=== PATIENT | female | born 1955 | race Caucasian/White ===

== ENCOUNTER 2016-09-30 12:25 | Inpatient (IN) | payer OTHER ==
[~2016-09-30] VITALS: Ht 152.4 cm; Wt 64.0 kg
[~2016-09-30 12:25] MED LIST: AMLO5TAB2 PO; AMOX1TAB11 PO; ARIP2TAB PO; ASPI81TA2 PO; ATOR20TA58 PO; CEPH-264 PO; CITA20TA9 PO; CYCL10TA2 PO; Cefpodoxime Proxetil PO; DIAZ5TAB PO; FLEXERIL; FLUC200T PO; FLUO20CA16 PO; FLUT1DIS3 INH; HYDR12.53 PO; HYDR12.58 PO; IPRA3AMP NEB; LEVO100T5 PO; LEVO112T4; LEVO500T38 PO; PANT40TA3 PO; PRED-220 PO; PRED20TA PO; SIMV20TA3 PO; VARE1TAB21
[2016-09-30 13:25] VITALS: BP 132/61
--- NOTE | 2016-09-30 13:56 | HP ---
ADMIT DATE: CHIEF COMPLAINT: Kidney infection. HISTORY OF PRESENT ILLNESS: A 61-year-old white female, who first developed symptoms of cystitis on 08/23/2016. She was given 3 days of Bactrim DS, which did not improve her symptoms. She went to urgent care and was told she had a urinary tract infection and was given 10 days of the same drug and a culture was done at that time. She finished 10 days and did not benefit from medication, so a few days ago she called urgent care to find out about the results of the culture. She was told she had a "resistant infection" and was sent Cipro to start taking, which she started on 09/29/2016. She continued to feel worse with fever, chills, back pain, nausea and vomiting and general malaise. Office evaluation showed evidence of pyelonephritis and she is admitted for failure of outpatient treatment. PAST MEDICAL HISTORY: She was admitted 1-1/2 years ago at [facility] for pyelo as well. She had a COPD admission in 05/2016. She has known COPD on oxygen. MEDICATIONS: She is on multiple medications including inhalers, thyroid and others. ALLERGIES: No specific allergies are noted. SOCIAL HISTORY: Quit smoking a few years ago, single, nonsmoker, nondrinker. FAMILY HISTORY: Unremarkable. REVIEW OF SYSTEMS: No other known problems. OBJECTIVE: ENT: Mucosa looks a little dry, otherwise within normal limits. NECK: No nodes, masses, or thyroid enlargement. LUNGS: Clear without wheezing at this time. CARDIOVASCULAR: Regular rate and mild tachycardia. No irregular beat or murmur. ABDOMEN: Tender in the left lower quadrant. No guarding, masses or rebound. BACK: Tender to palpation over both flanks, not over the midline. EXTREMITIES: Mildly decreased pedal pulses. No joint or skin lesions, 2+ clubbing is noted. NEUROLOGIC: Physiologic. ASSESSMENT: Acute pyelonephritis, failure of outpatient therapy. PLAN: IV fluids and Levaquin and urine cultures and supportive care. HECTOR MOBLEY MD DR: CAROL/jessica JOB#: [id number] / [id number]
[2016-09-30] MEDS ORDERED: ONDANSETRON PF 4 MG/2 ML VIAL. IV PRN (14:00)
[2016-09-30] MEDS: IV DEXTROSE 5%-LACT RINGERS 1,000 ML IV SCH ×2 (14:37→20:30)
[2016-09-30 14:44] LABS: BASO # 0.1 x10^3/uL (0.0-0.2); BASO % 1 % (0-3); EOS % 1 % (0-3); HEMATOCRIT 39.5 % (36.0-47.0); HEMOGLOBIN 13.4 g/dL (12.0-15.5); LYMPH # 2.4 x10^3/uL (1.0-4.8); LYMPH % 26 % (24-48); MEAN CORPUSCULAR HEMOGLOBIN 32 pg (25-35); MEAN CORPUSCULAR HGB CONC 34 g/dL (31-37); MEAN CORPUSCULAR VOLUME 94 fL (79-100); MONO % 5 % (0-9); NEUT % 67 % (31-73); PLATELET COUNT 240 x10^3/uL (140-400); RED BLOOD COUNT 4.22 x10^6/uL (3.50-5.40); RED CELL DISTRIBUTION WIDTH 13.9 % (11.5-14.5); WHITE BLOOD COUNT 9.3 x10^3/uL (4.0-11.0)
[2016-09-30 15:03] LABS: ALBUMIN 3.5 g/dL (3.4-5.0); ALBUMIN/GLOBULIN RATIO 0.9 (1.0-1.7); CALCIUM 9.2 mg/dL (8.5-10.1); CREATININE 1.1 mg/dL (0.6-1.0); GFR 50.5; POTASSIUM 3.6 mmol/L (3.5-5.1); TOTAL BILIRUBIN 0.3 mg/dL (0.2-1.0); TOTAL PROTEIN 7.3 g/dL (6.4-8.2)
[2016-09-30 15:05] LABS: BILIRUBIN,URINE NEGATIVE (NEG); GLUCOSE,URINE NEGATIVE (NEG); NITRITE,URINE NEGATIVE (NEG); PH,URINE 6.5; PROTEIN,URINE NEGATIVE (NEG-TRACE); UROBILINOGEN,URINE 0.2 mg/dL (0.2 mg/dL)
[2016-09-30] MEDS: IPRATRPIUM/ALBUTEROL 0.5/2.5MG 3 ML NEBU. NEB SCH ×2 (15:06→19:12)
[2016-09-30 15:10] VITALS: BP 114/57
[2016-09-30 15:12] LABS: BACTERIA,URINE 0 /HPF (0-FEW); RBC,URINE OCC /HPF (0-2); SQUAMOUS EPITHELIAL CELL,UR FEW /LPF
[2016-09-30 19:00] VITALS: BP 131/61
[2016-09-30] MEDS: ATORVASTATIN CALCIUM 20 MG TABLET PO SCH (20:30)
[2016-09-30 23:00] VITALS: BP 136/66
[2016-10-01] MEDS: IV DEXTROSE 5%-LACT RINGERS 1,000 ML IV SCH ×3 (06:04→22:00)
[2016-10-01] MEDS: LEVOTHYROXINE 100 MCG TABLET PO SCH (06:04)
[2016-10-01 07:00] VITALS: BP 117/74
[2016-10-01] MEDS: IPRATRPIUM/ALBUTEROL 0.5/2.5MG 3 ML NEBU. NEB SCH ×4 (08:13→20:01)
[2016-10-01] MEDS: hydroCHLOROthiazide 12.5 MG CAPSULE PO SCH (08:51)
[2016-10-01] MEDS: CITALOPRAM 20 MG TABLET. PO SCH (08:51)
[2016-10-01 10:54] VITALS: BP 119/70
--- NOTE | 2016-10-01 11:47 | PDOC ---
SUBJECTIVE Subjective still pain L flank and LLQ but better OBJECTIVE Vital Signs Vital Signs Date Time Temp Pulse Resp B/P (MAP) Pulse Ox O2 Delivery O2 Flow Rate FiO2 10/01/16 11:05 Nasal Cannula 2.0 10/01/16 10:54 97.7 71 18 119/70 (86) 94 Nasal Cannula 2.0 97.7 10/01/16 08:15 100 Nasal Cannula 2.0 10/01/16 08:00 Nasal Cannula 2.0 10/01/16 07:00 97.7 70 18 117/74 (88) 93 Room Air 97.7 09/30/16 23:00 98.1 74 18 136/66 (89) 90 Nasal Cannula 98.1 09/30/16 20:21 Nasal Cannula 2.0 09/30/16 19:13 96 09/30/16 19:00 98.1 80 18 131/61 (84) 97 Nasal Cannula 98.1 09/30/16 15:41 Nasal Cannula 2.0 09/30/16 15:10 98.6 75 18 114/57 (76) 98 Nasal Cannula 2.0 98.6 09/30/16 15:06 98 09/30/16 13:25 101.5 80 18 132/61 (84) 97 Nasal Cannula 2.0 101.5 I & O Intake and Output 10/01/16 06:59 Intake Total 1860 ml Balance 1860 ml Intake Oral 360 ml IV Total 1500 ml # Voids 5 PHYSICAL EXAM Physical Exam lungs few scattered wheezes heart RRR abd soft tender LLQ area and flank, volunteer gaurding , no rebound +BS ext no edema ASSESSMENT/PLAN Assessment/Plan 1- pyelonephritis continue antibiotic 2-copd continue nebulizer 3-HTN 4-HLD 5-anxiety/ Depression 6- chronic neck pain and DJD Problems: COMMENT Lab Laboratory Tests Test 09/30/16 14:35 09/30/16 15:00 White Blood Count 9.3 x10^3/uL (4.0-11.0) Red Blood Count 4.22 x10^6/uL (3.50-5.40) Hemoglobin 13.4 g/dL (12.0-15.5) Hematocrit 39.5 % (36.0-47.0) Mean Corpuscular Volume 94 fL (79-100) Mean Corpuscular Hemoglobin 32 pg (25-35) Mean Corpuscular Hemoglobin Concent 34 g/dL (31-37) Red Cell Distribution Width 13.9 % (11.5-14.5) Platelet Count 240 x10^3/uL (140-400) Neutrophils (%) (Auto) 67 % (31-73) Lymphocytes (%) (Auto) 26 % (24-48) Monocytes (%) (Auto) 5 % (0-9) Eosinophils (%) (Auto) 1 % (0-3) Basophils (%) (Auto) 1 % (0-3) Neutrophils # (Auto) 6.2 x10^3uL (1.8-7.7) Lymphocytes # (Auto) 2.4 x10^3/uL (1.0-4.8) Monocytes # (Auto) 0.5 x10^3/uL (0.0-1.1) Eosinophils # (Auto) 0.1 x10^3/uL (0.0-0.7) Basophils # (Auto) 0.1 x10^3/uL (0.0-0.2) Sodium Level 145 mmol/L (136-145) Potassium Level 3.6 mmol/L (3.5-5.1) Chloride Level 103 mmol/L (98-107) Carbon Dioxide Level 39 mmol/L (21-32) Anion Gap 3 (6-14) Blood Urea Nitrogen 19 mg/dL (7-20) Creatinine 1.1 mg/dL (0.6-1.0) Estimated GFR (Cockcroft-Gault) 50.5 BUN/Creatinine Ratio 17 (6-20) Glucose Level 131 mg/dL (70-99) Calcium Level 9.2 mg/dL (8.5-10.1) Total Bilirubin 0.3 mg/dL (0.2-1.0) Aspartate Amino Transf (AST/SGOT) 24 U/L (15-37) Alanine Aminotransferase (ALT/SGPT) 32 U/L (14-59) Alkaline Phosphatase 118 U/L (46-116) Total Protein 7.3 g/dL (6.4-8.2) Albumin 3.5 g/dL (3.4-5.0) Albumin/Globulin Ratio 0.9 (1.0-1.7) Urine Collection Type Unknown Urine Color Yellow Urine Clarity Clear Urine pH 6.5 Urine Specific [place] 1.010 Urine Protein Negative mg/dL (NEG-TRACE) Urine Glucose (UA) Negative mg/dL (NEG) Urine Ketones (Stick) Negative mg/dL (NEG) Urine Blood Negative (NEG) Urine Nitrite Negative (NEG) Urine Bilirubin Negative (NEG) Urine Urobilinogen Dipstick 0.2 mg/dL (0.2 mg/dL) Urine Leukocyte Esterase Trace (NEG) Urine RBC Occ /HPF (0-2) Urine WBC 5-10 /HPF (0-4) Urine Squamous Epithelial Cells Few /LPF Urine Bacteria 0 /HPF (0-FEW) Urine Mucus Slight /LPF ALONDRA AVELAR MD October 01, 2016 11:47
[2016-10-01] MEDS ORDERED: HYDROcodone/APAP 5/325MG 1 TAB TABLET PO PRN (12:00)
[2016-10-01] MEDS ORDERED: IOHEXOL 240 MG/ML 50ML VIAL. PO ONE (12:15)
[2016-10-01] MEDS: ENOXAPARIN 40 MG/0.4 ML SYRINGE. SQ SCH (15:02)
[2016-10-01 15:15] VITALS: BP 120/69
--- NOTE | 2016-10-01 15:25 | RAD ---
Indication left lower quadrant pain. Axial images of the abdomen and pelvis were obtained. Oral contrast was administered. IV contrast was not. No prior CT imaging of the abdomen or pelvis is available. The lung bases are clear. Liver and spleen appear unremarkable. There is a small stone in the gallbladder. No pancreatic abnormality is seen. The adrenal glands appear normal. There is a low-density 2.2 cm mass off the left kidney and a smaller 18 mm mass off the right. These likely reflect incidental cysts. A definite significant finding involving the kidneys is not seen. An acute finding in the abdomen is not seen. There is diverticular disease seen associated with the large bowel. This is most pronounced in the sigmoid colon. There are no significant surrounding inflammatory changes seen. No additional finding in the pelvis is seen. IMPRESSION: Diverticular disease predominantly in the sigmoid colon. Significant inflammatory changes are not seen. No definite acute finding seen in the abdomen or pelvis. Bilateral renal cysts. Cholelithiasis
[2016-10-01 19:00] VITALS: BP 115/56
[2016-10-01] MEDS: IBUPROFEN 800 MG TABLET. PO PRN (19:54)
[2016-10-01] MEDS: ATORVASTATIN CALCIUM 20 MG TABLET PO SCH (19:54)
[2016-10-01 23:00] VITALS: BP 121/57
[2016-10-02] MEDS: LEVOTHYROXINE 100 MCG TABLET PO SCH (05:06)
[2016-10-02] MEDS: IBUPROFEN 800 MG TABLET. PO PRN ×3 (05:06→19:46)
[2016-10-02] MEDS: IV DEXTROSE 5%-LACT RINGERS 1,000 ML IV SCH ×3 (05:07→19:48)
[2016-10-02 05:29] LABS: HEMATOCRIT 33.7 % (36.0-47.0); HEMOGLOBIN 11.7 g/dL (12.0-15.5); RED BLOOD COUNT 3.58 x10^6/uL (3.50-5.40); RED CELL DISTRIBUTION WIDTH 13.6 % (11.5-14.5); WHITE BLOOD COUNT 6.1 x10^3/uL (4.0-11.0)
[2016-10-02 05:43] LABS: ALBUMIN 2.6 g/dL (3.4-5.0); CALCIUM 8.5 mg/dL (8.5-10.1); CREATININE 0.7 mg/dL (0.6-1.0); GFR 85.1; POTASSIUM 3.4 mmol/L (3.5-5.1); TOTAL BILIRUBIN 0.2 mg/dL (0.2-1.0); TOTAL PROTEIN 5.2 g/dL (6.4-8.2)
[2016-10-02 07:00] VITALS: BP 143/68
[2016-10-02] MEDS: IPRATRPIUM/ALBUTEROL 0.5/2.5MG 3 ML NEBU. NEB SCH ×4 (07:17→19:47)
[2016-10-02] MEDS: hydroCHLOROthiazide 12.5 MG CAPSULE PO SCH (08:35)
[2016-10-02] MEDS: CITALOPRAM 20 MG TABLET. PO SCH (08:35)
[2016-10-02] MEDS ORDERED: POTASSIUM CHLORIDE 20 MEQ TABLET.ER. PO ONE (09:45)
[2016-10-02 11:13] VITALS: BP 133/55
--- NOTE | 2016-10-02 11:46 | PDOC ---
SUBJECTIVE Subjective feels better still pain R flank area and lower abd OBJECTIVE Vital Signs Vital Signs Date Time Temp Pulse Resp B/P (MAP) Pulse Ox O2 Delivery O2 Flow Rate FiO2 10/02/16 11:19 Nasal Cannula 2.0 10/02/16 11:13 97.9 75 18 133/55 (81) 95 Nasal Cannula 2.0 97.9 10/02/16 08:00 Nasal Cannula 2.0 10/02/16 07:19 98 Nasal Cannula 2.0 10/02/16 07:00 98.2 83 24 143/68 (93) 99 Room Air 98.2 10/01/16 23:00 98.1 75 18 121/57 (78) 96 Nasal Cannula 2.0 98.1 10/01/16 20:03 98 Nasal Cannula 2.0 10/01/16 20:00 Nasal Cannula 2.0 10/01/16 19:00 99.0 89 18 115/56 (75) 90 Nasal Cannula 2.0 99.0 10/01/16 16:13 Nasal Cannula 2.0 10/01/16 15:15 97.7 72 18 120/69 (86) 93 Nasal Cannula 2.0 97.7 I & O Intake and Output 10/02/16 07:00 Intake Total 1520 ml Balance 1520 ml Intake Oral 1520 ml # Voids 7 PHYSICAL EXAM Physical Exam lungs clear heart RRR abd tender all over more lower abd and right flank are today ext no edema ASSESSMENT/PLAN Assessment/Plan 1- pyelonephritis continue antibiotic 2-copd continue nebulizer 3-HTN 4-HLD 5-anxiety/ Depression 6- chronic neck pain and DJD 7. diverticulosis without diverticulitis 8. Cholelithiasis will check sono and PIPIDA she has mixed picture pain could be both cholecystitis and Pyelonephritis. Dr. Jaffe will resume care in AM Problems: COMMENT Lab Laboratory Tests Test 10/02/16 04:20 White Blood Count 6.1 x10^3/uL (4.0-11.0) Red Blood Count 3.58 x10^6/uL (3.50-5.40) Hemoglobin 11.7 g/dL (12.0-15.5) Hematocrit 33.7 % (36.0-47.0) Mean Corpuscular Volume 94 fL (79-100) Mean Corpuscular Hemoglobin 33 pg (25-35) Mean Corpuscular Hemoglobin Concent 35 g/dL (31-37) Red Cell Distribution Width 13.6 % (11.5-14.5) Platelet Count 192 x10^3/uL (140-400) Sodium Level 146 mmol/L (136-145) Potassium Level 3.4 mmol/L (3.5-5.1) Chloride Level 108 mmol/L (98-107) Carbon Dioxide Level 38 mmol/L (21-32) Anion Gap 0 (6-14) Blood Urea Nitrogen 9 mg/dL (7-20) Creatinine 0.7 mg/dL (0.6-1.0) Estimated GFR (Cockcroft-Gault) 85.1 BUN/Creatinine Ratio 13 (6-20) Glucose Level 131 mg/dL (70-99) Calcium Level 8.5 mg/dL (8.5-10.1) Total Bilirubin 0.2 mg/dL (0.2-1.0) Aspartate Amino Transf (AST/SGOT) 18 U/L (15-37) Alanine Aminotransferase (ALT/SGPT) 26 U/L (14-59) Alkaline Phosphatase 91 U/L (46-116) Total Protein 5.2 g/dL (6.4-8.2) Albumin 2.6 g/dL (3.4-5.0) Albumin/Globulin Ratio 1.0 (1.0-1.7) ALONDRA AVELAR MD October 02, 2016 11:46
[2016-10-02] MEDS: ENOXAPARIN 40 MG/0.4 ML SYRINGE. SQ SCH (12:00)
[2016-10-02 14:40] VITALS: BP 144/68
[2016-10-02 19:00] VITALS: BP 102/59
[2016-10-02] MEDS: ATORVASTATIN CALCIUM 20 MG TABLET PO SCH (19:46)
[2016-10-02 23:00] VITALS: BP 125/61
[2016-10-02] MEDS: TEMAZEPAM 15 MG CAPSULE PO PRN (23:48)
[2016-10-03] MEDS: IV DEXTROSE 5%-LACT RINGERS 1,000 ML IV SCH ×2 (03:09→19:45)
[2016-10-03] MEDS: LEVOTHYROXINE 100 MCG TABLET PO SCH (03:13)
[2016-10-03 04:03] LABS: HEMATOCRIT 33.8 % (36.0-47.0); HEMOGLOBIN 11.1 g/dL (12.0-15.5); RED BLOOD COUNT 3.51 x10^6/uL (3.50-5.40); RED CELL DISTRIBUTION WIDTH 13.5 % (11.5-14.5); WHITE BLOOD COUNT 6.6 x10^3/uL (4.0-11.0)
[2016-10-03 04:22] LABS: CALCIUM 8.6 mg/dL (8.5-10.1); CREATININE 0.7 mg/dL (0.6-1.0); GFR 85.1; POTASSIUM 3.8 mmol/L (3.5-5.1)
[2016-10-03 07:15] VITALS: BP 140/69
--- NOTE | 2016-10-03 07:23 | RAD ---
Indication: Right upper quadrant pain and nausea. The liver is normal in size. There is some increased echogenicity consistent with fatty infiltration. No discrete mass is identified. Gallbladder is without stones or sludge. No wall thickening or pericholecystic fluid is identified. No biliary duct dilatation is identified. The right kidney contains a 1.9 cm cyst. No calculi or hydronephrosis is seen. The pancreas is unremarkable. There is no ascites. Impression: 1. No evidence of cholelithiasis or acute cholecystitis. 2. Right renal cyst. 3. Fatty infiltration of the liver.
[2016-10-03] MEDS: IPRATRPIUM/ALBUTEROL 0.5/2.5MG 3 ML NEBU. NEB SCH ×4 (07:32→19:46)
--- NOTE | 2016-10-03 08:43 | PDOC ---
Provider Note Provider Note afeb, vss- c/o PRIEST since admit, likely caff lack- gb sono neg, doubt gb a problem re sxs so will cancel test at pt request, add excedrin for priest, likely dc on po cipro 10/04- urine cult neg as was on cipro at admit HECTOR MOBLEY MD October 03, 2016 08:43
[2016-10-03] MEDS: ASA/APAP/CAFFEINE 250/250/65MG TABLET. PO PRN ×2 (09:41→18:19)
[2016-10-03] MEDS: hydroCHLOROthiazide 12.5 MG CAPSULE PO SCH (09:41)
[2016-10-03] MEDS: CITALOPRAM 20 MG TABLET. PO SCH (09:42)
[2016-10-03 11:03] VITALS: BP 133/74
[2016-10-03] MEDS: IBUPROFEN 800 MG TABLET. PO PRN ×2 (13:19→20:50)
[2016-10-03 15:00] VITALS: BP 112/60
[2016-10-03 19:00] VITALS: BP 167/69
[2016-10-03] MEDS: ATORVASTATIN CALCIUM 20 MG TABLET PO SCH (20:50)
[2016-10-03 23:00] VITALS: BP 116/89
[2016-10-04] MEDS: TEMAZEPAM 15 MG CAPSULE PO PRN (00:19)
[2016-10-04] MEDS: IBUPROFEN 800 MG TABLET. PO PRN (02:37)
[2016-10-04] MEDS: IPRATRPIUM/ALBUTEROL 0.5/2.5MG 3 ML NEBU. NEB SCH ×2 (07:05→11:04)
[2016-10-04 07:40] VITALS: BP 147/73
--- NOTE | 2016-10-04 08:15 | DISCH ---
DISCHARGE INSTRUCTIONS Condition on Discharge Condition on Discharge: Stable Activity After Discharge Activity Instructions for Disc: No restrictions Diet after Discharge Diet after Discharge: Regular Follow-Up Follow up with: HECTOR Maloney MD October 04, 2016 08:15
--- NOTE | 2016-10-04 08:18 | PDOC ---
Provider Note Provider Note [id number] HECTOR MOBLEY MD October 04, 2016 08:18
[2016-10-04] MEDS: CITALOPRAM 20 MG TABLET. PO SCH (08:29)
[2016-10-04] MEDS: LEVOTHYROXINE 100 MCG TABLET PO SCH (08:29)
[2016-10-04] MEDS: hydroCHLOROthiazide 12.5 MG CAPSULE PO SCH (08:29)
--- NOTE | 2016-10-04 08:53 | DS ---
DATE OF DISCHARGE: 10/04/2016 HOSPITAL SUMMARY: A 61-year-old white female with failure of outpatient therapy for pyelonephritis, came in with nausea, vomiting and flank pain. Outpatient urine culture had shown citrobacter resistant to sulfa, which she had taken earlier and was sensitive to Cipro, which she had only one day when she came in. Chemistry profile was unremarkable, CBC showed normal values as well and the urinalysis showed white blood cells. Gallbladder sonogram and CT scan of the abdomen and pelvis showed no acute findings with bilateral renal cysts present of nonsuspicious nature and no sonographic evidence of gallstones. She was given IV levofloxacin and has done well and is afebrile, eating and drinking well and comfortable to be followed as an outpatient at this point. FINAL DIAGNOSES: Acute pyelonephritis. OPERATIONS, PROCEDURES, COMPLICATIONS, AND CONSULTATIONS: None. DISPOSITION: She will finish Cipro 500 mg twice a day for 1 week she has as an outpatient. Good fluid intake. Office followup as needed. Rest of home meds remains the same. Her prognosis is guarded given her oxygen-dependent COPD. HECTOR MOBLEY MD DR: CAROL/jessica JOB#: [id number] / [id number]
[2016-10-04 10:30] VITALS: BP 112/53
== END 2016-10-04 12:00 | disposition home or self-care (01) | DRG 690 ==
LOC: 5 SOUTH 12:57
PROVIDERS: ADMIT Family Medicine; ATTEND Family Medicine
DX: N10 Acute pyelonephritis (principal); J44.9 Chronic obstructive pulmonary disease, unspecified; E78.5 Hyperlipidemia, unspecified; F32.9 Major depressive disorder, single episode, unspecified; F41.9 Anxiety disorder, unspecified; G89.29 Other chronic pain; I10 Essential (primary) hypertension; K57.90 Diverticulosis of intestine, part unspecified, without perforation or abscess without bleeding; K80.20 Calculus of gallbladder without cholecystitis without obstruction; M19.90 Unspecified osteoarthritis, unspecified site; Z87.891 Personal history of nicotine dependence; Z99.81 Dependence on supplemental oxygen
CPT/HCPCS: 36415; 74176; 76705; 80048; 80053; 81001; 85027; 87086; 94250; 94640; 94760; J1650; J1956; J7620; Q9966

== ENCOUNTER → 2016-12-21 | Outpatient (CLI) | payer OTHER ==
[~2016-12-21] MED LIST changes: -ARIP2TAB PO; +ARIP2TAB3 PO; +ASPI-630 PO; -ASPI81TA2 PO; +CONTRAST GIVEN MC PRN; +IOHEXOL 240 MG/ML 50ML VIAL. PO ONE; +IOHEXOL 300 MG/ML 75 ML VIAL IV ONE; -LEVO500T38 PO; +LEVO500T59 PO
--- NOTE | 2016-12-21 10:47 | RAD ---
CT of the abdomen and pelvis with contrast, 12/21/2016: History: Left-sided pain, hematochezia Multidetector CT imaging was performed following oral and IV administration of contrast. Comparison is made to a study from 10/01/2016. No hepatic abnormality is detected. The gallbladder is unremarkable. The pancreas shows no abnormality. The spleen is of normal size. There is a 2.5 cm simple cyst arising from the lateral aspect of left kidney. A 2 cm cyst is seen posteriorly in the right kidney. There are 2 other subcentimeter low-density lesions in the right kidney and one in the upper pole of the left kidney. These are too small to definitively characterize but are probably cysts. The kidneys show no evidence of obstruction. There is slight low density thickening of the right adrenal gland, most likely due to a small adenoma. There is moderate aortoiliac calcific plaquing. There is slight dilatation of the infrarenal abdominal aorta which measures 2.5 cm in greatest AP diameter. No retroperitoneal or pelvic adenopathy is seen. The uterus is surgically absent. There are a few colonic diverticula, predominantly in the sigmoid region. No paracolonic inflammatory process is seen. The bowel loops are not dilated. A portion of the appendix is visualized and it is unremarkable. No free fluid or free air is evident in the abdomen or pelvis. There is a single mildly prominent mesenteric lymph node identified just the left of midline. It measures 10 x 11 mm. It appears to be unchanged since 10/01/2016. There is moderate degenerative change at the L5-S1 disc level. IMPRESSION: 1. Mild sigmoid diverticulosis. 2. A single mesenteric lymph node of borderline size is noted. 3. Bilateral renal cysts. 4. Moderate aortic atherosclerosis with slight dilatation of the infrarenal abdominal aorta. PQRS Compliance Statement: One or more of the following individualized dose reduction techniques were utilized for this examination: 1. Automated exposure control 2. Adjustment of the mA and/or kV according to patient size 3. Use of iterative reconstruction technique
== END | disposition home or self-care (01) ==
LOC: CT 09:25
PROVIDERS: ATTEND Family Medicine
DX: K57.30 Diverticulosis of large intestine without perforation or abscess without bleeding (principal); R10.30 Lower abdominal pain, unspecified; N28.1 Cyst of kidney, acquired; I70.0 Atherosclerosis of aorta
CPT/HCPCS: 74177; Q9966; Q9967

== ENCOUNTER → 2017-01-06 | Day surgery (SDC) | payer OTHER ==
[~2017-01-06] MED LIST changes: +ALBUTEROL SULFATE 2.5 MG/3 ML NEBU. NEB ONE; -CONTRAST GIVEN MC PRN; -IOHEXOL 240 MG/ML 50ML VIAL. PO ONE; -IOHEXOL 300 MG/ML 75 ML VIAL IV ONE; +IV RINGERS,LACTATED 1000ML 1,000 ML IV SCH; +LIDOCAINE 1% 1 ML SYRINGE. ID PRN; +LIDOCAINE 2% PF Vial for OR 5 ML VIAL. ONE; +ONDANSETRON PF 4 MG/2 ML VIAL. IV PRN; +PROCHLORPERAZINE 10 MG/2 ML VIAL. IV PRN; +PROPOFOL 20 ML IV ONE; +PROPOFOL 40 ML IV ONE; +TRAM50TA PO; +fentaNYL PF VIAL 100 MCG/2 ML VIAL IV PRN
[2017-01-06 09:09] VITALS: BP 124/76
== END | disposition home or self-care (01) ==
LOC: ENDOS 06:51
PROVIDERS: ATTEND Internal Medicine Gastroenterology
DX: K64.0 First degree hemorrhoids (principal); K57.30 Diverticulosis of large intestine without perforation or abscess without bleeding; K29.50 Unspecified chronic gastritis without bleeding; Z86.69 Personal history of other diseases of the nervous system and sense organs; E78.00 Pure hypercholesterolemia, unspecified; I10 Essential (primary) hypertension; J44.9 Chronic obstructive pulmonary disease, unspecified; J45.909 Unspecified asthma, uncomplicated; Z90.710 Acquired absence of both cervix and uterus; Z86.39 Personal history of other endocrine, nutritional and metabolic disease; E03.9 Hypothyroidism, unspecified; Z88.6 Allergy status to analgesic agent; Z88.8 Allergy status to other drugs, medicaments and biological substances
CPT/HCPCS: 43239; 45378; 94640; J2704; J7613; J2001

== ENCOUNTER 2017-07-01 11:38 | Inpatient (IN) | payer OTHER ==
[2017-07-01 12:12] LABS: ADD MAN DIFF? NO
[2017-07-01 12:19] LABS: BASO % 1 % (0-3); EOS % 1 % (0-3); HEMATOCRIT 41.9 % (36.0-47.0); HEMOGLOBIN 13.8 g/dL (12.0-15.5); LYMPH % 18 % (24-48); MEAN CORPUSCULAR HEMOGLOBIN 31 pg (25-35); MEAN CORPUSCULAR HGB CONC 33 g/dL (31-37); MEAN CORPUSCULAR VOLUME 94 fL (79-100); MONO # 0.3 x10^3/uL (0.0-1.1); MONO % 5 % (0-9); NEUT # 4.3 x10^3uL (1.8-7.7); NEUT % 76 % (31-73); PLATELET COUNT 176 x10^3/uL (140-400); RED BLOOD COUNT 4.45 x10^6/uL (3.50-5.40); RED CELL DISTRIBUTION WIDTH 14.1 % (11.5-14.5); WHITE BLOOD COUNT 5.7 x10^3/uL (4.0-11.0)
[2017-07-01] MEDS: IPRATRPIUM/ALBUTEROL 0.5/2.5MG 3 ML NEBU. NEB ×3 (12:20→19:19)
[2017-07-01 12:27] LABS: ANION GAP 2 (6-14); BLOOD UREA NITROGEN 12 mg/dL (7-20); BUN/CREATININE RATIO 24 (6-20); CALCIUM 9.3 mg/dL (8.5-10.1); CARBON DIOXIDE 39 mmol/L (21-32); CHLORIDE 101 mmol/L (98-107); CREATININE 0.5 mg/dL (0.6-1.0); GLUCOSE 127 mg/dL (70-99); POTASSIUM 3.7 mmol/L (3.5-5.1); SODIUM 142 mmol/L (136-145)
[2017-07-01 12:32] LABS: ALBUMIN 3.6 g/dL (3.4-5.0); ALBUMIN/GLOBULIN RATIO 1.1 (1.0-1.7); ALK PHOS 140 U/L (46-116); ALT (SGPT) 45 U/L (14-59); AST (SGOT) 30 U/L (15-37); TOTAL BILIRUBIN 0.2 mg/dL (0.2-1.0)
[2017-07-01 12:35] LABS: TROPONINI < 0.017 ng/mL (0.000-0.055)
[2017-07-01 12:40] LABS: NT-PRO BNP 726 pg/mL (0-124)
[2017-07-01 12:40] LABS: CKMB MASS 1.2 ng/mL (0.0-3.6); CREATINE KINASE 31 U/L (26-192)
[2017-07-01] MEDS: ASPIRIN 325 MG TABLET PO (12:52)
[2017-07-01] MEDS: IV NORMAL SALINE 1000ML BAG 1,000 ML IV ×3 (12:52→23:28)
[2017-07-01] MEDS: methylPREDNISolone SOD SUCC PF 125 MG/2 ML VIAL. IV ×3 (12:52→23:24)
[2017-07-01] MEDS ORDERED: fentaNYL PF VIAL 100 MCG/2 ML VIAL IV (14:15)
[2017-07-01] MEDS ORDERED: ACETAMINOPHEN 325 MG TABLET. PO (14:15)
[2017-07-01] MEDS ORDERED: ONDANSETRON PF 4 MG/2 ML VIAL. IV ×2 (14:15→16:00)
[2017-07-01] MEDS: OSELTAMIVIR 75 MG CAPSULE PO ×2 (16:06→20:49)
[2017-07-01] MEDS: traMADol 50 MG TABLET PO (20:49)
[2017-07-01] MEDS: ATORVASTATIN CALCIUM 20 MG TABLET PO (20:49)
[2017-07-01] MEDS: LEVOTHYROXINE 100 MCG TABLET PO (20:50)
[2017-07-01] MEDS: diazePAM 2 MG TABLET PO (20:50)
[2017-07-01] MEDS: CITALOPRAM 20 MG TABLET. PO (20:50)
[2017-07-01] MEDS: CYCLOBENZAPRINE 10 MG TABLET. PO (23:24)
[2017-07-02] MEDS: traMADol 50 MG TABLET PO ×2 (03:41→12:02)
[2017-07-02] MEDS: methylPREDNISolone SOD SUCC PF 125 MG/2 ML VIAL. IV ×3 (05:38→17:23)
[2017-07-02 05:57] LABS: ADD MAN DIFF? NO
[2017-07-02 06:24] LABS: BASO % 0 % (0-3); EOS % 0 % (0-3); HEMATOCRIT 36.3 % (36.0-47.0); HEMOGLOBIN 12.1 g/dL (12.0-15.5); LYMPH # 0.6 x10^3/uL (1.0-4.8); LYMPH % 15 % (24-48); MEAN CORPUSCULAR HEMOGLOBIN 31 pg (25-35); MEAN CORPUSCULAR HGB CONC 33 g/dL (31-37); MEAN CORPUSCULAR VOLUME 94 fL (79-100); MONO # 0.1 x10^3/uL (0.0-1.1); MONO % 1 % (0-9); NEUT # 3.6 x10^3uL (1.8-7.7); NEUT % 84 % (31-73); PLATELET COUNT 151 x10^3/uL (140-400); RED BLOOD COUNT 3.86 x10^6/uL (3.50-5.40); RED CELL DISTRIBUTION WIDTH 13.5 % (11.5-14.5); WHITE BLOOD COUNT 4.3 x10^3/uL (4.0-11.0)
[2017-07-02 06:33] LABS: ANION GAP 3 (6-14); BLOOD UREA NITROGEN 12 mg/dL (7-20); CARBON DIOXIDE 35 mmol/L (21-32); CHLORIDE 105 mmol/L (98-107); CREATININE 0.5 mg/dL (0.6-1.0); GLUCOSE 155 mg/dL (70-99); POTASSIUM 4.4 mmol/L (3.5-5.1); SODIUM 143 mmol/L (136-145)
[2017-07-02] MEDS: IPRATRPIUM/ALBUTEROL 0.5/2.5MG 3 ML NEBU. NEB ×3 (07:27→15:32)
[2017-07-02] MEDS: OSELTAMIVIR 75 MG CAPSULE PO ×2 (09:21→20:44)
[2017-07-02] MEDS: IV NORMAL SALINE 1000ML BAG 1,000 ML IV (10:07)
[2017-07-02] MEDS: IBUPROFEN 400 MG TABLET. PO ×2 (12:17→20:44)
[2017-07-02] MEDS: cefTRIAXone IV Push 1 GM VIAL. IVP (13:03)
[2017-07-02] MEDS: LACTOBACILLUS RHAMNOSUS GG 1 CAPSULE. PO ×2 (13:03→20:44)
[2017-07-02] MEDS: AZITHROMYCIN 250 MG TABLET. PO (13:03)
[2017-07-02] MEDS: CYCLOBENZAPRINE 10 MG TABLET. PO (17:08)
[2017-07-02] MEDS: LEVOTHYROXINE 100 MCG TABLET PO (20:43)
[2017-07-02] MEDS: CITALOPRAM 20 MG TABLET. PO (20:43)
[2017-07-02] MEDS: ATORVASTATIN CALCIUM 20 MG TABLET PO (20:43)
[2017-07-03] MEDS: methylPREDNISolone SOD SUCC PF 125 MG/2 ML VIAL. IV ×6 (00:01→23:32)
[2017-07-03] MEDS: IBUPROFEN 200 MG TABLET. PO ×2 (01:40→09:00)
[2017-07-03] MEDS: diazePAM 2 MG TABLET PO (03:49)
[2017-07-03] MEDS: IBUPROFEN 400 MG TABLET. PO ×3 (03:49→21:28)
[2017-07-03 07:12] LABS: HEMATOCRIT 38.1 % (36.0-47.0); HEMOGLOBIN 12.3 g/dL (12.0-15.5); MEAN CORPUSCULAR HEMOGLOBIN 31 pg (25-35); MEAN CORPUSCULAR HGB CONC 32 g/dL (31-37); MEAN CORPUSCULAR VOLUME 95 fL (79-100); PLATELET COUNT 157 x10^3/uL (140-400); RED BLOOD COUNT 4.03 x10^6/uL (3.50-5.40); RED CELL DISTRIBUTION WIDTH 13.9 % (11.5-14.5); WHITE BLOOD COUNT 11.1 x10^3/uL (4.0-11.0)
[2017-07-03 07:38] LABS: GFR 101.3; GLUCOSE 157 mg/dL (70-99)
[2017-07-03 07:56] LABS: ANION GAP 4 (6-14); BLOOD UREA NITROGEN 22 mg/dL (7-20); CALCIUM 9.5 mg/dL (8.5-10.1); CARBON DIOXIDE 37 mmol/L (21-32); CHLORIDE 104 mmol/L (98-107); CREATININE 0.6 mg/dL (0.6-1.0); POTASSIUM 4.8 mmol/L (3.5-5.1); SODIUM 145 mmol/L (136-145)
[2017-07-03] MEDS: AZITHROMYCIN 250 MG TABLET. PO (08:56)
[2017-07-03] MEDS: OSELTAMIVIR 75 MG CAPSULE PO ×2 (08:56→21:28)
[2017-07-03] MEDS: LACTOBACILLUS RHAMNOSUS GG 1 CAPSULE. PO ×2 (08:56→21:28)
[2017-07-03] MEDS: IPRATRPIUM/ALBUTEROL 0.5/2.5MG 3 ML NEBU. NEB ×4 (09:21→19:48)
[2017-07-03] MEDS: cefTRIAXone IV Push 1 GM VIAL. IVP (12:38)
[2017-07-03] MEDS: CITALOPRAM 20 MG TABLET. PO (21:28)
[2017-07-03] MEDS: ATORVASTATIN CALCIUM 20 MG TABLET PO (21:28)
[2017-07-03] MEDS: LEVOTHYROXINE 100 MCG TABLET PO (21:28)
[2017-07-04] MEDS: CYCLOBENZAPRINE 10 MG TABLET. PO ×2 (00:57→22:01)
[2017-07-04] MEDS: traMADol 50 MG TABLET PO (00:57)
[2017-07-04] MEDS: diazePAM 2 MG TABLET PO (00:57)
[2017-07-04] MEDS: methylPREDNISolone SOD SUCC PF 125 MG/2 ML VIAL. IV ×3 (05:52→18:03)
[2017-07-04] MEDS: IPRATRPIUM/ALBUTEROL 0.5/2.5MG 3 ML NEBU. NEB ×4 (08:20→19:57)
[2017-07-04] MEDS: AZITHROMYCIN 250 MG TABLET. PO (08:47)
[2017-07-04] MEDS: LACTOBACILLUS RHAMNOSUS GG 1 CAPSULE. PO ×2 (08:47→21:53)
[2017-07-04] MEDS: OSELTAMIVIR 75 MG CAPSULE PO ×2 (08:47→21:53)
[2017-07-04] MEDS: cefTRIAXone IV Push 1 GM VIAL. IVP (12:51)
[2017-07-04] MEDS: CITALOPRAM 20 MG TABLET. PO (21:53)
[2017-07-04] MEDS: LEVOTHYROXINE 100 MCG TABLET PO (21:53)
[2017-07-04] MEDS: IBUPROFEN 400 MG TABLET. PO (21:53)
[2017-07-04] MEDS: ATORVASTATIN CALCIUM 20 MG TABLET PO (21:53)
[2017-07-05] MEDS: methylPREDNISolone SOD SUCC PF 125 MG/2 ML VIAL. IV ×2 (01:06→05:32)
[2017-07-05] MEDS: IPRATRPIUM/ALBUTEROL 0.5/2.5MG 3 ML NEBU. NEB ×4 (07:56→20:32)
[2017-07-05] MEDS: LACTOBACILLUS RHAMNOSUS GG 1 CAPSULE. PO ×2 (08:07→21:47)
[2017-07-05] MEDS: CEFPODOXIME PROXETIL 100 MG TABLET. PO ×2 (08:07→21:46)
[2017-07-05] MEDS: OSELTAMIVIR 75 MG CAPSULE PO ×2 (08:07→21:47)
[2017-07-05] MEDS: AZITHROMYCIN 250 MG TABLET. PO (08:07)
[2017-07-05] MEDS: predniSONE 20 MG TABLET PO (10:55)
[2017-07-05] MEDS: IBUPROFEN 400 MG TABLET. PO ×2 (11:38→17:47)
[2017-07-05] MEDS: traMADol 50 MG TABLET PO (17:09)
[2017-07-05] MEDS: CITALOPRAM 20 MG TABLET. PO (21:46)
[2017-07-05] MEDS: ATORVASTATIN CALCIUM 20 MG TABLET PO (21:46)
[2017-07-05] MEDS: CYCLOBENZAPRINE 10 MG TABLET. PO (21:46)
[2017-07-05] MEDS: LEVOTHYROXINE 100 MCG TABLET PO (21:46)
[2017-07-05] MEDS: diazePAM 2 MG TABLET PO (21:47)
[2017-07-05] MEDS: IBUPROFEN 200 MG TABLET. PO (21:47)
[2017-07-06] MEDS: IPRATRPIUM/ALBUTEROL 0.5/2.5MG 3 ML NEBU. NEB (08:04)
[2017-07-06] MEDS: CEFPODOXIME PROXETIL 100 MG TABLET. PO (08:35)
[2017-07-06] MEDS: LACTOBACILLUS RHAMNOSUS GG 1 CAPSULE. PO (08:35)
[2017-07-06] MEDS: AZITHROMYCIN 250 MG TABLET. PO (08:35)
[2017-07-06] MEDS: predniSONE 20 MG TABLET PO (08:36)
[2017-07-06] MEDS: OSELTAMIVIR 75 MG CAPSULE PO (08:36)
== END 2017-07-06 12:04 | disposition home or self-care (01) | DRG 871 ==
LOC: ER 11:38 → 5 NORTH 13:57
DX: A41.9 Sepsis, unspecified organism (principal); J12.9 Viral pneumonia, unspecified; J96.01 Acute respiratory failure with hypoxia; J44.1 Chronic obstructive pulmonary disease with (acute) exacerbation; J45.901 Unspecified asthma with (acute) exacerbation; K21.9 Gastro-esophageal reflux disease without esophagitis; E03.9 Hypothyroidism, unspecified; E78.00 Pure hypercholesterolemia, unspecified; E78.5 Hyperlipidemia, unspecified; F17.200 Nicotine dependence, unspecified, uncomplicated; F32.9 Major depressive disorder, single episode, unspecified; F41.9 Anxiety disorder, unspecified; G43.909 Migraine, unspecified, not intractable, without status migrainosus; I10 Essential (primary) hypertension; I25.10 Atherosclerotic heart disease of native coronary artery without angina pectoris; K58.9 Irritable bowel syndrome, unspecified; M19.90 Unspecified osteoarthritis, unspecified site; K57.90 Diverticulosis of intestine, part unspecified, without perforation or abscess without bleeding; Z20.828 Contact with and (suspected) exposure to other viral communicable diseases; Z82.49 Family history of ischemic heart disease and other diseases of the circulatory system; Z87.11 Personal history of peptic ulcer disease; Z85.828 Personal history of other malignant neoplasm of skin; Z90.710 Acquired absence of both cervix and uterus; Z88.1 Allergy status to other antibiotic agents; Z88.5 Allergy status to narcotic agent
CPT/HCPCS: 36415; 71045; 80048; 80053; 82553; 83880; 84484; 85025; 85027; 93005; 94618; 94640; 96361; 96374; 99285; 99285-25; J0696; J2930; J7030; J7512; J7620; Q0144

== ENCOUNTER 2017-11-30 04:25 | Inpatient (IN) | payer OTHER ==
[2017-11-30 04:49] LABS: ADD MAN DIFF? NO
[2017-11-30 04:56] LABS: BASO # 0.1 x10^3/uL (0.0-0.2); BASO % 1 % (0-3); EOS # 0.2 x10^3/uL (0.0-0.7); EOS % 3 % (0-3); HEMATOCRIT 38.1 % (36.0-47.0); HEMOGLOBIN 12.6 g/dL (12.0-15.5); LYMPH # 1.6 x10^3/uL (1.0-4.8); LYMPH % 18 % (24-48); MEAN CORPUSCULAR HEMOGLOBIN 32 pg (25-35); MEAN CORPUSCULAR HGB CONC 33 g/dL (31-37); MEAN CORPUSCULAR VOLUME 96 fL (79-100); MONO # 0.4 x10^3/uL (0.0-1.1); MONO % 5 % (0-9); NEUT # 6.4 x10^3uL (1.8-7.7); NEUT % 74 % (31-73); PLATELET COUNT 242 x10^3/uL (140-400); RED BLOOD COUNT 3.98 x10^6/uL (3.50-5.40); RED CELL DISTRIBUTION WIDTH 13.8 % (11.5-14.5); WHITE BLOOD COUNT 8.6 x10^3/uL (4.0-11.0)
[2017-11-30] MEDS: IV NORMAL SALINE 500ML BAG 500 ML IV (05:00)
[2017-11-30 05:11] LABS: BLOOD UREA NITROGEN 13 mg/dL (7-20); CALCIUM 9.2 mg/dL (8.5-10.1); CARBON DIOXIDE 44 mmol/L (21-32); CHLORIDE 102 mmol/L (98-107); CREATININE 0.5 mg/dL (0.6-1.0); GLUCOSE 134 mg/dL (70-99); SODIUM 141 mmol/L (136-145)
[2017-11-30 05:12] LABS: PARTIAL THROMBOPLASTIN TIME 28 SEC (24-38); PROTHROMBIN TIME PATIENT 12.6 SEC (11.7-14.0)
[2017-11-30 05:16] LABS: ALBUMIN 3.9 g/dL (3.4-5.0); ALK PHOS 110 U/L (46-116); ALT (SGPT) 22 U/L (14-59); AST (SGOT) 12 U/L (15-37); DIRECT BILIRUBIN 0.1 mg/dL (0.0-0.2); TOTAL BILIRUBIN 0.2 mg/dL (0.2-1.0); TOTAL PROTEIN 6.7 g/dL (6.4-8.2)
[2017-11-30 05:16] LABS: ETHANOL < 10 mg/dL (0-10)
[2017-11-30 05:18] LABS: TROPONINI < 0.017 ng/mL (0.000-0.055)
[2017-11-30] MEDS: LIDOCAINE 1% PF 30 ML VIAL. INJ (06:00)
[2017-11-30] MEDS ORDERED: CONTRAST GIVEN. MC (06:00)
[2017-11-30] MEDS: IOHEXOL 300 MG/ML 100ML VIAL. IV (06:15)
[2017-11-30] MEDS: IPRATRPIUM/ALBUTEROL 0.5/2.5MG 3 ML NEBU. NEB ×5 (06:16→19:54)
[2017-11-30 07:36] LABS: BASE EXCESS ABG 10 mmol/L (-3-3); HCO3 ABG 39 mmol/L (21-28); PH ABG 7.31 (7.35-7.45); SAT O2 ABG 87 % (92-99)
[2017-11-30 07:39] LABS: PCO2 ABG 79 mmHg (35-46); PO2 ABG 48 mmHg (65-108)
[2017-11-30 07:40] LABS: FIO2 ABG 21
[2017-11-30] MEDS ORDERED: ONDANSETRON PF 4 MG/2 ML VIAL. IV (10:30)
[2017-11-30 11:36] LABS: CREATINE KINASE 46 U/L (26-192)
[2017-11-30 11:44] LABS: VITAMIN-B12 373 pg/mL (247-911)
[2017-11-30 12:43] LABS: BARBITURATES NEG (NEG); BENZODIAZEPINES POS (NEG); CANNABINOIDS NEG (NEG); COCAINE NEG (NEG); METHADONE NEG (NEG); OPIATES NEG (NEG); PHENCYCLIDINE NEG (NEG)
[2017-11-30 12:45] LABS: AMPHETAMINE/METHAMPHETAMINE NEG (NEG); ETHANOL, URINE NEG (NEG)
[2017-11-30] MEDS ORDERED: ACETAMINOPHEN 325 MG TABLET. PO (15:45)
[2017-11-30] MEDS: diazePAM 2 MG TABLET PO (15:50)
[2017-11-30 15:55] LABS: FREE T4 0.91 ng/dL (0.76-1.46)
[2017-11-30] MEDS: CYCLOBENZAPRINE 10 MG TABLET. PO (21:57)
[2017-11-30] MEDS: LEVOTHYROXINE 100 MCG TABLET PO (21:57)
[2017-11-30] MEDS: ATORVASTATIN CALCIUM 20 MG TABLET PO (21:57)
[2017-11-30] MEDS: CITALOPRAM 20 MG TABLET. PO (21:59)
[2017-12-01 04:16] LABS: ADD MAN DIFF? NO
[2017-12-01 04:25] LABS: BASO % 1 % (0-3); EOS # 0.1 x10^3/uL (0.0-0.7); EOS % 1 % (0-3); HEMATOCRIT 35.5 % (36.0-47.0); LYMPH # 1.3 x10^3/uL (1.0-4.8); LYMPH % 23 % (24-48); MEAN CORPUSCULAR HEMOGLOBIN 32 pg (25-35); MEAN CORPUSCULAR HGB CONC 34 g/dL (31-37); MEAN CORPUSCULAR VOLUME 94 fL (79-100); MONO # 0.3 x10^3/uL (0.0-1.1); MONO % 5 % (0-9); NEUT # 4.1 x10^3uL (1.8-7.7); NEUT % 70 % (31-73); PLATELET COUNT 212 x10^3/uL (140-400); RED BLOOD COUNT 3.77 x10^6/uL (3.50-5.40); RED CELL DISTRIBUTION WIDTH 13.4 % (11.5-14.5); WHITE BLOOD COUNT 5.8 x10^3/uL (4.0-11.0)
[2017-12-01 05:08] LABS: ALBUMIN 3.4 g/dL (3.4-5.0); ALBUMIN/GLOBULIN RATIO 1.1 (1.0-1.7); ALK PHOS 100 U/L (46-116); ALT (SGPT) 18 U/L (14-59); AST (SGOT) 16 U/L (15-37); BLOOD UREA NITROGEN 9 mg/dL (7-20); BUN/CREATININE RATIO 18 (6-20); CALCIUM 9.2 mg/dL (8.5-10.1); CREATININE 0.5 mg/dL (0.6-1.0); GLUCOSE 107 mg/dL (70-99); POTASSIUM 3.6 mmol/L (3.5-5.1); SODIUM 143 mmol/L (136-145); TOTAL BILIRUBIN 0.5 mg/dL (0.2-1.0); TOTAL PROTEIN 6.4 g/dL (6.4-8.2)
[2017-12-01 05:09] LABS: ANION GAP 1 (6-14); CARBON DIOXIDE 40 mmol/L (21-32); CHLORIDE 102 mmol/L (98-107)
[2017-12-01] MEDS: IPRATRPIUM/ALBUTEROL 0.5/2.5MG 3 ML NEBU. NEB ×4 (07:35→19:23)
[2017-12-01] MEDS: predniSONE 20 MG TABLET PO (08:54)
[2017-12-01] MEDS: traMADol 50 MG TABLET PO (12:27)
[2017-12-01] MEDS: diazePAM 2 MG TABLET PO (12:30)
[2017-12-01] MEDS: ATORVASTATIN CALCIUM 20 MG TABLET PO (21:06)
[2017-12-01] MEDS: LEVOTHYROXINE 112 MCG TABLET PO (21:07)
[2017-12-01] MEDS: IBUPROFEN 200 MG TABLET. PO (21:07)
[2017-12-01] MEDS: CITALOPRAM 20 MG TABLET. PO (21:07)
[2017-12-02 00:23] LABS: BILIRUBIN,URINE NEGATIVE (NEG); CLARITY,URINE CLOUDY; COLOR,URINE YELLOW; GLUCOSE,URINE NEGATIVE (NEG); NITRITE,URINE POSITIVE (NEG); PROTEIN,URINE NEGATIVE (NEG-TRACE)
[2017-12-02 00:32] LABS: BACTERIA,URINE MANY /HPF (0-FEW); SQUAMOUS EPITHELIAL CELL,UR FEW /LPF; WBC,URINE 20-40 /HPF (0-4)
[2017-12-02] MEDS: CYCLOBENZAPRINE 10 MG TABLET. PO ×2 (01:57→21:08)
[2017-12-02] MEDS: IPRATRPIUM/ALBUTEROL 0.5/2.5MG 3 ML NEBU. NEB ×4 (08:04→19:20)
[2017-12-02] MEDS: LACTOBACILLUS RHAMNOSUS GG 1 CAPSULE. PO ×2 (09:12→21:09)
[2017-12-02] MEDS: SMZ/TMP 800/160MG TABLET. PO ×2 (09:12→17:04)
[2017-12-02] MEDS: IBUPROFEN 200 MG TABLET. PO ×3 (09:12→21:09)
[2017-12-02] MEDS: traMADol 50 MG TABLET PO (17:07)
[2017-12-02] MEDS: CITALOPRAM 20 MG TABLET. PO (21:08)
[2017-12-02] MEDS: ATORVASTATIN CALCIUM 20 MG TABLET PO (21:09)
[2017-12-02] MEDS: LEVOTHYROXINE 112 MCG TABLET PO (21:09)
[2017-12-03] MEDS: IPRATRPIUM/ALBUTEROL 0.5/2.5MG 3 ML NEBU. NEB ×4 (07:28→19:15)
[2017-12-03] MEDS: LACTOBACILLUS RHAMNOSUS GG 1 CAPSULE. PO ×2 (10:07→21:12)
[2017-12-03] MEDS: SMZ/TMP 800/160MG TABLET. PO ×2 (10:07→18:01)
[2017-12-03] MEDS: IBUPROFEN 200 MG TABLET. PO ×2 (10:07→18:02)
[2017-12-03] MEDS: CYCLOBENZAPRINE 10 MG TABLET. PO (21:12)
[2017-12-03] MEDS: ATORVASTATIN CALCIUM 20 MG TABLET PO (21:12)
[2017-12-03] MEDS: LEVOTHYROXINE 112 MCG TABLET PO (21:12)
[2017-12-03] MEDS: traMADol 50 MG TABLET PO (21:12)
[2017-12-03] MEDS: CITALOPRAM 20 MG TABLET. PO (21:12)
[2017-12-03] MEDS: diazePAM 2 MG TABLET PO (22:54)
[2017-12-04] MEDS: IPRATRPIUM/ALBUTEROL 0.5/2.5MG 3 ML NEBU. NEB ×4 (07:11→19:29)
[2017-12-04] MEDS: SMZ/TMP 800/160MG TABLET. PO ×2 (08:00→17:23)
[2017-12-04] MEDS: LACTOBACILLUS RHAMNOSUS GG 1 CAPSULE. PO ×2 (08:48→19:57)
[2017-12-04] MEDS: IV RINGERS,LACTATED 1000ML 1,000 ML IV (10:42)
[2017-12-04] MEDS ORDERED: PROPOFOL 20 ML IV (11:54)
[2017-12-04] MEDS: IBUPROFEN 200 MG TABLET. PO (13:38)
[2017-12-04 16:40] LABS: BASE EXCESS ABG 6 mmol/L (-3-3); HCO3 ABG 32 mmol/L (21-28); PCO2 ABG 48 mmHg (35-46); PH ABG 7.44 (7.35-7.45); PO2 ABG 68 mmHg (65-108); SAT O2 ABG 94 % (92-99)
[2017-12-04 16:43] LABS: FIO2 ABG 32
[2017-12-04] MEDS: CITALOPRAM 20 MG TABLET. PO (19:57)
[2017-12-04] MEDS: CYCLOBENZAPRINE 10 MG TABLET. PO (19:57)
[2017-12-04] MEDS: ATORVASTATIN CALCIUM 20 MG TABLET PO (19:57)
[2017-12-04] MEDS: LEVOTHYROXINE 112 MCG TABLET PO (19:57)
[2017-12-04] MEDS: traMADol 50 MG TABLET PO (20:00)
[2017-12-05] MEDS: SMZ/TMP 800/160MG TABLET. PO (07:37)
[2017-12-05] MEDS: LACTOBACILLUS RHAMNOSUS GG 1 CAPSULE. PO (07:37)
[2017-12-05] MEDS: IBUPROFEN 200 MG TABLET. PO (07:38)
[2017-12-05] MEDS: traMADol 50 MG TABLET PO (07:40)
[2017-12-05] MEDS: IPRATRPIUM/ALBUTEROL 0.5/2.5MG 3 ML NEBU. NEB ×2 (08:32→12:45)
== END 2017-12-05 13:20 | disposition home or self-care (01) | DRG 166 ==
LOC: ER 04:25 → 4 NORTH 08:30
PROC: 0B9G8ZX Drainage of Left Upper Lung Lobe, Via Natural or Artificial Opening Endoscopic, Diagnostic (ICD-10-PCS; principal; 2017-12-04 11:00)
PROC: 0B9C8ZX Drainage of Right Upper Lung Lobe, Via Natural or Artificial Opening Endoscopic, Diagnostic (ICD-10-PCS; 2017-12-04 11:00)
PROC: 4A10X4Z Monitoring of Central Nervous Electrical Activity, External Approach (ICD-10-PCS; 2017-12-04 12:01)
DX: J96.21 Acute and chronic respiratory failure with hypoxia (principal); G93.41 Metabolic encephalopathy; S02.81XA Fracture of other specified skull and facial bones, right side, initial encounter for closed fracture; J96.22 Acute and chronic respiratory failure with hypercapnia; E03.9 Hypothyroidism, unspecified; E55.9 Vitamin D deficiency, unspecified; E66.9 Obesity, unspecified; E78.00 Pure hypercholesterolemia, unspecified; E78.5 Hyperlipidemia, unspecified; W18.30XA Fall on same level, unspecified, initial encounter; Y93.01 Activity, walking, marching and hiking; S01.81XA Laceration without foreign body of other part of head, initial encounter; J43.9 Emphysema, unspecified; M47.9 Spondylosis, unspecified; F13.90 Sedative, hypnotic, or anxiolytic use, unspecified, uncomplicated; R91.1 Solitary pulmonary nodule; F17.201 Nicotine dependence, unspecified, in remission; F32.9 Major depressive disorder, single episode, unspecified; I10 Essential (primary) hypertension; I25.10 Atherosclerotic heart disease of native coronary artery without angina pectoris; Z90.710 Acquired absence of both cervix and uterus; Z99.81 Dependence on supplemental oxygen; Z88.5 Allergy status to narcotic agent; Z88.8 Allergy status to other drugs, medicaments and biological substances; Y92.89 Other specified places as the place of occurrence of the external cause; Y99.8 Other external cause status; Z68.29 Body mass index [BMI] 29.0-29.9, adult; S06.2X0A Diffuse traumatic brain injury without loss of consciousness, initial encounter
CPT/HCPCS: 12011; 31622; 36415; 36600; 70450; 70486; 70551; 71260; 72125; 74177; 80048; 80053; 80076; 80307; 81001; 82306; 82550; 82607; 82805; 84439; 84443; 84481; 84484; 85025; 85610; 85730; 87070; 87086; 87102; 87116; 88112; 93005; 94640; 94760; 95816; 96360; 96361; 97116-GP; 97162-GP; 97166-GO; 99285; 99285-25; G0480; J2704; J7040; J7120; J7512; J7620

== ENCOUNTER 2018-01-25 10:57 | Inpatient (IN) | payer OTHER ==
[~2018-01-25] VITALS: Ht 162.6 cm; Wt 67.7 kg
[~2018-01-25 10:57] MED LIST changes: -ALBUTEROL SULFATE 2.5 MG/3 ML NEBU. NEB ONE; -AMLO5TAB2 PO; +AMLO5TAB7 PO; +CEFP100T PO; +DIAZ2TAB PO; -IPRA3AMP NEB; +IPRA3AMP29 NEB; -IV RINGERS,LACTATED 1000ML 1,000 ML IV SCH; -LIDOCAINE 1% 1 ML SYRINGE. ID PRN; -LIDOCAINE 2% PF Vial for OR 5 ML VIAL. ONE; -ONDANSETRON PF 4 MG/2 ML VIAL. IV PRN; -PROCHLORPERAZINE 10 MG/2 ML VIAL. IV PRN; -PROPOFOL 20 ML IV ONE; -PROPOFOL 40 ML IV ONE; -fentaNYL PF VIAL 100 MCG/2 ML VIAL IV PRN
[2018-01-25 12:20] VITALS: BP 133/104
[2018-01-25] MEDS ORDERED: ALBUTEROL SULFATE 2.5 MG/3 ML NEBU. NEB PRN (12:30)
[2018-01-25] MEDS ORDERED: CYCLOBENZAPRINE 10 MG TABLET. PO PRN (12:45)
[2018-01-25] MEDS: IPRATRPIUM/ALBUTEROL 0.5/2.5MG 3 ML NEBU. NEB SCH ×3 (13:00→18:30)
[2018-01-25] MEDS ORDERED: CEFPODOXIME PROXETIL 100 MG TABLET. PO SCH (13:30)
[2018-01-25] MEDS: predniSONE 10 MG TABLET PO SCH (13:45)
[2018-01-25 13:47] LABS: ALBUMIN 3.4 g/dL (3.4-5.0); ALBUMIN/GLOBULIN RATIO 1.1 (1.0-1.7); ALK PHOS 93 U/L (46-116); ALT (SGPT) 27 U/L (14-59); AST (SGOT) 13 U/L (15-37); BLOOD UREA NITROGEN 13 mg/dL (7-20); BUN/CREATININE RATIO 19 (6-20); CALCIUM 9.8 mg/dL (8.5-10.1); CHLORIDE 103 mmol/L (98-107); CREATININE 0.7 mg/dL (0.6-1.0); GFR 84.8; GLUCOSE 158 mg/dL (70-99); POTASSIUM 4.3 mmol/L (3.5-5.1); SODIUM 144 mmol/L (136-145); TOTAL BILIRUBIN 0.2 mg/dL (0.2-1.0); TOTAL PROTEIN 6.4 g/dL (6.4-8.2)
[2018-01-25 13:50] LABS: BASO % 1 % (0-3); EOS # 0.1 x10^3/uL (0.0-0.7); EOS % 2 % (0-3); HEMATOCRIT 35.7 % (36.0-47.0); HEMOGLOBIN 11.8 g/dL (12.0-15.5); LYMPH # 1.3 x10^3/uL (1.0-4.8); LYMPH % 20 % (24-48); MEAN CORPUSCULAR HEMOGLOBIN 32 pg (25-35); MEAN CORPUSCULAR HGB CONC 33 g/dL (31-37); MEAN CORPUSCULAR VOLUME 97 fL (79-100); MONO # 0.3 x10^3/uL (0.0-1.1); MONO % 4 % (0-9); NEUT # 4.8 x10^3uL (1.8-7.7); NEUT % 73 % (31-73); PLATELET COUNT 226 x10^3/uL (140-400); RED CELL DISTRIBUTION WIDTH 13.8 % (11.5-14.5); WHITE BLOOD COUNT 6.6 x10^3/uL (4.0-11.0)
[2018-01-25 13:51] LABS: CARBON DIOXIDE > 45 mmol/L (21-32)
[2018-01-25 14:34] LABS: BASE EXCESS COOX 15 mmol/L (-3-3); HCO3 COOX 45 mmol/L (21-28); METHEMOGLOBIN 0.2 % (0.0-1.9); OXYHEMOGLOBIN 95.4 %; PO2 COOX 110 mmHg (65-108); SAT O2 COOX 98 % (92-99)
[2018-01-25 14:43] LABS: PCO2 COOX 90 mmHg (35-46)
--- NOTE | 2018-01-25 15:16 | RAD ---
CHEST PA LATERAL History: COPD, shortness of breath Comparison: 07/01/2017 Findings: 2 views of the chest are submitted. There is emphysema. There is some opacity in the right upper lobe not apparent on previous radiograph although there was a peripherally nodular lesion of the right upper lobe on previous chest CT November 30, 2017. There is no dependent pleural fluid or pneumothorax. Impression: 1. There is somewhat nodular appearing opacity in the right upper lobe probably corresponding with the lesion seen on previous CT November 30, 2017. This would be more accurately compared by CT. There is emphysema. Electronically signed by: Robert Martinez MD (01/25/2018 3:13 PM) [id number]
[2018-01-25 17:29] LABS: BASE EXCESS ABG 15 mmol/L (-3-3); HCO3 ABG 45 mmol/L (21-28); PO2 ABG 55 mmHg (65-108); SAT O2 ABG 89 % (92-99)
[2018-01-25 17:31] LABS: FIO2 ABG 26; PCO2 ABG 90 mmHg (35-46)
[2018-01-25 19:13] VITALS: BP 134/74
--- NOTE | 2018-01-25 20:05 | PDOC ---
PULMONARY PROGRESS NOTES Vitals Vital Signs Date Time Temp Pulse Resp B/P (MAP) Pulse Ox O2 Delivery O2 Flow Rate FiO2 01/25/18 18:31 Nasal Cannula 2.0 01/25/18 15:27 96 01/25/18 12:20 98.3 111 22 133/104 (114) 98.3 General: Alert, No acute distress Lungs: Clear Cardiovascular: S1, S2 Abdomen: Soft Extremities: No Edema Labs Laboratory Tests Test 01/25/18 13:20 01/25/18 14:20 01/25/18 17:00 White Blood Count 6.6 x10^3/uL (4.0-11.0) Red Blood Count 3.70 x10^6/uL (3.50-5.40) Hemoglobin 11.8 g/dL (12.0-15.5) Hematocrit 35.7 % (36.0-47.0) Mean Corpuscular Volume 97 fL (79-100) Mean Corpuscular Hemoglobin 32 pg (25-35) Mean Corpuscular Hemoglobin Concent 33 g/dL (31-37) Red Cell Distribution Width 13.8 % (11.5-14.5) Platelet Count 226 x10^3/uL (140-400) Neutrophils (%) (Auto) 73 % (31-73) Lymphocytes (%) (Auto) 20 % (24-48) Monocytes (%) (Auto) 4 % (0-9) Eosinophils (%) (Auto) 2 % (0-3) Basophils (%) (Auto) 1 % (0-3) Neutrophils # (Auto) 4.8 x10^3uL (1.8-7.7) Lymphocytes # (Auto) 1.3 x10^3/uL (1.0-4.8) Monocytes # (Auto) 0.3 x10^3/uL (0.0-1.1) Eosinophils # (Auto) 0.1 x10^3/uL (0.0-0.7) Basophils # (Auto) 0.0 x10^3/uL (0.0-0.2) Sodium Level 144 mmol/L (136-145) Potassium Level 4.3 mmol/L (3.5-5.1) Chloride Level 103 mmol/L (98-107) Carbon Dioxide Level > 45 mmol/L (21-32) Anion Gap (6-14) Blood Urea Nitrogen 13 mg/dL (7-20) Creatinine 0.7 mg/dL (0.6-1.0) Estimated GFR (Cockcroft-Gault) 84.8 BUN/Creatinine Ratio 19 (6-20) Glucose Level 158 mg/dL (70-99) Lactic Acid Level 0.7 mmol/L (0.4-2.0) Calcium Level 9.8 mg/dL (8.5-10.1) Total Bilirubin 0.2 mg/dL (0.2-1.0) Aspartate Amino Transf (AST/SGOT) 13 U/L (15-37) Alanine Aminotransferase (ALT/SGPT) 27 U/L (14-59) Alkaline Phosphatase 93 U/L (46-116) Troponin I Quantitative < 0.017 ng/mL (0.000-0.055) Total Protein 6.4 g/dL (6.4-8.2) Albumin 3.4 g/dL (3.4-5.0) Albumin/Globulin Ratio 1.1 (1.0-1.7) O2 Saturation 98 % (92-99) 89 % (92-99) Arterial Blood pH 7.32 (7.35-7.45) 7.31 (7.35-7.45) Arterial Blood pCO2 at Patient Temp 90 mmHg (35-46) 90 mmHg (35-46) Arterial Blood pO2 at Patient Temp 110 mmHg (65-108) 55 mmHg (65-108) Arterial Blood HCO3 45 mmol/L (21-28) 45 mmol/L (21-28) Arterial Blood Base Excess 15 mmol/L (-3-3) 15 mmol/L (-3-3) Oxyhemoglobin 95.4 % Methemoglobin 0.2 % (0.0-1.9) Carbon Monoxide, Quantitative 2.4 % (0.0-1.9) FiO2 34 26 Laboratory Tests Test 01/25/18 13:20 01/25/18 14:20 01/25/18 17:00 White Blood Count 6.6 x10^3/uL (4.0-11.0) Red Blood Count 3.70 x10^6/uL (3.50-5.40) Hemoglobin 11.8 g/dL (12.0-15.5) Hematocrit 35.7 % (36.0-47.0) Mean Corpuscular Volume 97 fL (79-100) Mean Corpuscular Hemoglobin 32 pg (25-35) Mean Corpuscular Hemoglobin Concent 33 g/dL (31-37) Red Cell Distribution Width 13.8 % (11.5-14.5) Platelet Count 226 x10^3/uL (140-400) Neutrophils (%) (Auto) 73 % (31-73) Lymphocytes (%) (Auto) 20 % (24-48) Monocytes (%) (Auto) 4 % (0-9) Eosinophils (%) (Auto) 2 % (0-3) Basophils (%) (Auto) 1 % (0-3) Neutrophils # (Auto) 4.8 x10^3uL (1.8-7.7) Lymphocytes # (Auto) 1.3 x10^3/uL (1.0-4.8) Monocytes # (Auto) 0.3 x10^3/uL (0.0-1.1) Eosinophils # (Auto) 0.1 x10^3/uL (0.0-0.7) Basophils # (Auto) 0.0 x10^3/uL (0.0-0.2) Sodium Level 144 mmol/L (136-145) Potassium Level 4.3 mmol/L (3.5-5.1) Chloride Level 103 mmol/L (98-107) Carbon Dioxide Level > 45 mmol/L (21-32) Anion Gap (6-14) Blood Urea Nitrogen 13 mg/dL (7-20) Creatinine 0.7 mg/dL (0.6-1.0) Estimated GFR (Cockcroft-Gault) 84.8 BUN/Creatinine Ratio 19 (6-20) Glucose Level 158 mg/dL (70-99) Lactic Acid Level 0.7 mmol/L (0.4-2.0) Calcium Level 9.8 mg/dL (8.5-10.1) Total Bilirubin 0.2 mg/dL (0.2-1.0) Aspartate Amino Transf (AST/SGOT) 13 U/L (15-37) Alanine Aminotransferase (ALT/SGPT) 27 U/L (14-59) Alkaline Phosphatase 93 U/L (46-116) Troponin I Quantitative < 0.017 ng/mL (0.000-0.055) Total Protein 6.4 g/dL (6.4-8.2) Albumin 3.4 g/dL (3.4-5.0) Albumin/Globulin Ratio 1.1 (1.0-1.7) O2 Saturation 98 % (92-99) 89 % (92-99) Arterial Blood pH 7.32 (7.35-7.45) 7.31 (7.35-7.45) Arterial Blood pCO2 at Patient Temp 90 mmHg (35-46) 90 mmHg (35-46) Arterial Blood pO2 at Patient Temp 110 mmHg (65-108) 55 mmHg (65-108) Arterial Blood HCO3 45 mmol/L (21-28) 45 mmol/L (21-28) Arterial Blood Base Excess 15 mmol/L (-3-3) 15 mmol/L (-3-3) Oxyhemoglobin 95.4 % Methemoglobin 0.2 % (0.0-1.9) Carbon Monoxide, Quantitative 2.4 % (0.0-1.9) FiO2 34 26 Medications Active Scripts Medications Dose Route/Sig Max Daily Dose Days Date Category Dose Instructions Prednisone 20 Mg Tablet 20 Mg PO DAILY 07/06/17 Rx 2 tab daily x 3 days (starting 07/07), 1 tab daily x 3 days, 1/2 tab daily x 2 days Cefpodoxime Proxetil 100 Mg Tablet 200 Mg PO BID 3 07/06/17 Rx Cyclobenzaprine Hcl 10 Mg Tablet 1 Tab PO HS PRN 07/01/17 Reported Valium (Diazepam) 2 Mg Tablet 2 Mg PO DAILY PRN 07/01/17 Reported Tramadol Hcl 50 Mg Tablet 50 Mg PO DAILY PRN 01/06/17 Reported Duoneb 0.5-3(2.5) Mg/3 Ml (Albuterol/Ipratropium) 3 Ml Ampul.neb 3 Ml NEB RTQID 30 06/04/16 Rx Atorvastatin Calcium 20 Mg Tablet 20 Mg PO QHS 30 06/04/16 Rx Celexa (Citalopram Hydrobromide) 20 Mg Tablet 1 Tab PO HS 02/19/16 Reported Levothyroxine Sodium 100 Mcg Tablet 1 Tab PO HS 02/19/16 Reported Impression . NOTE DICTATED THANKS WILL REPEAT CT CHEST AGREE WITH CURRENT RX NAVI HENRY MD Jan 25, 2018 20:05
[2018-01-25] MEDS: LEVOTHYROXINE 100 MCG TABLET PO SCH (21:27)
[2018-01-25] MEDS: ATORVASTATIN CALCIUM 20 MG TABLET PO SCH (21:27)
[2018-01-25] MEDS: CITALOPRAM 20 MG TABLET. PO SCH (21:27)
[2018-01-25] MEDS: diazePAM 2 MG TABLET PO PRN (21:30)
--- NOTE | 2018-01-25 22:51 | CONS ---
DATE OF CONSULTATION: 01/25/2018 ATTENDING PHYSICIAN: Dr. Trevin Jaffe. REASON FOR CONSULTATION: The patient seen in pulmonary consultation at the request of Dr. Jaffe for acute on chronic hypercapnic respiratory failure, pH of 7.32, PaCO2 of 90, pO2 of 110. HISTORY OF PRESENT ILLNESS: The patient is a 62-year-old female that was seen here in the hospital back in November. At that time, she presented with abnormal CT of the chest, which was an incidental finding of a right upper lobe cavitary mass. The patient underwent bronchoscopy. Bronchoscopic evaluation was basically unremarkable. The patient followed up on 12/18/2017 in the office. She was due to undergo a repeat CT of the chest in January. She went to Dr. Jaffe's office today because of increasing shortness of breath over the last 2-3 days. She had some chills, fever, poor appetite. She normally wears 2-3 liters of oxygen at home. She actually bumped up her oxygen because she was more short of breath. She denies any significant mucus. No hemoptysis. PAST MEDICAL HISTORY: 1. Severe COPD. 2. Abnormal CT of the chest revealing right upper lobe air-filled cavities, status post bronchoscopy. So far, all cultures negative. The patient is scheduled to undergo repeat scan as an outpatient in January. 3. Tobacco dependence, in remission. 4. Coronary artery disease. 5. Hyperlipidemia. 6. Hypertension. 7. Hypothyroidism. PAST SURGICAL HISTORY: Status post bronchoscopy, status post hysterectomy. REVIEW OF SYSTEMS: CONSTITUTIONAL: Some subjective fever. EYES: No change in visual acuity. HEENT: No nasal congestion or sore throat. RESPIRATORY: As indicated above. CARDIOVASCULAR: As indicated above. No chest pain. No pressure. GASTROINTESTINAL: No nausea, vomiting, diarrhea, poor appetite. GENITOURINARY: No dysuria or frequency. MUSCULOSKELETAL: No localized muscle aches or joint pain. SKIN: No new skin rashes. NEUROLOGIC: No headaches, diplopia or blurred vision. ALLERGIES: BUPROPION, AND CODEINE. CURRENT MEDICATIONS: List was reviewed. Home medication list was reviewed. PHYSICAL EXAMINATION: GENERAL: The patient appeared to be in no respiratory distress. VITAL SIGNS: T-max was 98.3, blood pressure was elevated on 2 liters of oxygen supplementation. HEENT: Eyes, the sclerae were nonicteric. NECK: Jugular venous distention was not elevated. No lymphadenopathy. CHEST: Full expansion. LUNGS: Poor airway flow with some crackles. CARDIOVASCULAR: Regular rate and rhythm with S1, S2, no S3. ABDOMEN: Soft, nontender, nondistended. EXTREMITIES: No clubbing, cyanosis or edema. NEUROLOGIC: The patient was awake, alert, following commands. A detailed neuro exam was not performed. LABORATORY DATA: Reviewed. White count was normal. Hemoglobin and hematocrit were noted. Arterial blood gas as indicated above. IMPRESSION: 1. Acute on chronic hypercapnic respiratory failure. 2. Acute exacerbation of chronic obstructive pulmonary disease. 3. Right upper lobe air-filled cavitary lesion with some areas of thickened wall, status post bronchoscopy back in November of this year. 4. Tobacco dependence, in remission. 5. Chronic anemia. PLAN: 1. We will proceed with treating the acute exacerbation of COPD with steroids and nebulized treatments. 2. Repeat CT chest. 3. We will make further recommendation depending on the CT scan findings. 4. The patient instructed to avoid increase in oxygen above 2 liters. 5. No need for BiPAP at this time. I do appreciate the privilege in sharing this patient's care. NAVI HENRY MD DR: ARLEN/jessica JOB#: [id number] / [id number]
[2018-01-25 23:09] VITALS: BP 108/59
[2018-01-26 03:24] VITALS: BP 142/52
[2018-01-26] MEDS: IPRATRPIUM/ALBUTEROL 0.5/2.5MG 3 ML NEBU. NEB SCH ×4 (06:52→19:08)
[2018-01-26 07:00] VITALS: BP 141/78
--- NOTE | 2018-01-26 08:56 | PDOC ---
Provider Note Provider Note [id number] HECTOR MOBLEY MD Jan 26, 2018 08:55
[2018-01-26] MEDS: predniSONE 10 MG TABLET PO SCH (09:18)
--- NOTE | 2018-01-26 09:40 | RAD ---
CT of the chest without contrast, 01/26/2018: HISTORY: Cavitary lesion Noncontrast scans were obtained and compared to a study from 11/30/2017. There is calcific plaquing of the thoracic aorta without evidence of aneurysm. Several scattered coronary artery calcifications are present. There are calcified left hilar lymph nodes compatible with old granulomatous disease. No mediastinal adenopathy is evident. Emphysematous changes are present in the lungs. There are scattered parenchymal scars. There is a calcified granuloma in the left lower lobe. There is no evidence of pleural fluid. An air-containing cavitary lesion with irregular ji is again noted posteriorly in the right upper lobe. It abuts the pleura posteriorly. It measures 3.4 cm in greatest width on the axial scans, essentially unchanged since 11/30/2014. Soft tissue thickening along its lateral and inferior ji appears to have increased slightly. No other pulmonary mass is seen. There is no evidence of pleural fluid. Mild low density thickening of both adrenal glands is unchanged since 11/30/2017. Bilateral renal cysts are again noted. IMPRESSION: 1. Emphysema with parenchymal scarring. 2. The cavitary lesion in the right upper lobe has shown no definite change in overall size, although mild soft tissue mural thickening in some areas appears to have progressed slightly. A cavitary neoplasm remains a possibility. FDG PET/CT scanning may be useful for further evaluation. PQRS Compliance Statement: One or more of the following individualized dose reduction techniques were utilized for this examination: 1. Automated exposure control 2. Adjustment of the mA and/or kV according to patient size 3. Use of iterative reconstruction technique Electronically signed by: Ernie Nugent MD (01/26/2018 9:37 AM) [facility]
--- NOTE | 2018-01-26 09:50 | PDOC ---
PULMONARY PROGRESS NOTES Subjective PT STILL SOA WITH MINIMAL AMBULATION ASKING WHEN SHE IS GOING TO Vitals Vital Signs Date Time Temp Pulse Resp B/P (MAP) Pulse Ox O2 Delivery O2 Flow Rate FiO2 01/26/18 08:00 Nasal Cannula 2.0 01/26/18 07:00 96.7 92 20 141/78 (99) 96 96.7 ROS: No Nausea, No Chest Pain, No Abdominal Pain, No Increase Cough General: Alert Lungs: Clear, Other (VERY POOR AIRFLOW) Cardiovascular: S1, S2 Abdomen: Soft Neuro Exam: Alert Extremities: No Edema Skin: Warm Labs Laboratory Tests Test 01/25/18 13:20 01/25/18 14:20 01/25/18 17:00 White Blood Count 6.6 x10^3/uL (4.0-11.0) Red Blood Count 3.70 x10^6/uL (3.50-5.40) Hemoglobin 11.8 g/dL (12.0-15.5) Hematocrit 35.7 % (36.0-47.0) Mean Corpuscular Volume 97 fL (79-100) Mean Corpuscular Hemoglobin 32 pg (25-35) Mean Corpuscular Hemoglobin Concent 33 g/dL (31-37) Red Cell Distribution Width 13.8 % (11.5-14.5) Platelet Count 226 x10^3/uL (140-400) Neutrophils (%) (Auto) 73 % (31-73) Lymphocytes (%) (Auto) 20 % (24-48) Monocytes (%) (Auto) 4 % (0-9) Eosinophils (%) (Auto) 2 % (0-3) Basophils (%) (Auto) 1 % (0-3) Neutrophils # (Auto) 4.8 x10^3uL (1.8-7.7) Lymphocytes # (Auto) 1.3 x10^3/uL (1.0-4.8) Monocytes # (Auto) 0.3 x10^3/uL (0.0-1.1) Eosinophils # (Auto) 0.1 x10^3/uL (0.0-0.7) Basophils # (Auto) 0.0 x10^3/uL (0.0-0.2) Sodium Level 144 mmol/L (136-145) Potassium Level 4.3 mmol/L (3.5-5.1) Chloride Level 103 mmol/L (98-107) Carbon Dioxide Level > 45 mmol/L (21-32) Anion Gap (6-14) Blood Urea Nitrogen 13 mg/dL (7-20) Creatinine 0.7 mg/dL (0.6-1.0) Estimated GFR (Cockcroft-Gault) 84.8 BUN/Creatinine Ratio 19 (6-20) Glucose Level 158 mg/dL (70-99) Lactic Acid Level 0.7 mmol/L (0.4-2.0) Calcium Level 9.8 mg/dL (8.5-10.1) Total Bilirubin 0.2 mg/dL (0.2-1.0) Aspartate Amino Transf (AST/SGOT) 13 U/L (15-37) Alanine Aminotransferase (ALT/SGPT) 27 U/L (14-59) Alkaline Phosphatase 93 U/L (46-116) Troponin I Quantitative < 0.017 ng/mL (0.000-0.055) Total Protein 6.4 g/dL (6.4-8.2) Albumin 3.4 g/dL (3.4-5.0) Albumin/Globulin Ratio 1.1 (1.0-1.7) O2 Saturation 98 % (92-99) 89 % (92-99) Arterial Blood pH 7.32 (7.35-7.45) 7.31 (7.35-7.45) Arterial Blood pCO2 at Patient Temp 90 mmHg (35-46) 90 mmHg (35-46) Arterial Blood pO2 at Patient Temp 110 mmHg (65-108) 55 mmHg (65-108) Arterial Blood HCO3 45 mmol/L (21-28) 45 mmol/L (21-28) Arterial Blood Base Excess 15 mmol/L (-3-3) 15 mmol/L (-3-3) Oxyhemoglobin 95.4 % Methemoglobin 0.2 % (0.0-1.9) Carbon Monoxide, Quantitative 2.4 % (0.0-1.9) FiO2 34 26 Laboratory Tests Test 01/25/18 13:20 01/25/18 14:20 01/25/18 17:00 White Blood Count 6.6 x10^3/uL (4.0-11.0) Red Blood Count 3.70 x10^6/uL (3.50-5.40) Hemoglobin 11.8 g/dL (12.0-15.5) Hematocrit 35.7 % (36.0-47.0) Mean Corpuscular Volume 97 fL (79-100) Mean Corpuscular Hemoglobin 32 pg (25-35) Mean Corpuscular Hemoglobin Concent 33 g/dL (31-37) Red Cell Distribution Width 13.8 % (11.5-14.5) Platelet Count 226 x10^3/uL (140-400) Neutrophils (%) (Auto) 73 % (31-73) Lymphocytes (%) (Auto) 20 % (24-48) Monocytes (%) (Auto) 4 % (0-9) Eosinophils (%) (Auto) 2 % (0-3) Basophils (%) (Auto) 1 % (0-3) Neutrophils # (Auto) 4.8 x10^3uL (1.8-7.7) Lymphocytes # (Auto) 1.3 x10^3/uL (1.0-4.8) Monocytes # (Auto) 0.3 x10^3/uL (0.0-1.1) Eosinophils # (Auto) 0.1 x10^3/uL (0.0-0.7) Basophils # (Auto) 0.0 x10^3/uL (0.0-0.2) Sodium Level 144 mmol/L (136-145) Potassium Level 4.3 mmol/L (3.5-5.1) Chloride Level 103 mmol/L (98-107) Carbon Dioxide Level > 45 mmol/L (21-32) Anion Gap (6-14) Blood Urea Nitrogen 13 mg/dL (7-20) Creatinine 0.7 mg/dL (0.6-1.0) Estimated GFR (Cockcroft-Gault) 84.8 BUN/Creatinine Ratio 19 (6-20) Glucose Level 158 mg/dL (70-99) Lactic Acid Level 0.7 mmol/L (0.4-2.0) Calcium Level 9.8 mg/dL (8.5-10.1) Total Bilirubin 0.2 mg/dL (0.2-1.0) Aspartate Amino Transf (AST/SGOT) 13 U/L (15-37) Alanine Aminotransferase (ALT/SGPT) 27 U/L (14-59) Alkaline Phosphatase 93 U/L (46-116) Troponin I Quantitative < 0.017 ng/mL (0.000-0.055) Total Protein 6.4 g/dL (6.4-8.2) Albumin 3.4 g/dL (3.4-5.0) Albumin/Globulin Ratio 1.1 (1.0-1.7) O2 Saturation 98 % (92-99) 89 % (92-99) Arterial Blood pH 7.32 (7.35-7.45) 7.31 (7.35-7.45) Arterial Blood pCO2 at Patient Temp 90 mmHg (35-46) 90 mmHg (35-46) Arterial Blood pO2 at Patient Temp 110 mmHg (65-108) 55 mmHg (65-108) Arterial Blood HCO3 45 mmol/L (21-28) 45 mmol/L (21-28) Arterial Blood Base Excess 15 mmol/L (-3-3) 15 mmol/L (-3-3) Oxyhemoglobin 95.4 % Methemoglobin 0.2 % (0.0-1.9) Carbon Monoxide, Quantitative 2.4 % (0.0-1.9) FiO2 34 26 Medications Active Scripts Medications Dose Route/Sig Max Daily Dose Days Date Category Dose Instructions Prednisone 20 Mg Tablet 20 Mg PO DAILY 07/06/17 Rx 2 tab daily x 3 days (starting 07/07), 1 tab daily x 3 days, 1/2 tab daily x 2 days Cefpodoxime Proxetil 100 Mg Tablet 200 Mg PO BID 3 07/06/17 Rx Cyclobenzaprine Hcl 10 Mg Tablet 1 Tab PO HS PRN 07/01/17 Reported Valium (Diazepam) 2 Mg Tablet 2 Mg PO DAILY PRN 07/01/17 Reported Tramadol Hcl 50 Mg Tablet 50 Mg PO DAILY PRN 01/06/17 Reported Duoneb 0.5-3(2.5) Mg/3 Ml (Albuterol/Ipratropium) 3 Ml Ampul.neb 3 Ml NEB RTQID 30 06/04/16 Rx Atorvastatin Calcium 20 Mg Tablet 20 Mg PO QHS 30 06/04/16 Rx Celexa (Citalopram Hydrobromide) 20 Mg Tablet 1 Tab PO HS 02/19/16 Reported Levothyroxine Sodium 100 Mcg Tablet 1 Tab PO HS 02/19/16 Reported Impression . IMPRESSION: 1. Acute on chronic hypercapnic respiratory failure. 2. Acute exacerbation of chronic obstructive pulmonary disease. 3. Right upper lobe air-filled cavitary lesion with some areas of thickened wall, status post bronchoscopy back in November of this year. 4. Tobacco dependence, in remission. 5. Chronic anemia. CT CHEST IMPRESSION: 1. Emphysema with parenchymal scarring. 2. The cavitary lesion in the right upper lobe has shown no definite change in overall size, although mild soft tissue mural thickening in some areas appears to have progressed slightly. A cavitary neoplasm remains a possibility. FDG PET/CT scanning may be useful for further evaluation. Plan . CT REVIEWED CONSIDERING POOR LUNG FUNCTION I WOULD NOT RECOMMEND FNA PET SCANNING WILL BE POSITIVE FOR INFECTION AND MALIGNANCY THEREBY NOT HELPFUL WILL TREAT FOR NECROTIZING PNEUMONIA FOR NOW WITH 8 WEEKS OF AUGMENTIN CHECK TB SPOT TEST PT VERY SOA ABG NOTED NO NEEDE FOR BIPAP AT THIS TIME NAVI HENRY MD Jan 26, 2018 09:50
--- NOTE | 2018-01-26 10:50 | HP ---
ADMIT DATE: 01/25/2018 CHIEF COMPLAINT: Shortness of breath. HISTORY OF PRESENT ILLNESS: A 62-year-old white female with oxygen dependent COPD, who has quit smoking several months ago, but has had increasing shortness of breath over the last several days. A month ago, she had an endoscopy for right upper lobe lesion and there was no pathology of abnormal found and she is getting a CT scan at this time for further evaluation of this area. There has been no hemoptysis, fever, chills or other particular symptoms. PAST MEDICAL HISTORY: Well documented in the old record. ALLERGIES: TO BUPROPION IS NOTED. SOCIAL HISTORY: , employed, nonsmoker, nondrinker. FAMILY HISTORY: Unremarkable. REVIEW OF SYSTEMS: No other known problems. PHYSICAL EXAMINATION: ENT: All within normal limits. NECK: No masses, nodes or bruits. LUNGS: Decreased breath sounds, diffuse expiratory wheezes. CARDIOVASCULAR: Regular rate. No murmur. ABDOMEN: Soft, benign and nontender. EXTREMITIES: 2+ clubbing. Good pedal and radial pulses. No joint or skin lesions. NEUROLOGIC: Physiologic and nonfocal. ASSESSMENT: Acute exacerbation of chronic obstructive pulmonary disease in oxygen dependent patient. Previous cavitary lesion in the right upper lobe is being evaluated again by CT scan. PLAN: Continue current meds and assess CT report. Pulmonary consultation has already been obtained. Her blood gases are consistent with mild respiratory acidosis with significant metabolic compensation. HECTOR MOBLEY MD DR: CAROL/jessica JOB#: [id number] / [id number]
[2018-01-26 11:00] VITALS: BP 114/66
[2018-01-26] MEDS: traMADol 50 MG TABLET PO PRN ×2 (11:07→20:32)
[2018-01-26 15:00] VITALS: BP 126/75
[2018-01-26] MEDS: AMOXICILLIN/K CLAV 875/125MG TABLET. PO SCH (17:48)
[2018-01-26 19:00] VITALS: BP 144/53
[2018-01-26] MEDS: LEVOTHYROXINE 100 MCG TABLET PO SCH (20:32)
[2018-01-26] MEDS: ATORVASTATIN CALCIUM 20 MG TABLET PO SCH (20:32)
[2018-01-26] MEDS: CITALOPRAM 20 MG TABLET. PO SCH (20:32)
[2018-01-26] MEDS: diazePAM 2 MG TABLET PO PRN (20:35)
[2018-01-26 23:00] VITALS: BP 139/64
[2018-01-27 03:00] VITALS: BP 109/73
[2018-01-27] MEDS: traMADol 50 MG TABLET PO PRN ×2 (03:47→16:27)
[2018-01-27 07:48] VITALS: BP 141/76
[2018-01-27] MEDS: IPRATRPIUM/ALBUTEROL 0.5/2.5MG 3 ML NEBU. NEB SCH ×4 (07:54→19:37)
[2018-01-27] MEDS: predniSONE 10 MG TABLET PO SCH (08:18)
[2018-01-27] MEDS: AMOXICILLIN/K CLAV 875/125MG TABLET. PO SCH ×2 (08:18→20:39)
[2018-01-27 11:25] VITALS: BP 106/61
--- NOTE | 2018-01-27 13:21 | PN ---
DATE: 01/27/2018 LOCATION: She is in room 646. SUBJECTIVE: The patient is awake, alert, feels like she is actually moving some air today and is able to cough something up. She felt like she was ready to coming in, but feels like she has a little time left in her again today. OBJECTIVE: VITAL SIGNS: Stable. She is afebrile. O2 is at 2 liters per nasal cannula. CHEST: Reveals decreased breath sounds. HEART: Regular. ABDOMEN: Benign. LABORATORY DATA: CO2 on admission blood gases on the following day were 90. CT chest shows ongoing right upper lobe cavitary lesion with minimal change from prior imaging IMPRESSION: 1. Exacerbation of chronic obstructive pulmonary disease with respiratory failure. 2. Cavitary lesion, right upper lobe, with Pulmonary talking about fine needle aspiration of the same. PLAN: We will continue treatment for exacerbation of COPD and leave biopsies of the lung mass to Pulmonary direction JERONIMO TINOCO MD DR: ROCÍO/jessica JOB#: [id number] / [id number]
--- NOTE | 2018-01-27 14:15 | PDOC ---
PULMONARY PROGRESS NOTES Subjective PT LESS ALEKSANDR TODAY BUT STILL CURRY Vitals Vital Signs Date Time Temp Pulse Resp B/P (MAP) Pulse Ox O2 Delivery O2 Flow Rate FiO2 01/27/18 11:25 96.1 89 16 106/61 (76) 96 Nasal Cannula 2.0 96.1 ROS: No Nausea, No Chest Pain, No Abdominal Pain, No Increase Cough General: Alert Lungs: Clear, Other (VERY POOR AIRFLOW) Cardiovascular: S1, S2 Abdomen: Soft Neuro Exam: Alert Extremities: No Edema Skin: Warm Labs Laboratory Tests Test 01/25/18 14:20 01/25/18 17:00 O2 Saturation 98 % (92-99) 89 % (92-99) Arterial Blood pH 7.32 (7.35-7.45) 7.31 (7.35-7.45) Arterial Blood pCO2 at Patient Temp 90 mmHg (35-46) 90 mmHg (35-46) Arterial Blood pO2 at Patient Temp 110 mmHg (65-108) 55 mmHg (65-108) Arterial Blood HCO3 45 mmol/L (21-28) 45 mmol/L (21-28) Arterial Blood Base Excess 15 mmol/L (-3-3) 15 mmol/L (-3-3) Oxyhemoglobin 95.4 % Methemoglobin 0.2 % (0.0-1.9) Carbon Monoxide, Quantitative 2.4 % (0.0-1.9) FiO2 34 26 Medications Active Scripts Medications Dose Route/Sig Max Daily Dose Days Date Category Dose Instructions Prednisone 20 Mg Tablet 20 Mg PO DAILY 07/06/17 Rx 2 tab daily x 3 days (starting 07/07), 1 tab daily x 3 days, 1/2 tab daily x 2 days Cefpodoxime Proxetil 100 Mg Tablet 200 Mg PO BID 3 07/06/17 Rx Cyclobenzaprine Hcl 10 Mg Tablet 1 Tab PO HS PRN 07/01/17 Reported Valium (Diazepam) 2 Mg Tablet 2 Mg PO DAILY PRN 07/01/17 Reported Tramadol Hcl 50 Mg Tablet 50 Mg PO DAILY PRN 01/06/17 Reported Duoneb 0.5-3(2.5) Mg/3 Ml (Albuterol/Ipratropium) 3 Ml Ampul.neb 3 Ml NEB RTQID 30 06/04/16 Rx Atorvastatin Calcium 20 Mg Tablet 20 Mg PO QHS 30 06/04/16 Rx Celexa (Citalopram Hydrobromide) 20 Mg Tablet 1 Tab PO HS 02/19/16 Reported Levothyroxine Sodium 100 Mcg Tablet 1 Tab PO HS 02/19/16 Reported Impression . IMPRESSION: 1. Acute on chronic hypercapnic respiratory failure. 2. Acute exacerbation of chronic obstructive pulmonary disease. 3. Right upper lobe air-filled cavitary lesion with some areas of thickened wall, status post bronchoscopy back in November of this year. CULTURES NEGATIVE 4. Tobacco dependence, in remission. 5. Chronic anemia. CT CHEST IMPRESSION: 1. Emphysema with parenchymal scarring. 2. The cavitary lesion in the right upper lobe has shown no definite change in overall size, although mild soft tissue mural thickening in some areas appears to have progressed slightly. A cavitary neoplasm remains a possibility. FDG PET/CT scanning may be useful for further evaluation. Plan . D/C IN AM OK FOLLOW UP IN OFFICE CONSIDERING POOR LUNG FUNCTION I WOULD NOT RECOMMEND FNA PET SCANNING WILL BE POSITIVE FOR INFECTION AND MALIGNANCY THEREBY NOT HELPFUL WILL TREAT FOR NECROTIZING PNEUMONIA FOR NOW WITH 8 WEEKS OF AUGMENTIN CHECK TB SPOT TEST NAVI HENRY MD Jan 27, 2018 14:15
[2018-01-27 15:12] VITALS: BP 103/61
[2018-01-27 19:36] VITALS: BP 114/76
[2018-01-27] MEDS: ATORVASTATIN CALCIUM 20 MG TABLET PO SCH (20:38)
[2018-01-27] MEDS: LEVOTHYROXINE 100 MCG TABLET PO SCH (20:39)
[2018-01-27] MEDS: CITALOPRAM 20 MG TABLET. PO SCH (20:39)
[2018-01-27] MEDS: diazePAM 2 MG TABLET PO PRN (20:40)
[2018-01-27 23:08] VITALS: BP 118/71
[2018-01-28 07:00] VITALS: BP 139/64
[2018-01-28] MEDS: IPRATRPIUM/ALBUTEROL 0.5/2.5MG 3 ML NEBU. NEB SCH ×2 (07:16→11:27)
[2018-01-28] MEDS: AMOXICILLIN/K CLAV 875/125MG TABLET. PO SCH (07:32)
[2018-01-28] MEDS: traMADol 50 MG TABLET PO PRN (07:32)
[2018-01-28] MEDS: predniSONE 10 MG TABLET PO SCH (07:33)
[2018-01-28 11:00] VITALS: BP 135/66
--- NOTE | 2018-01-28 11:01 | PDOC ---
GENERAL General: see discharge summary. VITAL SIGNS Vital Signs: Vital Signs Date Time Temp Pulse Resp B/P (MAP) Pulse Ox O2 Delivery O2 Flow Rate FiO2 01/28/18 08:45 96 Nasal Cannula 2.0 01/28/18 07:00 97.9 89 18 139/64 (89) 97.9 I & O I & O Intake and Output 01/28/18 07:00 Intake Total 952 ml Output Total 250 ml Balance 702 ml Intake Oral 952 ml Output Urine Total 250 ml # Voids 6 # Bowel Movements 1 ALLERGIES Allergies: Allergies Coded Allergies Type Severity Reaction Last Updated Verified bupropion HCl Allergy Intermediate Swelling 12/04/17 Yes codeine Allergy Intermediate Hives 12/04/17 Yes MEDS Medications: Current Medications Medications (Trade) Dose Ordered Sig/Jeaneth Start Time Stop Time Status Last Admin Dose Admin Albuterol Sulfate (Ventolin Neb Soln) 2.5 mg PRN Q2HR PRN 01/25/18 12:30 Albuterol/ Ipratropium (Duoneb) 3 ml RTQID 01/25/18 13:00 01/28/18 07:16 3 ML Amoxicillin/ Clavulanate Potassium (Augmentin 875/ 125mg) 1 tab BID 01/26/18 16:30 01/28/18 07:32 1 TAB Atorvastatin Calcium (Lipitor) 20 mg QHS 01/25/18 21:00 01/27/18 20:38 20 MG Cefpodoxime Proxetil (Vantin) 200 mg BID 01/25/18 13:30 01/25/18 13:45 DC Citalopram Hydrobromide (CeleXA) 20 mg HS 01/25/18 21:00 01/27/18 20:39 20 MG Cyclobenzaprine HCl (Flexeril) 10 mg PRN QHS PRN 01/25/18 12:45 01/27/18 20:40 10 MG Diazepam (Valium) 2 mg PRN DAILY PRN 01/25/18 12:45 01/27/18 20:40 2 MG Levothyroxine Sodium (Synthroid) 100 mcg HS 01/25/18 21:00 01/27/18 20:39 100 MCG Prednisone (Prednisone) 50 mg DAILY 01/25/18 13:00 01/28/18 07:33 50 MG Tramadol HCl (Ultram) 50 mg PRN DAILY PRN 01/25/18 12:45 01/28/18 07:32 50 MG JERONIMO TINOCO MD Jan 28, 2018 11:01
--- NOTE | 2018-01-28 14:58 | DS ---
DATE OF DISCHARGE: 01/28/2018 PRIMARY DIAGNOSIS: Exacerbation of chronic obstructive pulmonary disease with acute respiratory failure. ADDITIONAL DIAGNOSES: Hypercarbia, right upper lung cavitary lung lesion of uncertain etiology. CHIEF COMPLAINT AND HISTORY OF PRESENT ILLNESS: This 62-year-old white female had increasing shortness of breath over the last few days. She was admitted for the same. SUMMARY OF STAY: The patient was admitted for an exacerbation of her COPD. Blood gases showed mild respiratory acidosis with a pH of 7.3 with pCO2 of 90. She was treated during the stay with pulmonary toilet, oxygen, steroids, antibiotics. Pulmonary followed along. Her right upper lobe cavitary mass was felt not to have shown definite change in overall silent size, although there was some mild soft tissue mural thickening and some areas that appeared to have progressed slightly. These were compared to a CT of 11/30/2017, which was almost a 2-month duration between pictures. She did improve, wished to go home. Pulmonary felt she should be on 30 mg of prednisone for 5 days and stop, remain on Augmentin for at least 6 weeks, was given some Diflucan for some yeast problems at 150 a day for 3 days. Otherwise, it will be her regular home meds and it was felt she could be dismissed with close outpatient followup. DISPOSITION: The patient is discharged to home. DIET: As tolerated. ACTIVITY: As tolerated. FOLLOWUP: Follow up with Dr. Jaffe in 1 week. DISCHARGE MEDICATIONS: Somewhat confusing to me because of a new button on the computer to do them and I am not sure that I have done them right, although her changes will be that of the Augmentin 875 b.i.d. for the next 6 weeks. She will be on prednisone 30 mg daily for 5 days and stop, and she will be on Diflucan 150 mg daily for 3 days and stop. Otherwise, it will be her regular home medications. JERONIMO TINOCO MD DR: ROCÍO/jessica JOB#: [id number] / [id number] HECTOR Barker MD
== END 2018-01-28 15:11 | disposition home or self-care (01) | DRG 189 ==
LOC: 6 SOUTH 11:04
PROVIDERS: ADMIT Family Medicine; ATTEND Family Medicine
DX: J96.22 Acute and chronic respiratory failure with hypercapnia (principal); J44.1 Chronic obstructive pulmonary disease with (acute) exacerbation; E87.2 Acidosis; D64.9 Anemia, unspecified; E03.9 Hypothyroidism, unspecified; E78.5 Hyperlipidemia, unspecified; F17.201 Nicotine dependence, unspecified, in remission; I10 Essential (primary) hypertension; I25.10 Atherosclerotic heart disease of native coronary artery without angina pectoris; Z90.710 Acquired absence of both cervix and uterus; Z99.81 Dependence on supplemental oxygen; Z88.8 Allergy status to other drugs, medicaments and biological substances; Z88.6 Allergy status to analgesic agent
CPT/HCPCS: 36415; 36600; 71046; 71250; 80053; 82805; 83605; 84484; 85025; 87040; 94640; 94660; 94760; J7512; J7620

== ENCOUNTER → 2018-03-12 | Outpatient (CLI) | payer OTHER ==
--- NOTE | 2018-03-12 14:29 | RAD ---
DATE: March 12, 2018 EXAM: DIGITAL SCREEN BILAT W/CAD HISTORY: Screening study. COMPARISON: December 27, 2013 This study was interpreted with the benefit of Computerized Aided Detection (CAD). FINDINGS: Breast Density: FATTY The breast parenchyma is primarily fatty replaced. Breast parenchyma level density A.. There are no dominant suspicious masses, suspicious microcalcifications or evidence of architectural distortion. IMPRESSION: No mammographic indicators for malignancy. BI-RADS CATEGORY: 1 NEGATIVE RECOMMENDED FOLLOW-UP: 12M 12 MONTH FOLLOW-UP PQRS compliance statement: Patient information was entered into a reminder system with a target due date March 13, 2019 for the next mammogram. Mammography is a sensitive method for finding small breast cancers, but it does not detect them all and is not a substitute for careful clinical examination. A negative mammogram does not negate a clinically suspicious finding and should not result in delay in biopsying a clinically suspicious abnormality. "Our facility is accredited by the [employer] Mammography Program." The patient's breast density may affect the ability of mammography to detect breast cancer. There are 4 categories of breast density, A, B, C and D. Breast density A means that most of the breast tissue is replaced with adipose tissue and therefore is not dense. Breast density B means that the breast tissue is mildly dense and scattered. Breast density C means that the breast tissue is heterogeneously dense. Breast density D means that the breast tissue is very dense. Breast densities especially C and D may decrease the sensitivity of mammography to detect breast cancer. Therefore, the patient may benefit from 3-D breast mammography (3D breast tomography) as a part of their screening mammogram. Insurance may or may not pay for this additional imaging. The patient's breast density based on today's mammogram is category A.
== END | disposition home or self-care (01) ==
LOC: MAMMO 13:22
PROVIDERS: ATTEND Family Medicine
DX: Z12.31 Encounter for screening mammogram for malignant neoplasm of breast (principal)
CPT/HCPCS: 77067

== ENCOUNTER → 2018-03-12 | Outpatient (CLI) | payer OTHER ==
--- NOTE | 2018-03-12 16:51 | RAD ---
Examination: CT chest without contrast HISTORY: History of lung nodule follow-up COMPARISON: 01/26/2018 TECHNIQUE: Axial CT images of the chest were performed without contrast. Coronal and sagittal reformats are performed Exposure: One or more of the following individualized dose reduction techniques were utilized for this examination: 1. Automated exposure control 2. Adjustment of the mA and/or kV according to patient size 3. Use of iterative reconstruction technique FINDINGS: The central airways are patent. Mild cardiomegaly. Coronary artery calcifications identified. Emphysematous changes identified in the bilateral lungs. Air containing cavitary lesion with irregular ji identified in the posterior right upper lobe is unchanged measuring 3.4 cm in transverse dimension. The nodular densities in the peripheral and inferior portion of the cavity similar to prior exam. No evidence of pleural effusion or pneumothorax. The visualized noncontrasted liver, spleen, adrenals grossly appears unremarkable. Cystic structure identified in the bilateral kidneys with the largest measuring 2.1 cm the left kidney similar to prior exam probably cysts. No evidence of lytic bony destructive lesion. IMPRESSION: Unchanged air-containing cavity in the right upper lobe of the lung similar to prior exam. Electronically signed by: Donavan Alford MD (03/12/2018 4:48 PM) [id number]
== END | disposition home or self-care (01) ==
LOC: CT 13:40
PROVIDERS: ATTEND Internal Medicine Pulmonary Disease
DX: R91.1 Solitary pulmonary nodule (principal); I25.10 Atherosclerotic heart disease of native coronary artery without angina pectoris; I51.7 Cardiomegaly
CPT/HCPCS: 71250

== ENCOUNTER 2018-03-23 15:26 | Inpatient (IN) | payer OTHER ==
[~2018-03-23] VITALS: Ht 154.9 cm; Wt 67.6 kg
--- NOTE | 2018-03-23 15:58 | EKG ---
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
[2018-03-23] MEDS ORDERED: IPRATRPIUM/ALBUTEROL 0.5/2.5MG 3 ML NEBU. NEB ONE (16:00)
[2018-03-23] MEDS ORDERED: methylPREDNISolone SOD SUCC PF 125 MG/2 ML VIAL. IV ONE (16:00)
--- NOTE | 2018-03-23 16:05 | PHYS DOC ---
Past Medical History Past Medical History: COPD, Depression, High Cholesterol, Hypothyroid Past Surgical History: Hysterectomy Additional Past Surgical Histo: Bladder sling Alcohol Use: None Drug Use: None Adult General Chief Complaint Chief Complaint: SHORTNESS OF BREATH HPI HPI Patient is a 62 year old female who presents with shortness of breath on and on for the last week but got worse yesterday. Daughter States the patient has started having altered mental status and forgetting her repeating herself yesterday. Patient usually wears 2-1/2 L of oxygen all day and upon arrival to the ED on 3 L of oxygen we had her at 59% on room air. On nonrebreather she is up to 98%. Patient states she did have some nausea and mid chest pain started today. Patient denies fever or cough or recent illness. Daughter states that yesterday the patient had a PET scan for her lungs because they found a spot where of her lungs there watching. Patient is allergic to Wellbutrin and codeine. She takes level thyroxine, atorvastatin, Prozac, Advair, incruse, and a albuterol nebulizer. The patient's nebulizer and inhalers have not been helping. Patient cannot speak in full sentences due to shortness of air. Review of Systems Review of Systems Constitutional: Denies fever or chills [] Eyes: Denies change in visual acuity, redness, or eye pain [] HENT: Denies nasal congestion or sore throat [] Respiratory: Denies cough. Shortness of breath [] Cardiovascular: Mid chest pain GI: Denies abdominal pain. nausea. Denies vomiting, bloody stools or diarrhea [] : Denies dysuria or hematuria [] Musculoskeletal: Denies back pain or joint pain [] Integument: Denies rash or skin lesions [] Neurologic: Denies headache, focal weakness or sensory changes [] Endocrine: Denies polyuria or polydipsia [] All other systems were reviewed and found to be within normal limits, except as documented in this note. Current Medications Current Medications Current Medications Medications (Trade) Dose Ordered Sig/Jeaneth Start Time Stop Time Status Last Admin Dose Admin Acetaminophen (Tylenol) 650 mg PRN Q4HRS PRN 03/23/18 17:15 03/24/18 17:14 Albuterol/ Ipratropium (Duoneb) 3 ml RTQID 03/23/18 20:00 03/24/18 19:59 Methylprednisolone Sodium Succinate (SOLU-Medrol 125MG VIAL) 125 mg 1X ONCE 03/23/18 16:00 03/23/18 16:01 DC 03/23/18 16:33 125 MG Ondansetron HCl (Zofran) 4 mg PRN Q8HRS PRN 03/23/18 17:15 03/24/18 17:14 Sodium Chloride 1,000 ml @ 80 mls/hr [id number] 03/23/18 17:13 03/24/18 17:12 Allergies Allergies Allergies Coded Allergies Type Severity Reaction Last Updated Verified bupropion HCl Allergy Intermediate Swelling 12/04/17 Yes codeine Allergy Intermediate Hives 12/04/17 Yes Physical Exam Physical Exam Constitutional: Well developed, well nourished, no acute distress, non-toxic appearance. [] HENT: Normocephalic, atraumatic, bilateral external ears normal, oropharynx moist, no oral exudates, nose normal. [] Eyes: PERRLA, EOMI, conjunctiva normal, no discharge. [] Neck: Normal range of motion, no tenderness, supple, no stridor. [] Cardiovascular:Heart rate regular rhythm, no murmur [] Lungs & Thorax: Bilateral breath sounds diminished to auscultation. Right upper lobe has some wheezing.[] Abdomen: Bowel sounds normal, soft, no tenderness, no masses, no pulsatile masses. [] Skin: Warm, dry, no erythema, no rash. [] Back: No tenderness, no CVA tenderness. [] Extremities: No tenderness, no cyanosis, no clubbing, ROM intact, no edema. [] Neurologic: Alert and oriented X 3, normal motor function, normal sensory function, no focal deficits noted. [] Psychologic: Affect normal, judgement normal, mood normal. [] Current Patient Data Vital Signs Vital Signs Date Time Temp Pulse Resp B/P (MAP) Pulse Ox O2 Delivery O2 Flow Rate FiO2 03/23/18 16:30 Nasal Cannula 3.0 03/23/18 15:52 97.7 104 24 106/70 (82) 55 97.7 Lab Values Laboratory Tests Test 03/23/18 16:16 03/23/18 17:03 White Blood Count 9.2 x10^3/uL (4.0-11.0) Red Blood Count 3.62 x10^6/uL (3.50-5.40) Hemoglobin 11.8 g/dL (12.0-15.5) L Hematocrit 35.4 % (36.0-47.0) L Mean Corpuscular Volume 98 fL (79-100) Mean Corpuscular Hemoglobin 33 pg (25-35) Mean Corpuscular Hemoglobin Concent 33 g/dL (31-37) Red Cell Distribution Width 13.9 % (11.5-14.5) Platelet Count 233 x10^3/uL (140-400) Neutrophils (%) (Auto) 89 % (31-73) H Lymphocytes (%) (Auto) 7 % (24-48) L Monocytes (%) (Auto) 3 % (0-9) Eosinophils (%) (Auto) 0 % (0-3) Basophils (%) (Auto) 1 % (0-3) Neutrophils # (Auto) 8.2 x10^3uL (1.8-7.7) H Lymphocytes # (Auto) 0.6 x10^3/uL (1.0-4.8) L Monocytes # (Auto) 0.3 x10^3/uL (0.0-1.1) Eosinophils # (Auto) 0.0 x10^3/uL (0.0-0.7) Basophils # (Auto) 0.1 x10^3/uL (0.0-0.2) Platelet Estimate Pending Sodium Level 150 mmol/L (136-145) H Potassium Level 4.1 mmol/L (3.5-5.1) Chloride Level 102 mmol/L (98-107) Carbon Dioxide Level > 45 mmol/L (21-32) H Anion Gap 3 (6-14) L Blood Urea Nitrogen 16 mg/dL (7-20) Creatinine 0.5 mg/dL (0.6-1.0) L Estimated GFR (Cockcroft-Gault) 125.0 Glucose Level 188 mg/dL (70-99) H Calcium Level 9.9 mg/dL (8.5-10.1) Total Bilirubin Pending Direct Bilirubin Pending Aspartate Amino Transferase (AST) Pending Alanine Aminotransferase (ALT) Pending Alkaline Phosphatase Pending Total Protein Pending Albumin Pending Lipase Pending Laboratory Tests 03/23/18 16:16 Laboratory Tests 03/23/18 17:03 EKG EKG Sinus tach no STEMI Interpretation Time: [address] Lagos Radiology/Procedures Radiology/Procedures Chest x-ray Impressions: [facility] [address] [place] [address] IMAGING REPORT Signed PATIENT: FIDELIA KATZ ACCOUNT: [id number] : 1955 LOCATION: ER AGE: 62 SEX: F EXAM STATUS: REG ER ORD. PHYSICIAN: KATHY LAGOS MD REASON: SOA PROCEDURE: CHEST AP ONLY CHEST AP ONLY History: Short of breath. Comparison: January 25. Heart size: Mildly enlarged in transverse diameter. Shruthi/mediastinum: Stable Lungs: There is an ill-defined opacity at the right upper lobe, roughly similar to the previous study. Pleura: No evidence of pleural effusion. Pneumothorax: None visualized Bones: Mild calcific tendinitis at the left shoulder. Miscellaneous: None Impression: 1. Faint opacity at the right upper lobe, roughly similar to the previous study. However, radiographic comparison will be limited, CT would be more accurate. 2. Mild enlargement of the cardiac silhouette, could represent mild cardiomegaly or pericardial effusion. Electronically signed by: Ac Avery MD (03/23/2018 4:38 PM) [facility] DICTATED and SIGNED BY: AC AVERY MD DATE: 03/23/18 1634 Course & Med Decision Making Course & Med Decision Making Patient is a 62 year old female who presents with shortness of breath on and on for the last week but got worse yesterday. Daughter States the patient has started having altered mental status and forgetting her repeating herself yesterday. Patient usually wears 2-1/2 L of oxygen all day and upon arrival to the ED on 3 L of oxygen we had her at 59% on room air. On nonrebreather she is up to 98%. Patient states she did have some nausea and mid chest pain started today. Patient denies fever or cough or recent illness. Daughter states that yesterday the patient had a PET scan for her lungs because they found a spot where of her lungs there watching. Patient is allergic to Wellbutrin and codeine. She takes level thyroxine, atorvastatin, Prozac, Advair, incruse, and a albuterol nebulizer. The patient's nebulizer and inhalers have not been helping. Patient cannot speak in full sentences due to shortness of air. Skin is pale but lips are pink and nailbeds are pink and blanchable. Patient's skin is warm and dry. She is alert and oriented. Lungs are diminished in all lobes and she has some wheezing could be heard in the right upper lobe. Patient's abdomen is soft and nontender. Patient has no extremity swelling. Patient has not had any recent immobilization or surgeries. Pulses are present in all extremities. EKG Sinus Tachy at 105 with no STEMI. A consult with Dr. Lagos and the patient will be admitted to her Dr. Jaffe and put on a BiPAP. After patient receiving methylprednisone and breathing treatment patient is able to be weaned to 3 L nasal cannula and she is satting the mid 90s. Patient can now talk in full sentences. She is alert and oriented. Her chest x-ray shows 1. Faint opacity at the right upper lobe, roughly similar to the previous study. However, radiographic comparison will be limited, CT would be more accurate. 2. Mild enlargement of the cardiac silhouette, could represent mild cardiomegaly or pericardial effusion. Troponin is negative. Dr. Jaffe who is her primary care and she will be admitted to the hospital for COPD exacerbation. Patient and family are agreeable with this plan. [] Dragon Disclaimer Dragon Disclaimer This electronic medical record was generated, in whole or in part, using a voice recognition dictation system. Departure Departure Impression: Primary Impression: Acute exacerbation of COPD with asthma Disposition: ADMITTED INPATIENT Admitting Physician: Hector Jaffe Condition: STABLE Referrals: HECTOR JAFFE MD (PCP) EVA YANEZ [employer]NA[employer] MANAGER Mar 23, 2018 16:05
[2018-03-23 16:32] LABS: BASO # 0.1 x10^3/uL (0.0-0.2); BASO % 1 % (0-3); EOS % 0 % (0-3); HEMATOCRIT 35.4 % (36.0-47.0); HEMOGLOBIN 11.8 g/dL (12.0-15.5); LYMPH # 0.6 x10^3/uL (1.0-4.8); LYMPH % 7 % (24-48); MEAN CORPUSCULAR HEMOGLOBIN 33 pg (25-35); MEAN CORPUSCULAR HGB CONC 33 g/dL (31-37); MEAN CORPUSCULAR VOLUME 98 fL (79-100); MONO # 0.3 x10^3/uL (0.0-1.1); MONO % 3 % (0-9); NEUT # 8.2 x10^3uL (1.8-7.7); NEUT % 89 % (31-73); PLATELET COUNT 233 x10^3/uL (140-400); RED BLOOD COUNT 3.62 x10^6/uL (3.50-5.40); RED CELL DISTRIBUTION WIDTH 13.9 % (11.5-14.5); WHITE BLOOD COUNT 9.2 x10^3/uL (4.0-11.0)
--- NOTE | 2018-03-23 16:41 | RAD ---
CHEST AP ONLY History: Short of breath. Comparison: January 25. Heart size: Mildly enlarged in transverse diameter. Shruthi/mediastinum: Stable Lungs: There is an ill-defined opacity at the right upper lobe, roughly similar to the previous study. Pleura: No evidence of pleural effusion. Pneumothorax: None visualized Bones: Mild calcific tendinitis at the left shoulder. Miscellaneous: None Impression: 1. Faint opacity at the right upper lobe, roughly similar to the previous study. However, radiographic comparison will be limited, CT would be more accurate. 2. Mild enlargement of the cardiac silhouette, could represent mild cardiomegaly or pericardial effusion. Electronically signed by: Ac Avery MD (03/23/2018 4:38 PM) [facility]
[2018-03-23] MEDS ORDERED: IV NORMAL SALINE 1000ML BAG 1,000 ML IV SCH (17:13)
[2018-03-23] MEDS ORDERED: ACETAMINOPHEN 325 MG TABLET. PO PRN (17:15)
[2018-03-23] MEDS ORDERED: ONDANSETRON PF 4 MG/2 ML VIAL. IV PRN (17:15)
[2018-03-23 17:28] LABS: BLOOD UREA NITROGEN 16 mg/dL (7-20); CALCIUM 9.9 mg/dL (8.5-10.1); CHLORIDE 102 mmol/L (98-107); CREATININE 0.5 mg/dL (0.6-1.0); GLUCOSE 188 mg/dL (70-99); POTASSIUM 4.1 mmol/L (3.5-5.1); SODIUM 150 mmol/L (136-145)
[2018-03-23 17:29] LABS: ANION GAP 3 (6-14); CARBON DIOXIDE > 45 mmol/L (21-32)
[2018-03-23 17:34] LABS: ALBUMIN 3.5 g/dL (3.4-5.0); ALK PHOS 111 U/L (46-116); ALT (SGPT) 36 U/L (14-59); AST (SGOT) 15 U/L (15-37); DIRECT BILIRUBIN 0.1 mg/dL (0.0-0.2); LIPASE 74 U/L (73-393); TOTAL BILIRUBIN 0.3 mg/dL (0.2-1.0); TOTAL PROTEIN 6.4 g/dL (6.4-8.2)
[2018-03-23 17:44] LABS: % BANDS 8 % (0-9); % LYMPHS 7 % (24-48); % MONOS 4 % (0-10); % SEGS 81 % (35-66); OVALOCYTES FEW; PLT ESTIMATE ADEQUATE (ADEQUATE)
[2018-03-23 17:50] LABS: BASE EXCESS ABG 17 mmol/L (-3-3); HCO3 ABG 50 mmol/L (21-28); PO2 ABG 97 mmHg (65-108); SAT O2 ABG 97 % (92-99)
[2018-03-23 17:54] LABS: PCO2 ABG 121 mmHg (35-46)
[2018-03-23] MEDS ORDERED: IPRATRPIUM/ALBUTEROL 0.5/2.5MG 3 ML NEBU. NEB SCH (20:00)
[2018-03-23 20:30] VITALS: BP 110/67
[2018-03-23 21:00] VITALS: BP 104/66
[2018-03-23] MEDS ORDERED: DIAZ2TAB PO (21:05)
[2018-03-23] MEDS ORDERED: diazePAM 2 MG TABLET PO PRN (21:15)
[2018-03-23] MEDS: ALPRAZolam 0.5 MG TABLET PO PRN (21:43)
[2018-03-23] MEDS: ATORVASTATIN CALCIUM 20 MG TABLET PO SCH (21:43)
[2018-03-23 22:00] VITALS: BP 110/71
[2018-03-23] MEDS ORDERED: LEVOTHYROXINE 100 MCG TABLET PO SCH (22:00)
[2018-03-23 23:00] VITALS: BP 116/72
[2018-03-24] VITALS (14 sets, daily range): BP systolic 83–152; BP diastolic 50–99
[2018-03-24] MEDS: LEVOTHYROXINE 100 MCG TABLET PO SCH (09:11)
[2018-03-24] MEDS: IPRATRPIUM/ALBUTEROL 0.5/2.5MG 3 ML NEBU. NEB SCH ×4 (09:25→20:12)
[2018-03-24 09:34] LABS: BASE EXCESS ABG 12 mmol/L (-3-3); HCO3 ABG 40 mmol/L (21-28); PO2 ABG 69 mmHg (65-108); SAT O2 ABG 93 % (92-99)
[2018-03-24 09:48] LABS: PCO2 ABG 77 mmHg (35-46)
[2018-03-24 09:49] LABS: FIO2 ABG 30
--- NOTE | 2018-03-24 11:12 | PDOC ---
Provider Note Provider Note [id number] HECTOR MOBLEY MD Mar 24, 2018 11:12
[2018-03-24] MEDS ORDERED: FUROSEMIDE 20 MG/2 ML VIAL. IVP ONE (11:15)
--- NOTE | 2018-03-24 11:16 | PDOC ---
PULMONARY PROGRESS NOTES Vitals Vital Signs Date Time Temp Pulse Resp B/P (MAP) Pulse Ox O2 Delivery O2 Flow Rate FiO2 03/24/18 10:00 87 22 92/60 (71) 93 Nasal Cannula 2.5 03/24/18 08:00 97.0 97.0 General: Alert Lungs: Clear, Other Cardiovascular: S1, S2 Abdomen: Soft Extremities: No Edema Labs Laboratory Tests Test 03/23/18 16:16 03/23/18 17:03 03/23/18 17:40 03/24/18 09:35 White Blood Count 9.2 x10^3/uL (4.0-11.0) Red Blood Count 3.62 x10^6/uL (3.50-5.40) Hemoglobin 11.8 g/dL (12.0-15.5) Hematocrit 35.4 % (36.0-47.0) Mean Corpuscular Volume 98 fL (79-100) Mean Corpuscular Hemoglobin 33 pg (25-35) Mean Corpuscular Hemoglobin Concent 33 g/dL (31-37) Red Cell Distribution Width 13.9 % (11.5-14.5) Platelet Count 233 x10^3/uL (140-400) Neutrophils (%) (Auto) 89 % (31-73) Lymphocytes (%) (Auto) 7 % (24-48) Monocytes (%) (Auto) 3 % (0-9) Eosinophils (%) (Auto) 0 % (0-3) Basophils (%) (Auto) 1 % (0-3) Neutrophils # (Auto) 8.2 x10^3uL (1.8-7.7) Lymphocytes # (Auto) 0.6 x10^3/uL (1.0-4.8) Monocytes # (Auto) 0.3 x10^3/uL (0.0-1.1) Eosinophils # (Auto) 0.0 x10^3/uL (0.0-0.7) Basophils # (Auto) 0.1 x10^3/uL (0.0-0.2) Segmented Neutrophils % 81 % (35-66) Band Neutrophils % 8 % (0-9) Lymphocytes % 7 % (24-48) Monocytes % 4 % (0-10) Platelet Estimate Adequate (ADEQUATE) Ovalocytes Few Sodium Level 150 mmol/L (136-145) Potassium Level 4.1 mmol/L (3.5-5.1) Chloride Level 102 mmol/L (98-107) Carbon Dioxide Level > 45 mmol/L (21-32) Anion Gap 3 (6-14) Blood Urea Nitrogen 16 mg/dL (7-20) Creatinine 0.5 mg/dL (0.6-1.0) Estimated GFR (Cockcroft-Gault) 125.0 Glucose Level 188 mg/dL (70-99) Calcium Level 9.9 mg/dL (8.5-10.1) Total Bilirubin 0.3 mg/dL (0.2-1.0) Direct Bilirubin 0.1 mg/dL (0.0-0.2) Aspartate Amino Transf (AST/SGOT) 15 U/L (15-37) Alanine Aminotransferase (ALT/SGPT) 36 U/L (14-59) Alkaline Phosphatase 111 U/L (46-116) Troponin I Quantitative 0.044 ng/mL (0.000-0.055) MQ-Vdm-D-Type Natriuretic Peptide 1628 pg/mL (0-124) Total Protein 6.4 g/dL (6.4-8.2) Albumin 3.5 g/dL (3.4-5.0) Lipase 74 U/L (73-393) O2 Saturation 97 % (92-99) 93 % (92-99) Arterial Blood pH 7.23 (7.35-7.45) 7.34 (7.35-7.45) Arterial Blood pCO2 at Patient Temp 121 mmHg (35-46) 77 mmHg (35-46) Arterial Blood pO2 at Patient Temp 97 mmHg (65-108) 69 mmHg (65-108) Arterial Blood HCO3 50 mmol/L (21-28) 40 mmol/L (21-28) Arterial Blood Base Excess 17 mmol/L (-3-3) 12 mmol/L (-3-3) FiO2 3 lpm nc 30 Laboratory Tests Test 03/23/18 16:16 03/23/18 17:03 03/23/18 17:40 03/24/18 09:35 White Blood Count 9.2 x10^3/uL (4.0-11.0) Red Blood Count 3.62 x10^6/uL (3.50-5.40) Hemoglobin 11.8 g/dL (12.0-15.5) Hematocrit 35.4 % (36.0-47.0) Mean Corpuscular Volume 98 fL (79-100) Mean Corpuscular Hemoglobin 33 pg (25-35) Mean Corpuscular Hemoglobin Concent 33 g/dL (31-37) Red Cell Distribution Width 13.9 % (11.5-14.5) Platelet Count 233 x10^3/uL (140-400) Neutrophils (%) (Auto) 89 % (31-73) Lymphocytes (%) (Auto) 7 % (24-48) Monocytes (%) (Auto) 3 % (0-9) Eosinophils (%) (Auto) 0 % (0-3) Basophils (%) (Auto) 1 % (0-3) Neutrophils # (Auto) 8.2 x10^3uL (1.8-7.7) Lymphocytes # (Auto) 0.6 x10^3/uL (1.0-4.8) Monocytes # (Auto) 0.3 x10^3/uL (0.0-1.1) Eosinophils # (Auto) 0.0 x10^3/uL (0.0-0.7) Basophils # (Auto) 0.1 x10^3/uL (0.0-0.2) Segmented Neutrophils % 81 % (35-66) Band Neutrophils % 8 % (0-9) Lymphocytes % 7 % (24-48) Monocytes % 4 % (0-10) Platelet Estimate Adequate (ADEQUATE) Ovalocytes Few Sodium Level 150 mmol/L (136-145) Potassium Level 4.1 mmol/L (3.5-5.1) Chloride Level 102 mmol/L (98-107) Carbon Dioxide Level > 45 mmol/L (21-32) Anion Gap 3 (6-14) Blood Urea Nitrogen 16 mg/dL (7-20) Creatinine 0.5 mg/dL (0.6-1.0) Estimated GFR (Cockcroft-Gault) 125.0 Glucose Level 188 mg/dL (70-99) Calcium Level 9.9 mg/dL (8.5-10.1) Total Bilirubin 0.3 mg/dL (0.2-1.0) Direct Bilirubin 0.1 mg/dL (0.0-0.2) Aspartate Amino Transf (AST/SGOT) 15 U/L (15-37) Alanine Aminotransferase (ALT/SGPT) 36 U/L (14-59) Alkaline Phosphatase 111 U/L (46-116) Troponin I Quantitative 0.044 ng/mL (0.000-0.055) SS-Mym-E-Type Natriuretic Peptide 1628 pg/mL (0-124) Total Protein 6.4 g/dL (6.4-8.2) Albumin 3.5 g/dL (3.4-5.0) Lipase 74 U/L (73-393) O2 Saturation 97 % (92-99) 93 % (92-99) Arterial Blood pH 7.23 (7.35-7.45) 7.34 (7.35-7.45) Arterial Blood pCO2 at Patient Temp 121 mmHg (35-46) 77 mmHg (35-46) Arterial Blood pO2 at Patient Temp 97 mmHg (65-108) 69 mmHg (65-108) Arterial Blood HCO3 50 mmol/L (21-28) 40 mmol/L (21-28) Arterial Blood Base Excess 17 mmol/L (-3-3) 12 mmol/L (-3-3) FiO2 3 lpm nc 30 Medications Active Scripts Medications Dose Route/Sig Max Daily Dose Days Date Category Valium (Diazepam) 2 Mg Tablet 2 Mg PO BID PRN 03/23/18 Reported Cyclobenzaprine Hcl 10 Mg Tablet 1 Tab PO HS PRN 07/01/17 Reported Valium (Diazepam) 2 Mg Tablet 2 Mg PO DAILY PRN 07/01/17 Reported Tramadol Hcl 50 Mg Tablet 50 Mg PO DAILY PRN 01/06/17 Reported Duoneb 0.5-3(2.5) Mg/3 Ml (Albuterol/Ipratropium) 3 Ml Ampul.neb 3 Ml NEB RTQID 30 06/04/16 Rx Atorvastatin Calcium 20 Mg Tablet 20 Mg PO QHS 30 06/04/16 Rx Celexa (Citalopram Hydrobromide) 20 Mg Tablet 1 Tab PO HS 02/19/16 Reported Levothyroxine Sodium 100 Mcg Tablet 1 Tab PO DAILY 02/19/16 Reported Impression . NOTE DICTATED SEE ORDERS A/C RESP FAILURE POSSIBLE CHF AECOPD NAVI HENRY MD Mar 24, 2018 11:16
[2018-03-24] MEDS: methylPREDNISolone SOD SUCC PF 40 MG/ML VIAL. IV SCH ×2 (11:30→20:39)
--- NOTE | 2018-03-24 11:36 | HP ---
ADMIT DATE: 03/24/2018 CHIEF COMPLAINT: Shortness of breath. HISTORY OF PRESENT ILLNESS: A 62-year-old white female on oxygen for COPD, has been off smoking for several months and since been doing well, went for a PET scan because of a right upper lobe lesion and since that time about 2 days ago, she has had increasing wheezing, cough and shortness of breath. She denies orthopnea, hemoptysis, fever, chills, sputum production or chest pain. She had significant respiratory acidosis in the ER and required BiPAP overnight and is doing better this morning and feeling more back to baseline. CURRENT MEDICATIONS: Noted. ALLERGIES: ALLERGIES TO CODEINE AND WELLBUTRIN ARE PRESENT. IMMUNIZATIONS: Up-to-date. SOCIAL HISTORY: She is , employed. Nondrinker, nonsmoker. FAMILY HISTORY: Unremarkable. REVIEW OF SYSTEMS: No other complaints. PHYSICAL EXAMINATION: ENT: All within normal limits. NECK: No masses, nodes or bruits. LUNGS: No tachypnea. She has faint diffuse expiratory wheezes. No dullness is noted. CARDIOVASCULAR: Regular rate. No irregular beat, murmur or tachycardia. ABDOMEN: Soft, benign and nontender. EXTREMITIES: Good pedal and radial pulses. No joint or skin lesions or edema and 1+ clubbing is noted. NEUROLOGIC: Physiologic, sleepy from opening up overnight with BiPAP. ASSESSMENT: Acute exacerbation of chronic obstructive pulmonary disease. No sign of secondary infection at this time. PLAN: Continue IV steroids, respiratory treatments and supportive care. HECTOR MOBLEY MD DR: CAROL/jessica JOB#: [id number] / [id number]
[2018-03-24] MEDS: DOXYCYCLINE HYCLATE 100 MG TABLET PO SCH ×2 (12:15→20:39)
[2018-03-24] MEDS: FLUoxetine HCL 20 MG CAPSULE PO SCH (12:16)
[2018-03-24] MEDS: IBUPROFEN 400 MG TABLET. PO PRN (16:57)
[2018-03-24] MEDS: ATORVASTATIN CALCIUM 20 MG TABLET PO SCH (20:39)
[2018-03-24] MEDS: ALPRAZolam 0.5 MG TABLET PO PRN (20:39)
[2018-03-24] MEDS ORDERED: CITALOPRAM 20 MG TABLET. PO SCH (21:00)
--- NOTE | 2018-03-25 01:02 | CONS ---
DATE OF CONSULTATION: 03/24/2018 ATTENDING PHYSICIAN: Trevin Jaffe M.D. CONSULTING PHYSICIAN: Navi Henry M.D. REASON FOR CONSULTATION: The patient seen in Pulmonary consultation at the request of Dr. Jaffe for bjzwa-ze-xoadmse hypoxemic hypercapnic respiratory failure. HISTORY OF PRESENT ILLNESS: The patient presented with arterial blood gas: pH of 7.23, PaCO2 of 121 and pO2 of 97. The patient is a 62-year-old female well known to me from previous hospitalization and outpatient evaluation for a right upper lobe with air filled cavity. The patient has undergone bronchoscopy in the past. No evidence of infection or malignancy. She underwent a PET scan just 2 days ago, results are pending. She presented because of the decreased O2 saturations at home. She is normally on 2.5-3 liters. Denies fever or chills. She had a cough, mostly nonproductive. The patient lives with her daughter. She apparently has been compliant with her oxygen and BiPAP at bedtime and bronchodilators. Chest x-ray was obtained. I reviewed it. There is patchy infiltrates that appear to be slightly more prominent than previous x-ray. PAST MEDICAL HISTORY: 1. Severe COPD. 2. Abnormal CT of the chest. Previous workup was negative for malignancy revealing right upper lobe air-filled cavity. The patient recently underwent PET scan. 3. Tobacco dependence, in remission. 4. Coronary artery disease. 5. Chronic hypoxemic hypercapnic respiratory failure. 6. Hyperlipidemia. 7. Hypertension. 8. Hypothyroidism. REVIEW OF SYSTEMS: CONSTITUTIONAL: No fever or chills. EYES: No change in visual acuity. HEAD, EARS, NOSE AND THROAT: No nasal congestion or sore throat. RESPIRATORY: As indicated above. CARDIOVASCULAR: No chest pain. No pressure. GASTROINTESTINAL: No nausea, vomiting or diarrhea. GENITOURINARY: No dysuria or frequency. MUSCULOSKELETAL: No localized muscle aches or joint pains. SKIN: No skin rashes. NEUROLOGICAL: No headaches, diplopia or blurred vision. ALLERGIES: To BUPROPION and CODEINE. HOME MEDICATIONS: List was reviewed. VACCINATION HISTORY: The patient is up-to-date on flu and pneumonia. PHYSICAL EXAMINATION: VITAL SIGNS: Stable. O2 saturation was greater than 92%, currently back to 2.5 liters. HEENT: Eyes, the sclerae were nonicteric. NECK: Jugular venous distention was not elevated. No lymphadenopathy. CHEST: Full expansion. LUNGS: Adequate airway flow with no wheezes. CARDIOVASCULAR: Regular rate and rhythm with S1 and S2. No S3. ABDOMEN: Soft, nontender and nondistended. EXTREMITIES: No clubbing, cyanosis or edema. NEUROLOGICAL: The patient was awake, alert and following commands. A detailed neuro exam was not performed. LABORATORY DATA: Labs were reviewed. White count was noted. Hemoglobin and hematocrit were noted. Arterial blood gas as indicated above. RADIOLOGICAL DATA: Chest x-ray as indicated above, increasing infiltrates. IMPRESSION: 1. Dbnex-aw-vmjfuve hypoxemic hypercapnic respiratory failure. 2. Acute exacerbation of chronic obstructive pulmonary disease. 3. Bilateral pulmonary infiltrates of unknown etiology. Workup in process with a right upper lobe air cavity density, previous bronchoscopy negative. 4. Tobacco dependence. PLAN: 1. IV steroids, IV antibiotics. 2. Diurese. 3. Echocardiogram. 4. Follow up on PET scan. 5. Avoid high-flow oxygen. 6. BiPAP at bedtime. I do appreciate the privilege in sharing in the patient's care. NAVI HENRY MD DR: ARLEN/jessica JOB#: [id number] / [id number]
[2018-03-25] MEDS: IBUPROFEN 400 MG TABLET. PO PRN ×2 (02:17→08:32)
[2018-03-25 03:00] VITALS: BP 123/75
[2018-03-25] MEDS: LEVOTHYROXINE 100 MCG TABLET PO SCH (05:05)
[2018-03-25 05:37] LABS: CREATININE 0.5 mg/dL (0.6-1.0)
[2018-03-25 07:00] VITALS: BP 177/96
[2018-03-25] MEDS: IPRATRPIUM/ALBUTEROL 0.5/2.5MG 3 ML NEBU. NEB SCH ×4 (08:14→20:00)
[2018-03-25] MEDS: methylPREDNISolone SOD SUCC PF 40 MG/ML VIAL. IV SCH (08:24)
[2018-03-25] MEDS: FLUoxetine HCL 20 MG CAPSULE PO SCH (08:24)
[2018-03-25] MEDS: DOXYCYCLINE HYCLATE 100 MG TABLET PO SCH ×2 (08:24→22:07)
--- NOTE | 2018-03-25 09:29 | PDOC ---
Provider Note Provider Note [id number] HECTOR MOBLEY MD Mar 25, 2018 09:29
[2018-03-25] MEDS ORDERED: ACETAMINOPHEN 325 MG TABLET. PO PRN (09:30)
[2018-03-25] MEDS: traMADol 50 MG TABLET PO PRN ×3 (09:54→22:07)
[2018-03-25] MEDS: FAMOTIDINE 20 MG TABLET. PO SCH (09:54)
[2018-03-25 11:00] VITALS: BP 106/70
--- NOTE | 2018-03-25 12:22 | CARD ---
MR#: [id number] Date of Study: 03/25/2018 Ordering Physician: NAVI HENRY, Referring Physician: HECTOR MOBLEY Tech: Soco Morgan RDCS APPROVED REPORT EXAM: LIMITED Two-dimensional and M-mode echocardiogram. Other Information Quality : GoodHR: 85bpm Rhythm : NSR INDICATION Congenital Heart Disease 2D DIMENSIONS Left Atrium(2D)4.1 (1.6-4.0cm)IVSd1.0 (0.7-1.1cm) LVDd5.6 (3.9-5.9cm)PWd1.0 (0.7-1.1cm) LVDs4.1 (2.5-4.0cm)FS (%) 28.9 % SV90.3 mlLVEF(%)54.8 (>50%) CO7.7 L/min LEFT VENTRICLE The left ventricle is normal size. There is normal left ventricular wall thickness. The left ventricu lar systolic function is normal. The ejection fraction is estimated at 55-60%. There is normal LV seg mental wall motion. No left ventricle thrombus noted on this study. There is no left ventricular aneu rysm. RIGHT VENTRICLE The right ventricle is normal size. The right ventricular systolic function is normal. ATRIA The left atrium size is normal. The right atrium size is normal. AORTIC VALVE The aortic valve is normal in structure and function. MITRAL VALVE The mitral valve is normal in structure and function. TRICUSPID VALVE The tricuspid valve is normal in structure and function. GREAT VESSELS na PERICARDIAL EFFUSION There is no pleural effusion. There is no evidence of significant pericardial effusion. Critical Notification Critical Value: No <Conclusion> Limited 2D echo without any color flow/duplex imaging. The left ventricular systolic function is normal. The ejection fraction is estimated at 55-60%. There is normal LV segmental wall motion. Valves not interrogated since test was ordered as limited echo. There is no evidence of significant pericardial effusion. Signed by : Dash Todd, Electronically Approved : 03/25/2018 12:21:48
--- NOTE | 2018-03-25 13:18 | PDOC ---
PULMONARY PROGRESS NOTES Subjective PT FEELS BETTER USED BIPAP LAST ARLETTE NOW ON 2.5 LITERS Vitals Vital Signs Date Time Temp Pulse Resp B/P (MAP) Pulse Ox O2 Delivery O2 Flow Rate FiO2 03/25/18 11:45 96 Nasal Cannula 2.5 03/25/18 11:00 96.9 95 18 106/70 (82) 96.9 ROS: No Nausea, No Chest Pain, No Abdominal Pain General: Alert Lungs: Clear, Other (POOR AIRLFLOW) Cardiovascular: S1, S2 Abdomen: Soft Neuro Exam: Alert Extremities: No Edema Skin: Warm Labs Laboratory Tests Test 03/23/18 16:16 03/23/18 17:03 03/23/18 17:40 03/24/18 02:09 White Blood Count 9.2 x10^3/uL (4.0-11.0) Red Blood Count 3.62 x10^6/uL (3.50-5.40) Hemoglobin 11.8 g/dL (12.0-15.5) Hematocrit 35.4 % (36.0-47.0) Mean Corpuscular Volume 98 fL (79-100) Mean Corpuscular Hemoglobin 33 pg (25-35) Mean Corpuscular Hemoglobin Concent 33 g/dL (31-37) Red Cell Distribution Width 13.9 % (11.5-14.5) Platelet Count 233 x10^3/uL (140-400) Neutrophils (%) (Auto) 89 % (31-73) Lymphocytes (%) (Auto) 7 % (24-48) Monocytes (%) (Auto) 3 % (0-9) Eosinophils (%) (Auto) 0 % (0-3) Basophils (%) (Auto) 1 % (0-3) Neutrophils # (Auto) 8.2 x10^3uL (1.8-7.7) Lymphocytes # (Auto) 0.6 x10^3/uL (1.0-4.8) Monocytes # (Auto) 0.3 x10^3/uL (0.0-1.1) Eosinophils # (Auto) 0.0 x10^3/uL (0.0-0.7) Basophils # (Auto) 0.1 x10^3/uL (0.0-0.2) Segmented Neutrophils % 81 % (35-66) Band Neutrophils % 8 % (0-9) Lymphocytes % 7 % (24-48) Monocytes % 4 % (0-10) Platelet Estimate Adequate (ADEQUATE) Ovalocytes Few Sodium Level 150 mmol/L (136-145) Potassium Level 4.1 mmol/L (3.5-5.1) Chloride Level 102 mmol/L (98-107) Carbon Dioxide Level > 45 mmol/L (21-32) Anion Gap 3 (6-14) Blood Urea Nitrogen 16 mg/dL (7-20) Creatinine 0.5 mg/dL (0.6-1.0) Estimated GFR (Cockcroft-Gault) 125.0 Glucose Level 188 mg/dL (70-99) Calcium Level 9.9 mg/dL (8.5-10.1) Total Bilirubin 0.3 mg/dL (0.2-1.0) Direct Bilirubin 0.1 mg/dL (0.0-0.2) Aspartate Amino Transf (AST/SGOT) 15 U/L (15-37) Alanine Aminotransferase (ALT/SGPT) 36 U/L (14-59) Alkaline Phosphatase 111 U/L (46-116) Troponin I Quantitative 0.044 ng/mL (0.000-0.055) MD-Vuh-K-Type Natriuretic Peptide 1628 pg/mL (0-124) Total Protein 6.4 g/dL (6.4-8.2) Albumin 3.5 g/dL (3.4-5.0) Lipase 74 U/L (73-393) O2 Saturation 97 % (92-99) Arterial Blood pH 7.23 (7.35-7.45) Arterial Blood pCO2 at Patient Temp 121 mmHg (35-46) Arterial Blood pO2 at Patient Temp 97 mmHg (65-108) Arterial Blood HCO3 50 mmol/L (21-28) Arterial Blood Base Excess 17 mmol/L (-3-3) FiO2 3 lpm nc Nasal Screen MRSA (PCR) Negative (Negative) Test 03/24/18 09:35 03/25/18 04:20 O2 Saturation 93 % (92-99) Arterial Blood pH 7.34 (7.35-7.45) Arterial Blood pCO2 at Patient Temp 77 mmHg (35-46) Arterial Blood pO2 at Patient Temp 69 mmHg (65-108) Arterial Blood HCO3 40 mmol/L (21-28) Arterial Blood Base Excess 12 mmol/L (-3-3) FiO2 30 Sodium Level 144 mmol/L (136-145) Potassium Level 4.0 mmol/L (3.5-5.1) Chloride Level 100 mmol/L (98-107) Carbon Dioxide Level 43 mmol/L (21-32) Anion Gap 1 (6-14) Blood Urea Nitrogen 21 mg/dL (7-20) Creatinine 0.5 mg/dL (0.6-1.0) Estimated GFR (Cockcroft-Gault) 125.0 Glucose Level 142 mg/dL (70-99) Calcium Level 10.0 mg/dL (8.5-10.1) Laboratory Tests Test 03/25/18 04:20 Sodium Level 144 mmol/L (136-145) Potassium Level 4.0 mmol/L (3.5-5.1) Chloride Level 100 mmol/L (98-107) Carbon Dioxide Level 43 mmol/L (21-32) Anion Gap 1 (6-14) Blood Urea Nitrogen 21 mg/dL (7-20) Creatinine 0.5 mg/dL (0.6-1.0) Estimated GFR (Cockcroft-Gault) 125.0 Glucose Level 142 mg/dL (70-99) Calcium Level 10.0 mg/dL (8.5-10.1) Medications Active Scripts Medications Dose Route/Sig Max Daily Dose Days Date Category Valium (Diazepam) 2 Mg Tablet 2 Mg PO BID PRN 03/23/18 Reported Cyclobenzaprine Hcl 10 Mg Tablet 1 Tab PO HS PRN 07/01/17 Reported Valium (Diazepam) 2 Mg Tablet 2 Mg PO DAILY PRN 07/01/17 Reported Tramadol Hcl 50 Mg Tablet 50 Mg PO DAILY PRN 01/06/17 Reported Duoneb 0.5-3(2.5) Mg/3 Ml (Albuterol/Ipratropium) 3 Ml Ampul.neb 3 Ml NEB RTQID 30 06/04/16 Rx Atorvastatin Calcium 20 Mg Tablet 20 Mg PO QHS 30 06/04/16 Rx Celexa (Citalopram Hydrobromide) 20 Mg Tablet 1 Tab PO HS 02/19/16 Reported Levothyroxine Sodium 100 Mcg Tablet 1 Tab PO DAILY 02/19/16 Reported Impression . - 1. Ivxyg-br-fvbleqp hypoxemic hypercapnic respiratory failure. 2. Acute exacerbation of chronic obstructive pulmonary disease. 3. Bilateral pulmonary infiltrates of unknown etiology. Workup in process with a right upper lobe air cavity density, previous bronchoscopy negative. 4. Tobacco dependence. ECHO 2D echo without any color flow/duplex imaging. The left ventricular systolic function is normal. The ejection fraction is estimated at 55-60%. There is normal LV segmental wall motion. Valves not interrogated since test was ordered as limited echo. There is no evidence of significant pericardial effusion. Plan . PT HAS BEEN ADMITTED ON SEVERAL OCCASION WITH A/C HYPERCAPNIA RESP FAILURE WILL ARRANGE FOR HOME TRILOGY I SPOKE WITH PT RESCHEDULE PET FOR NEXT THURS FOLLOW UP WITH ME ON WEEK OF APR 09 DECREASE STEROIDS PT NAVI HENRY MD Mar 25, 2018 13:18
[2018-03-25] MEDS ORDERED: ASA/APAP/CAFFEINE 250/250/65MG TABLET. PO PRN (15:00)
[2018-03-25] MEDS ORDERED: IBUPROFEN 400 MG TABLET. PO PRN (15:30)
[2018-03-25] MEDS: ALPRAZolam 0.5 MG TABLET PO PRN ×2 (15:35→22:07)
[2018-03-25 19:00] VITALS: BP 103/64
--- NOTE | 2018-03-25 21:28 | PN ---
DATE: 03/25/2018 Afebrile with good vital signs and oxygen saturation. She is sleeping deeply with no tachypnea. Respiratory rate appears to be about 12-15. Laboratory studies unremarkable and review of the chest x-ray showed no abnormalities and the right upper lobe lesion is not seen easily on chest x-ray. PET scan results are pending, so continue current respiratory treatments, IV steroids and supportive care at least over the next 24 hours. HECTOR MOBLEY MD DR: CAROL/jessica JOB#: [id number] / [id number]
[2018-03-25] MEDS: LACTOBACILLUS RHAMNOSUS GG 1 CAPSULE. PO SCH (22:07)
[2018-03-25] MEDS: ATORVASTATIN CALCIUM 20 MG TABLET PO SCH (22:07)
[2018-03-25 23:00] VITALS: BP 105/68
[2018-03-26 03:16] VITALS: BP 95/73
[2018-03-26] MEDS: LEVOTHYROXINE 100 MCG TABLET PO SCH (06:20)
[2018-03-26] MEDS: ALPRAZolam 0.5 MG TABLET PO PRN (06:20)
[2018-03-26] MEDS: traMADol 50 MG TABLET PO PRN (06:20)
[2018-03-26 07:00] VITALS: BP 104/64
--- NOTE | 2018-03-26 07:07 | EKG ---
[facility] [address] [place] [address] Test Date: 2018-03-23 Test Time: 17:24:40 Pat Name: FIDELIA KATZ Department: Room: 532 1 Gender: F Oral And Maxillofacial Surgeon: NAKUL : 1955 Requested By: HECTOR MOBLEY Order Number: [id number] Reading MD: Adrian Byrd MD Measurements Intervals [place] Rate: 102 P: 73 FL: 106 QRS: 48 QRSD: 98 T: 114 QT: 356 QTc: 468 Interpretive Statements SINUS TACHYCARDIA NON-SPECIFIC ST/T CHANGES Electronically Signed On 03-26-2018 11:28:55 CDT by Adrian Byrd MD
--- NOTE | 2018-03-26 07:28 | PDOC ---
Provider Note Provider Note [id number] HECTOR MOBLEY MD Mar 26, 2018 07:28
--- NOTE | 2018-03-26 07:31 | DISCH ---
DISCHARGE INSTRUCTIONS Condition on Discharge Condition on Discharge: Stable Activity After Discharge Activity Instructions for Disc: Activity as tolerated, Avoid exertion Lifting Instructions after Dis: No heavy lifting Exercise Instruction after Dis: Progress as tolerated Driving Instructions after Dis: Do not drive today Weight Bearing Status after Di: As tolerated Diet after Discharge Diet after Discharge: Regular Diet Texture: Regular Liquid Texture: Thin Liquid Swallowing Supervision: None needed Wound Incision Care Wound/Incision Care: May get incision wet, No wound care needed Follow-Up Follow up with: dr maguire `1 w Treatment/Equipment after DC Adaptive Equipment Issued: None Discharge Respiratory Equipmen: Oxygen HECTOR MOBLEY MD Mar 26, 2018 07:30
[2018-03-26] MEDS: IPRATRPIUM/ALBUTEROL 0.5/2.5MG 3 ML NEBU. NEB SCH ×2 (07:34→11:42)
[2018-03-26] MEDS: FAMOTIDINE 20 MG TABLET. PO SCH (08:27)
[2018-03-26] MEDS: FLUoxetine HCL 20 MG CAPSULE PO SCH (08:27)
[2018-03-26] MEDS: LACTOBACILLUS RHAMNOSUS GG 1 CAPSULE. PO SCH (08:27)
[2018-03-26] MEDS: DOXYCYCLINE HYCLATE 100 MG TABLET PO SCH (08:27)
[2018-03-26] MEDS ORDERED: predniSONE 10 MG TABLET PO SCH (09:00)
--- NOTE | 2018-03-26 09:16 | PDOC ---
PULMONARY PROGRESS NOTES Subjective PT FEELS BETTER USED BIPAP LAST ARLETTE NOW ON 2.5 LITERS Vitals Vital Signs Date Time Temp Pulse Resp B/P (MAP) Pulse Ox O2 Delivery O2 Flow Rate FiO2 03/26/18 07:35 98 Room Air 3.0 03/26/18 07:00 96.1 83 18 104/64 (77) 96.1 ROS: No Nausea, No Chest Pain, No Abdominal Pain General: Alert Lungs: Clear, Other (POOR AIRLFLOW) Cardiovascular: S1, S2 Abdomen: Soft Neuro Exam: Alert Extremities: No Edema Skin: Warm Labs Laboratory Tests Test 03/24/18 09:35 03/25/18 04:20 O2 Saturation 93 % (92-99) Arterial Blood pH 7.34 (7.35-7.45) Arterial Blood pCO2 at Patient Temp 77 mmHg (35-46) Arterial Blood pO2 at Patient Temp 69 mmHg (65-108) Arterial Blood HCO3 40 mmol/L (21-28) Arterial Blood Base Excess 12 mmol/L (-3-3) FiO2 30 Sodium Level 144 mmol/L (136-145) Potassium Level 4.0 mmol/L (3.5-5.1) Chloride Level 100 mmol/L (98-107) Carbon Dioxide Level 43 mmol/L (21-32) Anion Gap 1 (6-14) Blood Urea Nitrogen 21 mg/dL (7-20) Creatinine 0.5 mg/dL (0.6-1.0) Estimated GFR (Cockcroft-Gault) 125.0 Glucose Level 142 mg/dL (70-99) Calcium Level 10.0 mg/dL (8.5-10.1) Medications Active Scripts Medications Dose Route/Sig Max Daily Dose Days Date Category Valium (Diazepam) 2 Mg Tablet 2 Mg PO BID PRN 03/23/18 Reported Cyclobenzaprine Hcl 10 Mg Tablet 1 Tab PO HS PRN 07/01/17 Reported Valium (Diazepam) 2 Mg Tablet 2 Mg PO DAILY PRN 07/01/17 Reported Tramadol Hcl 50 Mg Tablet 50 Mg PO DAILY PRN 01/06/17 Reported Duoneb 0.5-3(2.5) Mg/3 Ml (Albuterol/Ipratropium) 3 Ml Ampul.neb 3 Ml NEB RTQID 30 06/04/16 Rx Atorvastatin Calcium 20 Mg Tablet 20 Mg PO QHS 30 06/04/16 Rx Celexa (Citalopram Hydrobromide) 20 Mg Tablet 1 Tab PO HS 02/19/16 Reported Levothyroxine Sodium 100 Mcg Tablet 1 Tab PO DAILY 02/19/16 Reported Impression . - 1. Qexqd-nw-dfbyeun hypoxemic hypercapnic respiratory failure. 2. Acute exacerbation of chronic obstructive pulmonary disease. 3. Bilateral pulmonary infiltrates of unknown etiology. Workup in process with a right upper lobe air cavity density, previous bronchoscopy negative. 4. Tobacco dependence. ECHO 2D echo without any color flow/duplex imaging. The left ventricular systolic function is normal. The ejection fraction is estimated at 55-60%. There is normal LV segmental wall motion. Valves not interrogated since test was ordered as limited echo. There is no evidence of significant pericardial effusion. Plan . PT HAS BEEN ADMITTED ON SEVERAL OCCASION WITH A/C HYPERCAPNIA RESP FAILURE WILL ARRANGE FOR HOME TRILOGY I SPOKE WITH PT RESCHEDULE PET FOR NEXT TH FOLLOW UP WITH ME ON WEEK OF APR 09 DECREASE STEROIDS PT NAVI HENRY MD Mar 26, 2018 09:16
--- NOTE | 2018-03-26 12:45 | DS ---
DATE OF DISCHARGE: 03/26/2018 HOSPITAL SUMMARY: A 62-year-old white female with known oxygen-dependent COPD, came in with respiratory acidosis, high pCO2 and required BiPAP overnight. She is doing better after IV steroids and oral doxycycline and is comfortable to be followed as an outpatient at this point. Echocardiogram showed normal ejection fraction of 60%, no pericardial effusion or any lesions, but she did have pulmonary hypertension present. Dr. Mix has recommended a Trilogy ventilator, which will be tried to be arranged as an outpatient, but she had to go home as her brother unexpectedly yesterday. FINAL DIAGNOSES: Respiratory acidosis secondary to acute exacerbation of chronic obstructive pulmonary disease. OPERATIONS, PROCEDURES, AND COMPLICATIONS: None. CONSULTATIONS: Dr. Mix. DISPOSITION: She will take 5 days of doxycycline 100 mg twice a day, prednisone taper as scheduled. Home meds remain all the same. The Trilogy ventilator will try to be arranged per Dr. Han or Dr. Mix and office followup in 1 week. Vaccinations are up to date. PROGNOSIS: Guarded. HECTOR MOBLEY MD DR: CAROL/jessica JOB#: [id number] / [id number]
== END 2018-03-26 12:59 | disposition home or self-care (01) | DRG 291 ==
LOC: ER 15:26 → 1 WEST ICU 16:00 → 5 NORTH 03-24 15:56
PROVIDERS: ADMIT Family Medicine; ATTEND Family Medicine
PROC: 5A09357 Assistance with Respiratory Ventilation, Less than 24 Consecutive Hours, Continuous Positive Airway Pressure (ICD-10-PCS; principal; 2018-03-23)
PROC: 5A09357 Assistance with Respiratory Ventilation, Less than 24 Consecutive Hours, Continuous Positive Airway Pressure (ICD-10-PCS; 2018-03-25)
PROC: 5A09357 Assistance with Respiratory Ventilation, Less than 24 Consecutive Hours, Continuous Positive Airway Pressure (ICD-10-PCS; 2018-03-26)
DX: I11.0 Hypertensive heart disease with heart failure (principal); J96.21 Acute and chronic respiratory failure with hypoxia; J96.22 Acute and chronic respiratory failure with hypercapnia; E87.2 Acidosis; J44.1 Chronic obstructive pulmonary disease with (acute) exacerbation; I50.33 Acute on chronic diastolic (congestive) heart failure; E78.00 Pure hypercholesterolemia, unspecified; F32.9 Major depressive disorder, single episode, unspecified; I25.10 Atherosclerotic heart disease of native coronary artery without angina pectoris; E78.5 Hyperlipidemia, unspecified; I27.20 Pulmonary hypertension, unspecified; I10 Essential (primary) hypertension; E03.9 Hypothyroidism, unspecified; F17.200 Nicotine dependence, unspecified, uncomplicated; Z90.710 Acquired absence of both cervix and uterus; Z99.81 Dependence on supplemental oxygen; Z88.8 Allergy status to other drugs, medicaments and biological substances
CPT/HCPCS: 36415; 36600; 71045; 80048; 80076; 82805; 83690; 83880; 84484; 85007; 85025; 87641; 93005; 93308; 94640; 94660; 94760; 96374; J1940; J2920; J2930; J7512; J7620; 97110; 99285-25

== ENCOUNTER → 2018-03-29 | Outpatient (CLI) | payer OTHER ==
[~2018-03-29] MED LIST changes: +FLUO40CA9 PO; -HYDR12.53 PO; +HYDR12.575 PO
--- NOTE | 2018-03-29 14:19 | RAD ---
FDG tumor localization scan, PET/CT, 03/29/2018: History: Pulmonary nodule Following IV injection of 13.6 mCi of 18 F-FDG, imaging was performed from the skull base to the proximal thighs. The noncontrast CT component was performed for attenuation correction and anatomic localization purposes rather than for primary diagnosis. The patient's blood glucose level at the time of injection was 115 MG/DL. Physiologic activity is evident in the neck. No hypermetabolic neck lesion is seen. There is a cavitary nodule in the posterior aspect of the right upper lobe with nodular soft tissue thickening within its ji. This has been described on several recent CT studies. The mass measures approximately 3.9 cm in greatest width. There is abnormal FDG uptake within its ji demonstrate a maximum SUV of 9.3. No other hypermetabolic pulmonary lesion is seen. No mediastinal or hilar hypermetabolic adenopathy is evident. Normal GI tract and urinary tract activity is present in the abdomen and pelvis. No hypermetabolic abdominal or pelvic process is seen. Incidental CT findings include the presence of small low density foci in both adrenal glands which are probably adenomas. Sigmoid diverticulosis is evident. There is calcific plaquing of the abdominal aorta with slight dilatation of the infrarenal abdominal aorta. Bilateral renal cysts are present. There are emphysematous changes in the lungs with scattered parenchymal scars. IMPRESSION: 1. Hypermetabolic cavitary right upper lobe lesion most compatible with a primary lung malignancy. An inflammatory/infectious etiology is much less likely. 2. No FDG PET evidence of metastatic disease.
[2018-04-03 11:30] VITALS: BP 137/66
== END | disposition home or self-care (01) ==
LOC: PETSC 10:00
PROVIDERS: ATTEND Internal Medicine Pulmonary Disease
DX: R91.1 Solitary pulmonary nodule (principal); N28.1 Cyst of kidney, acquired; K57.30 Diverticulosis of large intestine without perforation or abscess without bleeding
CPT/HCPCS: 78815; A9552

== ENCOUNTER 2018-04-03 07:21 | Outpatient (CLI) | payer OTHER ==
[~2018-04-03] VITALS: Ht 152.4 cm; Wt 66.7 kg
[2018-04-03] VITALS (13 sets, daily range): BP systolic 123–173; BP diastolic 57–96
[~2018-04-03 07:21] MED LIST changes: -FLUO40CA9 PO; +HYDR12.53 PO; -HYDR12.575 PO
[2018-04-03 07:39] LABS: BASO # 0.1 x10^3/uL (0.0-0.2); BASO % 1 % (0-3); EOS # 0.2 x10^3/uL (0.0-0.7); EOS % 2 % (0-3); HEMATOCRIT 37.3 % (36.0-47.0); HEMOGLOBIN 12.3 g/dL (12.0-15.5); LYMPH # 2.8 x10^3/uL (1.0-4.8); LYMPH % 33 % (24-48); MEAN CORPUSCULAR HEMOGLOBIN 32 pg (25-35); MEAN CORPUSCULAR HGB CONC 33 g/dL (31-37); MEAN CORPUSCULAR VOLUME 97 fL (79-100); MONO # 0.5 x10^3/uL (0.0-1.1); MONO % 6 % (0-9); NEUT % 58 % (31-73); PLATELET COUNT 266 x10^3/uL (140-400); RED BLOOD COUNT 3.84 x10^6/uL (3.50-5.40); RED CELL DISTRIBUTION WIDTH 14.3 % (11.5-14.5); WHITE BLOOD COUNT 8.6 x10^3/uL (4.0-11.0)
[2018-04-03 07:54] LABS: PROTHROMBIN TIME PATIENT 12.5 SEC (11.7-14.0)
[2018-04-03] MEDS ORDERED: LIDOCAINE WITH 8.4% SOD BICARB 3 ML DISP.SYRIN. ONE (08:15)
[2018-04-03] MEDS ORDERED: MIDAZOLAM HCL/PF 2 MG/2 ML VIAL. ONE (08:24)
[2018-04-03] MEDS ORDERED: fentaNYL PF VIAL 100 MCG/2 ML VIAL ONE (08:24)
[2018-04-03] MEDS ORDERED: FLUO40CA9 PO (08:30)
[2018-04-03] MEDS ORDERED: MIDAZOLAM HCL/PF 2 MG/2 ML VIAL. IV ONE (09:00)
[2018-04-03] MEDS ORDERED: fentaNYL PF VIAL 100 MCG/2 ML VIAL IV ONE (09:00)
[2018-04-03] MEDS ORDERED: LIDOCAINE WITH 8.4% SOD BICARB 3 ML DISP.SYRIN. IJ ONE (09:00)
--- NOTE | 2018-04-03 15:06 | RAD ---
CHEST AP ONLY 11:10 AM. Clinical indications: POST LUNG BIOPSY March 23, 2018. Findings: No pneumothorax is seen. No pleural effusion is evident. There is ill-defined infiltrate within the right upper lobe which may represent postbiopsy hemorrhage around the right upper lobe lung nodule which was biopsied today. The heart size and mediastinum are stable. IMPRESSION: No pneumothorax or pleural effusion after biopsy. Mild infiltrate is seen around the right upper lobe lung nodule which was biopsied today. This may represent mild postbiopsy hemorrhage. Electronically signed by: Leonid Aguilera MD (04/03/2018 3:03 PM) [facility] [place]
--- NOTE | 2018-04-04 10:08 | RAD ---
CT-guided biopsy, right upper lobe lesion 04/03/2018 Discussion: The patient is a 60-year-old female with a partially cavitary right upper lobe mass. Lesion is PET avid. Findings concerning for malignancy. The risks and benefits of the procedure were discussed the patient. Informed consent was obtained. Timeout procedure was performed. The right posterior chest was prepped and draped using sterile barrier technique. 1% lidocaine without epinephrine was administered for local anesthesia. Under intermittent CT guidance a 17-gauge needle was advanced into the periphery of the aforementioned lesion, targeting the solid component. 18-gauge core biopsy samples were obtained. Mild parenchymal hemorrhage is noted following biopsy passes. Patient tolerated the procedure well. [place] were removed. Follow-up imaging demonstrates and some intraparenchymal hemorrhage without pneumothorax or other complication. Sterile dressings were applied. The procedure was performed under conscious sedation including continuous cardiopulmonary monitoring via a dedicated sedation nurse. Yerg-fp-ohgv sedation time: 30 minutes Impression: CT-guided biopsy, right upper lobe partially cavitary lesion PQRS Compliance Statement: One or more of the following individualized dose reduction techniques were utilized for this examination: 1. Automated exposure control 2. Adjustment of the mA and/or kV according to patient size 3. Use of iterative reconstruction technique
--- NOTE | 2018-04-04 16:12 | PATHOLOGY ---
[facility] Accession Number: [id number] . 01 Material submitted: . RIGHT LUNG BIOPSY . 01 Clinical history: . Right lung nodule . 02 Diagnosis: Lung tissue, right lung nodule, needle biopsies: - Squamous cell carcinoma, moderately differentiated. - Lipoid and organizing pneumonia, focal. [facility]/04/04/2018 . 02 Comment: Sections of the right lung nodule needle biopsy reveal segments of lung tissue showing areas of replacement by a malignant epithelial neoplasm. The malignant cells are present in irregular solid nests which infiltrate a reactive desmoplastic stroma. The malignant cells have a polygonal, squamoid appearance and possess ample amounts of eosinophilic to focally vacuolated cytoplasm. The malignant cells possess enlarged, rounded to ovoid moderately pleomorphic hyperchromatic nuclei. There are mitotic figures present. There are focal areas of lipoid and organizing pneumonia adjacent to the tumor. The morphologic findings are supportive of the diagnosis of a moderately differentiated squamous cell carcinoma. . The case is also examined by Dr. Swann, who concurs with the diagnosis. The results are reported to Dr. Mix on 04/04/2018 at 3:00PM. (JPM:[facility] 04/04/2018) . 02 Electronically signed: . Sam Ramirez MD, Pathologist NPI- [id number] . 01 Gross description: . Received in formalin labeled "White, Evelyne, right lung BX," are 3 distinct needle cores of bowie soft tissue ranging from 0.2 to 1.0 cm in length and measuring less than 0.1 cm each in diameter. The specimen is submitted entirely in cassettes A1 through A3. (TSD; 04/03/2018) TOB/TOB . 02 Pathologist provided ICD-10: C34.91, J84.89 . 02 CPT . 379228 Specimen Comment: A courtesy copy of this report has been sent to Specimen Comment: [phone], , . Specimen Comment: Report sent to ,DR MIX / DR MOBLEY Specimen Comment: A duplicate report has been generated due to demographic updates. Performed at: 01 [facility] [address], [place] [id number] MD Amilcar Valdez MD Phone: [phone] Performed at: 02 [facility] [place] [address] [place], [place] [id number] MD Sam Ramirez MD Phone: [phone]
== END 2018-04-03 11:59 | disposition home or self-care (01) ==
LOC: INTRAD 07:21
PROVIDERS: ATTEND Internal Medicine Pulmonary Disease
DX: C34.11 Malignant neoplasm of upper lobe, right bronchus or lung (principal); I25.10 Atherosclerotic heart disease of native coronary artery without angina pectoris; J44.9 Chronic obstructive pulmonary disease, unspecified; I10 Essential (primary) hypertension; E78.5 Hyperlipidemia, unspecified; E03.9 Hypothyroidism, unspecified; F32.9 Major depressive disorder, single episode, unspecified; F17.210 Nicotine dependence, cigarettes, uncomplicated; I51.7 Cardiomegaly; Z98.890 Other specified postprocedural states; Z79.01 Long term (current) use of anticoagulants; Z79.899 Other long term (current) drug therapy; Z99.81 Dependence on supplemental oxygen; Z90.710 Acquired absence of both cervix and uterus; Z88.8 Allergy status to other drugs, medicaments and biological substances
CPT/HCPCS: 32405; 36415; 71045; 77012; 85025; 85610; 85730; J2250; J3010; 88305; 99152; 99153

== ENCOUNTER → 2018-04-13 | Outpatient (CLI) | payer OTHER ==
[2018-04-03 11:30] VITALS: BP 137/66
[~2018-04-13] MED LIST changes: +FLUO40CA9 PO
[2018-04-13 15:58] LABS: BASE EXCESS COOX 8 mmol/L (-3-3); HCO3 COOX 35 mmol/L (21-28); METHEMOGLOBIN 0.3 % (0.0-1.9); OXYHEMOGLOBIN 80.8 %; PCO2 COOX 58 mmHg (35-46); SAT O2 COOX 81 % (92-99)
[2018-04-13 16:20] LABS: PO2 COOX 42 mmHg (65-108)
== END | disposition home or self-care (01) ==
LOC: LAB 15:24
PROVIDERS: ATTEND Internal Medicine Pulmonary Disease
DX: Z09 Encounter for follow-up examination after completed treatment for conditions other than malignant neoplasm (principal); R91.8 Other nonspecific abnormal finding of lung field
CPT/HCPCS: 36600; 82805

== ENCOUNTER → 2019-03-06 | Outpatient (CLI) | payer OTHER ==
[2018-04-03 11:30] VITALS: BP 137/66
[~2019-03-06] MED LIST changes: +AMLO5TAB10 PO; -AMLO5TAB7 PO; -HYDR12.53 PO; +HYDR12.575 PO; -PANT40TA3 PO; +PANT40TA77 PO
--- NOTE | 2019-03-06 16:37 | KCIC ---
EXAM: Cervical spine, 5 views; left shoulder, 3 views. HISTORY: Pain. COMPARISON: None. FINDINGS: Cervical spine: 5 views of the cervical spine are obtained. There is minimal anterolisthesis of C5 on C6. There is mild endplate remodeling at the mid and lower cervical levels and mild disc space narrowing at C6-C7. There is multilevel facet arthropathy. There is suspected neural foraminal stenosis primarily levels at the lower cervical levels. No fracture is seen. Left shoulder: 3 views left shoulder obtained. There is no fracture, dislocation or subluxation. There is calcification adjacent to the greater tuberosity likely due to rotator cuff calcific tendinitis. There is a calcified granuloma within the left lung. IMPRESSION: 1. Multilevel degenerative change involving the cervical spine, primarily at C6-C7. 2. Suspected distal left rotator cuff calcific tendinitis. 3. No acute osseous finding. Electronically signed by: Abigail Durand MD (03/06/2019 4:34 PM) [facility]
== END | disposition home or self-care (01) ==
LOC: KCIC 15:24
PROVIDERS: ATTEND Family Medicine
DX: M47.812 Spondylosis without myelopathy or radiculopathy, cervical region (principal); J84.10 Pulmonary fibrosis, unspecified; M12.88 Other specific arthropathies, not elsewhere classified, other specified site; M25.812 Other specified joint disorders, left shoulder
CPT/HCPCS: 72050; 73030

== ENCOUNTER → 2019-11-18 | Outpatient (CLI) | payer OTHER ==
[2018-04-03 11:30] VITALS: BP 137/66
[~2019-11-18] MED LIST changes: -LEVO112T4; +LEVO112T49; +SIMV20TA18 PO; -SIMV20TA3 PO
[2019-11-18 09:05] LABS: BASE EXCESS ABG 13 mmol/L (-3-3); HCO3 ABG 42 mmol/L (21-28); SAT O2 ABG 85 % (92-99)
[2019-11-18 09:12] LABS: PCO2 ABG 74 mmHg (35-46)
[2019-11-18 09:13] LABS: PO2 ABG 48 mmHg (65-108)
== END | disposition home or self-care (01) ==
LOC: RT 08:24
PROVIDERS: ATTEND Family Medicine
DX: R79.81 Abnormal blood-gas level (principal); J44.9 Chronic obstructive pulmonary disease, unspecified
CPT/HCPCS: 36600; 82805

== ENCOUNTER 2019-11-19 13:57 | Inpatient (IN) | payer OTHER ==
[~2019-11-19] VITALS: Ht 152.4 cm; Wt 71.5 kg
[2019-11-19] MEDS ORDERED: IPRATRPIUM/ALBUTEROL 0.5/2.5MG 3 ML NEBU. NEB ONE (14:45)
[2019-11-19] MEDS ORDERED: methylPREDNISolone SOD SUCC PF 125 MG/2 ML VIAL. IV ONE (14:45)
[2019-11-19] MEDS ORDERED: ALBUTEROL SULFATE 2.5 MG/3 ML NEBU. NEB ONE (14:45)
[2019-11-19 15:05] LABS: BASO # 0.1 x10^3/uL (0.0-0.2); BASO % 1 % (0-3); EOS % 0 % (0-3); HEMATOCRIT 35.9 % (36.0-47.0); HEMOGLOBIN 11.9 g/dL (12.0-15.5); LYMPH # 1.1 x10^3/uL (1.0-4.8); LYMPH % 13 % (24-48); MEAN CORPUSCULAR HEMOGLOBIN 32 pg (25-35); MEAN CORPUSCULAR HGB CONC 33 g/dL (31-37); MEAN CORPUSCULAR VOLUME 96 fL (79-100); MONO # 0.3 x10^3/uL (0.0-1.1); MONO % 4 % (0-9); NEUT # 6.8 x10^3/uL (1.8-7.7); NEUT % 82 % (31-73); PLATELET COUNT 245 x10^3/uL (140-400); RED BLOOD COUNT 3.76 x10^6/uL (3.50-5.40); RED CELL DISTRIBUTION WIDTH 13.8 % (11.5-14.5); WHITE BLOOD COUNT 8.3 x10^3/uL (4.0-11.0)
[2019-11-19 15:17] LABS: BASE EXCESS ABG 13 mmol/L (-3-3); HCO3 ABG 42 mmol/L (21-28); PO2 ABG 117 mmHg (65-108); SAT O2 ABG 98 % (92-99)
[2019-11-19 15:21] LABS: CALCIUM 9.4 mg/dL (8.5-10.1); CREATININE 0.6 mg/dL (0.6-1.0); GFR 100.6; POTASSIUM 4.4 mmol/L (3.5-5.1)
--- NOTE | 2019-11-19 15:26 | RAD ---
CHEST AP ONLY History: Reason: soa / Spl. Instructions: / History: Comparison: April 03, 2018 Findings: No consolidation or pleural effusion. Normal heart size. No pneumothorax. Impression: 1. No acute cardiopulmonary process. Electronically signed by: Duane Copeland DO (11/19/2019 3:23 PM) [id number]
[2019-11-19 15:27] LABS: ALBUMIN 3.3 g/dL (3.4-5.0); ALBUMIN/GLOBULIN RATIO 1.3 (1.0-1.7); TOTAL BILIRUBIN 0.1 mg/dL (0.2-1.0); TOTAL PROTEIN 5.8 g/dL (6.4-8.2)
--- NOTE | 2019-11-19 15:59 | PHYS DOC ---
Past Medical History Past Medical History: COPD, Depression, High Cholesterol, Hypothyroid Past Surgical History: Hysterectomy Additional Past Surgical Histo: Bladder sling Smoking Status: Former Smoker Alcohol Use: None Drug Use: None General Adult EDM: Chief Complaint: ABNORMAL LABS HPI: HPI: Patient is a 64-year-old female with a history of COPD who requires CPAP at [facility] who is had her CPAP machine taken away for insurance purposes. She had an ABG done yesterday with a PCO2 in the 70s. She presents stating that she has had progressive shortness of breath dyspnea on exertion cough and congestion. She is just not been doing well at home. She denies any fever chills or sweats. She has not had any hemoptysis. She denies any nausea or vomiting. She is not had any significant chest pain. [] Review of Systems: Review of Systems: Constitutional: Denies fever or chills. [] Eyes: Denies change in visual acuity. [] HENT: Denies nasal congestion or sore throat. [] Respiratory: Per HPI [] Cardiovascular: Denies chest pain or edema. [] GI: Denies abdominal pain, nausea, vomiting, bloody stools or diarrhea. [] : Denies dysuria. [] Musculoskeletal: Denies back pain or joint pain. [] Integument: Denies rash. [] Neurologic: Denies headache, focal weakness or sensory changes. [] Endocrine: Denies polyuria or polydipsia. [] Lymphatic: Denies swollen glands. [] Psychiatric: Denies depression or anxiety. [] Heart Score: Risk Factors: Risk Factors: DM, Current or recent (<one month) smoker, HTN, HLP, family history of CAD, obesity. Risk Scores: Score 0 - 3: 2.5% MACE over next 6 weeks - Discharge Home Score 4 - 6: 20.3% MACE over next 6 weeks - Admit for Clinical Observation Score 7 - 10: 72.7% MACE over next 6 weeks - Early Invasive Strategies Current Medications: Current Medications Medications (Trade) Dose Ordered Sig/Jeaneth Start Time Stop Time Status Last Admin Dose Admin Albuterol Sulfate (Ventolin Neb Soln) 2.5 mg 1X ONCE 11/19/19 14:45 11/19/19 14:46 DC 11/19/19 14:58 2.5 MG Albuterol/ Ipratropium (Duoneb) 6 ml 1X ONCE 11/19/19 14:45 11/19/19 14:46 DC 11/19/19 14:58 6 ML Methylprednisolone Sodium Succinate (SOLU-Medrol 125MG VIAL) 125 mg 1X ONCE 11/19/19 14:45 11/19/19 14:46 DC 11/19/19 15:09 125 MG Allergies: Allergies: Allergies Coded Allergies Type Severity Reaction Last Updated Verified acetaminophen Allergy Intermediate Hives 03/24/18 No bupropion HCl Allergy Intermediate Swelling 12/04/17 Yes codeine Allergy Intermediate Hives 03/25/18 Yes Physical Exam: PE: Constitutional: Well developed, well nourished, n moderate respiratory distress, non-toxic appearance. [] HENT: Normocephalic, atraumatic, bilateral external ears normal, oropharynx moist, no oral exudates, nose normal. [] Eyes: PERRLA, EOMI, conjunctiva normal, no discharge. [] Neck: Normal range of motion, no tenderness, supple, no stridor. [] Cardiovascular:Heart rate regular rhythm, no murmur [] Lungs & Thorax: Scattered wheezes throughout both lungs [] Abdomen: Bowel sounds normal, soft, no tenderness, no masses, no pulsatile masses. [] Skin: Warm, dry, no erythema, no rash. [] Back: No tenderness, no CVA tenderness. [] Extremities: No tenderness, no cyanosis, no clubbing, ROM intact, no edema. [] Neurologic: Alert and oriented X 3, normal motor function, normal sensory function, no focal deficits noted. [] Psychologic: Anxious l. [] Current Patient Data: Labs: Laboratory Tests Test 11/19/19 14:58 White Blood Count 8.3 x10^3/uL (4.0-11.0) Red Blood Count 3.76 x10^6/uL (3.50-5.40) Hemoglobin 11.9 g/dL (12.0-15.5) L Hematocrit 35.9 % (36.0-47.0) L Mean Corpuscular Volume 96 fL (79-100) Mean Corpuscular Hemoglobin 32 pg (25-35) Mean Corpuscular Hemoglobin Concent 33 g/dL (31-37) Red Cell Distribution Width 13.8 % (11.5-14.5) Platelet Count 245 x10^3/uL (140-400) Neutrophils (%) (Auto) 82 % (31-73) H Lymphocytes (%) (Auto) 13 % (24-48) L Monocytes (%) (Auto) 4 % (0-9) Eosinophils (%) (Auto) 0 % (0-3) Basophils (%) (Auto) 1 % (0-3) Neutrophils # (Auto) 6.8 x10^3/uL (1.8-7.7) Lymphocytes # (Auto) 1.1 x10^3/uL (1.0-4.8) Monocytes # (Auto) 0.3 x10^3/uL (0.0-1.1) Eosinophils # (Auto) 0.0 x10^3/uL (0.0-0.7) Basophils # (Auto) 0.1 x10^3/uL (0.0-0.2) Sodium Level 145 mmol/L (136-145) Potassium Level 4.4 mmol/L (3.5-5.1) Chloride Level 102 mmol/L (98-107) Carbon Dioxide Level 40 mmol/L (21-32) H Anion Gap 3 (6-14) L Blood Urea Nitrogen 16 mg/dL (7-20) Creatinine 0.6 mg/dL (0.6-1.0) Estimated GFR (Cockcroft-Gault) 100.6 BUN/Creatinine Ratio 27 (6-20) H Glucose Level 124 mg/dL (70-99) H Calcium Level 9.4 mg/dL (8.5-10.1) Total Bilirubin 0.1 mg/dL (0.2-1.0) L Aspartate Amino Transferase (AST) 12 U/L (15-37) L Alanine Aminotransferase (ALT) 19 U/L (14-59) Alkaline Phosphatase 75 U/L (46-116) Troponin I Quantitative < 0.017 ng/mL (0.000-0.055) HD-Aze-F-Type Natriuretic Peptide 1472 pg/mL (0-124) H Total Protein 5.8 g/dL (6.4-8.2) L Albumin 3.3 g/dL (3.4-5.0) L Albumin/Globulin Ratio 1.3 (1.0-1.7) Laboratory Tests 11/19/19 14:58 Laboratory Tests 11/19/19 14:58 Vital Signs: Vital Signs Date Time Temp Pulse Resp B/P (MAP) Pulse Ox O2 Delivery O2 Flow Rate FiO2 11/19/19 15:00 97 Nasal Cannula 2.5 11/19/19 14:59 86 20 119/65 (83) 11/19/19 14:11 98.9 98.9 EKG: EKG: EKG: Normal sinus rhythm rate of [address]-T changes [] Radiology/Procedures: Radiology/Procedures: [] Impression: ROCEDURE: CHEST AP ONLY CHEST AP ONLY History: Reason: soa / Spl. Instructions: / History: Comparison: April 03, 2018 Findings: No consolidation or pleural effusion. Normal heart size. No pneumothorax. Impression: 1. No acute cardiopulmonary process. Course & Med Decision Making: Course & Med Decision Making Pertinent Labs and Imaging studies reviewed. (See chart for details) [ED course: Evaluation reveals a 64-year-old COPD patient who was in moderate respiratory distress. She had back to back to back nebs along with 125 of Solu- Medrol with marked improvement in her breathing status. We will go ahead and admit her for aggressive respiratory treatments and pulmonary evaluation. My critical care] CRITICAL CARE: Time spent was 35 minutes. This includes medical management, evaluation, reevaluation, discussion with consultants and family. Critical Care does NOT include time spent on separately billed procedures. Dragon Disclaimer: Dragon Disclaimer: This electronic medical record was generated, in whole or in part, using a voice recognition dictation system. Departure Departure Impression: Primary Impression: COPD exacerbation Disposition: ADMITTED INPATIENT Condition: GUARDED Referrals: HECTOR MOBLEY MD (PCP) Justicifation of Admission Dx: Justifications for Admission: Justification of Admission Dx: Yes Acute COPD Exacerbation: Acute COPD Exacerbation DENIA CAZARES DO Nov 19, 2019 15:59
[2019-11-19] MEDS ORDERED: ONDANSETRON PF 4 MG/2 ML VIAL. IV PRN (16:00)
[2019-11-19] MEDS ORDERED: IPRATRPIUM/ALBUTEROL 0.5/2.5MG 3 ML NEBU. NEB SCH (16:00)
[2019-11-19 17:12] LABS: PCO2 ABG 81 mmHg (35-46)
[2019-11-19 17:50] VITALS: BP 218/113
[2019-11-19] MEDS: hydrALAZINE 20 MG/ML VIAL. IVP PRN (18:48)
[2019-11-19 19:00] VITALS: BP 151/68
[2019-11-19] MEDS: IPRATRPIUM/ALBUTEROL 0.5/2.5MG 3 ML NEBU. NEB SCH (20:00)
[2019-11-19] MEDS ORDERED: diazePAM 2 MG TABLET PO PRN (20:30)
[2019-11-19] MEDS ORDERED: FLUoxetine HCL 10 MG CAPSULE PO SCH (21:00)
[2019-11-19] MEDS ORDERED: methylPREDNISolone SOD SUCC PF 40 MG/ML VIAL. IV SCH (22:00)
[2019-11-19 23:15] VITALS: BP 193/81
[2019-11-19] MEDS: ATORVASTATIN CALCIUM 20 MG TABLET PO SCH (23:18)
[2019-11-19] MEDS: FLUoxetine HCL 20 MG CAPSULE PO SCH (23:19)
[2019-11-20] MEDS: traMADol 50 MG TABLET PO PRN ×2 (01:51→09:53)
--- NOTE | 2019-11-20 05:11 | EKG ---
[facility] [address] [place] [address] Test Date: 2019-11-19 Test Time: 14:50:08 Pat Name: FIDELIA KATZ Department: Room: 205 1 Gender: F Mobile Developer: : 1955 Requested By: DENIA CAZARES Order Number: [id number] Reading MD: Delfino Ames Measurements Intervals [place] Rate: 85 P: 37 WI: 122 QRS: 36 QRSD: 104 T: 43 QT: 352 QTc: 424 Interpretive Statements SINUS RHYTHM ANTERIOR ST ELEVATION Electronically Signed On 12-16-2019 10:31:25 CDT by Delfino Ames
[2019-11-20] MEDS: LEVOTHYROXINE 100 MCG TABLET PO SCH (06:30)
[2019-11-20 07:00] VITALS: BP 201/90
[2019-11-20] MEDS: IPRATRPIUM/ALBUTEROL 0.5/2.5MG 3 ML NEBU. NEB SCH ×4 (07:50→16:00)
[2019-11-20] MEDS: hydrALAZINE 20 MG/ML VIAL. IVP PRN (08:28)
[2019-11-20] MEDS: LISINOPRIL 10 MG TABLET PO SCH (08:29)
[2019-11-20] MEDS ORDERED: traMADol 50 MG TABLET PO PRN (09:00)
[2019-11-20] MEDS ORDERED: LEVOTHYROXINE 100 MCG TABLET PO SCH (09:00)
[2019-11-20] MEDS ORDERED: diazePAM 2 MG TABLET PO PRN (09:00)
--- NOTE | 2019-11-20 09:30 | PDOC ---
Provider Note Provider Note dictated Justicifation of Admission Dx: Justifications for Admission: Justification of Admission Dx: Yes Acute COPD Exacerbation: Acute COPD Exacerbation HECTOR MOBLEY MD Nov 20, 2019 09:30
[2019-11-20] MEDS: methylPREDNISolone SOD SUCC PF 40 MG/ML VIAL. IV SCH ×2 (09:54→21:32)
[2019-11-20] MEDS: amLODIPine BESYLATE 5 MG TABLET PO SCH (09:54)
[2019-11-20] MEDS: diazePAM 2 MG TABLET PO PRN (10:37)
[2019-11-20] MEDS: hydroCHLOROthiazide 12.5 MG CAPSULE PO SCH (10:38)
[2019-11-20 10:51] VITALS: BP 189/94
--- NOTE | 2019-11-20 11:17 | NUR ---
SS following for discharge planning. SS reviewed pt chart and discussed with pt RN. Pt is from home with spouse and is currently requiring oxygen. SS will continue to follow for discharge planning.
--- NOTE | 2019-11-20 11:42 | HP ---
ADMIT DATE: CHIEF COMPLAINT: Shortness of breath and fatigue. HISTORY OF PRESENT ILLNESS: A 64-year-old white female with a history of severe COPD, on oxygen, as well as history of lung cancer, depression and anxiety, has been having significant fatigue for the last few weeks, etiology of which is unclear. Outpatient blood gas showed a high pCO2 of 74, but the pH was normal at 7.33. She had lost Trilogy ventilator a few months ago for insurance reasons and had not been able to get this so far back. She has been having some headaches for the last few weeks as well. PAST MEDICAL HISTORY: History of lung cancer, details not available at this time, has been treated with radiation to my knowledge. MEDICATIONS: Listed per the chart. SOCIAL HISTORY: Quit smoking a few years ago. She is , physically active, nondrinker. FAMILY HISTORY: Unremarkable. REVIEW OF SYSTEMS: No other complaints. OBJECTIVE: ENT: All within normal limits. NECK: No masses, nodes or bruits. LUNGS: Clear without much air flow. CARDIOVASCULAR: Regular rate with frequent APCs and VPCs. ABDOMEN: Benign. EXTREMITIES: Unremarkable, 2+ clubbing. NEUROLOGIC: Physiologic, nonfocal. No edema. ASSESSMENT: Ongoing problems with chronic obstructive pulmonary disease, history of lung cancer and now new hypertension, off meds and severe headaches. Headaches could be blood pressure related but ____ could also consider intracranial metastatic problems or even bleeding. PLAN: As ordered. HECTOR MOBLEY MD DR: CAROL/jessica JOB#: [id number] / [id number]
[2019-11-20] MEDS ORDERED: IPRATRPIUM/ALBUTEROL 0.5/2.5MG 3 ML NEBU. NEB SCH (12:00)
--- NOTE | 2019-11-20 13:02 | RAD ---
EXAM: CT HEAD WITHOUT CONTRAST. HISTORY: Headache, lung cancer. TECHNIQUE: Computed tomography of the head was performed without intravenous contrast. One or more of the following individualized dose reduction techniques were utilized for this examination: 1. Automated exposure control. 2. Adjustment of the mA and/or kV according to patient size. 3. Use of iterative reconstruction technique. COMPARISON: 11/30/2017. FINDINGS: There is no intracranial hemorrhage. There is no clear mass effect or vasogenic edema Hypoattenuation within the white matter indicates moderate chronic microangiopathic change. The ventricles are normal in size and position. The visualized paranasal sinuses appear clear. There are changes of bilateral cataract surgery. The temporal bones are unremarkable. The calvarium reveals no suspicious lesions. IMPRESSION: 1. No acute intracranial findings. MRI with and without contrast is recommended if there is further concern for intracranial metastatic disease. 2. Moderate chronic microangiopathic white matter change. Electronically signed by: Tameka Hoffman MD (11/20/2019 12:59 PM) [id number]
--- NOTE | 2019-11-20 13:08 | CONS ---
DATE OF CONSULTATION: PULMONARY CONSULTATION ATTENDING PHYSICIAN: Trevin Jaffe MD REASON FOR CONSULTATION: Hypercapnia and shortness of breath. HISTORY OF PRESENT ILLNESS: The patient is a 64-year-old female who has history of chronic hypercapnic and hypoxic respiratory failure. She also has history of a squamous cell lung cancer, presenting as right upper lobe nodule. She is status post radiation and last PET scan per Dr. Mix had shown no evidence of recurrent disease. She was brought into the hospital with complaint of some shortness of breath and fatigue. She has no cough, no fever, no chills, no chest pains. She said that she had lost a Trilogy ventilator few months ago for insurance reasons. Her arterial blood gases were abnormal with a pH of 7.33, pCO2 of 81 and a pO2 of 117 on 2.5 liters. Her chest x-ray did not reveal any obvious masses. She is awake, following commands. No nausea, vomiting, no diarrhea, no dysuria, no focal weakness. PAST MEDICAL HISTORY: Significant for history of squamous cell lung cancer, presenting as right upper lobe nodule, status post radiation and passed followup PET scan with no recurrence. History of hypercapnic and hypoxic COPD. PAST SURGICAL HISTORY: No recent surgeries. ALLERGIES: ACETAMINOPHEN, BUPROPION AND CODEINE. MEDICATIONS: Reviewed as listed in the MRAD including IV steroids and nebs. REVIEW OF SYSTEMS: Twelve-point system obtained. Pertinent positives discussed in my history of present illness, otherwise noncontributory. All systems that were negative were reviewed as well. SOCIAL HISTORY: Has 40 years of tobacco use, quit a year ago. FAMILY HISTORY: Noncontributory to lungs. PHYSICAL EXAMINATION: VITAL SIGNS: Reviewed. She is awake, following commands. Pulse ox 96% on 2.5 liters. NECK: Supple. LUNGS: With diminished breath sounds. CARDIOVASCULAR: With a regular rate. ABDOMEN: Soft, nontender. EXTREMITIES: With no pitting edema. LABORATORY DATA: Reviewed. BUN and creatinine 16 and 0.6. Bicarbonate is 40. White cell count 8.3, hemoglobin 11.9. IMPRESSION: 1. Gbblu-dc-bddwpxd hypercapnic respiratory failure contributed by acute exacerbation of chronic obstructive pulmonary disease and hyperoxia. 2. History of squamous cell lung cancer, right upper lobe, status post radiation. No mass seen on the chest x-ray. Per Dr. Mix's note, previous PET scan in June is revealing no evidence of recurrent disease. RECOMMENDATIONS: 1. We will avoid hyperoxia. Reduce the oxygen to 1.5 liters and consider repeating ABGs, although she is not enthusiastic about another ABG. 2. She would be a good candidate for Trilogy nocturnal ventilator. It has been denied for insurance reasons. We may consider doing a sleep study as an outpatient to at least qualify her for either CPAP or BiPAP. 3. Bronchodilators to continue. 4. Add empiric BiPAP while in the hospital. 5. Discussed with RN. We will follow along with you. TRACIE JONES MD DR: JOANNA/jessica JOB#: [id number] / [id number]
[2019-11-20 15:00] VITALS: BP 145/69
--- NOTE | 2019-11-20 16:10 | CARD ---
MR#: [id number] Date of Study: 11/20/2019 Ordering Physician: HECTOR MOBLEY, Referring Physician: HECTOR MOBLEY, Tech: Christin Villavicencio APPROVED REPORT EXAM: Two-dimensional and M-mode echocardiogram with Doppler and color Doppler. Other Information Quality : AverageHR: 93bpm INDICATION COPD Ventricular Premature contraction 2D DIMENSIONS RVDd3.2 (2.9-3.5cm)Left Atrium(2D)3.8 (1.6-4.0cm) IVSd1.1 (0.7-1.1cm)Aortic Root(2D)2.9 (2.0-3.7cm) LVDd5.6 (3.9-5.9cm)LVOT Diameter2.0 (1.8-2.4cm) PWd1.1 (0.7-1.1cm)LVDs3.7 (2.5-4.0cm) FS (%) 34.1 %SV96.8 ml LVEF(%)62.4 (>50%) Aortic Valve AoV Peak Marvin.169.1cm/sAoV VTI26.2cm AO Peak GR.11.4mmHgLVOT Peak Marvin.110.7cm/s LVOT VTI 20.17cmAO Mean GR.6mmHg ELOISE (VMAX)1.38ia7GBS (VTI)2.52cm2 Mitral Valve MV E Tgikymod34.0cm/sMV E Peak Gr.180mmHg MV A Mbkhfscl079.7cm/sMV E Mean Gr.4mmHg E/A Ratio0.6 TDI E/Lateral E'11.0E/Medial E'15.3 Pulmonary Valve PV Peak Qvwvldpj495.6cm/sPV Peak Grad.5mmHg Tricuspid Valve TR P. Gbrhyjtb063is/sRAP EJSXGRLA3jaCm TR Peak Gr.86roGvACUD81foXs Pulmonary Vein S1 Nnqcutbf43.9cm/sD2 Hptxgqty97.0cm/s PVa dcchqayq193dosl LEFT VENTRICLE The left ventricle is normal size. There is mild concentric left ventricular hypertrophy. The systoli c function is moderately impaired. EF 30-35% There is moderate global hypokinesis of the left ventric le. Tissue Doppler imaging reveals moderate left ventricular diastolic dysfunction. RIGHT VENTRICLE The right ventricle is normal size. There is normal right ventricular wall thickness. The right ventr icular systolic function is normal. ATRIA The left atrium is mildly dilated. The right atrium size is normal. The interatrial septum is intact with no evidence for an atrial septal defect or patent foramen ovale as noted on 2-D or Doppler imagi ng. AORTIC VALVE The aortic valve is calcified but opens well. Doppler and Color Flow revealed trace aortic regurgitat ion. There is no significant aortic valvular stenosis. Calculated aortic valve area is 2.73 cm2 with maximum pressure gradient of 12 mmHg and mean pressure gradient of 7 mmHg. MITRAL VALVE The mitral valve is normal in structure and function. There is no evidence of mitral valve prolapse. the mitral valve mean gradient is 4.2 mmHg. Doppler and Color-flow revealed moderate eccentric mitral regurgitation. TRICUSPID VALVE The tricuspid valve is normal in structure and function. Doppler and Color Flow revealed trace tricus pid regurgitation with an estimated PAP of 34 mmHg. There is no tricuspid valve stenosis. PULMONIC VALVE The pulmonic valve is not well visualized. Doppler and Color Flow revealed trace pulmonic valvular re gurgitation. There is no pulmonic valvular stenosis. GREAT VESSELS The aortic root is normal in size. The ascending aorta is normal in size. The IVC is normal in size a nd collapses >50% with inspiration. PERICARDIAL EFFUSION There is no evidence of significant pericardial effusion. Critical Notification Critical Value: No <Conclusion> The systolic function is moderately impaired. EF 30-35% There is moderate global hypokinesis of the left ventricle. Doppler and Color-flow revealed moderate eccentric mitral regurgitation. Signed by : Adrian Byrd, Electronically Approved : 11/20/2019 16:10:05
[2019-11-20 19:27] VITALS: BP 173/83
[2019-11-20] MEDS ORDERED: ATORVASTATIN CALCIUM 20 MG TABLET PO SCH (21:00)
[2019-11-20] MEDS ORDERED: CITALOPRAM 20 MG TABLET. PO SCH (21:00)
[2019-11-20] MEDS: FLUoxetine HCL 20 MG CAPSULE PO SCH (21:30)
[2019-11-20] MEDS: ATORVASTATIN CALCIUM 20 MG TABLET PO SCH (21:30)
[2019-11-20] MEDS: CYCLOBENZAPRINE 10 MG TABLET. PO PRN (21:31)
[2019-11-20 22:45] VITALS: BP 173/74
[2019-11-21] VITALS (8 sets, daily range): BP systolic 101–221; BP diastolic 47–111
[2019-11-21] MEDS: traMADol 50 MG TABLET PO PRN (01:25)
[2019-11-21] MEDS: hydrALAZINE 20 MG/ML VIAL. IVP PRN (01:30)
--- NOTE | 2019-11-21 01:33 | NUR ---
Pt c/o headache, rechecked pt bp was 221/111, changed bp cuff bp 177/78 apresoline 10mg ivp administered will monitor pt status and safety. pmrn
[2019-11-21] MEDS: LEVOTHYROXINE 100 MCG TABLET PO SCH (05:49)
[2019-11-21] MEDS: IPRATRPIUM/ALBUTEROL 0.5/2.5MG 3 ML NEBU. NEB SCH ×3 (07:54→15:28)
[2019-11-21] MEDS: amLODIPine BESYLATE 5 MG TABLET PO SCH (08:58)
[2019-11-21] MEDS: hydroCHLOROthiazide 12.5 MG CAPSULE PO SCH (08:58)
[2019-11-21] MEDS: LISINOPRIL 10 MG TABLET PO SCH (09:00)
[2019-11-21] MEDS: methylPREDNISolone SOD SUCC PF 40 MG/ML VIAL. IV SCH (09:00)
[2019-11-21] MEDS: FAMOTIDINE 20 MG TABLET. PO SCH ×2 (09:08→21:18)
--- NOTE | 2019-11-21 09:13 | PDOC ---
Provider Note Provider Note bp better re meds, ct head clear- echo shows reduced EF, will consult cv as she well could have cad- still frequent VPC, more labs- no beta rashi re copd for now Justicifation of Admission Dx: Justifications for Admission: Justification of Admission Dx: Yes Acute COPD Exacerbation: Acute COPD Exacerbation HECTOR MOBLEY MD Nov 21, 2019 09:13
[2019-11-21] MEDS ORDERED: LISINOPRIL 20 MG TABLET PO SCH (09:15)
[2019-11-21] MEDS ORDERED: LISINOPRIL 10 MG TABLET PO ONE (10:00)
--- NOTE | 2019-11-21 10:19 | PDOC2 ---
EUGENIO ASHLEY ENVIRONMENTAL INTERN 11/21/19 1019: CARDIAC CONSULT DATE OF CONSULT Date of Consult DATE: 11/21/19 TIME: 10:05 REASON FOR CONSULT Reason for Consult: rhythm ectopies REFERRING PHYSICIAN Referring Physician: Ld SOURCE Source: Chart review, Patient HISTORY OF PRESENT ILLNESS HISTORY OF PRESENT ILLNESS This is a pleasant 64 yo female admitted for complains of abnormal labs. Her PCO2 was high. She is known for COPD and chronic O2 use. Supposed to have CPAP at home but none yet. Pt reports no hx of CV disease nor any recent ischemic w/u. she has been having CURRY and exertional chest tightness. No recent falls injury and no significnat palpitations. Consult is for rhythm ectopies which showed bboth narrow and wide complex nonsustained tachycardia. Upon TTE she was noted with severe CM and this is new to her. She has significant risk factors including premature CAD family hx related to brother PAST MEDICAL HISTORY Cardiovascular: CAD (?), HTN, Hyperlipidemia Pulmonary: COPD GI: GERD, Peptic Ulcer disease Psych: Anxiety, Depression Musculoskeletal: Osteoarthritis Rheumatologic: No pertinent hx Renal/: UTI, Urinary Incontinence Endocrine: Hypothyroidism Dermatology: No pertinent hx PAST SURGICAL HISTORY Past Surgical History: Other (tummy tuck; bladder sling) FAMILY HISTORY Family History: Coronary Artery Disease (brother) SOCIAL HISTORY Smoke: Quit ALCOHOL: none Drugs: None Lives: with Family CURRENT MEDICATIONS CURRENT MEDICATIONS Current Medications Medications (Trade) Dose Ordered Sig/Jeaneth Route PRN Reason Start Time Stop Time Status Last Admin Dose Admin Hydrochlorothiazide (Microzide) 12.5 mg DAILY PO 11/20/19 12:00 11/21/19 08:58 Albuterol/ Ipratropium (Duoneb) 3 ml TID NEB 11/20/19 12:00 11/21/19 07:54 Famotidine (Pepcid) 20 mg BID PO 11/21/19 09:00 11/21/19 09:08 ALLERGIES ALLERGIES: Coded Allergies: acetaminophen (Verified Allergy, Intermediate, Hives, 11/21/19) bupropion HCl (Verified Allergy, Intermediate, Swelling, 12/04/17) codeine (Verified Allergy, Intermediate, Hives, 03/25/18) 01/28/18 PATIENT RECEIVED TRAMDOL WITH NO NOTED ADVERSE EFFECTS ROS Review of System 14 point ROS evaluated with pertinent positives noted per HPI PHYSICAL EXAM General: Alert, Oriented X3, Cooperative, No acute distress HEENT: Atraumatic, Mucous membr. moist/pink Lungs: Other (diminished bases) Heart: Regular rate (SR), Normal S1, Normal S2, Other (S4- apical murmur 3/6 systolic) Abdomen: Soft, No tenderness Extremities: No cyanosis, No edema Skin: No breakdown, No significant lesion Neuro: Normal speech, Sensation intact Psych/Mental Status: Mental status NL, Mood NL MUSCULOSKELETAL: Osteoarthritic changes both hands VITALS/I&O VITALS/I&O: Vital Signs Date Time Temp Pulse Resp B/P (MAP) Pulse Ox O2 Delivery O2 Flow Rate FiO2 11/21/19 09:00 97 155/72 11/21/19 07:55 Nasal Cannula 2.5 11/21/19 06:33 98.0 18 99 98.0 I & O 11/20/19 11/20/19 11/21/19 15:00 23:00 07:00 Intake Total 480 ml 180 ml 150 ml Output Total 50 ml 100 ml Balance 430 ml 80 ml 150 ml ECHOCARDIOGRAM ECHOCARDIOGRAM <Conclusion> The systolic function is moderately impaired. EF 30-35% There is moderate global hypokinesis of the left ventricle. Doppler and Color-flow revealed moderate eccentric mitral regurgitation. DATE: 11/20/19 1604 ASSESSMENT/PLAN ASSESSMENT/PLAN 1. Asymptomatic Arrhythmia: NSVT/PSVT due to CM and hypercapnea 2. Acute on chronic respiratory failure with hypercapnea, possible HUNTER with COPD, and CM 3. AECOPD 4. Moderate MR 5. Chronic systolic CHF: appears compensated 6. Cardiomyopathy: EF at 30-35% New 7. Mild Elevated troponin: multifactorial 8. Accelerated HTN: improved 9. HLP 10. Obesity 11. Exertional CP with CURRY 12. Hypothyroidism: on replacement. supratherapeutic TSH at 0.012 per PCP Recommendations 1. Will need CPAP moving forward at least. 2. Continue lisinopril, DC norvasc. Start on toprol and will increase per BP trend. DC HCTZ and start on Lasix. Check Mg and TSH and lipids 3. HF regimen and optimization. Secondary prevention measures. ASA, start on statin 4. No past ischemic workup. [facility] tomorrow, risks and beneftis discussed and agreeable to proceed. KATARINA RAE MD 11/21/19 1637: CARDIAC CONSULT ASSESSMENT/PLAN ASSESSMENT/PLAN Patient seen and examined Arrhythmias. Probably secondary to decreased LV function. Continue monitoring. Acute on chronic respiratory failure with obstructive sleep apnea, COPD and probable systolic heart failure. Lasix as noted above. Continuing lisinopril. Decreased LV systolic function. Ejection fraction of 30 to 35%. No reported history of coronary disease or heart failure. Continue medications for heart failure. Probable cardiac catheterization tomorrow based on patient's clinical course. Hypothyroidism. Continue replacement. TSH at 0.012. Thank you for allowing us to participate in the care of your patient. EUGENIO ASHLEY APRN Nov 21, 2019 10:19 KATARINA RAE MD Nov 21, 2019 16:37
--- NOTE | 2019-11-21 10:47 | PDOC ---
PULMONARY PROGRESS NOTES Subjective Patient feels better, now off of trilogy Vitals Vital Signs Date Time Temp Pulse Resp B/P (MAP) Pulse Ox O2 Delivery O2 Flow Rate FiO2 11/21/19 10:13 89 112/50 11/21/19 07:55 Nasal Cannula 2.5 11/21/19 06:33 98.0 18 99 98.0 ROS: No Nausea, No Chest Pain, No Abdominal Pain, No Increase Cough General: Alert Lungs: Clear, Other Cardiovascular: S1, S2 Abdomen: Soft Extremities: No Edema Labs Laboratory Tests Test 11/19/19 14:37 11/19/19 14:58 11/19/19 19:05 11/19/19 22:05 O2 Saturation 98 % (92-99) Arterial Blood pH 7.33 (7.35-7.45) Arterial Blood pCO2 at Patient Temp 81 mmHg (35-46) Arterial Blood pO2 at Patient Temp 117 mmHg (65-108) Arterial Blood HCO3 42 mmol/L (21-28) Arterial Blood Base Excess 13 mmol/L (-3-3) FiO2 2.5 l nc White Blood Count 8.3 x10^3/uL (4.0-11.0) Red Blood Count 3.76 x10^6/uL (3.50-5.40) Hemoglobin 11.9 g/dL (12.0-15.5) Hematocrit 35.9 % (36.0-47.0) Mean Corpuscular Volume 96 fL (79-100) Mean Corpuscular Hemoglobin 32 pg (25-35) Mean Corpuscular Hemoglobin Concent 33 g/dL (31-37) Red Cell Distribution Width 13.8 % (11.5-14.5) Platelet Count 245 x10^3/uL (140-400) Neutrophils (%) (Auto) 82 % (31-73) Lymphocytes (%) (Auto) 13 % (24-48) Monocytes (%) (Auto) 4 % (0-9) Eosinophils (%) (Auto) 0 % (0-3) Basophils (%) (Auto) 1 % (0-3) Neutrophils # (Auto) 6.8 x10^3/uL (1.8-7.7) Lymphocytes # (Auto) 1.1 x10^3/uL (1.0-4.8) Monocytes # (Auto) 0.3 x10^3/uL (0.0-1.1) Eosinophils # (Auto) 0.0 x10^3/uL (0.0-0.7) Basophils # (Auto) 0.1 x10^3/uL (0.0-0.2) Sodium Level 145 mmol/L (136-145) Potassium Level 4.4 mmol/L (3.5-5.1) Chloride Level 102 mmol/L (98-107) Carbon Dioxide Level 40 mmol/L (21-32) Anion Gap 3 (6-14) Blood Urea Nitrogen 16 mg/dL (7-20) Creatinine 0.6 mg/dL (0.6-1.0) Estimated GFR (Cockcroft-Gault) 100.6 BUN/Creatinine Ratio 27 (6-20) Glucose Level 124 mg/dL (70-99) Calcium Level 9.4 mg/dL (8.5-10.1) Total Bilirubin 0.1 mg/dL (0.2-1.0) Aspartate Amino Transf (AST/SGOT) 12 U/L (15-37) Alanine Aminotransferase (ALT/SGPT) 19 U/L (14-59) Alkaline Phosphatase 75 U/L (46-116) Troponin I Quantitative < 0.017 ng/mL (0.000-0.055) 0.026 ng/mL (0.000-0.055) 0.105 ng/mL (0.000-0.055) NI-Fpk-N-Type Natriuretic Peptide 1472 pg/mL (0-124) Total Protein 5.8 g/dL (6.4-8.2) Albumin 3.3 g/dL (3.4-5.0) Albumin/Globulin Ratio 1.3 (1.0-1.7) Medications Active Scripts Medications Dose Route/Sig Max Daily Dose Days Date Category Prozac (Fluoxetine Hcl) 40 Mg Capsule 1 Cap PO DAILY 04/03/18 Reported Valium (Diazepam) 2 Mg Tablet 2 Mg PO BID PRN 03/23/18 Reported Cyclobenzaprine Hcl 10 Mg Tablet 1 Tab PO HS PRN 07/01/17 Reported Valium (Diazepam) 2 Mg Tablet 2 Mg PO DAILY PRN 07/01/17 Reported Tramadol Hcl 50 Mg Tablet 50 Mg PO DAILY PRN 01/06/17 Reported Duoneb 0.5-3(2.5) Mg/3 Ml (Albuterol/Ipratropium) 3 Ml Ampul.neb 3 Ml NEB RTQID 30 06/04/16 Rx Atorvastatin Calcium 20 Mg Tablet 20 Mg PO QHS 30 06/04/16 Rx Celexa (Citalopram Hydrobromide) 20 Mg Tablet 1 Tab PO HS 02/19/16 Reported Levothyroxine Sodium 100 Mcg Tablet 1 Tab PO DAILY 02/19/16 Reported Impression . IMPRESSION: 1. Uqrxj-pu-kvwazkd hypercapnic respiratory failure contributed by acute exacerbation of chronic obstructive pulmonary disease and hyperoxia. 2. History of squamous cell lung cancer, right upper lobe, status post radiation. No mass seen on the chest x-ray. Per Dr. Henry's note, previous PET scan in June is revealing no evidence of recurrent disease. 3. Acute exacerbation of COPD Plan . Patient did well with noninvasive ventilation She would benefit from home noninvasive ventilation with trilogy Patient admitted with elevated PCO2 to 81 We will check with insurance company to see if she qualifies, she will greatly benefit from trilogy home ventilator to prevent further hypercapnia, and prevent readmission NAVI HENRY MD Nov 21, 2019 10:47
--- NOTE | 2019-11-21 10:58 | NUR ---
SS following up with discharge planning. SS reviewed pt chart and discussed with pt RN. Pt is currently requiring oxygen. Cardiology consulted. SS spoke with Dr. Bauer and discussed respiratory needs. Pt has been denied by insurance for Trilogy in the past. SS sending updated clinical to [facility], ; fax [phone], to see if pt would now qualify for Trilogy. SS will continue to follow for discharge planning.
[2019-11-21 11:06] LABS: CHOLESTEROL/HDL RATIO 2.1
[2019-11-21] MEDS: ASPIRIN ENTERIC COATED 81 MG TABLET.DR. PO SCH (12:11)
[2019-11-21] MEDS: FUROSEMIDE 40 MG TABLET. PO SCH (12:12)
[2019-11-21] MEDS: METOPROLOL SUCC 24HR ER 50 MG TAB.ER.24H. PO SCH (12:18)
[2019-11-21] MEDS: diazePAM 2 MG TABLET PO PRN (12:23)
[2019-11-21 13:51] LABS: FREE T4 1.47 ng/dL (0.76-1.46)
[2019-11-21] MEDS ORDERED: ATORVASTATIN CALCIUM 20 MG TABLET PO SCH ×2 (17:00→21:00)
--- NOTE | 2019-11-21 17:55 | NUR ---
Spoke to the pt regarding heart cath for tomorrow and tablet given for education. Consents signed for heart cath tomorrow.
[2019-11-21] MEDS: CYCLOBENZAPRINE 10 MG TABLET. PO PRN (21:17)
[2019-11-21] MEDS: FLUoxetine HCL 20 MG CAPSULE PO SCH (21:17)
[2019-11-21] MEDS: ATORVASTATIN CALCIUM 10 MG TABLET. PO SCH (21:18)
[2019-11-22] VITALS (15 sets, daily range): BP systolic 132–196; BP diastolic 64–95
[2019-11-22] MEDS: IPRATRPIUM/ALBUTEROL 0.5/2.5MG 3 ML NEBU. NEB SCH ×3 (07:32→15:09)
[2019-11-22] MEDS ORDERED: HEPARIN for ARTERIAL LINE 1,500 ML ONE (07:37)
[2019-11-22] MEDS ORDERED: LIDOCAINE 1% Multi-Dose 20 ML VIAL. ONE (07:37)
[2019-11-22] MEDS ORDERED: IOHEXOL 300 MG/ML 100ML VIAL. ONE ×2 (07:38→09:24)
--- NOTE | 2019-11-22 08:07 | PDOC ---
Provider Note Provider Note for cath, hols levo thyroxine re low tsh, dose later 75-88 Justicifation of Admission Dx: Justifications for Admission: Justification of Admission Dx: Yes Acute COPD Exacerbation: Acute COPD Exacerbation HECTOR MOBLEY MD Nov 22, 2019 08:06
[2019-11-22] MEDS ORDERED: fentaNYL PF VIAL 100 MCG/2 ML VIAL IV ONE (08:15)
[2019-11-22] MEDS ORDERED: IOHEXOL 300 MG/ML 100ML VIAL. IART ONE (08:15)
[2019-11-22] MEDS ORDERED: LIDOCAINE 1% Multi-Dose 20 ML VIAL. INJ ONE (08:15)
[2019-11-22] MEDS ORDERED: MIDAZOLAM HCL/PF 2 MG/2 ML VIAL. IV ONE (08:15)
[2019-11-22] MEDS: METOPROLOL SUCC 24HR ER 50 MG TAB.ER.24H. PO SCH (08:27)
[2019-11-22] MEDS: LISINOPRIL 20 MG TABLET PO SCH (08:27)
--- NOTE | 2019-11-22 08:47 | PDOC ---
MODERATE SEDATION ASSESSMENT RISKS/ALTERNATIVES Risks/Alternatives Risks and alternatives of this type of sedation and procedure discussed with: RISK/ALTERNATIVES: Patient H & P ON CHART H & P H & P on chart and reviewed for co-morbid conditions and appropriate labs. H&P ON CHART: Yes STATUS PREG STATUS ASSESSED: Yes MEDS/ALLERGIES REVIEWED Meds/Allergies Reviewed Medications and Allergies including time and route of recently administered narcotics and sedatives. MEDS/ALLERGIES REVIEWED: Yes ASA RATING ASA RATING: II AIRWAY ASSESSMENT Airway Assessment Airway patency, oral function limitations, presence of caps, crowns, dentures, partials, and ability to extend neck assessed. AIRWAY ASSESSMENT: Yes MALLAMPATI SCORE MALLAMPATI SCORE: II PRE-SEDATION ASSESSMENT PRE-SEDATION ASSESSMENT: Yes KATARINA RAE MD Nov 22, 2019 08:47
[2019-11-22] MEDS ORDERED: HEPARIN for IV BOLUS 10,000 UNIT/10 ML VIAL. ONE (09:13)
[2019-11-22] MEDS ORDERED: HEPARIN for IV BOLUS 10,000 UNIT/10 ML VIAL. IV ONE (09:15)
[2019-11-22] MEDS ORDERED: BIVALIRUDIN 250 MG VIAL. IV ONE ×2 (09:24→09:45)
--- NOTE | 2019-11-22 09:33 | PDOC ---
PULMONARY PROGRESS NOTES Subjective Patient with no new complaint Vitals Vital Signs Date Time Temp Pulse Resp B/P (MAP) Pulse Ox O2 Delivery O2 Flow Rate FiO2 11/22/19 08:27 70 11/22/19 07:33 96 Nasal Cannula 2.0 11/22/19 07:00 97.6 18 170/85 (113) 97.6 ROS: No Nausea, No Chest Pain, No Abdominal Pain, No Increase Cough General: Alert Lungs: Clear, Other Cardiovascular: S1, S2 Abdomen: Soft Extremities: No Edema Labs Laboratory Tests Test 11/21/19 10:40 Magnesium Level 2.0 mg/dL (1.8-2.4) Triglycerides Level 121 mg/dL (0-150) Cholesterol Level 203 mg/dL (0-200) LDL Cholesterol, Calculated 80 mg/dL (0-100) VLDL Cholesterol, Calculated 24 mg/dL (0-40) Non-HDL Cholesterol Calculated 104 mg/dL (0-129) HDL Cholesterol 99 mg/dL (40-60) Cholesterol/HDL Ratio 2.1 Thyroid Stimulating Hormone (TSH) 0.012 uIU/mL (0.358-3.74) Free Thyroxine 1.47 ng/dL (0.76-1.46) Free Triiodothyronine (T3) pg/mL 2.11 pg/mL (2.18-3.98) Laboratory Tests Test 11/21/19 10:40 Magnesium Level 2.0 mg/dL (1.8-2.4) Triglycerides Level 121 mg/dL (0-150) Cholesterol Level 203 mg/dL (0-200) LDL Cholesterol, Calculated 80 mg/dL (0-100) VLDL Cholesterol, Calculated 24 mg/dL (0-40) Non-HDL Cholesterol Calculated 104 mg/dL (0-129) HDL Cholesterol 99 mg/dL (40-60) Cholesterol/HDL Ratio 2.1 Thyroid Stimulating Hormone (TSH) 0.012 uIU/mL (0.358-3.74) Free Thyroxine 1.47 ng/dL (0.76-1.46) Free Triiodothyronine (T3) pg/mL 2.11 pg/mL (2.18-3.98) Medications Active Scripts Medications Dose Route/Sig Max Daily Dose Days Date Category Prozac (Fluoxetine Hcl) 40 Mg Capsule 1 Cap PO DAILY 04/03/18 Reported Valium (Diazepam) 2 Mg Tablet 2 Mg PO BID PRN 03/23/18 Reported Cyclobenzaprine Hcl 10 Mg Tablet 1 Tab PO HS PRN 07/01/17 Reported Valium (Diazepam) 2 Mg Tablet 2 Mg PO DAILY PRN 07/01/17 Reported Tramadol Hcl 50 Mg Tablet 50 Mg PO DAILY PRN 01/06/17 Reported Duoneb 0.5-3(2.5) Mg/3 Ml (Albuterol/Ipratropium) 3 Ml Ampul.neb 3 Ml NEB RTQID 30 06/04/16 Rx Atorvastatin Calcium 20 Mg Tablet 20 Mg PO QHS 30 06/04/16 Rx Celexa (Citalopram Hydrobromide) 20 Mg Tablet 1 Tab PO HS 02/19/16 Reported Levothyroxine Sodium 100 Mcg Tablet 1 Tab PO DAILY 02/19/16 Reported Impression . IMPRESSION: 1. Faakq-fs-etfqscm hypercapnic respiratory failure contributed by acute exacerbation of chronic obstructive pulmonary disease and hyperoxia. 2. History of squamous cell lung cancer, right upper lobe, status post radiation. No mass seen on the chest x-ray. Per Dr. Henry's note, previous PET scan in June is revealing no evidence of recurrent disease. 3. Acute exacerbation of COPD Plan . Cardiac catheterization today We will set up home trilogy, spoke with social work, patient greatly benefiting from noninvasive ventilation Patient did well with noninvasive ventilation She would benefit from home noninvasive ventilation with trilogy Patient admitted with elevated PCO2 to 81 We will check with insurance company to see if she qualifies, she will greatly benefit from trilogy home ventilator to prevent further hypercapnia, and prevent readmission NAVI HENRY MD Nov 22, 2019 09:33
[2019-11-22] MEDS ORDERED: TICAGRELOR 90 MG TABLET. PO ONE (09:45)
[2019-11-22] MEDS ORDERED: TICAGRELOR 90 MG TABLET. ONE (09:47)
[2019-11-22] MEDS ORDERED: IV NORMAL SALINE 1000ML BAG 1,000 ML IV SCH (09:53)
[2019-11-22] MEDS: ASPIRIN ENTERIC COATED 81 MG TABLET.DR. PO SCH (09:54)
[2019-11-22] MEDS ORDERED: fentaNYL PF VIAL 100 MCG/2 ML VIAL IV PRN (10:00)
[2019-11-22] MEDS ORDERED: ATROPINE 0.5 MG/5 ML DISP.SYRINGE. IV PRN (10:00)
[2019-11-22] MEDS ORDERED: AMIODARONE 150 MG in IV DEXTROSE 5% 100ML 100 ML IV PRN (10:00)
[2019-11-22] MEDS ORDERED: NITROGLYCERIN SUBLINGUAL 0.4 MG BOTTLE OF 25. SL PRN (10:00)
[2019-11-22] MEDS ORDERED: 0.9 % SODIUM CHLORIDE 10 ML DISP.SYRIN. IV PRN (10:00)
[2019-11-22] MEDS ORDERED: LIDOCAINE 2% 100 MG/5 ML SYRINGE. IV PRN (10:00)
--- NOTE | 2019-11-22 10:21 | EKG ---
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
[2019-11-22] MEDS: traMADol 50 MG TABLET PO PRN ×2 (11:22→22:55)
[2019-11-22] MEDS: FAMOTIDINE 20 MG TABLET. PO SCH ×2 (11:22→21:07)
[2019-11-22] MEDS: diazePAM 2 MG TABLET PO PRN (11:22)
--- NOTE | 2019-11-22 11:29 | NUR ---
SS following up with discharge planning. SS reviewed pt chart and discussed with pt RN. Pt is currently requiring oxygen and receiving left heart cath today. SS spoke with Cash at [employer], ; fax [phone], and was notified that pt will qualify for Trilogy. [facility] faxing orders to SS for special assemblies supervisor to sign. SS will continue to follow for discharge planning.
--- NOTE | 2019-11-22 12:59 | NUR ---
SS following up with discharge planning. SS received orders for Trilogy from [facility]. Dr. Bauer signed order and SS faxed to [facility]. [facility] reported that they would submit for prior authorization with [facility] and would contact once completed. Gaby reported that if pt discharges over the weekend they would set pt up with trilogy at home. SS will continue to follow for discharge planning.
--- NOTE | 2019-11-22 15:10 | CARD ---
MR#: [id number] Date of Study: 11/22/2019 Ordering Physician: EUGENIO ASHLEY, Referring Physician: EUGENIO ASHLEY, Samantha: Prudence Rivero APPROVED REPORT Procedures Left heart catheterization Left ventriculogram Selective coronary angiogram IFR measurement of the LAD Stent placement to the LAD The patient is a 64-year-old female admitted with shortness of breath. She has a history of COPD and was successfully treated for her underlying COPD. However her ejection fraction on echocardiogram s hows moderately decreased LV systolic function. In this setting we recommended cardiac catheterizati on to exclude coronary artery disease. Risks and benefits were discussed with the patient. She agre ed to proceed with catheterization and possible intervention. After informed consent was obtained the patient was brought to the heart catheterization lab. The ar ea of the right femoral artery was prepared in the usual manner with Betadine, sterile draping and lo jaelyn anesthetic. An 18-gauge needle was used to enter the right femoral artery, a wire placed and a 6 Tunisian sheath placed over the wire. A 6 Tunisian JL4 diagnostic catheter was used to engage the left system and sequential injections in various views were obtained. A 6 Tunisian Willi right diagnosti c catheter was used to engage the right coronary artery and an injection was performed. A pigtail ca theter was advanced the left ventricle. Pressures were obtained. A 30 degree MENDOZA left ventriculogra m was performed. Pullback pressures were measured. At this point there was a mid LAD lesion of bord zbigniew significance. We proceeded to perform an IFR measurement on the lesion. 1000 units of hepari n were administered. A 6 Tunisian JL4 guide was used to engage the left system. A pressure wire was p laced in the usual manner and showed the lesion to have a significant IFR of 0.84. We therefore proc eeded to revascularize the mid LAD lesion. Integrilin as per protocol was administered. Using a the existing wire a 3.0 x 18 integrity bare-metal stent was deployed with 1 inflation at 15 ivan for 15 se conds. Residual lesion was 0%. The wire and guiding system were removed from the patient. Injectio n the sheath showed normal placement. The sheath was removed and sealed with an Angio-Seal product. There were no immediate complications. All catheter exchanges were over a J-wire. Findings. Hemodynamics. LV pressure of 144/2, 14. Aortic root pressure of 142/82. Coronaries. Main. No lesions. Left anterior descending. Proximal 20% lesion. Mid 60 to 70% irregular lesion with a positive IFR o f 0.84. Left circumflex. Mid 10% lesion. Right coronary artery. Small appearing vessel. Diffusely diseased with a mid occlusion. Extensive collateralization from the left side. Left ventriculogram. The left ventricle showed an inferior wall area of diffuse aneurysmal appearance. Ejection fraction was 30%. <Conclusion> Chronically occluded right coronary artery with good collateralization from the left system. Mid significant LAD lesion successfully stented with 0% residual. Decreased ejection fraction estimated at 30% with inferior wall aneurysmal appearance. Fl time. 8.6 min. dose 42 gycm2 Signed by : Delfino Ames MD Electronically Approved : 11/22/2019 15:09:51
[2019-11-22] MEDS: FUROSEMIDE 40 MG TABLET. PO SCH (15:44)
[2019-11-22] MEDS: CYCLOBENZAPRINE 10 MG TABLET. PO PRN (19:37)
[2019-11-22] MEDS: FLUoxetine HCL 20 MG CAPSULE PO SCH (21:07)
[2019-11-22] MEDS: ATORVASTATIN CALCIUM 10 MG TABLET. PO SCH (21:07)
[2019-11-23 03:30] VITALS: BP 109/58
[2019-11-23 05:21] LABS: BASO % 0 % (0-3); EOS # 0.1 x10^3/uL (0.0-0.7); EOS % 0 % (0-3); HEMATOCRIT 40.6 % (36.0-47.0); HEMOGLOBIN 13.3 g/dL (12.0-15.5); LYMPH # 2.4 x10^3/uL (1.0-4.8); LYMPH % 16 % (24-48); MEAN CORPUSCULAR HEMOGLOBIN 31 pg (25-35); MEAN CORPUSCULAR HGB CONC 33 g/dL (31-37); MEAN CORPUSCULAR VOLUME 96 fL (79-100); MONO # 0.8 x10^3/uL (0.0-1.1); MONO % 5 % (0-9); NEUT # 11.9 x10^3/uL (1.8-7.7); NEUT % 79 % (31-73); PLATELET COUNT 283 x10^3/uL (140-400); RED BLOOD COUNT 4.23 x10^6/uL (3.50-5.40); RED CELL DISTRIBUTION WIDTH 13.6 % (11.5-14.5); WHITE BLOOD COUNT 15.1 x10^3/uL (4.0-11.0)
[2019-11-23 05:51] LABS: CALCIUM 9.8 mg/dL (8.5-10.1); CREATININE 0.9 mg/dL (0.6-1.0); POTASSIUM 3.8 mmol/L (3.5-5.1)
--- NOTE | 2019-11-23 06:24 | EKG ---
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
[2019-11-23 07:59] VITALS: BP 142/71
[2019-11-23] MEDS: IPRATRPIUM/ALBUTEROL 0.5/2.5MG 3 ML NEBU. NEB SCH ×4 (08:03→18:11)
[2019-11-23] MEDS: FUROSEMIDE 40 MG TABLET. PO SCH (08:31)
[2019-11-23] MEDS: TICAGRELOR 90 MG TABLET. PO SCH ×2 (08:31→20:50)
[2019-11-23] MEDS: FAMOTIDINE 20 MG TABLET. PO SCH (08:31)
[2019-11-23] MEDS: ASPIRIN ENTERIC COATED 81 MG TABLET.DR. PO SCH (08:31)
[2019-11-23] MEDS: LISINOPRIL 20 MG TABLET PO SCH (08:32)
[2019-11-23] MEDS: METOPROLOL SUCC 24HR ER 50 MG TAB.ER.24H. PO SCH (08:32)
--- NOTE | 2019-11-23 10:18 | PDOC ---
PULMONARY PROGRESS NOTES Subjective Patient denies CP, reports SOB and wheezing today, and unable to sleep overnight Vitals Vital Signs Date Time Temp Pulse Resp B/P (MAP) Pulse Ox O2 Delivery O2 Flow Rate FiO2 11/23/19 08:32 70 142/71 11/23/19 08:03 95 Nasal Cannula 2.0 11/23/19 07:59 98.0 18 98.0 ROS: No Nausea, No Chest Pain, No Abdominal Pain, No Increase Cough General: Alert Lungs: Clear, Other Cardiovascular: S1, S2 Abdomen: Soft, Non-tender Neuro Exam: Alert, Oriented Extremities: No Edema Labs Laboratory Tests Test 11/21/19 10:40 11/23/19 04:45 Magnesium Level 2.0 mg/dL (1.8-2.4) Triglycerides Level 121 mg/dL (0-150) Cholesterol Level 203 mg/dL (0-200) LDL Cholesterol, Calculated 80 mg/dL (0-100) VLDL Cholesterol, Calculated 24 mg/dL (0-40) Non-HDL Cholesterol Calculated 104 mg/dL (0-129) HDL Cholesterol 99 mg/dL (40-60) Cholesterol/HDL Ratio 2.1 Thyroid Stimulating Hormone (TSH) 0.012 uIU/mL (0.358-3.74) Free Thyroxine 1.47 ng/dL (0.76-1.46) Free Triiodothyronine (T3) pg/mL 2.11 pg/mL (2.18-3.98) White Blood Count 15.1 x10^3/uL (4.0-11.0) Red Blood Count 4.23 x10^6/uL (3.50-5.40) Hemoglobin 13.3 g/dL (12.0-15.5) Hematocrit 40.6 % (36.0-47.0) Mean Corpuscular Volume 96 fL (79-100) Mean Corpuscular Hemoglobin 31 pg (25-35) Mean Corpuscular Hemoglobin Concent 33 g/dL (31-37) Red Cell Distribution Width 13.6 % (11.5-14.5) Platelet Count 283 x10^3/uL (140-400) Neutrophils (%) (Auto) 79 % (31-73) Lymphocytes (%) (Auto) 16 % (24-48) Monocytes (%) (Auto) 5 % (0-9) Eosinophils (%) (Auto) 0 % (0-3) Basophils (%) (Auto) 0 % (0-3) Neutrophils # (Auto) 11.9 x10^3/uL (1.8-7.7) Lymphocytes # (Auto) 2.4 x10^3/uL (1.0-4.8) Monocytes # (Auto) 0.8 x10^3/uL (0.0-1.1) Eosinophils # (Auto) 0.1 x10^3/uL (0.0-0.7) Basophils # (Auto) 0.0 x10^3/uL (0.0-0.2) Sodium Level 142 mmol/L (136-145) Potassium Level 3.8 mmol/L (3.5-5.1) Chloride Level 101 mmol/L (98-107) Carbon Dioxide Level 35 mmol/L (21-32) Anion Gap 6 (6-14) Blood Urea Nitrogen 32 mg/dL (7-20) Creatinine 0.9 mg/dL (0.6-1.0) Estimated GFR (Cockcroft-Gault) 63.0 Glucose Level 112 mg/dL (70-99) Calcium Level 9.8 mg/dL (8.5-10.1) Laboratory Tests Test 11/23/19 04:45 White Blood Count 15.1 x10^3/uL (4.0-11.0) Red Blood Count 4.23 x10^6/uL (3.50-5.40) Hemoglobin 13.3 g/dL (12.0-15.5) Hematocrit 40.6 % (36.0-47.0) Mean Corpuscular Volume 96 fL (79-100) Mean Corpuscular Hemoglobin 31 pg (25-35) Mean Corpuscular Hemoglobin Concent 33 g/dL (31-37) Red Cell Distribution Width 13.6 % (11.5-14.5) Platelet Count 283 x10^3/uL (140-400) Neutrophils (%) (Auto) 79 % (31-73) Lymphocytes (%) (Auto) 16 % (24-48) Monocytes (%) (Auto) 5 % (0-9) Eosinophils (%) (Auto) 0 % (0-3) Basophils (%) (Auto) 0 % (0-3) Neutrophils # (Auto) 11.9 x10^3/uL (1.8-7.7) Lymphocytes # (Auto) 2.4 x10^3/uL (1.0-4.8) Monocytes # (Auto) 0.8 x10^3/uL (0.0-1.1) Eosinophils # (Auto) 0.1 x10^3/uL (0.0-0.7) Basophils # (Auto) 0.0 x10^3/uL (0.0-0.2) Sodium Level 142 mmol/L (136-145) Potassium Level 3.8 mmol/L (3.5-5.1) Chloride Level 101 mmol/L (98-107) Carbon Dioxide Level 35 mmol/L (21-32) Anion Gap 6 (6-14) Blood Urea Nitrogen 32 mg/dL (7-20) Creatinine 0.9 mg/dL (0.6-1.0) Estimated GFR (Cockcroft-Gault) 63.0 Glucose Level 112 mg/dL (70-99) Calcium Level 9.8 mg/dL (8.5-10.1) Medications Active Scripts Medications Dose Route/Sig Max Daily Dose Days Date Category Prozac (Fluoxetine Hcl) 40 Mg Capsule 1 Cap PO DAILY 04/03/18 Reported Valium (Diazepam) 2 Mg Tablet 2 Mg PO BID PRN 03/23/18 Reported Cyclobenzaprine Hcl 10 Mg Tablet 1 Tab PO HS PRN 07/01/17 Reported Valium (Diazepam) 2 Mg Tablet 2 Mg PO DAILY PRN 07/01/17 Reported Tramadol Hcl 50 Mg Tablet 50 Mg PO DAILY PRN 01/06/17 Reported Duoneb 0.5-3(2.5) Mg/3 Ml (Albuterol/Ipratropium) 3 Ml Ampul.neb 3 Ml NEB RTQID 30 06/04/16 Rx Atorvastatin Calcium 20 Mg Tablet 20 Mg PO QHS 30 06/04/16 Rx Celexa (Citalopram Hydrobromide) 20 Mg Tablet 1 Tab PO HS 02/19/16 Reported Levothyroxine Sodium 100 Mcg Tablet 1 Tab PO DAILY 02/19/16 Reported Comments CXR Impression: 1. No acute cardiopulmonary process. Cardiac Cath: <Conclusion> Chronically occluded right coronary artery with good collateralization from the left system. Mid significant LAD lesion successfully stented with 0% residual. Decreased ejection fraction estimated at 30% with inferior wall aneurysmal appe arance. Impression . IMPRESSION: 1. Oolhd-ay-tpzmmgt hypercapnic respiratory failure contributed by acute exacerbation of chronic obstructive pulmonary disease and hyperoxia. 2. History of squamous cell lung cancer, right upper lobe, status post radiation. No mass seen on the chest x-ray. previous PET scan in June is revealing no evidence of recurrent disease. 3. Acute exacerbation of COPD Plan . Continue Supplemental oxygen to keep oxygen sats above 92% Bronchodilators Follow cardiology recs S/P Cardiac catheterization -- stent to LAD EF- 30% Patient did well with noninvasive ventilation, We will set up home trilogy, spoke with social work, patient greatly benefiting from noninvasive ventilation She would benefit from home noninvasive ventilation with trilogy, Patient admitted with elevated PCO2 to 81, home trilogy would assist in preventing readmission D/W NAVI NGUYEN MD Nov 23, 2019 10:18
[2019-11-23 10:45] VITALS: BP 121/70
--- NOTE | 2019-11-23 11:05 | PDOC ---
Provider Note Provider Note bp bettter, stauffer gone- foot pulse good, rest of exam ok- cont current meds but less lasix re elevate bun/ clear cxr on admit- resume levothyroxine soon at lower dose Justicifation of Admission Dx: Justifications for Admission: Justification of Admission Dx: Yes Acute COPD Exacerbation: Acute COPD Exacerbation HECTOR MOBLEY MD Nov 23, 2019 11:05
[2019-11-23] MEDS: BUDESONIDE 0.5 MG/2 ML NEBU. NEB SCH ×2 (11:28→18:11)
--- NOTE | 2019-11-23 11:29 | PDOC ---
PROGRESS NOTES Subjective Subjective Patient seen and examined Objective Objective Vital Signs Date Time Temp Pulse Resp B/P (MAP) Pulse Ox O2 Delivery O2 Flow Rate FiO2 11/23/19 10:45 98.2 73 18 121/70 (87) 96 Nasal Cannula 2.0 98.2 Intake and Output0 11/23/19 07:00 Intake Total 1220 ml Balance 1220 ml Intake Oral 1220 ml # Voids 5 # Bowel Movements 1 Physical Exam Abdomen: Normal bowel sounds Heart: Regular rate General: mild distress Lungs: Other (Mildly decreased breath sounds, slight wheezing) Assessment Assessment Acute on chronic respiratory failure with obstructive sleep apnea, COPD and systolic heart failure. Continue diuresis. Continue pulmonary medications and the pulmonary service is following. Coronary artery disease. Catheterization yesterday showed a significant LAD lesion which was successfully stented. 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 We will continue on present medications. Hypothyroidism. Continue replacement. TSH at 0.012. Comment Review of Relevant I have reviewed the following items rogelio (where applicable) has been applied. Labs Laboratory Tests Test 11/23/19 04:45 White Blood Count 15.1 x10^3/uL (4.0-11.0) Red Blood Count 4.23 x10^6/uL (3.50-5.40) Hemoglobin 13.3 g/dL (12.0-15.5) Hematocrit 40.6 % (36.0-47.0) Mean Corpuscular Volume 96 fL (79-100) Mean Corpuscular Hemoglobin 31 pg (25-35) Mean Corpuscular Hemoglobin Concent 33 g/dL (31-37) Red Cell Distribution Width 13.6 % (11.5-14.5) Platelet Count 283 x10^3/uL (140-400) Neutrophils (%) (Auto) 79 % (31-73) Lymphocytes (%) (Auto) 16 % (24-48) Monocytes (%) (Auto) 5 % (0-9) Eosinophils (%) (Auto) 0 % (0-3) Basophils (%) (Auto) 0 % (0-3) Neutrophils # (Auto) 11.9 x10^3/uL (1.8-7.7) Lymphocytes # (Auto) 2.4 x10^3/uL (1.0-4.8) Monocytes # (Auto) 0.8 x10^3/uL (0.0-1.1) Eosinophils # (Auto) 0.1 x10^3/uL (0.0-0.7) Basophils # (Auto) 0.0 x10^3/uL (0.0-0.2) Sodium Level 142 mmol/L (136-145) Potassium Level 3.8 mmol/L (3.5-5.1) Chloride Level 101 mmol/L (98-107) Carbon Dioxide Level 35 mmol/L (21-32) Anion Gap 6 (6-14) Blood Urea Nitrogen 32 mg/dL (7-20) Creatinine 0.9 mg/dL (0.6-1.0) Estimated GFR (Cockcroft-Gault) 63.0 Glucose Level 112 mg/dL (70-99) Calcium Level 9.8 mg/dL (8.5-10.1) Laboratory Tests Test 11/23/19 04:45 White Blood Count 15.1 x10^3/uL (4.0-11.0) Red Blood Count 4.23 x10^6/uL (3.50-5.40) Hemoglobin 13.3 g/dL (12.0-15.5) Hematocrit 40.6 % (36.0-47.0) Mean Corpuscular Volume 96 fL (79-100) Mean Corpuscular Hemoglobin 31 pg (25-35) Mean Corpuscular Hemoglobin Concent 33 g/dL (31-37) Red Cell Distribution Width 13.6 % (11.5-14.5) Platelet Count 283 x10^3/uL (140-400) Neutrophils (%) (Auto) 79 % (31-73) Lymphocytes (%) (Auto) 16 % (24-48) Monocytes (%) (Auto) 5 % (0-9) Eosinophils (%) (Auto) 0 % (0-3) Basophils (%) (Auto) 0 % (0-3) Neutrophils # (Auto) 11.9 x10^3/uL (1.8-7.7) Lymphocytes # (Auto) 2.4 x10^3/uL (1.0-4.8) Monocytes # (Auto) 0.8 x10^3/uL (0.0-1.1) Eosinophils # (Auto) 0.1 x10^3/uL (0.0-0.7) Basophils # (Auto) 0.0 x10^3/uL (0.0-0.2) Sodium Level 142 mmol/L (136-145) Potassium Level 3.8 mmol/L (3.5-5.1) Chloride Level 101 mmol/L (98-107) Carbon Dioxide Level 35 mmol/L (21-32) Anion Gap 6 (6-14) Blood Urea Nitrogen 32 mg/dL (7-20) Creatinine 0.9 mg/dL (0.6-1.0) Estimated GFR (Cockcroft-Gault) 63.0 Glucose Level 112 mg/dL (70-99) Calcium Level 9.8 mg/dL (8.5-10.1) Medications Current Medications Albuterol/ Ipratropium (Duoneb) 6 ml 1X ONCE NEB Last administered on 11/19/19at 14:58; Start 11/19/19 at 14:45; Stop 11/19/19 at 14:46; Status DC Methylprednisolone Sodium Succinate (SOLU-Medrol 125MG VIAL) 125 mg 1X ONCE IV Last administered on 11/19/19at 15:09; Start 11/19/19 at 14:45; Stop 11/19/19 at 14:46; Status DC Albuterol Sulfate (Ventolin Neb Soln) 2.5 mg 1X ONCE NEB Last administered on 11/19/19at 14:58; Start 11/19/19 at 14:45; Stop 11/19/19 at 14:46; Status DC Ondansetron HCl (Zofran) 4 mg PRN Q8HRS PRN IV NAUSEA/VOMITING; Start 11/19/19 at 16:00; Stop 11/20/19 at 15:59; Status DC Albuterol/ Ipratropium (Duoneb) 3 ml RTQID NEB ; Start 11/19/19 at 16:00; Stop 11/20/19 at 15:59; Status Cancel Methylprednisolone Sodium Succinate (SOLU-Medrol 40MG VIAL) 40 mg Q8HRS IV ; Start 11/19/19 at 22:00; Stop 11/19/19 at 20:29; Status DC Albuterol/ Ipratropium (Duoneb) 3 ml RTQID NEB Last administered on 11/20/19at 07:50; Start 11/19/19 at 20:00; Stop 11/20/19 at 09:44; Status DC Hydralazine HCl (Apresoline Inj) 10 mg PRN Q4HRS PRN IVP ELEVATED BP, SEE COMME NTS Last administered on 11/21/19at 01:30; Start 11/19/19 at 18:30 Levothyroxine Sodium (Synthroid) 100 mcg DAILY06 PO Last administered on 11/21/19at 05:49; Start 11/20/19 at 06:00; Stop 11/22/19 at 07:56; Status DC Lisinopril (Prinivil) 10 mg DAILY PO Last administered on 11/21/19at 09:00; Start 11/20/19 at 09:00; Stop 11/21/19 at 09:14; Status DC Diazepam (Valium) 2 mg PRN BID PRN PO ANXIETY; Start 11/19/19 at 20:30; Stop 11/20/19 at 09:19; Status DC Tramadol HCl (Ultram) 50 mg PRN BID PRN PO PAIN Last administered on 11/22/19at 22:55; Start 11/19/19 at 20:30 Fluoxetine HCl (PROzac) 40 mg HS PO ; Start 11/19/19 at 21:00; Stop 11/19/19 at 21:56; Status DC Atorvastatin Calcium (Lipitor) 20 mg QHS PO Last administered on 11/20/19at 21:30; Start 11/19/19 at 21:00; Stop 11/21/19 at 16:49; Status DC Fluoxetine HCl (PROzac) 20 mg QHS PO Last administered on 11/22/19at 21:07; Start 11/19/19 at 23:00 Atorvastatin Calcium (Lipitor) 20 mg QHS PO ; Start 11/20/19 at 21:00; Stop 11/20/19 at 21:39; Status DC Citalopram Hydrobromide (CeleXA) 20 mg HS PO ; Start 11/20/19 at 21:00; Status UNV Cyclobenzaprine HCl (Flexeril) 10 mg PRN QHS PRN PO MUSCLE SPASMS Last administered on 11/22/19at 19:37; Start 11/20/19 at 09:00 Diazepam (Valium) 2 mg PRN BID PRN PO ANXIETY / AGITATION Last administered on 11/22/19at 11:22; Start 11/20/19 at 09:00 Diazepam (Valium) 2 mg DAILY PRN PO ANXIETY / AGITATION; Start 11/20/19 at 09:00; Stop 11/20/19 at 09:17; Status DC Albuterol/ Ipratropium (Duoneb) 3 ml RTQID NEB ; Start 11/20/19 at 12:00; Stop 11/20/19 at 09:19; Status DC Levothyroxine Sodium (Synthroid) 100 mcg DAILY PO ; Start 11/20/19 at 09:00; Stop 11/20/19 at 09:18; Status DC Tramadol HCl (Ultram) 50 mg DAILY PRN PO PAIN; Start 11/20/19 at 09:00; Stop 11/20/19 at 09:19; Status DC Methylprednisolone Sodium Succinate (SOLU-Medrol 40MG VIAL) 40 mg Q12HR IV Last administered on 11/21/19at 09:00; Start 11/20/19 at 10:00; Stop 11/21/19 at 09:14; Status DC Amlodipine Besylate (Norvasc) 5 mg DAILY PO Last administered on 11/21/19at 08:58; Start 11/20/19 at 10:00; Stop 11/21/19 at 10:17; Status DC Hydrochlorothiazide (Microzide) 12.5 mg DAILY PO Last administered on 11/21/19at 08:58; Start 11/20/19 at 12:00; Stop 11/21/19 at 10:17; Status DC Albuterol/ Ipratropium (Duoneb) 3 ml TID NEB Last administered on 11/23/19at 08:03; Start 11/20/19 at 12:00; Stop 11/23/19 at 10:17; Status DC Famotidine (Pepcid) 20 mg BID PO Last administered on 11/23/19at 08:31; Start 11/21/19 at 09:00; Stop 11/23/19 at 11:04; Status DC Lisinopril (Prinivil) 20 mg DAILY PO ; Start 11/21/19 at 09:15; Stop 11/21/19 at 09:43; Status DC Lisinopril (Prinivil) 20 mg DAILY PO Last administered on 11/23/19at 08:32; Start 11/22/19 at 09:00 Lisinopril (Prinivil) 10 mg 1X ONCE PO Last administered on 11/21/19at 10:13; Start 11/21/19 at 10:00; Stop 11/21/19 at 10:01; Status DC Metoprolol Succinate (Toprol Xl) 50 mg DAILY PO Last administered on 11/23/19at 08:32; Start 11/21/19 at 11:00 Furosemide (Lasix) 40 mg DAILY PO Last administered on 11/23/19at 08:31; Start 11/21/19 at 11:00; Stop 11/23/19 at 11:04; Status DC Aspirin (Ecotrin) 81 mg DAILYWBKFT PO Last administered on 11/22/19at 09:54; Start 11/21/19 at 12:00; Stop 11/22/19 at 09:59; Status DC Atorvastatin Calcium (Lipitor) 20 mg QHS PO ; Start 11/21/19 at 21:00; Stop 11/21/19 at 12:48; Status DC Atorvastatin Calcium (Lipitor) 10 mg QHS PO ; Start 11/21/19 at 17:00; Stop 11/21/19 at 17:52; Status DC Atorvastatin Calcium (Lipitor) 10 mg QHS PO Last administered on 11/22/19at 21:07; Start 11/21/19 at 21:00 Lidocaine HCl (Lidocaine 1% 20ml Vial) 20 ml STK-MED ONCE .ROUTE ; Start 11/22/19 at 07:37; Stop 11/22/19 at 07:37; Status DC Heparin Sodium/ Sodium Chloride 1,500 ml @ As Directed STK-MED ONCE .ROUTE ; Start 11/22/19 at 07:37; Stop 11/22/19 at 07:38; Status DC Iohexol (Omnipaque 300 Mg/ml) 100 ml STK-MED ONCE .ROUTE ; Start 11/22/19 at 07:38; Stop 11/22/19 at 07:38; Status DC Heparin Sodium/ Sodium Chloride (HEPARIN for ARTERIAL LINE FLUSH) 1,000 unit 1X ONCE IART Last administered on 11/22/19at 08:15; Start 11/22/19 at 08:15; Stop 11/22/19 at 08:16; Status DC Heparin Sodium/ Sodium Chloride (HEPARIN for ARTERIAL LINE FLUSH) 1,000 unit 1X ONCE IART Last administered on 11/22/19at 08:15; Start 11/22/19 at 08:15; Stop 11/22/19 at 08:16; Status DC Midazolam HCl (Versed) 2 mg 1X ONCE IV Last administered on 11/22/19at 08:15; Start 11/22/19 at 08:15; Stop 11/22/19 at 08:16; Status DC Fentanyl Citrate (Fentanyl 2ml Vial) 100 mcg 1X ONCE IV Last administered on 11/22/19at 08:15; Start 11/22/19 at 08:15; Stop 11/22/19 at 08:16; Status DC Iohexol (Omnipaque 300 Mg/ml) 100 ml 1X ONCE IART Last administered on 11/22/19at 08:15; Start 11/22/19 at 08:15; Stop 11/22/19 at 08:16; Status DC Lidocaine HCl (Lidocaine 1% 20ml Vial) 20 ml 1X ONCE INJ Last administered on 11/22/19at 09:00; Start 11/22/19 at 08:15; Stop 11/22/19 at 08:16; Status DC Heparin Sodium (Porcine) (Heparin Sodium) 10,000 unit STK-MED ONCE .ROUTE ; Start 11/22/19 at 09:13; Stop 11/22/19 at 09:14; Status DC Heparin Sodium (Porcine) (Heparin Sodium) 1,000 unit 1X ONCE IV Last administered on 11/22/19at 09:15; Start 11/22/19 at 09:15; Stop 11/22/19 at 09:18; Status DC Bivalirudin (Angiomax) 250 mg STK-MED ONCE IV ; Start 11/22/19 at 09:24; Stop 11/22/19 at 09:24; Status DC Iohexol (Omnipaque 300 Mg/ml) 100 ml STK-MED ONCE .ROUTE ; Start 11/22/19 at 09:24; Stop 11/22/19 at 09:25; Status DC Bivalirudin (Angiomax) 250 mg 1X ONCE IV Last administered on 11/22/19at 09:36; Start 11/22/19 at 09:45; Stop 11/22/19 at 09:46; Status DC Ticagrelor (Brilinta) 180 mg 1X ONCE PO Last administered on 11/22/19at 09:54; Start 11/22/19 at 09:45; Stop 11/22/19 at 09:46; Status DC Ticagrelor (Brilinta) 90 mg STK-MED ONCE .ROUTE ; Start 11/22/19 at 09:47; Stop 11/22/19 at 09:47; Status DC Sodium Chloride (Normal Saline Flush) 3 ml QSHIFT PRN IV AFTER MEDS AND BLOOD DRAWS; Start 11/22/19 at 10:00 Sodium Chloride 1,000 ml @ 60 mls/hr [id number] IV Last administered on 11/22/19at 15:45; Start 11/22/19 at 09:53; Stop 11/22/19 at 17:52; Status DC Aspirin (Ecotrin) 81 mg DAILYWBKFT PO Last administered on 11/23/19at 08:31; Start 11/23/19 at 08:00 Ticagrelor (Brilinta) 90 mg BID PO Last administered on 11/23/19at 08:31; Start 11/23/19 at 09:00 Fentanyl Citrate (Fentanyl 2ml Vial) 50 mcg PRN Q1HR PRN IV MODERATE OR SEVERE PAIN; Start 11/22/19 at 10:00 Nitroglycerin (Nitrostat) 0.4 mg PRN Q5MIN PRN SL CHEST PAIN; Start 11/22/19 at 10:00 Amiodarone HCl 150 mg/Dextrose 103 ml @ 600 mls/hr 1X PRN PRN IV FOR VENTRICULAR TACHYCARDIA; Start 11/22/19 at 10:00 Lidocaine HCl (Lidocaine HCl 2% Abboject) 100 mg 1X PRN PRN IV FOR VENTRICULAR TACHYCARDIA; Start 11/22/19 at 10:00 Atropine Sulfate (ATROPINE 0.5mg SYRINGE) 0.5 mg PRN 1X PRN IV BRADYCARDIA; Start 11/22/19 at 10:00 Albuterol/ Ipratropium (Duoneb) 3 ml RTQID NEB ; Start 11/23/19 at 12:00 Budesonide (Pulmicort) 0.5 mg RTBID NEB ; Start 11/23/19 at 12:00 Furosemide (Lasix) 20 mg DAILY PO ; Start 11/23/19 at 11:00 Levothyroxine Sodium (Synthroid) 88 mcg DAILY06 PO ; Start 11/25/19 at 06:00 Active Scripts Active Duoneb 0.5-3(2.5) Mg/3 Ml (Albuterol/Ipratropium) 3 Ml Ampul.neb 3 Ml NEB RTQID 30 Days Atorvastatin Calcium 20 Mg Tablet 20 Mg PO QHS 30 Days Reported Prozac (Fluoxetine Hcl) 40 Mg Capsule 1 Cap PO DAILY Valium (Diazepam) 2 Mg Tablet 2 Mg PO BID PRN Cyclobenzaprine Hcl 10 Mg Tablet 1 Tab PO HS PRN Valium (Diazepam) 2 Mg Tablet 2 Mg PO DAILY PRN Tramadol Hcl 50 Mg Tablet 50 Mg PO DAILY PRN Celexa (Citalopram Hydrobromide) 20 Mg Tablet 1 Tab PO HS Levothyroxine Sodium 100 Mcg Tablet 1 Tab PO DAILY Vitals/I & O Vital Sign - Last 24 Hours 11/22/19 11/22/19 11/22/19 11/22/19 11:39 11:41 12:26 13:26 Pulse 63 72 69 B/P (MAP) 151/74 (99) 140/64 (89) 147/68 (94) Pulse Ox 95 O2 Delivery Nasal Cannula O2 Flow Rate 2.0 11/22/19 11/22/19 11/22/19 11/22/19 14:37 15:09 19:25 19:45 Temp 98.4 98.1 98.4 98.1 Pulse 64 66 Resp 20 18 B/P (MAP) 163/87 (112) 140/69 (92) Pulse Ox 95 96 98 O2 Delivery Nasal Cannula Nasal Cannula Room Air Nasal Cannula O2 Flow Rate 2.0 2.0 2.5 11/22/19 11/22/19 11/22/19 11/23/19 22:55 23:01 23:55 03:30 Temp 98.5 98.7 98.5 98.7 Pulse 73 72 Resp 20 20 20 16 B/P (MAP) 132/75 (94) 109/58 (75) Pulse Ox 97 91 O2 Delivery Nasal Cannula Room Air Nasal Cannula Nasal Cannula O2 Flow Rate 2.5 2.5 2.5 11/23/19 11/23/19 11/23/19 11/23/19 07:59 08:00 08:03 08:32 Temp 98.0 98.0 Pulse 70 70 Resp 18 B/P (MAP) 142/71 (94) 142/71 Pulse Ox 96 95 O2 Delivery Nasal Cannula Nasal Cannula Nasal Cannula O2 Flow Rate 2.0 2.0 2.0 11/23/19 11/23/19 08:32 10:45 Temp 98.2 98.2 Pulse 70 73 Resp 18 B/P (MAP) 142/71 121/70 (87) Pulse Ox 96 O2 Delivery Nasal Cannula O2 Flow Rate 2.0 Intake and Output 11/22/19 11/22/19 11/23/19 15:00 23:00 07:00 Intake Total 360 ml 360 ml 500 ml Balance 360 ml 360 ml 500 ml Justicifation of Admission Dx: Justifications for Admission: Justification of Admission Dx: Yes Acute COPD Exacerbation: Acute COPD Exacerbation KATARINA RAE MD Nov 23, 2019 11:29
[2019-11-23] MEDS: diazePAM 2 MG TABLET PO PRN (11:49)
[2019-11-23] MEDS: FUROSEMIDE 20 MG TABLET PO SCH (11:49)
[2019-11-23 15:59] VITALS: BP 119/66
--- NOTE | 2019-11-23 18:10 | NUR ---
pt refused offers for stool softener or prune juice.
[2019-11-23] MEDS ORDERED: DOCUSATE SODIUM 100 MG CAPSULE. PO PRN (18:15)
[2019-11-23 19:18] VITALS: BP 118/64
[2019-11-23] MEDS: ATORVASTATIN CALCIUM 10 MG TABLET. PO SCH (20:50)
[2019-11-23] MEDS: FLUoxetine HCL 20 MG CAPSULE PO SCH (20:51)
[2019-11-23] MEDS ORDERED: PROCHLORPERAZINE 5 MG TABLET. PO PRN (21:30)
[2019-11-23] MEDS: TEMAZEPAM 15 MG CAPSULE PO PRN (21:39)
[2019-11-23 23:20] VITALS: BP 117/68
[2019-11-24 03:05] VITALS: BP 135/68
[2019-11-24 07:25] VITALS: BP 105/62
[2019-11-24] MEDS: IPRATRPIUM/ALBUTEROL 0.5/2.5MG 3 ML NEBU. NEB SCH ×4 (07:49→20:14)
[2019-11-24] MEDS: BUDESONIDE 0.5 MG/2 ML NEBU. NEB SCH ×2 (07:50→20:14)
[2019-11-24] MEDS: TICAGRELOR 90 MG TABLET. PO SCH ×2 (08:11→20:56)
[2019-11-24] MEDS: LISINOPRIL 20 MG TABLET PO SCH (08:11)
[2019-11-24] MEDS: ASPIRIN ENTERIC COATED 81 MG TABLET.DR. PO SCH (08:11)
[2019-11-24] MEDS: METOPROLOL SUCC 24HR ER 50 MG TAB.ER.24H. PO SCH (08:12)
[2019-11-24] MEDS: FUROSEMIDE 20 MG TABLET PO SCH (08:12)
--- NOTE | 2019-11-24 08:52 | PDOC ---
PULMONARY PROGRESS NOTES Subjective Denies SOB or cough slept well last, denies CP feeling good today Vitals Vital Signs Date Time Temp Pulse Resp B/P (MAP) Pulse Ox O2 Delivery O2 Flow Rate FiO2 11/24/19 08:12 59 105/62 11/24/19 07:52 98 Nasal Cannula 2.0 11/24/19 07:25 97.9 17 97.9 ROS: No Nausea, No Chest Pain, No Abdominal Pain, No Increase Cough General: Alert Lungs: Clear, Other Cardiovascular: S1, S2 Abdomen: Soft, Non-tender Neuro Exam: Alert, Oriented Extremities: No Edema Labs Laboratory Tests Test 11/23/19 04:45 White Blood Count 15.1 x10^3/uL (4.0-11.0) Red Blood Count 4.23 x10^6/uL (3.50-5.40) Hemoglobin 13.3 g/dL (12.0-15.5) Hematocrit 40.6 % (36.0-47.0) Mean Corpuscular Volume 96 fL (79-100) Mean Corpuscular Hemoglobin 31 pg (25-35) Mean Corpuscular Hemoglobin Concent 33 g/dL (31-37) Red Cell Distribution Width 13.6 % (11.5-14.5) Platelet Count 283 x10^3/uL (140-400) Neutrophils (%) (Auto) 79 % (31-73) Lymphocytes (%) (Auto) 16 % (24-48) Monocytes (%) (Auto) 5 % (0-9) Eosinophils (%) (Auto) 0 % (0-3) Basophils (%) (Auto) 0 % (0-3) Neutrophils # (Auto) 11.9 x10^3/uL (1.8-7.7) Lymphocytes # (Auto) 2.4 x10^3/uL (1.0-4.8) Monocytes # (Auto) 0.8 x10^3/uL (0.0-1.1) Eosinophils # (Auto) 0.1 x10^3/uL (0.0-0.7) Basophils # (Auto) 0.0 x10^3/uL (0.0-0.2) Sodium Level 142 mmol/L (136-145) Potassium Level 3.8 mmol/L (3.5-5.1) Chloride Level 101 mmol/L (98-107) Carbon Dioxide Level 35 mmol/L (21-32) Anion Gap 6 (6-14) Blood Urea Nitrogen 32 mg/dL (7-20) Creatinine 0.9 mg/dL (0.6-1.0) Estimated GFR (Cockcroft-Gault) 63.0 Glucose Level 112 mg/dL (70-99) Calcium Level 9.8 mg/dL (8.5-10.1) Medications Active Scripts Medications Dose Route/Sig Max Daily Dose Days Date Category Prozac (Fluoxetine Hcl) 40 Mg Capsule 1 Cap PO DAILY 04/03/18 Reported Valium (Diazepam) 2 Mg Tablet 2 Mg PO BID PRN 03/23/18 Reported Cyclobenzaprine Hcl 10 Mg Tablet 1 Tab PO HS PRN 07/01/17 Reported Valium (Diazepam) 2 Mg Tablet 2 Mg PO DAILY PRN 07/01/17 Reported Tramadol Hcl 50 Mg Tablet 50 Mg PO DAILY PRN 01/06/17 Reported Duoneb 0.5-3(2.5) Mg/3 Ml (Albuterol/Ipratropium) 3 Ml Ampul.neb 3 Ml NEB RTQID 30 06/04/16 Rx Atorvastatin Calcium 20 Mg Tablet 20 Mg PO QHS 30 06/04/16 Rx Celexa (Citalopram Hydrobromide) 20 Mg Tablet 1 Tab PO HS 02/19/16 Reported Levothyroxine Sodium 100 Mcg Tablet 1 Tab PO DAILY 02/19/16 Reported Comments CXR Impression: 1. No acute cardiopulmonary process. Cardiac Cath: <Conclusion> Chronically occluded right coronary artery with good collateralization from the left system. Mid significant LAD lesion successfully stented with 0% residual. Decreased ejection fraction estimated at 30% with inferior wall aneurysmal appearance. Impression . IMPRESSION: 1. [id number] hypercapnic respiratory failure contributed by acute exacerbation of chronic obstructive pulmonary disease and hyperoxia. 2. History of squamous cell lung cancer, right upper lobe, status post radiation. No mass seen on the chest x-ray. previous PET scan in June is revealing no evidence of recurrent disease. 3. Acute exacerbation of COPD 4. CAD 5.Cardiomyopathy Plan . Continue Supplemental oxygen to keep oxygen sats above 92%--remains on 2 liters N/C Bronchodilators/pulmicort Follow cardiology recs S/P Cardiac catheterization -- stent to LAD EF- 30% Patient did well with noninvasive ventilation, We will set up home trilogy, spoke with social work, patient greatly benefiting from noninvasive ventilation She would benefit from home noninvasive ventilation with trilogy, Patient admitted with elevated PCO2 to 81, home trilogy would assist in preventing readmission D/W NAVI NGUYEN MD Nov 24, 2019 08:52
--- NOTE | 2019-11-24 09:34 | PDOC ---
Provider Note Provider Note looks good , no new problems- bp lower so will lower lisin dose, make lasix qod also- can go home when trilogy delivered Justicifation of Admission Dx: Justifications for Admission: Justification of Admission Dx: Yes Acute COPD Exacerbation: Acute COPD Exacerbation HECTOR MOBLEY MD Nov 24, 2019 09:34
[2019-11-24] MEDS ORDERED: LISINOPRIL 10 MG TABLET PO SCH (10:00)
[2019-11-24 10:54] VITALS: BP 108/57
--- NOTE | 2019-11-24 13:36 | PDOC ---
PROGRESS NOTES Subjective Subjective Patient seen and examined Objective Objective Vital Signs Date Time Temp Pulse Resp B/P (MAP) Pulse Ox O2 Delivery O2 Flow Rate FiO2 11/24/19 12:58 98 Nasal Cannula 2.0 11/24/19 10:54 97.9 60 16 108/57 (74) 97.9 Intake and Output 11/24/19 07:00 Intake Total 474 ml Output Total 0 ml Balance 474 ml Intake Oral 474 ml Output Urine Total 0 ml # Voids 2 # Bowel Movements 3 Physical Exam Abdomen: Normal bowel sounds Heart: Regular rate General: No acute distress Lungs: Other (Mildly decreased breath sounds) Assessment Assessment Acute on chronic respiratory failure with obstructive sleep apnea, COPD and systolic heart failure. Continue diuresis. Continue pulmonary medications and the pulmonary service is following. Coronary artery disease. Catheterization showed a significant LAD lesion which was successfully stented. 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 We will continue on present medications. Increase activity. Office follow-up in 3 weeks. Hypothyroidism. Continue replacement. TSH at 0.012. Comment Review of Relevant I have reviewed the following items rogelio (where applicable) has been applied. Labs Laboratory Tests Test 11/23/19 04:45 White Blood Count 15.1 x10^3/uL (4.0-11.0) Red Blood Count 4.23 x10^6/uL (3.50-5.40) Hemoglobin 13.3 g/dL (12.0-15.5) Hematocrit 40.6 % (36.0-47.0) Mean Corpuscular Volume 96 fL (79-100) Mean Corpuscular Hemoglobin 31 pg (25-35) Mean Corpuscular Hemoglobin Concent 33 g/dL (31-37) Red Cell Distribution Width 13.6 % (11.5-14.5) Platelet Count 283 x10^3/uL (140-400) Neutrophils (%) (Auto) 79 % (31-73) Lymphocytes (%) (Auto) 16 % (24-48) Monocytes (%) (Auto) 5 % (0-9) Eosinophils (%) (Auto) 0 % (0-3) Basophils (%) (Auto) 0 % (0-3) Neutrophils # (Auto) 11.9 x10^3/uL (1.8-7.7) Lymphocytes # (Auto) 2.4 x10^3/uL (1.0-4.8) Monocytes # (Auto) 0.8 x10^3/uL (0.0-1.1) Eosinophils # (Auto) 0.1 x10^3/uL (0.0-0.7) Basophils # (Auto) 0.0 x10^3/uL (0.0-0.2) Sodium Level 142 mmol/L (136-145) Potassium Level 3.8 mmol/L (3.5-5.1) Chloride Level 101 mmol/L (98-107) Carbon Dioxide Level 35 mmol/L (21-32) Anion Gap 6 (6-14) Blood Urea Nitrogen 32 mg/dL (7-20) Creatinine 0.9 mg/dL (0.6-1.0) Estimated GFR (Cockcroft-Gault) 63.0 Glucose Level 112 mg/dL (70-99) Calcium Level 9.8 mg/dL (8.5-10.1) Medications Current Medications Albuterol/ Ipratropium (Duoneb) 6 ml 1X ONCE NEB Last administered on 11/19/19at 14:58; Start 11/19/19 at 14:45; Stop 11/19/19 at 14:46; Status DC Methylprednisolone Sodium Succinate (SOLU-Medrol 125MG VIAL) 125 mg 1X ONCE IV Last administered on 11/19/19at 15:09; Start 11/19/19 at 14:45; Stop 11/19/19 at 14:46; Status DC Albuterol Sulfate (Ventolin Neb Soln) 2.5 mg 1X ONCE NEB Last administered on 11/19/19at 14:58; Start 11/19/19 at 14:45; Stop 11/19/19 at 14:46; Status DC Ondansetron HCl (Zofran) 4 mg PRN Q8HRS PRN IV NAUSEA/VOMITING; Start 11/19/19 at 16:00; Stop 11/20/19 at 15:59; Status DC Albuterol/ Ipratropium (Duoneb) 3 ml RTQID NEB ; Start 11/19/19 at 16:00; Stop 11/20/19 at 15:59; Status Cancel Methylprednisolone Sodium Succinate (SOLU-Medrol 40MG VIAL) 40 mg Q8HRS IV ; Start 11/19/19 at 22:00; Stop 11/19/19 at 20:29; Status DC Albuterol/ Ipratropium (Duoneb) 3 ml RTQID NEB Last administered on 11/20/19at 07:50; Start 11/19/19 at 20:00; Stop 11/20/19 at 09:44; Status DC Hydralazine HCl (Apresoline Inj) 10 mg PRN Q4HRS PRN IVP ELEVATED BP, SEE COMMENTS Last administered on 11/21/19at 01:30; Start 11/19/19 at 18:30; Stop 11/24/19 at 09:22; Status DC Levothyroxine Sodium (Synthroid) 100 mcg DAILY06 PO Last administered on 11/21/19at 05:49; Start 11/20/19 at 06:00; Stop 11/22/19 at 07:56; Status DC Lisinopril (Prinivil) 10 mg DAILY PO Last administered on 11/21/19at 09:00; Start 11/20/19 at 09:00; Stop 11/21/19 at 09:14; Status DC Diazepam (Valium) 2 mg PRN BID PRN PO ANXIETY; Start 11/19/19 at 20:30; Stop 11/20/19 at 09:19; Status DC Tramadol HCl (Ultram) 50 mg PRN BID PRN PO PAIN Last administered on 11/22/19at 22:55; Start 11/19/19 at 20:30 Fluoxetine HCl (PROzac) 40 mg HS PO ; Start 11/19/19 at 21:00; Stop 11/19/19 at 21:56; Status DC Atorvastatin Calcium (Lipitor) 20 mg QHS PO Last administered on 11/20/19at 21:30; Start 11/19/19 at 21:00; Stop 11/21/19 at 16:49; Status DC Fluoxetine HCl (PROzac) 20 mg QHS PO Last administered on 11/23/19at 20:51; Start 11/19/19 at 23:00 Atorvastatin Calcium (Lipitor) 20 mg QHS PO ; Start 11/20/19 at 21:00; Stop 11/20/19 at 21:39; Status DC Citalopram Hydrobromide (CeleXA) 20 mg HS PO ; Start 11/20/19 at 21:00; Status UNV Cyclobenzaprine HCl (Flexeril) 10 mg PRN QHS PRN PO MUSCLE SPASMS Last administered on 11/22/19at 19:37; Start 11/20/19 at 09:00 Diazepam (Valium) 2 mg PRN BID PRN PO ANXIETY / AGITATION Last administered on 11/23/19at 11:49; Start 11/20/19 at 09:00 Diazepam (Valium) 2 mg DAILY PRN PO ANXIETY / AGITATION; Start 11/20/19 at 09:00; Stop 11/20/19 at 09:17; Status DC Albuterol/ Ipratropium (Duoneb) 3 ml RTQID NEB ; Start 11/20/19 at 12:00; Stop 11/20/19 at 09:19; Status DC Levothyroxine Sodium (Synthroid) 100 mcg DAILY PO ; Start 11/20/19 at 09:00; Stop 11/20/19 at 09:18; Status DC Tramadol HCl (Ultram) 50 mg DAILY PRN PO PAIN; Start 11/20/19 at 09:00; Stop 11/20/19 at 09:19; Status DC Methylprednisolone Sodium Succinate (SOLU-Medrol 40MG VIAL) 40 mg Q12HR IV Last administered on 11/21/19at 09:00; Start 11/20/19 at 10:00; Stop 11/21/19 at 09:14; Status DC Amlodipine Besylate (Norvasc) 5 mg DAILY PO Last administered on 11/21/19at 08:58; Start 11/20/19 at 10:00; Stop 11/21/19 at 10:17; Status DC Hydrochlorothiazide (Microzide) 12.5 mg DAILY PO Last administered on 11/21/19at 08:58; Start 11/20/19 at 12:00; Stop 11/21/19 at 10:17; Status DC Albuterol/ Ipratropium (Duoneb) 3 ml TID NEB Last administered on 11/23/19at 08:03; Start 11/20/19 at 12:00; Stop 11/23/19 at 10:17; Status DC Famotidine (Pepcid) 20 mg BID PO Last administered on 11/23/19at 08:31; Start 11/21/19 at 09:00; Stop 11/23/19 at 11:04; Status DC Lisinopril (Prinivil) 20 mg DAILY PO ; Start 11/21/19 at 09:15; Stop 11/21/19 at 09:43; Status DC Lisinopril (Prinivil) 20 mg DAILY PO Last administered on 11/24/19at 08:11; Start 11/22/19 at 09:00; Stop 11/24/19 at 09:22; Status DC Lisinopril (Prinivil) 10 mg 1X ONCE PO Last administered on 11/21/19at 10:13; Start 11/21/19 at 10:00; Stop 11/21/19 at 10:01; Status DC Metoprolol Succinate (Toprol Xl) 50 mg DAILY PO Last administered on 11/24/19at 08:12; Start 11/21/19 at 11:00 Furosemide (Lasix) 40 mg DAILY PO Last administered on 11/23/19at 08:31; Start 11/21/19 at 11:00; Stop 11/23/19 at 11:04; Status DC Aspirin (Ecotrin) 81 mg DAILYWBKFT PO Last administered on 11/22/19at 09:54; Start 11/21/19 at 12:00; Stop 11/22/19 at 09:59; Status DC Atorvastatin Calcium (Lipitor) 20 mg QHS PO ; Start 11/21/19 at 21:00; Stop 11/21/19 at 12:48; Status DC Atorvastatin Calcium (Lipitor) 10 mg QHS PO ; Start 11/21/19 at 17:00; Stop 11/21/19 at 17:52; Status DC Atorvastatin Calcium (Lipitor) 10 mg QHS PO Last administered on 11/23/19at 20:50; Start 11/21/19 at 21:00 Lidocaine HCl (Lidocaine 1% 20ml Vial) 20 ml STK-MED ONCE .ROUTE ; Start 11/22/19 at 07:37; Stop 11/22/19 at 07:37; Status DC Heparin Sodium/ Sodium Chloride 1,500 ml @ As Directed STK-MED ONCE .ROUTE ; Start 11/22/19 at 07:37; Stop 11/22/19 at 07:38; Status DC Iohexol (Omnipaque 300 Mg/ml) 100 ml STK-MED ONCE .ROUTE ; Start 11/22/19 at 07:38; Stop 11/22/19 at 07:38; Status DC Heparin Sodium/ Sodium Chloride (HEPARIN for ARTERIAL LINE FLUSH) 1,000 unit 1X ONCE IART Last administered on 11/22/19at 08:15; Start 11/22/19 at 08:15; Stop 11/22/19 at 08:16; Status DC Heparin Sodium/ Sodium Chloride (HEPARIN for ARTERIAL LINE FLUSH) 1,000 unit 1X ONCE IART Last administered on 11/22/19at 08:15; Start 11/22/19 at 08:15; Stop 11/22/19 at 08:16; Status DC Midazolam HCl (Versed) 2 mg 1X ONCE IV Last administered on 11/22/19at 08:15; Start 11/22/19 at 08:15; Stop 11/22/19 at 08:16; Status DC Fentanyl Citrate (Fentanyl 2ml Vial) 100 mcg 1X ONCE IV Last administered on 11/22/19at 08:15; Start 11/22/19 at 08:15; Stop 11/22/19 at 08:16; Status DC Iohexol (Omnipaque 300 Mg/ml) 100 ml 1X ONCE IART Last administered on 11/22/19at 08:15; Start 11/22/19 at 08:15; Stop 11/22/19 at 08:16; Status DC Lidocaine HCl (Lidocaine 1% 20ml Vial) 20 ml 1X ONCE INJ Last administered on 11/22/19at 09:00; Start 11/22/19 at 08:15; Stop 11/22/19 at 08:16; Status DC Heparin Sodium (Porcine) (Heparin Sodium) 10,000 unit STK-MED ONCE .ROUTE ; Start 11/22/19 at 09:13; Stop 11/22/19 at 09:14; Status DC Heparin Sodium (Porcine) (Heparin Sodium) 1,000 unit 1X ONCE IV Last administered on 11/22/19at 09:15; Start 11/22/19 at 09:15; Stop 11/22/19 at 09:18; Status DC Bivalirudin (Angiomax) 250 mg STK-MED ONCE IV ; Start 11/22/19 at 09:24; Stop 11/22/19 at 09:24; Status DC Iohexol (Omnipaque 300 Mg/ml) 100 ml STK-MED ONCE .ROUTE ; Start 11/22/19 at 09:24; Stop 11/22/19 at 09:25; Status DC Bivalirudin (Angiomax) 250 mg 1X ONCE IV Last administered on 11/22/19at 09:36; Start 11/22/19 at 09:45; Stop 11/22/19 at 09:46; Status DC Ticagrelor (Brilinta) 180 mg 1X ONCE PO Last administered on 11/22/19at 09:54; Start 11/22/19 at 09:45; Stop 11/22/19 at 09:46; Status DC Ticagrelor (Brilinta) 90 mg STK-MED ONCE .ROUTE ; Start 11/22/19 at 09:47; Stop 11/22/19 at 09:47; Status DC Sodium Chloride (Normal Saline Flush) 3 ml QSHIFT PRN IV AFTER MEDS AND BLOOD DRAWS; Start 11/22/19 at 10:00 Sodium Chloride 1,000 ml @ 60 mls/hr [id number] IV Last administered on 11/22/19at 15:45; Start 11/22/19 at 09:53; Stop 11/22/19 at 17:52; Status DC Aspirin (Ecotrin) 81 mg DAILYWBKFT PO Last administered on 11/24/19at 08:11; Start 11/23/19 at 08:00 Ticagrelor (Brilinta) 90 mg BID PO Last administered on 11/24/19at 08:11; Start 11/23/19 at 09:00 Fentanyl Citrate (Fentanyl 2ml Vial) 50 mcg PRN Q1HR PRN IV MODERATE OR SEVERE PAIN; Start 11/22/19 at 10:00 Nitroglycerin (Nitrostat) 0.4 mg PRN Q5MIN PRN SL CHEST PAIN; Start 11/22/19 at 10:00 Amiodarone HCl 150 mg/Dextrose 103 ml @ 600 mls/hr 1X PRN PRN IV FOR VENTRICULAR TACHYCARDIA; Start 11/22/19 at 10:00 Lidocaine HCl (Lidocaine HCl 2% Abboject) 100 mg 1X PRN PRN IV FOR VENTRICULAR TACHYCARDIA; Start 11/22/19 at 10:00 Atropine Sulfate (ATROPINE 0.5mg SYRINGE) 0.5 mg PRN 1X PRN IV BRADYCARDIA; Start 11/22/19 at 10:00 Albuterol/ Ipratropium (Duoneb) 3 ml RTQID NEB Last administered on 11/24/19at 12:55; Start 11/23/19 at 12:00 Budesonide (Pulmicort) 0.5 mg RTBID NEB Last administered on 11/24/19at 07:50; Start 11/23/19 at 12:00 Furosemide (Lasix) 20 mg DAILY PO Last administered on 11/24/19at 08:12; Start 11/23/19 at 11:00; Stop 11/24/19 at 09:36; Status DC Levothyroxine Sodium (Synthroid) 88 mcg DAILY06 PO ; Start 11/25/19 at 06:00 Docusate Sodium (Colace) 100 mg PRN BID PRN PO HARD STOOLS Last administered on 11/23/19at 20:51; Start 11/23/19 at 18:15 Temazepam (Restoril) 15 mg PRN QHS PRN PO INSOMNIA Last administered on 11/23/19at 21:39; Start 11/23/19 at 21:30 Prochlorperazine Maleate (Compazine) 5 mg PRN 1X PRN PO NAUSEA/VOMITING Last administered on 11/23/19at 21:38; Start 11/23/19 at 21:30 Lisinopril (Prinivil) 10 mg DAILY PO ; Start 11/24/19 at 10:00 Furosemide (Lasix) 20 mg QODAY PO ; Start 11/26/19 at 09:00 Active Scripts Active Duoneb 0.5-3(2.5) Mg/3 Ml (Albuterol/Ipratropium) 3 Ml Ampul.neb 3 Ml NEB RTQID 30 Days Atorvastatin Calcium 20 Mg Tablet 20 Mg PO QHS 30 Days Reported Prozac (Fluoxetine Hcl) 40 Mg Capsule 1 Cap PO DAILY Valium (Diazepam) 2 Mg Tablet 2 Mg PO BID PRN Cyclobenzaprine Hcl 10 Mg Tablet 1 Tab PO HS PRN Valium (Diazepam) 2 Mg Tablet 2 Mg PO DAILY PRN Tramadol Hcl 50 Mg Tablet 50 Mg PO DAILY PRN Celexa (Citalopram Hydrobromide) 20 Mg Tablet 1 Tab PO HS Levothyroxine Sodium 100 Mcg Tablet 1 Tab PO DAILY Vitals/I & O Vital Sign - Last 24 Hours 11/23/19 11/23/19 11/23/19 11/23/19 15:59 18:14 19:18 19:32 Temp 98.5 98.2 98.5 98.2 Pulse 65 71 Resp 18 18 B/P (MAP) 119/66 (83) 118/64 (82) Pulse Ox 99 98 O2 Delivery Nasal Cannula Nasal Cannula Nasal Cannula Nasal Cannula O2 Flow Rate 2.0 2.0 2.0 2.0 11/23/19 11/24/19 11/24/19 11/24/19 23:20 03:05 07:25 07:52 Temp 98.6 98.5 97.9 98.6 98.5 97.9 Pulse 66 65 59 Resp 14 16 17 B/P (MAP) 117/68 (84) 135/68 (90) 105/62 (76) Pulse Ox 97 97 95 98 O2 Delivery Nasal Cannula Nasal Cannula Nasal Cannula Nasal Cannula O2 Flow Rate 2.0 2.0 2.0 2.0 11/24/19 11/24/19 11/24/19 11/24/19 08:00 08:11 08:12 10:54 Temp 97.9 97.9 Pulse 59 59 60 Resp 16 B/P (MAP) 105/62 105/62 108/57 (74) Pulse Ox 100 O2 Delivery Nasal Cannula Nasal Cannula O2 Flow Rate 2.0 2.0 11/24/19 12:58 Pulse Ox 98 O2 Delivery Nasal Cannula O2 Flow Rate 2.0 Intake and Output 11/23/19 11/23/19 11/24/19 15:00 23:00 07:00 Intake Total 237 ml 237 ml Output Total 0 ml Balance 237 ml 237 ml Justicifation of Admission Dx: Justifications for Admission: Justification of Admission Dx: Yes Acute COPD Exacerbation: Acute COPD Exacerbation KATARINA RAE MD Nov 24, 2019 13:36
[2019-11-24 15:11] VITALS: BP 90/48
[2019-11-24] MEDS: traMADol 50 MG TABLET PO PRN ×2 (17:16→23:53)
[2019-11-24 19:20] VITALS: BP 112/66
[2019-11-24] MEDS: ATORVASTATIN CALCIUM 10 MG TABLET. PO SCH (20:56)
[2019-11-24] MEDS: FLUoxetine HCL 20 MG CAPSULE PO SCH (20:56)
[2019-11-24] MEDS: CYCLOBENZAPRINE 10 MG TABLET. PO PRN (20:56)
[2019-11-24] MEDS: TEMAZEPAM 15 MG CAPSULE PO PRN (20:56)
[2019-11-24 22:37] VITALS: BP 90/47
[2019-11-25] VITALS (7 sets, daily range): BP systolic 84–132; BP diastolic 44–62
--- NOTE | 2019-11-25 06:23 | NUR ---
Pt asked for PIV to be discontinued at this time, stating the site is tender. IV discontinued and patient refuses to let me try to put another one in. I did education with the patient about the importance of having an IV, pt is still refusing at this time.
[2019-11-25] MEDS: LEVOTHYROXINE 88 MCG TABLET PO SCH (06:27)
[2019-11-25] MEDS: BUDESONIDE 0.5 MG/2 ML NEBU. NEB SCH (07:40)
[2019-11-25] MEDS: IPRATRPIUM/ALBUTEROL 0.5/2.5MG 3 ML NEBU. NEB SCH ×3 (07:40→16:08)
--- NOTE | 2019-11-25 07:58 | PDOC ---
Provider Note Provider Note became hypotensive after lisin 20 11/23, still down- dc lasix, reduce metop, hold lisin for now- no dc until home meds clearly as re safety Justicifation of Admission Dx: Justifications for Admission: Justification of Admission Dx: Yes Acute COPD Exacerbation: Acute COPD Exacerbation HECTOR MOBLEY MD Nov 25, 2019 07:58
[2019-11-25] MEDS: METOPROLOL SUCC 24HR ER 50 MG TAB.ER.24H. PO SCH (08:23)
[2019-11-25] MEDS: TICAGRELOR 90 MG TABLET. PO SCH ×2 (08:23→20:46)
[2019-11-25] MEDS: ASPIRIN ENTERIC COATED 81 MG TABLET.DR. PO SCH (08:23)
[2019-11-25 09:44] LABS: CREATININE 2.6 mg/dL (0.6-1.0); GFR 18.5; POTASSIUM 4.5 mmol/L (3.5-5.1)
--- NOTE | 2019-11-25 10:37 | PDOC2 ---
CONSULT Date of Consult Date of Consult DATE: 11/25/19 TIME: 10:37 Reason for Consult Reason for Consult: DICKSON Source Source: Chart review, Patient History of Present Illness Reason for Visit: Pt is a 64-year-old CF admitted opn 11/19 - with PMHx significant for severe COPD, on Home oxygen 2 lts , history of lung cancer, depression and anxiety, She was admitted with c/o significant fatigue for few weeks and SOB . She Underwent Cardiac Cath on Monday (11/21) and has been started on Lisnopril , Lasix and HCTZ (all new per Pt ) She reports she stauffer Occ LE edema at home when she is out in the heat ,. Currently denies any Urinary complaints, No dysuria, No hematuria. No Hx of Kidney stones Denies any N/V/D. No SOB or CP Her BP have been low since starting the above meds Past Medical History Cardiovascular: CAD (?), HTN, Hyperlipidemia Pulmonary: COPD GI: GERD, Peptic Ulcer disease Heme/Onc: Cancer Hepatobiliary: Other Psych: Anxiety, Depression Musculoskeletal: Osteoarthritis Rheumatologic: No pertinent hx Renal/: UTI, Urinary Incontinence Endocrine: Hypothyroidism Dermatology: No pertinent hx Past Surgical History Past Surgical History: Other (tummy tuck; bladder sling) Family History Family History: Coronary Artery Disease (brother) Social History Quit ALCOHOL: none Drugs: None Lives: with Family Current Medications Current Medications Current Medications Albuterol/ Ipratropium (Duoneb) 6 ml 1X ONCE NEB Last administered on 11/19/19at 14:58; Start 11/19/19 at 14:45; Stop 11/19/19 at 14:46; Status DC Methylprednisolone Sodium Succinate (SOLU-Medrol 125MG VIAL) 125 mg 1X ONCE IV Last administered on 11/19/19at 15:09; Start 11/19/19 at 14:45; Stop 11/19/19 at 14:46; Status DC Albuterol Sulfate (Ventolin Neb Soln) 2.5 mg 1X ONCE NEB Last administered on 11/19/19at 14:58; Start 11/19/19 at 14:45; Stop 11/19/19 at 14:46; Status DC Ondansetron HCl (Zofran) 4 mg PRN Q8HRS PRN IV NAUSEA/VOMITING; Start 11/19/19 at 16:00; Stop 11/20/19 at 15:59; Status DC Albuterol/ Ipratropium (Duoneb) 3 ml RTQID NEB ; Start 11/19/19 at 16:00; Stop 11/20/19 at 15:59; Status Cancel Methylprednisolone Sodium Succinate (SOLU-Medrol 40MG VIAL) 40 mg Q8HRS IV ; Start 11/19/19 at 22:00; Stop 11/19/19 at 20:29; Status DC Albuterol/ Ipratropium (Duoneb) 3 ml RTQID NEB Last administered on 11/20/19at 07:50; Start 11/19/19 at 20:00; Stop 11/20/19 at 09:44; Status DC Hydralazine HCl (Apresoline Inj) 10 mg PRN Q4HRS PRN IVP ELEVATED BP, SEE COMMENTS Last administered on 11/21/19at 01:30; Start 11/19/19 at 18:30; Stop 11/24/19 at 09:22; Status DC Levothyroxine Sodium (Synthroid) 100 mcg DAILY06 PO Last administered on 11/21/19at 05:49; Start 11/20/19 at 06:00; Stop 11/22/19 at 07:56; Status DC Lisinopril (Prinivil) 10 mg DAILY PO Last administered on 11/21/19at 09:00; Start 11/20/19 at 09:00; Stop 11/21/19 at 09:14; Status DC Diazepam (Valium) 2 mg PRN BID PRN PO ANXIETY; Start 11/19/19 at 20:30; Stop 11/20/19 at 09:19; Status DC Tramadol HCl (Ultram) 50 mg PRN BID PRN PO PAIN Last administered on 11/24/19at 23:53; Start 11/19/19 at 20:30 Fluoxetine HCl (PROzac) 40 mg HS PO ; Start 11/19/19 at 21:00; Stop 11/19/19 at 21:56; Status DC Atorvastatin Calcium (Lipitor) 20 mg QHS PO Last administered on 11/20/19at 21:30; Start 11/19/19 at 21:00; Stop 11/21/19 at 16:49; Status DC Fluoxetine HCl (PROzac) 20 mg QHS PO Last administered on 11/24/19at 20:56; Start 11/19/19 at 23:00 Atorvastatin Calcium (Lipitor) 20 mg QHS PO ; Start 11/20/19 at 21:00; Stop 11/20/19 at 21:39; Status DC Citalopram Hydrobromide (CeleXA) 20 mg HS PO ; Start 11/20/19 at 21:00; Status UNV Cyclobenzaprine HCl (Flexeril) 10 mg PRN QHS PRN PO MUSCLE SPASMS Last administered on 11/24/19at 20:56; Start 11/20/19 at 09:00 Diazepam (Valium) 2 mg PRN BID PRN PO ANXIETY / AGITATION Last administered on 11/23/19at 11:49; Start 11/20/19 at 09:00 Diazepam (Valium) 2 mg DAILY PRN PO ANXIETY / AGITATION; Start 11/20/19 at 09:00; Stop 11/20/19 at 09:17; Status DC Albuterol/ Ipratropium (Duoneb) 3 ml RTQID NEB ; Start 11/20/19 at 12:00; Stop 11/20/19 at 09:19; Status DC Levothyroxine Sodium (Synthroid) 100 mcg DAILY PO ; Start 11/20/19 at 09:00; Stop 11/20/19 at 09:18; Status DC Tramadol HCl (Ultram) 50 mg DAILY PRN PO PAIN; Start 11/20/19 at 09:00; Stop 11/20/19 at 09:19; Status DC Methylprednisolone Sodium Succinate (SOLU-Medrol 40MG VIAL) 40 mg Q12HR IV Last administered on 11/21/19at 09:00; Start 11/20/19 at 10:00; Stop 11/21/19 at 09:14; Status DC Amlodipine Besylate (Norvasc) 5 mg DAILY PO Last administered on 11/21/19at 08:58; Start 11/20/19 at 10:00; Stop 11/21/19 at 10:17; Status DC Hydrochlorothiazide (Microzide) 12.5 mg DAILY PO Last administered on 11/21/19at 08:58; Start 11/20/19 at 12:00; Stop 11/21/19 at 10:17; Status DC Albuterol/ Ipratropium (Duoneb) 3 ml TID NEB Last administered on 11/23/19at 08:03; Start 11/20/19 at 12:00; Stop 11/23/19 at 10:17; Status DC Famotidine (Pepcid) 20 mg BID PO Last administered on 11/23/19at 08:31; Start 11/21/19 at 09:00; Stop 11/23/19 at 11:04; Status DC Lisinopril (Prinivil) 20 mg DAILY PO ; Start 11/21/19 at 09:15; Stop 11/21/19 at 09:43; Status DC Lisinopril (Prinivil) 20 mg DAILY PO Last administered on 11/24/19at 08:11; Start 11/22/19 at 09:00; Stop 11/24/19 at 09:22; Status DC Lisinopril (Prinivil) 10 mg 1X ONCE PO Last administered on 11/21/19at 10:13; Start 11/21/19 at 10:00; Stop 11/21/19 at 10:01; Status DC Metoprolol Succinate (Toprol Xl) 50 mg DAILY PO Last administered on 11/24/19at 08:12; Start 11/21/19 at 11:00; Stop 11/25/19 at 07:57; Status DC Furosemide (Lasix) 40 mg DAILY PO Last administered on 11/23/19at 08:31; Start 11/21/19 at 11:00; Stop 11/23/19 at 11:04; Status DC Aspirin (Ecotrin) 81 mg DAILYWBKFT PO Last administered on 11/22/19at 09:54; Start 11/21/19 at 12:00; Stop 11/22/19 at 09:59; Status DC Atorvastatin Calcium (Lipitor) 20 mg QHS PO ; Start 11/21/19 at 21:00; Stop 10/28 10/15 at 12:48; Status DC Atorvastatin Calcium (Lipitor) 10 mg QHS PO ; Start 11/21/19 at 17:00; Stop 11/21/19 at 17:52; Status DC Atorvastatin Calcium (Lipitor) 10 mg QHS PO Last administered on 11/24/19at 20:56; Start 11/21/19 at 21:00 Lidocaine HCl (Lidocaine 1% 20ml Vial) 20 ml STK-MED ONCE .ROUTE ; Start 11/22/19 at 07:37; Stop 11/22/19 at 07:37; Status DC Heparin Sodium/ Sodium Chloride 1,500 ml @ As Directed STK-MED ONCE .ROUTE ; Start 11/22/19 at 07:37; Stop 11/22/19 at 07:38; Status DC Iohexol (Omnipaque 300 Mg/ml) 100 ml STK-MED ONCE .ROUTE ; Start 11/22/19 at 07:38; Stop 11/22/19 at 07:38; Status DC Heparin Sodium/ Sodium Chloride (HEPARIN for ARTERIAL LINE FLUSH) 1,000 unit 1X ONCE IART Last administered on 11/22/19at 08:15; Start 11/22/19 at 08:15; Stop 11/22/19 at 08:16; Status DC Heparin Sodium/ Sodium Chloride (HEPARIN for ARTERIAL LINE FLUSH) 1,000 unit 1X ONCE IART Last administered on 11/22/19at 08:15; Start 11/22/19 at 08:15; Stop 11/22/19 at 08:16; Status DC Midazolam HCl (Versed) 2 mg 1X ONCE IV Last administered on 11/22/19at 08:15; Start 11/22/19 at 08:15; Stop 11/22/19 at 08:16; Status DC Fentanyl Citrate (Fentanyl 2ml Vial) 100 mcg 1X ONCE IV Last administered on 11/22/19at 08:15; Start 11/22/19 at 08:15; Stop 11/22/19 at 08:16; Status DC Iohexol (Omnipaque 300 Mg/ml) 100 ml 1X ONCE IART Last administered on 11/22/19at 08:15; Start 11/22/19 at 08:15; Stop 11/22/19 at 08:16; Status DC Lidocaine HCl (Lidocaine 1% 20ml Vial) 20 ml 1X ONCE INJ Last administered on 11/22/19at 09:00; Start 11/22/19 at 08:15; Stop 11/22/19 at 08:16; Status DC Heparin Sodium (Porcine) (Heparin Sodium) 10,000 unit STK-MED ONCE .ROUTE ; Start 11/22/19 at 09:13; Stop 11/22/19 at 09:14; Status DC Heparin Sodium (Porcine) (Heparin Sodium) 1,000 unit 1X ONCE IV Last administered on 11/22/19at 09:15; Start 11/22/19 at 09:15; Stop 11/22/19 at 09:18; Status DC Bivalirudin (Angiomax) 250 mg STK-MED ONCE IV ; Start 11/22/19 at 09:24; Stop 11/22/19 at 09:24; Status DC Iohexol (Omnipaque 300 Mg/ml) 100 ml STK-MED ONCE .ROUTE ; Start 11/22/19 at 09:24; Stop 11/22/19 at 09:25; Status DC Bivalirudin (Angiomax) 250 mg 1X ONCE IV Last administered on 11/22/19at 09:36; Start 11/22/19 at 09:45; Stop 11/22/19 at 09:46; Status DC Ticagrelor (Brilinta) 180 mg 1X ONCE PO Last administered on 11/22/19at 09:54; Start 11/22/19 at 09:45; Stop 11/22/19 at 09:46; Status DC Ticagrelor (Brilinta) 90 mg STK-MED ONCE .ROUTE ; Start 11/22/19 at 09:47; Stop 11/22/19 at 09:47; Status DC Sodium Chloride (Normal Saline Flush) 3 ml QSHIFT PRN IV AFTER MEDS AND BLOOD DRAWS; Start 11/22/19 at 10:00 Sodium Chloride 1,000 ml @ 60 mls/hr [id number] IV Last administered on 11/22/19at 15:45; Start 11/22/19 at 09:53; Stop 11/22/19 at 17:52; Status DC Aspirin (Ecotrin) 81 mg DAILYWBKFT PO Last administered on 11/25/19at 08:23; Start 11/23/19 at 08:00 Ticagrelor (Brilinta) 90 mg BID PO Last administered on 11/25/19at 08:23; Start 11/23/19 at 09:00 Fentanyl Citrate (Fentanyl 2ml Vial) 50 mcg PRN Q1HR PRN IV MODERATE OR SEVERE PAIN; Start 11/22/19 at 10:00 Nitroglycerin (Nitrostat) 0.4 mg PRN Q5MIN PRN SL CHEST PAIN; Start 11/22/19 at 10:00 Amiodarone HCl 150 mg/Dextrose 103 ml @ 600 mls/hr 1X PRN PRN IV FOR VENTRICULAR TACHYCARDIA; Start 11/22/19 at 10:00 Lidocaine HCl (Lidocaine HCl 2% Abboject) 100 mg 1X PRN PRN IV FOR VENTRICULAR TACHYCARDIA; Start 11/22/19 at 10:00 Atropine Sulfate (ATROPINE 0.5mg SYRINGE) 0.5 mg PRN 1X PRN IV BRADYCARDIA; Start 11/22/19 at 10:00 Albuterol/ Ipratropium (Duoneb) 3 ml RTQID NEB Last administered on 11/25/19at 07:40; Start 11/23/19 at 12:00 Budesonide (Pulmicort) 0.5 mg RTBID NEB Last administered on 11/25/19at 07:40; Start 11/23/19 at 12:00 Furosemide (Lasix) 20 mg DAILY PO Last administered on 11/24/19at 08:12; Start 11/23/19 at 11:00; Stop 11/24/19 at 09:36; Status DC Levothyroxine Sodium (Synthroid) 88 mcg DAILY06 PO Last administered on 11/25/19at 06:27; Start 11/25/19 at 06:00 Docusate Sodium (Colace) 100 mg PRN BID PRN PO HARD STOOLS Last administered on 11/23/19at 20:51; Start 11/23/19 at 18:15 Temazepam (Restoril) 15 mg PRN QHS PRN PO INSOMNIA Last administered on 11/24/19at 20:56; Start 11/23/19 at 21:30 Prochlorperazine Maleate (Compazine) 5 mg PRN 1X PRN PO NAUSEA/VOMITING Last administered on 11/23/19at 21:38; Start 11/23/19 at 21:30 Lisinopril (Prinivil) 10 mg DAILY PO ; Start 11/24/19 at 10:00; Stop 11/25/19 at 07:57; Status DC Furosemide (Lasix) 20 mg QODAY PO ; Start 11/26/19 at 09:00; Stop 11/25/19 at 07:57; Status DC Metoprolol Succinate (Toprol Xl) 25 mg DAILY PO Last administered on 11/25/19at 08:23; Start 11/25/19 at 09:00 Sodium Chloride 1,000 ml @ 60 mls/hr [id number] IV ; Start 11/25/19 at 10:00 Active Scripts Active Duoneb 0.5-3(2.5) Mg/3 Ml (Albuterol/Ipratropium) 3 Ml Ampul.neb 3 Ml NEB RTQID 30 Days Atorvastatin Calcium 20 Mg Tablet 20 Mg PO QHS 30 Days Reported Prozac (Fluoxetine Hcl) 40 Mg Capsule 1 Cap PO DAILY Valium (Diazepam) 2 Mg Tablet 2 Mg PO BID PRN Cyclobenzaprine Hcl 10 Mg Tablet 1 Tab PO HS PRN Valium (Diazepam) 2 Mg Tablet 2 Mg PO DAILY PRN Tramadol Hcl 50 Mg Tablet 50 Mg PO DAILY PRN Celexa (Citalopram Hydrobromide) 20 Mg Tablet 1 Tab PO HS Levothyroxine Sodium 100 Mcg Tablet 1 Tab PO DAILY Allergies Allergies: Coded Allergies: acetaminophen (Verified Allergy, Intermediate, Hives, 11/21/19) bupropion HCl (Verified Allergy, Intermediate, Swelling, 12/04/17) codeine (Verified Allergy, Intermediate, Hives, 03/25/18) 01/28/18 PATIENT RECEIVED TRAMDOL WITH NO NOTED ADVERSE EFFECTS ROS Review of System Per HPI, rest negative Physical Exam Physical Exam General: NAD HEENT: OM moist , Chronic O2 Neck supple Lungs: diminished bases Heart: Regular rate (SR), Normal S1, Normal S2, apical murmur 3/6 systolic Abdomen: Soft, No tenderness Extremities: No cyanosis, No edema Skin: No rash Neuro: grossly Normal Psych/Mental Status: Mental status NL, Mood NL No [place]ays Vital Signs Vital Signs Date Time Temp Pulse Resp B/P (MAP) Pulse Ox O2 Delivery O2 Flow Rate FiO2 11/25/19 08:30 82 110/61 (77) 11/25/19 07:40 Nasal Cannula 2.0 11/25/19 07:00 98.2 20 98 98.2 Assessment & Plan DICKSON -s/p cardiac cath on 11/21, meds lisinopril, and Diuretics (all new) Baseline Cr Normal per [facility] records Check UA, Renal US, IVF , Hold OSMAN-i and diuretics Supportive care, Strict I/O, bladder scan pRN , Avoid nephrotoxins , Daily BMP Coronary artery disease. s/p Catheterization on 11/21 showed a significant LAD lesion which was successfully stented. 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 Cardiology following Cardiomyopathy: EF at 30-35% New There is moderate global hypokinesis of the left ventricle, moderate eccentric mitral regurgitation. Asymptomatic Arrhythmia: NSVT/PSVT due to CM and hypercapnea Acute on chronic respiratory failure with hypercapnea, possible HUNTER with COPD, and CM Moderate MR Accelerated HTN: Currently Hypotensive, Hold meds as above Labs Labs Laboratory Tests Test 11/25/19 08:58 Sodium Level 143 mmol/L (136-145) Potassium Level 4.5 mmol/L (3.5-5.1) Chloride Level 100 mmol/L (98-107) Carbon Dioxide Level 36 mmol/L (21-32) Anion Gap 7 (6-14) Blood Urea Nitrogen 63 mg/dL (7-20) Creatinine 2.6 mg/dL (0.6-1.0) Estimated GFR (Cockcroft-Gault) 18.5 Glucose Level 164 mg/dL (70-99) Calcium Level 9.0 mg/dL (8.5-10.1) Laboratory Tests Test 11/25/19 08:58 Sodium Level 143 mmol/L (136-145) Potassium Level 4.5 mmol/L (3.5-5.1) Chloride Level 100 mmol/L (98-107) Carbon Dioxide Level 36 mmol/L (21-32) Anion Gap 7 (6-14) Blood Urea Nitrogen 63 mg/dL (7-20) Creatinine 2.6 mg/dL (0.6-1.0) Estimated GFR (Cockcroft-Gault) 18.5 Glucose Level 164 mg/dL (70-99) Calcium Level 9.0 mg/dL (8.5-10.1) Review All relevant outside records, renal labs, imaging studies, telemetry/EKG's were reviewed. PEDRO MONROE MD Nov 25, 2019 10:37
[2019-11-25] MEDS: IV NORMAL SALINE 1000ML BAG 1,000 ML IV SCH ×2 (11:02→23:17)
--- NOTE | 2019-11-25 12:01 | RAD ---
EXAM: Renal sonogram. HISTORY: Renal insufficiency. TECHNIQUE: Sonographic imaging the kidneys and bladder was performed. COMPARISON: None. FINDINGS: The kidneys normal in size. There are simple appearing bilateral renal cysts, largest of which on the right measures 2.8 cm and the largest of which on the left measures 2.8 cm. There is no hydronephrosis. The bladder is unremarkable. IMPRESSION: 1. Bilateral simple appearing renal cysts, the largest of which measure 2.8 cm. No follow-up recommended. 2. Otherwise, unremarkable renal sonogram. Electronically signed by: Abigail Durand MD (11/25/2019 11:58 AM) [id number]
--- NOTE | 2019-11-25 12:27 | PDOC ---
PULMONARY PROGRESS NOTES Subjective Denies SOB or cough slept well last, denies CP feeling good today Vitals Vital Signs Date Time Temp Pulse Resp B/P (MAP) Pulse Ox O2 Delivery O2 Flow Rate FiO2 11/25/19 11:31 97 Nasal Cannula 2.0 11/25/19 10:51 98.0 65 20 93/44 (60) 98.0 ROS: No Nausea, No Chest Pain, No Abdominal Pain, No Increase Cough General: Alert Lungs: Clear, Other Cardiovascular: S1, S2 Abdomen: Soft, Non-tender Neuro Exam: Alert, Oriented Extremities: No Edema Labs Laboratory Tests Test 11/25/19 08:58 Sodium Level 143 mmol/L (136-145) Potassium Level 4.5 mmol/L (3.5-5.1) Chloride Level 100 mmol/L (98-107) Carbon Dioxide Level 36 mmol/L (21-32) Anion Gap 7 (6-14) Blood Urea Nitrogen 63 mg/dL (7-20) Creatinine 2.6 mg/dL (0.6-1.0) Estimated GFR (Cockcroft-Gault) 18.5 Glucose Level 164 mg/dL (70-99) Calcium Level 9.0 mg/dL (8.5-10.1) Laboratory Tests Test 11/25/19 08:58 Sodium Level 143 mmol/L (136-145) Potassium Level 4.5 mmol/L (3.5-5.1) Chloride Level 100 mmol/L (98-107) Carbon Dioxide Level 36 mmol/L (21-32) Anion Gap 7 (6-14) Blood Urea Nitrogen 63 mg/dL (7-20) Creatinine 2.6 mg/dL (0.6-1.0) Estimated GFR (Cockcroft-Gault) 18.5 Glucose Level 164 mg/dL (70-99) Calcium Level 9.0 mg/dL (8.5-10.1) Medications Active Scripts Medications Dose Route/Sig Max Daily Dose Days Date Category Prozac (Fluoxetine Hcl) 40 Mg Capsule 1 Cap PO DAILY 04/03/18 Reported Valium (Diazepam) 2 Mg Tablet 2 Mg PO BID PRN 03/23/18 Reported Cyclobenzaprine Hcl 10 Mg Tablet 1 Tab PO HS PRN 07/01/17 Reported Valium (Diazepam) 2 Mg Tablet 2 Mg PO DAILY PRN 07/01/17 Reported Tramadol Hcl 50 Mg Tablet 50 Mg PO DAILY PRN 01/06/17 Reported Duoneb 0.5-3(2.5) Mg/3 Ml (Albuterol/Ipratropium) 3 Ml Ampul.neb 3 Ml NEB RTQID 30 06/04/16 Rx Atorvastatin Calcium 20 Mg Tablet 20 Mg PO QHS 30 06/04/16 Rx Celexa (Citalopram Hydrobromide) 20 Mg Tablet 1 Tab PO HS 02/19/16 Reported Levothyroxine Sodium 100 Mcg Tablet 1 Tab PO DAILY 02/19/16 Reported Comments CXR Impression: 1. No acute cardiopulmonary process. Cardiac Cath: <Conclusion> Chronically occluded right coronary artery with good collateralization from the left system. Mid significant LAD lesion successfully stented with 0% residual. Decreased ejection fraction estimated at 30% with inferior wall aneurysmal appearance. Impression . IMPRESSION: 1. [id number] hypercapnic respiratory failure contributed by acute exacerbation of chronic obstructive pulmonary disease and hyperoxia. Patient greatly benefiting from BiPAP, needs home ventilator 2. History of squamous cell lung cancer, right upper lobe, status post radiation. No mass seen on the chest x-ray. previous PET scan in June is revealing no evidence of recurrent disease. 3. Acute exacerbation of COPD 4. CAD 5.Cardiomyopathy Plan . Patient set up at home for home ventilator. We will see as needed, discharge per PCP Continue Supplemental oxygen to keep oxygen sats above 92%--remains on 2 liters N/C Bronchodilators/pulmicort Follow cardiology recs S/P Cardiac catheterization -- stent to LAD EF- 30% Patient did well with noninvasive ventilation, We will set up home trilogy, spoke with social work, patient greatly benefiting from noninvasive ventilation She would benefit from home noninvasive ventilation with trilogy, Patient admitt ed with elevated PCO2 to 81, home trilogy would assist in preventing readmission D/W NAVI NGUYEN MD Nov 25, 2019 12:27
[2019-11-25 12:46] LABS: BILIRUBIN,URINE NEGATIVE (NEG); CLARITY,URINE CLEAR; COLOR,URINE YELLOW; NITRITE,URINE NEGATIVE (NEG); PROTEIN,URINE NEGATIVE (NEG-TRACE); UROBILINOGEN,URINE 0.2 mg/dL (0.2 mg/dL)
[2019-11-25 12:51] LABS: SQUAMOUS EPITHELIAL CELL,UR MANY /LPF
--- NOTE | 2019-11-25 12:51 | PDOC ---
PROGRESS NOTES Subjective Subjective Patient seen and examined Objective Objective Vital Signs Date Time Temp Pulse Resp B/P (MAP) Pulse Ox O2 Delivery O2 Flow Rate FiO2 11/25/19 11:31 97 Nasal Cannula 2.0 11/25/19 10:51 98.0 65 20 93/44 (60) 98.0 Intake and Output 11/25/19 07:00 Intake Total 650 ml Balance 650 ml Intake Oral 650 ml # Voids 5 Physical Exam Abdomen: Normal bowel sounds Heart: Regular rate General: mild distress Lungs: Other (Minimally decreased breath sounds) Assessment Assessment Acute on chronic respiratory failure with obstructive sleep apnea, COPD and systolic heart failure. Feeling mildly better. Followed by the pulmonary service. Coronary artery disease. Catheterization showed a significant LAD lesion which was successfully stented. 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 We will continue on medical treatment. Elevated creatinine. Morning creatinine of 2.7 with a creatinine 2 days ago of 0.9. Catheterization 3 days ago. Diuresis and OSMAN inhibitor's have been stopped. Beta-rashi has been decreased. Will start low-dose IV fluids and request a renal evaluation. Recheck morning lab tomorrow. Hypothyroidism. Continue replacement. TSH at 0.012. Comment Review of Relevant I have reviewed the following items rogelio (where applicable) has been applied. Labs Laboratory Tests Test 11/25/19 08:58 Sodium Level 143 mmol/L (136-145) Potassium Level 4.5 mmol/L (3.5-5.1) Chloride Level 100 mmol/L (98-107) Carbon Dioxide Level 36 mmol/L (21-32) Anion Gap 7 (6-14) Blood Urea Nitrogen 63 mg/dL (7-20) Creatinine 2.6 mg/dL (0.6-1.0) Estimated GFR (Cockcroft-Gault) 18.5 Glucose Level 164 mg/dL (70-99) Calcium Level 9.0 mg/dL (8.5-10.1) Laboratory Tests Test 11/25/19 08:58 Sodium Level 143 mmol/L (136-145) Potassium Level 4.5 mmol/L (3.5-5.1) Chloride Level 100 mmol/L (98-107) Carbon Dioxide Level 36 mmol/L (21-32) Anion Gap 7 (6-14) Blood Urea Nitrogen 63 mg/dL (7-20) Creatinine 2.6 mg/dL (0.6-1.0) Estimated GFR (Cockcroft-Gault) 18.5 Glucose Level 164 mg/dL (70-99) Calcium Level 9.0 mg/dL (8.5-10.1) Medications Current Medications Albuterol/ Ipratropium (Duoneb) 6 ml 1X ONCE NEB Last administered on 11/19/19at 14:58; Start 11/19/19 at 14:45; Stop 11/19/19 at 14:46; Status DC Methylprednisolone Sodium Succinate (SOLU-Medrol 125MG VIAL) 125 mg 1X ONCE IV Last administered on 11/19/19at 15:09; Start 11/19/19 at 14:45; Stop 11/19/19 at 14:46; Status DC Albuterol Sulfate (Ventolin Neb Soln) 2.5 mg 1X ONCE NEB Last administered on 11/19/19at 14:58; Start 11/19/19 at 14:45; Stop 11/19/19 at 14:46; Status DC Ondansetron HCl (Zofran) 4 mg PRN Q8HRS PRN IV NAUSEA/VOMITING; Start 11/19/19 at 16:00; Stop 11/20/19 at 15:59; Status DC Albuterol/ Ipratropium (Duoneb) 3 ml RTQID NEB ; Start 11/19/19 at 16:00; Stop 11/20/19 at 15:59; Status Cancel Methylprednisolone Sodium Succinate (SOLU-Medrol 40MG VIAL) 40 mg Q8HRS IV ; Start 11/19/19 at 22:00; Stop 11/19/19 at 20:29; Status DC Albuterol/ Ipratropium (Duoneb) 3 ml RTQID NEB Last administered on 11/20/19at 07:50; Start 11/19/19 at 20:00; Stop 11/20/19 at 09:44; Status DC Hydralazine HCl (Apresoline Inj) 10 mg PRN Q4HRS PRN IVP ELEVATED BP, SEE COMMENTS Last administered on 11/21/19at 01:30; Start 11/19/19 at 18:30; Stop 11/24/19 at 09:22; Status DC Levothyroxine Sodium (Synthroid) 100 mcg DAILY06 PO Last administered on 11/21/19at 05:49; Start 11/20/19 at 06:00; Stop 11/22/19 at 07:56; Status DC Lisinopril (Prinivil) 10 mg DAILY PO Last administered on 11/21/19at 09:00; Start 11/20/19 at 09:00; Stop 11/21/19 at 09:14; Status DC Diazepam (Valium) 2 mg PRN BID PRN PO ANXIETY; Start 11/19/19 at 20:30; Stop 11/20/19 at 09:19; Status DC Tramadol HCl (Ultram) 50 mg PRN BID PRN PO PAIN Last administered on 11/24/19at 23:53; Start 11/19/19 at 20:30 Fluoxetine HCl (PROzac) 40 mg HS PO ; Start 11/19/19 at 21:00; Stop 11/19/19 at 21:56; Status DC Atorvastatin Calcium (Lipitor) 20 mg QHS PO Last administered on 11/20/19at 21:30; Start 11/19/19 at 21:00; Stop 11/21/19 at 16:49; Status DC Fluoxetine HCl (PROzac) 20 mg QHS PO Last administered on 11/24/19at 20:56; Start 11/19/19 at 23:00 Atorvastatin Calcium (Lipitor) 20 mg QHS PO ; Start 11/20/19 at 21:00; Stop 11/20/19 at 21:39; Status DC Citalopram Hydrobromide (CeleXA) 20 mg HS PO ; Start 11/20/19 at 21:00; Status UNV Cyclobenzaprine HCl (Flexeril) 10 mg PRN QHS PRN PO MUSCLE SPASMS Last administered on 11/24/19at 20:56; Start 11/20/19 at 09:00 Diazepam (Valium) 2 mg PRN BID PRN PO ANXIETY / AGITATION Last administered on 11/23/19at 11:49; Start 11/20/19 at 09:00 Diazepam (Valium) 2 mg DAILY PRN PO ANXIETY / AGITATION; Start 11/20/19 at 09:00; Stop 11/20/19 at 09:17; Status DC Albuterol/ Ipratropium (Duoneb) 3 ml RTQID NEB ; Start 11/20/19 at 12:00; Stop 11/20/19 at 09:19; Status DC Levothyroxine Sodium (Synthroid) 100 mcg DAILY PO ; Start 11/20/19 at 09:00; Stop 11/20/19 at 09:18; Status DC Tramadol HCl (Ultram) 50 mg DAILY PRN PO PAIN; Start 11/20/19 at 09:00; Stop 11/20/19 at 09:19; Status DC Methylprednisolone Sodium Succinate (SOLU-Medrol 40MG VIAL) 40 mg Q12HR IV Last administered on 11/21/19at 09:00; Start 11/20/19 at 10:00; Stop 11/21/19 at 09:14; Status DC Amlodipine Besylate (Norvasc) 5 mg DAILY PO Last administered on 11/21/19at 08:58; Start 11/20/19 at 10:00; Stop 11/21/19 at 10:17; Status DC Hydrochlorothiazide (Microzide) 12.5 mg DAILY PO Last administered on 11/21/19at 08:58; Start 11/20/19 at 12:00; Stop 11/21/19 at 10:17; Status DC Albuterol/ Ipratropium (Duoneb) 3 ml TID NEB Last administered on 11/23/19at 08:03; Start 11/20/19 at 12:00; Stop 11/23/19 at 10:17; Status DC Famotidine (Pepcid) 20 mg BID PO Last administered on 11/23/19at 08:31; Start 11/21/19 at 09:00; Stop 11/23/19 at 11:04; Status DC Lisinopril (Prinivil) 20 mg DAILY PO ; Start 11/21/19 at 09:15; Stop 11/21/19 at 09:43; Status DC Lisinopril (Prinivil) 20 mg DAILY PO Last administered on 11/24/19at 08:11; Start 11/22/19 at 09:00; Stop 11/24/19 at 09:22; Status DC Lisinopril (Prinivil) 10 mg 1X ONCE PO Last administered on 11/21/19at 10:13; Start 11/21/19 at 10:00; Stop 11/21/19 at 10:01; Status DC Metoprolol Succinate (Toprol Xl) 50 mg DAILY PO Last administered on 11/24/19at 08:12; Start 11/21/19 at 11:00; Stop 11/25/19 at 07:57; Status DC Furosemide (Lasix) 40 mg DAILY PO Last administered on 11/23/19at 08:31; Start 11/21/19 at 11:00; Stop 11/23/19 at 11:04; Status DC Aspirin (Ecotrin) 81 mg DAILYWBKFT PO Last administered on 11/22/19at 09:54; Start 11/21/19 at 12:00; Stop 11/22/19 at 09:59; Status DC Atorvastatin Calcium (Lipitor) 20 mg QHS PO ; Start 11/21/19 at 21:00; Stop 11/21/19 at 12:48; Status DC Atorvastatin Calcium (Lipitor) 10 mg QHS PO ; Start 11/21/19 at 17:00; Stop 11/21/19 at 17:52; Status DC Atorvastatin Calcium (Lipitor) 10 mg QHS PO Last administered on 11/24/19at 20:56; Start 11/21/19 at 21:00 Lidocaine HCl (Lidocaine 1% 20ml Vial) 20 ml STK-MED ONCE .ROUTE ; Start 11/22/19 at 07:37; Stop 11/22/19 at 07:37; Status DC Heparin Sodium/ Sodium Chloride 1,500 ml @ As Directed STK-MED ONCE .ROUTE ; Start 11/22/19 at 07:37; Stop 11/22/19 at 07:38; Status DC Iohexol (Omnipaque 300 Mg/ml) 100 ml STK-MED ONCE .ROUTE ; Start 11/22/19 at 07:38; Stop 11/22/19 at 07:38; Status DC Heparin Sodium/ Sodium Chloride (HEPARIN for ARTERIAL LINE FLUSH) 1,000 unit 1X ONCE IART Last administered on 11/22/19at 08:15; Start 11/22/19 at 08:15; Stop 11/22/19 at 08:16; Status DC Heparin Sodium/ Sodium Chloride (HEPARIN for ARTERIAL LINE FLUSH) 1,000 unit 1X ONCE IART Last administered on 11/22/19at 08:15; Start 11/22/19 at 08:15; Stop 11/22/19 at 08:16; Status DC Midazolam HCl (Versed) 2 mg 1X ONCE IV Last administered on 11/22/19at 08:15; Start 11/22/19 at 08:15; Stop 11/22/19 at 08:16; Status DC Fentanyl Citrate (Fentanyl 2ml Vial) 100 mcg 1X ONCE IV Last administered on 11/22/19at 08:15; Start 11/22/19 at 08:15; Stop 11/22/19 at 08:16; Status DC Iohexol (Omnipaque 300 Mg/ml) 100 ml 1X ONCE IART Last administered on 11/22/19at 08:15; Start 11/22/19 at 08:15; Stop 11/22/19 at 08:16; Status DC Lidocaine HCl (Lidocaine 1% 20ml Vial) 20 ml 1X ONCE INJ Last administered on 11/22/19at 09:00; Start 11/22/19 at 08:15; Stop 11/22/19 at 08:16; Status DC Heparin Sodium (Porcine) (Heparin Sodium) 10,000 unit STK-MED ONCE .ROUTE ; Start 11/22/19 at 09:13; Stop 11/22/19 at 09:14; Status DC Heparin Sodium (Porcine) (Heparin Sodium) 1,000 unit 1X ONCE IV Last administered on 11/22/19at 09:15; Start 11/22/19 at 09:15; Stop 11/22/19 at 09:18; Status DC Bivalirudin (Angiomax) 250 mg STK-MED ONCE IV ; Start 11/22/19 at 09:24; Stop 11/22/19 at 09:24; Status DC Iohexol (Omnipaque 300 Mg/ml) 100 ml STK-MED ONCE .ROUTE ; Start 11/22/19 at 09:24; Stop 11/22/19 at 09:25; Status DC Bivalirudin (Angiomax) 250 mg 1X ONCE IV Last administered on 11/22/19at 09:36; Start 11/22/19 at 09:45; Stop 11/22/19 at 09:46; Status DC Ticagrelor (Brilinta) 180 mg 1X ONCE PO Last administered on 11/22/19at 09:54; Start 11/22/19 at 09:45; Stop 11/22/19 at 09:46; Status DC Ticagrelor (Brilinta) 90 mg STK-MED ONCE .ROUTE ; Start 11/22/19 at 09:47; Stop 11/22/19 at 09:47; Status DC Sodium Chloride (Normal Saline Flush) 3 ml QSHIFT PRN IV AFTER MEDS AND BLOOD DRAWS; Start 11/22/19 at 10:00 Sodium Chloride 1,000 ml @ 60 mls/hr [id number] IV Last administered on 11/22/19at 15:45; Start 11/22/19 at 09:53; Stop 11/22/19 at 17:52; Status DC Aspirin (Ecotrin) 81 mg DAILYWBKFT PO Last administered on 11/25/19at 08:23; Start 11/23/19 at 08:00 Ticagrelor (Brilinta) 90 mg BID PO Last administered on 11/25/19at 08:23; Start 11/23/19 at 09:00 Fentanyl Citrate (Fentanyl 2ml Vial) 50 mcg PRN Q1HR PRN IV MODERATE OR SEVERE PAIN; Start 11/22/19 at 10:00 Nitroglycerin (Nitrostat) 0.4 mg PRN Q5MIN PRN SL CHEST PAIN; Start 11/22/19 at 10:00 Amiodarone HCl 150 mg/Dextrose 103 ml @ 600 mls/hr 1X PRN PRN IV FOR VENTRICULAR TACHYCARDIA; Start 11/22/19 at 10:00 Lidocaine HCl (Lidocaine HCl 2% Abboject) 100 mg 1X PRN PRN IV FOR VENTRICULAR TACHYCARDIA; Start 11/22/19 at 10:00 Atropine Sulfate (ATROPINE 0.5mg SYRINGE) 0.5 mg PRN 1X PRN IV BRADYCARDIA; Start 11/22/19 at 10:00 Albuterol/ Ipratropium (Duoneb) 3 ml RTQID NEB Last administered on 11/25/19at 11:30; Start 11/23/19 at 12:00 Budesonide (Pulmicort) 0.5 mg RTBID NEB Last administered on 11/25/19at 07:40; Start 11/23/19 at 12:00 Furosemide (Lasix) 20 mg DAILY PO Last administered on 11/24/19at 08:12; Start 11/23/19 at 11:00; Stop 11/24/19 at 09:36; Status DC Levothyroxine Sodium (Synthroid) 88 mcg DAILY06 PO Last administered on 11/25/19at 06:27; Start 11/25/19 at 06:00 Docusate Sodium (Colace) 100 mg PRN BID PRN PO HARD STOOLS Last administered on 11/23/19at 20:51; Start 11/23/19 at 18:15 Temazepam (Restoril) 15 mg PRN QHS PRN PO INSOMNIA Last administered on 11/24/19at 20:56; Start 11/23/19 at 21:30 Prochlorperazine Maleate (Compazine) 5 mg PRN 1X PRN PO NAUSEA/VOMITING Last administered on 11/23/19at 21:38; Start 11/23/19 at 21:30 Lisinopril (Prinivil) 10 mg DAILY PO ; Start 11/24/19 at 10:00; Stop 11/25/19 at 07:57; Status DC Furosemide (Lasix) 20 mg QODAY PO ; Start 11/26/19 at 09:00; Stop 11/25/19 at 07:57; Status DC Metoprolol Succinate (Toprol Xl) 25 mg DAILY PO Last administered on 11/25/19at 08:23; Start 11/25/19 at 09:00 Sodium Chloride 1,000 ml @ 80 mls/hr [id number] IV Last administered on 11/25/19at 11:02; Start 11/25/19 at 10:00 Active Scripts Active Duoneb 0.5-3(2.5) Mg/3 Ml (Albuterol/Ipratropium) 3 Ml Ampul.neb 3 Ml NEB RTQID 30 Days Atorvastatin Calcium 20 Mg Tablet 20 Mg PO QHS 30 Days Reported Prozac (Fluoxetine Hcl) 40 Mg Capsule 1 Cap PO DAILY Valium (Diazepam) 2 Mg Tablet 2 Mg PO BID PRN Cyclobenzaprine Hcl 10 Mg Tablet 1 Tab PO HS PRN Valium (Diazepam) 2 Mg Tablet 2 Mg PO DAILY PRN Tramadol Hcl 50 Mg Tablet 50 Mg PO DAILY PRN Celexa (Citalopram Hydrobromide) 20 Mg Tablet 1 Tab PO HS Levothyroxine Sodium 100 Mcg Tablet 1 Tab PO DAILY Vitals/I & O Vital Sign - Last 24 Hours 11/24/19 11/24/19 11/24/19 11/24/19 12:58 15:11 16:13 17:16 Temp 98.5 98.5 Pulse 66 Resp 17 B/P (MAP) 90/48 (62) Pulse Ox 98 96 98 98 O2 Delivery Nasal Cannula Nasal Cannula Nasal Cannula Nasal Cannula O2 Flow Rate 2.0 2.0 2.0 2.0 11/24/19 11/24/19 11/24/19 11/24/19 18:16 19:20 20:12 22:37 Temp 98.2 98.4 98.2 98.4 Pulse 75 64 Resp 18 18 B/P (MAP) 112/66 (81) 90/47 (61) Pulse Ox 98 98 98 O2 Delivery Nasal Cannula Nasal Cannula Nasal Cannula Nasal Cannula O2 Flow Rate 2.0 2.0 2.0 2.0 11/24/19 11/25/19 11/25/19 11/25/19 23:53 00:53 02:47 07:00 Temp 97.6 98.2 97.6 98.2 Pulse 70 65 Resp 20 20 20 20 B/P (MAP) 117/61 (79) 98/58 (71) Pulse Ox 98 96 98 O2 Delivery Nasal Cannula Nasal Cannula Nasal Cannula Nasal Cannula O2 Flow Rate 2.0 2.0 2.0 2.0 11/25/19 11/25/19 11/25/19 11/25/19 07:40 07:40 08:23 08:30 Pulse 76 82 B/P (MAP) 110/61 (77) O2 Delivery Nasal Cannula Nasal Cannula O2 Flow Rate 2.5 2.0 11/25/19 11/25/19 10:51 11:31 Temp 98.0 98.0 Pulse 65 Resp 20 B/P (MAP) 93/44 (60) Pulse Ox 95 97 O2 Delivery Nasal Cannula Nasal Cannula O2 Flow Rate 2.0 2.0 Intake and Output 11/24/19 11/24/19 11/25/19 15:00 23:00 07:00 Intake Total 650 ml Balance 650 ml Justicifation of Admission Dx: Justifications for Admission: Justification of Admission Dx: Yes Acute COPD Exacerbation: Acute COPD Exacerbation KATARINA RAE MD Nov 25, 2019 12:51
[2019-11-25 12:52] LABS: BACTERIA,URINE MANY /HPF (0-FEW); RBC,URINE 0 /HPF (0-2)
--- NOTE | 2019-11-25 13:46 | NUR ---
SS following up with discharge planning. SS reviewed pt chart and discussed with pt RN. Discharge plan is to home when ready. [facility], ; fax [phone]. Currently awaiting [facility] to give pre-authorization for Trilogy machine. All clinical submitted. Pt has home oxygen at home. SS will continue to follow for discharge planning.
--- NOTE | 2019-11-25 14:02 | NUR ---
Post void bladder scan = 12mls
[2019-11-25] MEDS: traMADol 50 MG TABLET PO PRN (14:58)
[2019-11-25] MEDS: diazePAM 2 MG TABLET PO PRN (14:58)
[2019-11-25] MEDS ORDERED: BENZOCAINE 10% ORAL GEL 7GM TUBE. TP PRN (15:15)
[2019-11-25] MEDS: TEMAZEPAM 15 MG CAPSULE PO PRN (20:46)
[2019-11-25] MEDS: ATORVASTATIN CALCIUM 10 MG TABLET. PO SCH (20:46)
[2019-11-25] MEDS: FLUoxetine HCL 20 MG CAPSULE PO SCH (20:46)
[2019-11-25] MEDS: CYCLOBENZAPRINE 10 MG TABLET. PO PRN (20:46)
[2019-11-26 02:36] VITALS: BP 150/76
[2019-11-26] MEDS: LEVOTHYROXINE 88 MCG TABLET PO SCH (05:44)
[2019-11-26 06:15] LABS: CALCIUM 8.7 mg/dL (8.5-10.1); CREATININE 1.6 mg/dL (0.6-1.0); GFR 32.5; POTASSIUM 4.3 mmol/L (3.5-5.1)
[2019-11-26 07:23] VITALS: BP 154/72
[2019-11-26] MEDS: IPRATRPIUM/ALBUTEROL 0.5/2.5MG 3 ML NEBU. NEB SCH ×3 (07:43→15:33)
[2019-11-26] MEDS: BUDESONIDE 0.5 MG/2 ML NEBU. NEB SCH (07:43)
[2019-11-26] MEDS: METOPROLOL SUCC 24HR ER 50 MG TAB.ER.24H. PO SCH (08:05)
[2019-11-26] MEDS: TICAGRELOR 90 MG TABLET. PO SCH ×2 (08:05→20:51)
[2019-11-26] MEDS: ASPIRIN ENTERIC COATED 81 MG TABLET.DR. PO SCH (08:05)
[2019-11-26] MEDS: traMADol 50 MG TABLET PO PRN (08:06)
--- NOTE | 2019-11-26 08:13 | PDOC ---
PULMONARY PROGRESS NOTES Subjective Denies SOB or cough slept well last, denies CP feeling good today Vitals Vital Signs Date Time Temp Pulse Resp B/P (MAP) Pulse Ox O2 Delivery O2 Flow Rate FiO2 11/26/19 08:05 80 11/26/19 07:47 97 Nasal Cannula 2.0 11/26/19 07:23 98.2 20 154/72 (99) 98.2 ROS: No Nausea, No Chest Pain, No Abdominal Pain, No Increase Cough General: Alert Lungs: Clear, Other Cardiovascular: S1, S2 Abdomen: Soft, Non-tender Neuro Exam: Alert, Oriented Extremities: No Edema Labs Laboratory Tests Test 11/25/19 08:58 11/25/19 12:35 11/26/19 05:09 Sodium Level 143 mmol/L (136-145) 144 mmol/L (136-145) Potassium Level 4.5 mmol/L (3.5-5.1) 4.3 mmol/L (3.5-5.1) Chloride Level 100 mmol/L (98-107) 106 mmol/L (98-107) Carbon Dioxide Level 36 mmol/L (21-32) 33 mmol/L (21-32) Anion Gap 7 (6-14) 5 (6-14) Blood Urea Nitrogen 63 mg/dL (7-20) 54 mg/dL (7-20) Creatinine 2.6 mg/dL (0.6-1.0) 1.6 mg/dL (0.6-1.0) Estimated GFR (Cockcroft-Gault) 18.5 32.5 Glucose Level 164 mg/dL (70-99) 89 mg/dL (70-99) Calcium Level 9.0 mg/dL (8.5-10.1) 8.7 mg/dL (8.5-10.1) Urine Collection Type Void Urine Color Yellow Urine Clarity Clear Urine pH 5.0 (<5.0-8.0) Urine Specific Sylva 1.015 (1.000-1.030) Urine Protein Negative mg/dL (NEG-TRACE) Urine Glucose (UA) Negative mg/dL (NEG) Urine Ketones (Stick) Negative mg/dL (NEG) Urine Blood Negative (NEG) Urine Nitrite Negative (NEG) Urine Bilirubin Negative (NEG) Urine Urobilinogen Dipstick 0.2 mg/dL (0.2 mg/dL) Urine Leukocyte Esterase Negative (NEG) Urine RBC 0 /HPF (0-2) Urine WBC 5-10 /HPF (0-4) Urine Squamous Epithelial Cells Many /LPF Urine Transitional Epithelial Cells Occ /LPF Urine Bacteria Many /HPF (0-FEW) Urine Mucus Mod /LPF Magnesium Level 2.0 mg/dL (1.8-2.4) Laboratory Tests Test 11/25/19 08:58 11/25/19 12:35 11/26/19 05:09 Sodium Level 143 mmol/L (136-145) 144 mmol/L (136-145) Potassium Level 4.5 mmol/L (3.5-5.1) 4.3 mmol/L (3.5-5.1) Chloride Level 100 mmol/L (98-107) 106 mmol/L (98-107) Carbon Dioxide Level 36 mmol/L (21-32) 33 mmol/L (21-32) Anion Gap 7 (6-14) 5 (6-14) Blood Urea Nitrogen 63 mg/dL (7-20) 54 mg/dL (7-20) Creatinine 2.6 mg/dL (0.6-1.0) 1.6 mg/dL (0.6-1.0) Estimated GFR (Cockcroft-Gault) 18.5 32.5 Glucose Level 164 mg/dL (70-99) 89 mg/dL (70-99) Calcium Level 9.0 mg/dL (8.5-10.1) 8.7 mg/dL (8.5-10.1) Urine Collection Type Void Urine Color Yellow Urine Clarity Clear Urine pH 5.0 (<5.0-8.0) Urine Specific Sylva 1.015 (1.000-1.030) Urine Protein Negative mg/dL (NEG-TRACE) Urine Glucose (UA) Negative mg/dL (NEG) Urine Ketones (Stick) Negative mg/dL (NEG) Urine Blood Negative (NEG) Urine Nitrite Negative (NEG) Urine Bilirubin Negative (NEG) Urine Urobilinogen Dipstick 0.2 mg/dL (0.2 mg/dL) Urine Leukocyte Esterase Negative (NEG) Urine RBC 0 /HPF (0-2) Urine WBC 5-10 /HPF (0-4) Urine Squamous Epithelial Cells Many /LPF Urine Transitional Epithelial Cells Occ /LPF Urine Bacteria Many /HPF (0-FEW) Urine Mucus Mod /LPF Magnesium Level 2.0 mg/dL (1.8-2.4) Medications Active Scripts Medications Dose Route/Sig Max Daily Dose Days Date Category Prozac (Fluoxetine Hcl) 40 Mg Capsule 1 Cap PO DAILY 04/03/18 Reported Valium (Diazepam) 2 Mg Tablet 2 Mg PO BID PRN 03/23/18 Reported Cyclobenzaprine Hcl 10 Mg Tablet 1 Tab PO HS PRN 07/01/17 Reported Valium (Diazepam) 2 Mg Tablet 2 Mg PO DAILY PRN 07/01/17 Reported Tramadol Hcl 50 Mg Tablet 50 Mg PO DAILY PRN 01/06/17 Reported Duoneb 0.5-3(2.5) Mg/3 Ml (Albuterol/Ipratropium) 3 Ml Ampul.neb 3 Ml NEB RTQID 30 06/04/16 Rx Atorvastatin Calcium 20 Mg Tablet 20 Mg PO QHS 30 06/04/16 Rx Celexa (Citalopram Hydrobromide) 20 Mg Tablet 1 Tab PO HS 02/19/16 Reported Levothyroxine Sodium 100 Mcg Tablet 1 Tab PO DAILY 02/19/16 Reported Comments CXR Impression: 1. No acute cardiopulmonary process. Cardiac Cath: <Conclusion> Chronically occluded right coronary artery with good collateralization from the left system. Mid significant LAD lesion successfully stented with 0% residual. Decreased ejection fraction estimated at 30% with inferior wall aneurysmal appearance. Impression . IMPRESSION: 1. [id number] hypercapnic respiratory failure contributed by acute exacerbation of chronic obstructive pulmonary disease and hyperoxia. Patient greatly benefiting from BiPAP, needs home ventilator 2. History of squamous cell lung cancer, right upper lobe, status post radiation. No mass seen on the chest x-ray. previous PET scan in June is revealing no evidence of recurrent disease. 3. Acute exacerbation of COPD 4. CAD 5.Cardiomyopathy Plan . Patient set up at home for home ventilator. We will see as needed, discharge per PCP Continue Supplemental oxygen to keep oxygen sats above 92%--remains on 2 liters N/C Bronchodilators/pulmicort Follow cardiology recs S/P Cardiac catheterization -- stent to LAD EF- 30% Patient did well with noninvasive ventilation, We will set up home trilogy, spoke with social work, patient greatly benefiting from noninvasive ventilation She would benefit from home noninvasive ventilation with trilogy, Patient admitted with elevated PCO2 to 81, home trilogy would assist in preventing readmission D/W NAVI NGUYEN MD Nov 26, 2019 08:13
--- NOTE | 2019-11-26 08:24 | PDOC ---
Provider Note Provider Note BP UP OFF LISIN, BMP BETTER W/ FLUIDS AND BETTER BP- SUSPECT CONTRAST INDUCED ARF BUT ACEI INTOLERANCE IS ALSO POSSUIBLE- WILL RESUME LOWER DOSE LISIN 11/26 IF BMP FURTHER IMPROVES- ALSO no more lasix Justicifation of Admission Dx: Justifications for Admission: Justification of Admission Dx: Yes Acute COPD Exacerbation: Acute COPD Exacerbation HECTOR MOBLEY MD Nov 26, 2019 08:24
[2019-11-26] MEDS ORDERED: ASA/APAP/CAFFEINE 250/250/65MG TABLET. PO PRN (08:30)
[2019-11-26] MEDS ORDERED: FUROSEMIDE 20 MG TABLET PO SCH (09:00)
[2019-11-26] MEDS ORDERED: amLODIPine BESYLATE 5 MG TABLET PO SCH (09:00)
[2019-11-26] MEDS: IV NORMAL SALINE 1000ML BAG 1,000 ML IV SCH ×2 (09:43→23:14)
[2019-11-26 10:44] VITALS: BP 127/67
--- NOTE | 2019-11-26 10:50 | PDOC ---
SUBJECTIVE ROS No complaints OBJECTIVE Vital Signs Vital Signs Date Time Temp Pulse Resp B/P (MAP) Pulse Ox O2 Delivery O2 Flow Rate FiO2 11/26/19 09:41 75 11/26/19 08:05 Nasal Cannula 2.0 11/26/19 07:50 97 11/26/19 07:23 98.2 20 154/72 (99) 98.2 I & 0 Intake and Output 11/26/19 06:59 Intake Total 1850 ml Output Total 0 ml Balance 1850 ml Intake Oral 850 ml IV Total 1000 ml Output Urine Total 0 ml # Voids 1 PHYSICAL EXAM Physical Exam General: NAD HEENT: OM moist , Chronic O2 Neck supple Lungs: diminished bases Heart: Regular rate (SR), Normal S1, Normal S2, apical murmur 08/01 systolic Abdomen: Soft, No tenderness Extremities: No cyanosis, No edema Skin: No rash Neuro: grossly Normal Psych/Mental Status: Mental status NL, Mood NL No [place] DIAGNOSIS/ASSESSMENT Assessment & Plan DICKSON -s/p cardiac cath on 11/21, meds lisinopril, and Diuretics (all new) Baseline Cr Normal per [facility] records All above meds held, renal function improving, not back to baseline Supportive care, Strict I/O, Avoid nephrotoxins , Daily BMP Renal Cysts- Bilateral simple cyst reported on Renal US Coronary artery disease. s/p Catheterization on 11/21 showed a significant LAD lesion which was successfully stented. 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 Cardiology following Cautious with starting ACEI/ARB/Diuretics with close monitoring of renal function and Potassium Cardiomyopathy: EF at 30-35% New There is moderate global hypokinesis of the left ventricle, moderate eccentric mitral regurgitation. Asymptomatic Arrhythmia: NSVT/PSVT due to CM and hypercapnea Acute on chronic respiratory failure with hypercapnea, possible HUNTER with COPD, and CM Moderate MR Accelerated HTN: Currently Hypotensive, Hold meds as above COMMENT/RELEVANT DATA Meds Current Medications Medications (Trade) Dose Ordered Sig/Jeaneth Start Time Stop Time Status Last Admin Dose Admin Acetaminophen/ Aspirin/Caffeine (Excedrin Migraine) 1 tab PRN Q6HRS PRN 11/26/19 08:30 Albuterol Sulfate (Ventolin Neb Soln) 2.5 mg 1X ONCE 11/19/19 14:45 11/19/19 14:46 DC 11/19/19 14:58 2.5 MG Albuterol/ Ipratropium (Duoneb) 3 ml [id number] 11/26/19 07:00 11/26/19 07:43 3 ML Amiodarone HCl 150 mg/Dextrose 103 ml @ 600 mls/hr 1X PRN PRN 11/22/19 10:00 Amlodipine Besylate (Norvasc) 2.5 mg DAILY 11/26/19 09:00 11/26/19 09:41 2.5 MG Aspirin (Ecotrin) 81 mg [id number] 11/23/19 08:00 11/26/19 08:05 81 MG Atorvastatin Calcium (Lipitor) 10 mg QHS 11/21/19 21:00 11/25/19 20:46 10 MG Atropine Sulfate (ATROPINE 0.5mg SYRINGE) 0.5 mg PRN 1X PRN 11/22/19 10:00 Benzocaine (Ora-Jel) 1 lm PRN QID PRN 11/25/19 15:15 11/25/19 16:30 1 LM Bivalirudin (Angiomax) 250 mg 1X ONCE 11/22/19 09:45 11/22/19 09:46 DC 11/22/19 09:36 250 MG Budesonide (Pulmicort) 0.5 mg DAILY08 11/26/19 08:00 11/26/19 07:43 0.5 MG Citalopram Hydrobromide (CeleXA) 20 mg HS 11/20/19 21:00 UNV Cyclobenzaprine HCl (Flexeril) 10 mg PRN QHS PRN 11/20/19 09:00 11/25/19 20:46 10 MG Diazepam (Valium) 2 mg DAILY PRN 11/20/19 09:00 11/20/19 09:17 DC Docusate Sodium (Colace) 100 mg PRN BID PRN 11/23/19 18:15 11/23/19 20:51 100 MG Famotidine (Pepcid) 20 mg BID 11/21/19 09:00 11/23/19 11:04 DC 11/23/19 08:31 20 MG Fentanyl Citrate (Fentanyl 2ml Vial) 50 mcg PRN Q1HR PRN 11/22/19 10:00 Fluoxetine HCl (PROzac) 20 mg QHS 11/19/19 23:00 11/25/19 20:46 20 MG Furosemide (Lasix) 20 mg QODAY 11/26/19 09:00 11/25/19 07:57 DC Heparin Sodium (Porcine) (Heparin Sodium) 1,000 unit 1X ONCE 11/22/19 09:15 11/22/19 09:18 DC 11/22/19 09:15 1,000 UNIT Heparin Sodium/ Sodium Chloride (HEPARIN for ARTERIAL LINE FLUSH) 1,000 unit 1X ONCE 11/22/19 08:15 11/22/19 08:16 DC 11/22/19 08:15 1,000 UNIT Hydralazine HCl (Apresoline Inj) 10 mg PRN Q4HRS PRN 11/19/19 18:30 11/24/19 09:22 DC 11/21/19 01:30 10 MG Hydrochlorothiazide (Microzide) 12.5 mg DAILY 11/20/19 12:00 11/21/19 10:17 DC 11/21/19 08:58 12.5 MG Iohexol (Omnipaque 300 Mg/ml) 100 ml STK-MED ONCE 11/22/19 09:24 11/22/19 09:25 DC Levothyroxine Sodium (Synthroid) 88 mcg DAILY06 11/25/19 06:00 11/26/19 05:44 88 MCG Lidocaine HCl (Lidocaine 1% 20ml Vial) 20 ml 1X ONCE 11/22/19 08:15 11/22/19 08:16 DC 11/22/19 09:00 19 ML Lidocaine HCl (Lidocaine HCl 2% Abboject) 100 mg 1X PRN PRN 11/22/19 10:00 Lisinopril (Prinivil) 10 mg DAILY 11/24/19 10:00 11/25/19 07:57 DC Methylprednisolone Sodium Succinate (SOLU-Medrol 40MG VIAL) 40 mg Q12HR 11/20/19 10:00 11/21/19 09:14 DC 11/21/19 09:00 40 MG Methylprednisolone Sodium Succinate (SOLU-Medrol 125MG VIAL) 125 mg 1X ONCE 11/19/19 14:45 11/19/19 14:46 DC 11/19/19 15:09 125 MG Metoprolol Succinate (Toprol Xl) 25 mg DAILY 11/25/19 09:00 11/26/19 08:05 25 MG Midazolam HCl (Versed) 2 mg 1X ONCE 11/22/19 08:15 11/22/19 08:16 DC 11/22/19 08:15 2 MG Nitroglycerin (Nitrostat) 0.4 mg PRN Q5MIN PRN 11/22/19 10:00 Ondansetron HCl (Zofran) 4 mg PRN Q8HRS PRN 11/19/19 16:00 11/20/19 15:59 DC Prochlorperazine Maleate (Compazine) 5 mg PRN 1X PRN 11/23/19 21:30 11/23/19 21:38 5 MG Sodium Chloride 1,000 ml @ 80 mls/hr [id number] 11/25/19 10:00 11/26/19 09:43 80 MLS/HR Sodium Chloride (Normal Saline Flush) 3 ml QSHIFT PRN 11/22/19 10:00 Temazepam (Restoril) 15 mg PRN QHS PRN 11/23/19 21:30 11/25/19 20:46 15 MG Ticagrelor (Brilinta) 90 mg BID 11/23/19 09:00 11/26/19 08:05 90 MG Tramadol HCl (Ultram) 50 mg DAILY PRN 11/20/19 09:00 11/20/19 09:19 DC Lab Laboratory Tests Test 11/25/19 12:35 11/26/19 05:09 Urine Collection Type Void Urine Color Yellow Urine Clarity Clear Urine pH 5.0 (<5.0-8.0) Urine Specific Pattison 1.015 (1.000-1.030) Urine Protein Negative mg/dL (NEG-TRACE) Urine Glucose (UA) Negative mg/dL (NEG) Urine Ketones (Stick) Negative mg/dL (NEG) Urine Blood Negative (NEG) Urine Nitrite Negative (NEG) Urine Bilirubin Negative (NEG) Urine Urobilinogen Dipstick 0.2 mg/dL (0.2 mg/dL) Urine Leukocyte Esterase Negative (NEG) Urine RBC 0 /HPF (0-2) Urine WBC 5-10 /HPF (0-4) Urine Squamous Epithelial Cells Many /LPF Urine Transitional Epithelial Cells Occ /LPF Urine Bacteria Many /HPF (0-FEW) Urine Mucus Mod /LPF Sodium Level 144 mmol/L (136-145) Potassium Level 4.3 mmol/L (3.5-5.1) Chloride Level 106 mmol/L (98-107) Carbon Dioxide Level 33 mmol/L (21-32) Anion Gap 5 (6-14) Blood Urea Nitrogen 54 mg/dL (7-20) Creatinine 1.6 mg/dL (0.6-1.0) Estimated GFR (Cockcroft-Gault) 32.5 Glucose Level 89 mg/dL (70-99) Calcium Level 8.7 mg/dL (8.5-10.1) Magnesium Level 2.0 mg/dL (1.8-2.4) Results All relevant outside records, renal labs, imaging studies, telemetry/EKG's were reviewed. Justicifation of Admission Dx: Justifications for Admission: Justification of Admission Dx: Yes Acute COPD Exacerbation: Acute COPD Exacerbation PEDRO MONROE MD Nov 26, 2019 10:50
--- NOTE | 2019-11-26 11:51 | NUR ---
SS following up with discharge planning. SS reviewed pt chart and discussed with pt RN. Per RN, pt creatine 1.6 today. Pt on IV fluids and renal functioning being monitored. SS contacted [facility] and they are still waiting on [facility] to give pre-authorization for Trilogy machine. They reported that they would notify SS once pre-auth was received. SS will continue to follow for discharge planning.
[2019-11-26 15:07] VITALS: BP 118/52
--- NOTE | 2019-11-26 15:57 | PDOC ---
EUGENIO ASHLEY [employer] 11/26/19 1557: CARDIO Progress Notes Date and Time Date of Service 11/26/2019 Time of Evaluation 1520 Subjective Subjective: No Chest Pain, No shortness of breath, No Palpitations Vitals Vitals Vital Signs Date Time Temp Pulse Resp B/P (MAP) Pulse Ox O2 Delivery O2 Flow Rate FiO2 11/26/19 15:33 Nasal Cannula 2.0 11/26/19 15:07 98.7 64 20 118/52 (74) 100 98.7 Weight Weight [ ] Input and Output Intake and Output Intake and Output 11/26/19 07:00 Intake Total 1850 ml Output Total 0 ml Balance 1850 ml Intake Oral 850 ml IV Total 1000 ml Output Urine Total 0 ml # Voids 1 Laboratory Labs Laboratory Tests Test 11/26/19 05:09 Sodium Level 144 mmol/L (136-145) Potassium Level 4.3 mmol/L (3.5-5.1) Chloride Level 106 mmol/L (98-107) Carbon Dioxide Level 33 mmol/L (21-32) Anion Gap 5 (6-14) Blood Urea Nitrogen 54 mg/dL (7-20) Creatinine 1.6 mg/dL (0.6-1.0) Estimated GFR (Cockcroft-Gault) 32.5 Glucose Level 89 mg/dL (70-99) Calcium Level 8.7 mg/dL (8.5-10.1) Magnesium Level 2.0 mg/dL (1.8-2.4) Physical Exam HEENT: Neck Supple W Full Motion Chest: Symmetric LUNGS: Clear to Auscultation Heart: S1S2, RRR (SR with PVCs) Assessment Assessment 1. Asymptomatic Arrhythmia: NSVT/PSVT due to CM and hypercapnea 2. Acute on chronic respiratory failure with hypercapnea, possible HUNTER with COPD, and CM 3. AECOPD 4. Moderate MR 5. Chronic systolic CHF: appears compensated 6. ICM: EF at 30-35% New 7. NSTEMI: : S/P PCI/BMS to LAD. Notable for chronically occluded RCA with good collateralization from the left system. Noted with aneruysmal inferior wall 8. Accelerated HTN: controlled 9. HLP 10. Obesity 11. Hypothyroidism: on replacement. supratherapeutic TSH at 0.012 per PCP 12. DICKSON: peaked at 2.6 Nephrology following Recommendations 1. Will need CPAP moving forward at least. 2. Hold ACEI for now with renal insufficiency. Continue toprol. Hold lasix. currently compensated. Avoid nephrotoxins. 3. Secondary prevention measures. ASA/brilinta. Cardiac rehab 4. Lifevest recommended. Pt will think about it overnight. Repeat TTE in 3 months for AICD consideration. Justicifation of Admission Dx: Justifications for Admission: Justification of Admission Dx: Yes Acute COPD Exacerbation: Acute COPD Exacerbation KATARINA RAE MD 11/27/19 0947: CARDIO Progress Notes Assessment Assessment Patient seen and examined on 11/26/19. I agree with our nurse practitioners plan and assessment. Acute on chronic respiratory failure with hypercapnea, possible HUNTER with COPD, and CM AECOPD. Improved. Chronic systolic CHF: appears compensated ICM: EF at 30-35% New. Cath results as above. Consideration of LifeVest. NSTEMI: : S/P PCI/BMS to LAD. Notable for chronically occluded RCA with good collateralization from the left system. Noted with aneruysmal inferior wall Accelerated HTN: controlled Hypothyroidism: on replacement. supratherapeutic TSH at 0.012 per PCP DICKSON: peaked at 2.6 improved today. Renal following. Nephrology following EUGENIO ASHLEY APRN Nov 26, 2019 15:57 KATARINA RAE MD Nov 27, 2019 09:47
[2019-11-26 19:20] VITALS: BP 140/68
[2019-11-26] MEDS: TEMAZEPAM 15 MG CAPSULE PO PRN (20:50)
[2019-11-26] MEDS: FLUoxetine HCL 20 MG CAPSULE PO SCH (20:51)
[2019-11-26] MEDS: CYCLOBENZAPRINE 10 MG TABLET. PO PRN (20:51)
[2019-11-26] MEDS ORDERED: ATORVASTATIN CALCIUM 40 MG TABLET. PO SCH (21:00)
[2019-11-26 23:25] VITALS: BP 134/58
--- NOTE | 2019-11-27 02:07 | NUR ---
pt refused 3 AM vitals. explained to pt risk, pt aware. Will continue to monitor.
[2019-11-27] MEDS: LEVOTHYROXINE 88 MCG TABLET PO SCH (06:04)
[2019-11-27 06:07] LABS: CALCIUM 8.7 mg/dL (8.5-10.1); CREATININE 0.9 mg/dL (0.6-1.0); POTASSIUM 4.9 mmol/L (3.5-5.1)
[2019-11-27 07:00] VITALS: BP 140/62
[2019-11-27] MEDS: BUDESONIDE 0.5 MG/2 ML NEBU. NEB SCH (07:43)
[2019-11-27] MEDS: IPRATRPIUM/ALBUTEROL 0.5/2.5MG 3 ML NEBU. NEB SCH (07:43)
--- NOTE | 2019-11-27 08:00 | PDOC ---
Provider Note Provider Note [id number] Justicifation of Admission Dx: Justifications for Admission: Justification of Admission Dx: Yes Acute COPD Exacerbation: Acute COPD Exacerbation HECTOR MOBLEY MD Nov 27, 2019 08:00
--- NOTE | 2019-11-27 08:37 | PDOC ---
PULMONARY PROGRESS NOTES Subjective Denies SOB or cough slept well last, denies CP feeling good today Vitals Vital Signs Date Time Temp Pulse Resp B/P (MAP) Pulse Ox O2 Delivery O2 Flow Rate FiO2 11/27/19 08:00 Nasal Cannula 2.0 11/27/19 07:43 98 11/27/19 07:00 98.1 73 20 140/62 (88) 98.1 ROS: No Nausea, No Chest Pain, No Abdominal Pain, No Increase Cough General: Alert Lungs: Clear, Other Cardiovascular: S1, S2 Abdomen: Soft, Non-tender Neuro Exam: Alert, Oriented Extremities: No Edema Labs Laboratory Tests Test 11/25/19 08:58 11/25/19 12:35 11/26/19 05:09 11/27/19 04:50 Sodium Level 143 mmol/L (136-145) 144 mmol/L (136-145) 146 mmol/L (136-145) Potassium Level 4.5 mmol/L (3.5-5.1) 4.3 mmol/L (3.5-5.1) 4.9 mmol/L (3.5-5.1) Chloride Level 100 mmol/L (98-107) 106 mmol/L (98-107) 111 mmol/L (98-107) Carbon Dioxide Level 36 mmol/L (21-32) 33 mmol/L (21-32) 32 mmol/L (21-32) Anion Gap 7 (6-14) 5 (6-14) 3 (6-14) Blood Urea Nitrogen 63 mg/dL (7-20) 54 mg/dL (7-20) 27 mg/dL (7-20) Creatinine 2.6 mg/dL (0.6-1.0) 1.6 mg/dL (0.6-1.0) 0.9 mg/dL (0.6-1.0) Estimated GFR (Cockcroft-Gault) 18.5 32.5 63.0 Glucose Level 164 mg/dL (70-99) 89 mg/dL (70-99) 99 mg/dL (70-99) Calcium Level 9.0 mg/dL (8.5-10.1) 8.7 mg/dL (8.5-10.1) 8.7 mg/dL (8.5-10.1) Urine Collection Type Void Urine Color Yellow Urine Clarity Clear Urine pH 5.0 (<5.0-8.0) Urine Specific Blairs 1.015 (1.000-1.030) Urine Protein Negative mg/dL (NEG-TRACE) Urine Glucose (UA) Negative mg/dL (NEG) Urine Ketones (Stick) Negative mg/dL (NEG) Urine Blood Negative (NEG) Urine Nitrite Negative (NEG) Urine Bilirubin Negative (NEG) Urine Urobilinogen Dipstick 0.2 mg/dL (0.2 mg/dL) Urine Leukocyte Esterase Negative (NEG) Urine RBC 0 /HPF (0-2) Urine WBC 5-10 /HPF (0-4) Urine Squamous Epithelial Cells Many /LPF Urine Transitional Epithelial Cells Occ /LPF Urine Bacteria Many /HPF (0-FEW) Urine Mucus Mod /LPF Magnesium Level 2.0 mg/dL (1.8-2.4) Laboratory Tests Test 11/27/19 04:50 Sodium Level 146 mmol/L (136-145) Potassium Level 4.9 mmol/L (3.5-5.1) Chloride Level 111 mmol/L (98-107) Carbon Dioxide Level 32 mmol/L (21-32) Anion Gap 3 (6-14) Blood Urea Nitrogen 27 mg/dL (7-20) Creatinine 0.9 mg/dL (0.6-1.0) Estimated GFR (Cockcroft-Gault) 63.0 Glucose Level 99 mg/dL (70-99) Calcium Level 8.7 mg/dL (8.5-10.1) Medications Active Scripts Medications Dose Route/Sig Max Daily Dose Days Date Category Prozac (Fluoxetine Hcl) 40 Mg Capsule 1 Cap PO DAILY 04/03/18 Reported Valium (Diazepam) 2 Mg Tablet 2 Mg PO BID PRN 03/23/18 Reported Cyclobenzaprine Hcl 10 Mg Tablet 1 Tab PO HS PRN 07/01/17 Reported Valium (Diazepam) 2 Mg Tablet 2 Mg PO DAILY PRN 07/01/17 Reported Tramadol Hcl 50 Mg Tablet 50 Mg PO DAILY PRN 01/06/17 Reported Duoneb 0.5-3(2.5) Mg/3 Ml (Albuterol/Ipratropium) 3 Ml Ampul.neb 3 Ml NEB RTQID 30 06/04/16 Rx Atorvastatin Calcium 20 Mg Tablet 20 Mg PO QHS 30 06/04/16 Rx Celexa (Citalopram Hydrobromide) 20 Mg Tablet 1 Tab PO HS 02/19/16 Reported Levothyroxine Sodium 100 Mcg Tablet 1 Tab PO DAILY 02/19/16 Reported Comments CXR Impression: 1. No acute cardiopulmonary process. Cardiac Cath: <Conclusion> Chronically occluded right coronary artery with good collateralization from the left system. Mid significant LAD lesion successfully stented with 0% residual. Decreased ejection fraction estimated at 30% with inferior wall aneurysmal appearance. Impression . IMPRESSION: 1. [id number] hypercapnic respiratory failure contributed by acute exacerbation of chronic obstructive pulmonary disease and hyperoxia. Patient greatly benefiting from BiPAP, needs home ventilator 2. History of squamous cell lung cancer, right upper lobe, status post radiat ion. No mass seen on the chest x-ray. previous PET scan in June is revealing no evidence of recurrent disease. 3. Acute exacerbation of COPD 4. CAD 5.Cardiomyopathy Plan . Patient set up at home for home ventilator. We will see as needed, discharge per PCP Continue Supplemental oxygen to keep oxygen sats above 92%--remains on 2 liters N/C Bronchodilators/pulmicort Follow cardiology recs S/P Cardiac catheterization -- stent to LAD EF- 30% Patient did well with noninvasive ventilation, We will set up home trilogy, spoke with social work, patient greatly benefiting from noninvasive ventilation She would benefit from home noninvasive ventilation with trilogy, Patient admitted with elevated PCO2 to 81, home trilogy would assist in preventing readmission D/W NAVI NGUYEN MD Nov 27, 2019 08:37
[2019-11-27] MEDS: ASPIRIN ENTERIC COATED 81 MG TABLET.DR. PO SCH (08:45)
[2019-11-27] MEDS: TICAGRELOR 90 MG TABLET. PO SCH (08:45)
[2019-11-27 08:46] VITALS: BP 140/62
[2019-11-27] MEDS: METOPROLOL SUCC 24HR ER 50 MG TAB.ER.24H. PO SCH (08:46)
[2019-11-27] MEDS ORDERED: LISINOPRIL 5 MG TABLET. PO SCH (09:00)
--- NOTE | 2019-11-27 09:05 | DS ---
DATE OF DISCHARGE: 11/27/2019 HOSPITAL SUMMARY: A 64-year-old white female came in with end-stage COPD and ongoing fatigue without chest pain. Echocardiogram showed a reduced ejection fraction of 30%, so cardiac catheterization was done, which revealed significant mid LAD lesion with the right coronary system closed. She underwent stent placement to the mid LAD with good results. Post-cath she developed acute renal failure from combination of Lasix and contrast dye and possibly lisinopril. This was treated with IV fluids and meds changed and her renal function completely improved. Creatinine was 0.9 at discharge. TSH was low at 0.012 and thyroid dose was changed from 100 to 88 mcg. Lisinopril was resumed and metoprolol is on board for high blood pressure and cardiomyopathy and she is able to be followed as an outpatient. FINAL DIAGNOSES: 1. Chronic fatigue secondary to ischemic cardiomyopathy. 2. Hypertension. 3. Acute renal failure secondary to contrast dye vasomotor nephropathy. 4. Iatrogenic hyperthyroidism. 5. Severe chronic obstructive pulmonary disease, end-stage, on oxygen. OPERATIONS AND PROCEDURES: Cardiac catheterization and stent placement. COMPLICATIONS: Renal failure. CONSULTATIONS: Dr. Clark, Dr. Silva of renal and Dr. Mix. DISPOSITION: New meds will include lisinopril 10 mg daily, aspirin 81 mg daily, Brilinta 90 mg daily, metoprolol 25 mg twice a day. She will reduce levothyroxine to 88 mcg daily. Office followup with Dr. Mobley in 2 weeks to check her renal function and blood pressure control as an outpatient. Lasix will not be used at this point, it is not needed. She will have a repeat echo in 4-6 weeks to look for post-cath recovery. HECTOR MOBLEY MD DR: CAROL/jessica JOB#: [id number] / [id number]
[2019-11-27] MEDS ORDERED: METO50TA4 PO (09:55)
[2019-11-27] MEDS ORDERED: ATOR40TA59 PO (09:55)
[2019-11-27] MEDS ORDERED: FURO-68 PO (09:55)
[2019-11-27] MEDS ORDERED: ASPI-886 PO (09:55)
[2019-11-27] MEDS ORDERED: TICA90TA PO (09:55)
[2019-11-27] MEDS ORDERED: LISI-338 PO (09:56)
--- NOTE | 2019-11-27 10:00 | PDOC ---
CARDIO Progress Notes Date and Time Date of Service 11/27/2019 Time of Evaluation 1000 Subjective Subjective: No Chest Pain, No shortness of breath, No Palpitations Vitals Vitals Vital Signs Date Time Temp Pulse Resp B/P (MAP) Pulse Ox O2 Delivery O2 Flow Rate FiO2 11/27/19 08:46 73 140/62 11/27/19 08:00 Nasal Cannula 2.0 11/27/19 07:43 98 11/27/19 07:00 98.1 20 98.1 Weight Weight [ ] Input and Output Intake and Output Intake and Output 11/27/19 07:00 Intake Total 1600 ml Output Total 200 ml Balance 1400 ml Intake Oral 1600 ml Output Urine Total 200 ml # Voids 2 # Bowel Movements 1 Laboratory Labs Laboratory Tests Test 11/27/19 04:50 Sodium Level 146 mmol/L (136-145) Potassium Level 4.9 mmol/L (3.5-5.1) Chloride Level 111 mmol/L (98-107) Carbon Dioxide Level 32 mmol/L (21-32) Anion Gap 3 (6-14) Blood Urea Nitrogen 27 mg/dL (7-20) Creatinine 0.9 mg/dL (0.6-1.0) Estimated GFR (Cockcroft-Gault) 63.0 Glucose Level 99 mg/dL (70-99) Calcium Level 8.7 mg/dL (8.5-10.1) Physical Exam Other Exams Dsicussed with RN. Pt hurrying up to go home. AOx3, Lungs clear, SR without ectopies, no significant leg edema. Refused lifevest Assessment Assessment 1. Asymptomatic Arrhythmia: NSVT/PSVT due to CM and hypercapnea. None further 2. Acute on chronic respiratory failure with hypercapnea, possible HUNTER with COPD, and CM. compensated 3. AECOPD 4. Moderate MR 5. Chronic systolic CHF: appears compensated 6. ICM: EF at 30-35% New 7. NSTEMI: : S/P PCI/BMS to LAD. Notable for chronically occluded RCA with good collateralization from the left system. Noted with aneruysmal inferior wall 8. Accelerated HTN: better controlled 9. HLP 10. Obesity 11. Hypothyroidism: on replacement. supratherapeutic TSH at 0.012 per PCP 12. DICKSON: much better. Nephrology following Recommendations 1. Will need CPAP moving forward at least. Defer to pulmonary 2. Continue with secondary prevention measures with ASA/brilinta 3. Cardiac rehab. Discussed lifevest but refused. 4. Repeat TTE in 3 months for AICD consideration. 5. Entresto will be considered as an outpt, follow up in office Justicifation of Admission Dx: Justifications for Admission: Justification of Admission Dx: Yes Acute COPD Exacerbation: Acute COPD Exacerbation EUGENIO ASHLEY KNIFE FINISHER Nov 27, 2019 10:00
--- NOTE | 2019-11-27 10:19 | NUR ---
Discharge Note: FIDELIA KATZ Discharge instructions and discharge home medications reviewed with Patient and a copy given. All questions have been answered and understanding verbalized.
--- NOTE | 2019-11-27 11:13 | PDOC ---
SUBJECTIVE ROS seen earlier today, No complaints , "Im going home " OBJECTIVE Vital Signs Vital Signs Date Time Temp Pulse Resp B/P (MAP) Pulse Ox O2 Delivery O2 Flow Rate FiO2 11/27/19 08:46 73 140/62 11/27/19 08:00 Nasal Cannula 2.0 11/27/19 07:43 98 11/27/19 07:00 98.1 20 98.1 I & 0 Intake and Output 11/27/19 07:00 Intake Total 1600 ml Output Total 200 ml Balance 1400 ml Intake Oral 1600 ml Output Urine Total 200 ml # Voids 2 # Bowel Movements 1 PHYSICAL EXAM Physical Exam General: NAD HEENT: OM moist , Chronic O2 Neck supple Lungs: diminished bases Heart: Regular rate (SR), Normal S1, Normal S2, apical murmur 08/01 systolic Abdomen: Soft, No tenderness Extremities: No cyanosis, No edema Skin: No rash Neuro: grossly Normal Psych/Mental Status: Mental status NL, Mood NL No Mays DIAGNOSIS/ASSESSMENT Assessment & Plan DICKSON -s/p cardiac cath on 11/21, meds lisinopril, and Diuretics (all new) Baseline Cr Normal per [facility] records Resolved Avoid nephrotoxins , close follow up with PCP as OP Renal Cysts- Bilateral simple cyst reported on Renal US Coronary artery disease. s/p Catheterization on 11/21 showed a significant LAD lesion which was successfully stented. 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 Cardiology following Cautious with starting ACEI/ARB/Diuretics with close monitoring of renal function and Potassium Cardiomyopathy: EF at 30-35% New There is moderate global hypokinesis of the left ventricle, moderate eccentric mitral regurgitation. Asymptomatic Arrhythmia: NSVT/PSVT due to CM and hypercapnea Acute on chronic respiratory failure with hypercapnea, possible HUNTER with COPD, and CM Moderate MR Accelerated HTN: Currently Hypotensive, Hold meds as above COMMENT/RELEVANT DATA Meds Current Medications Medications (Trade) Dose Ordered Sig/Jeaneth Start Time Stop Time Status Last Admin Dose Admin Acetaminophen/ Aspirin/Caffeine (Excedrin Migraine) 1 tab PRN Q6HRS PRN 11/26/19 08:30 11/27/19 10:46 DC Albuterol Sulfate (Ventolin Neb Soln) 2.5 mg 1X ONCE 11/19/19 14:45 11/19/19 14:46 DC 11/19/19 14:58 2.5 MG Albuterol/ Ipratropium (Duoneb) 3 ml [id number] 11/26/19 07:00 11/27/19 10:46 DC 11/27/19 07:43 3 ML Amiodarone HCl 150 mg/Dextrose 103 ml @ 600 mls/hr 1X PRN PRN 11/22/19 10:00 11/27/19 10:46 DC Amlodipine Besylate (Norvasc) 2.5 mg DAILY 11/26/19 09:00 11/27/19 07:44 DC 11/26/19 09:41 2.5 MG Aspirin (Ecotrin) 81 mg [id number] 11/23/19 08:00 11/27/19 10:46 DC 11/27/19 08:45 81 MG Atorvastatin Calcium (Lipitor) 40 mg QHS 11/26/19 21:00 11/27/19 10:46 DC 11/26/19 20:51 40 MG Atropine Sulfate (ATROPINE 0.5mg SYRINGE) 0.5 mg PRN 1X PRN 11/22/19 10:00 11/27/19 10:46 DC Benzocaine (Ora-Jel) 1 lm PRN QID PRN 11/25/19 15:15 11/27/19 10:46 DC 11/25/19 16:30 1 LM Bivalirudin (Angiomax) 250 mg 1X ONCE 11/22/19 09:45 11/22/19 09:46 DC 11/22/19 09:36 250 MG Budesonide (Pulmicort) 0.5 mg DAILY08 11/26/19 08:00 11/27/19 10:46 DC 11/27/19 07:43 0.5 MG Citalopram Hydrobromide (CeleXA) 20 mg HS 11/20/19 21:00 UNV Cyclobenzaprine HCl (Flexeril) 10 mg PRN QHS PRN 11/20/19 09:00 11/27/19 10:46 DC 11/26/19 20:51 10 MG Diazepam (Valium) 2 mg DAILY PRN 11/20/19 09:00 11/20/19 09:17 DC Docusate Sodium (Colace) 100 mg PRN BID PRN 11/23/19 18:15 11/27/19 10:46 DC 11/23/19 20:51 100 MG Famotidine (Pepcid) 20 mg BID 11/21/19 09:00 11/23/19 11:04 DC 11/23/19 08:31 20 MG Fentanyl Citrate (Fentanyl 2ml Vial) 50 mcg PRN Q1HR PRN 11/22/19 10:00 11/27/19 10:46 DC Fluoxetine HCl (PROzac) 20 mg QHS 11/19/19 23:00 11/27/19 10:46 DC 11/26/19 20:51 20 MG Furosemide (Lasix) 20 mg QODAY 11/26/19 09:00 11/25/19 07:57 DC Heparin Sodium (Porcine) (Heparin Sodium) 1,000 unit 1X ONCE 11/22/19 09:15 11/22/19 09:18 DC 11/22/19 09:15 1,000 UNIT Heparin Sodium/ Sodium Chloride (HEPARIN for ARTERIAL LINE FLUSH) 1,000 unit 1X ONCE 11/22/19 08:15 11/22/19 08:16 DC 11/22/19 08:15 1,000 UNIT Hydralazine HCl (Apresoline Inj) 10 mg PRN Q4HRS PRN 11/19/19 18:30 11/24/19 09:22 DC 11/21/19 01:30 10 MG Hydrochlorothiazide (Microzide) 12.5 mg DAILY 11/20/19 12:00 11/21/19 10:17 DC 11/21/19 08:58 12.5 MG Iohexol (Omnipaque 300 Mg/ml) 100 ml STK-MED ONCE 11/22/19 09:24 11/22/19 09:25 DC Levothyroxine Sodium (Synthroid) 88 mcg DAILY06 11/25/19 06:00 11/27/19 10:46 DC 11/27/19 06:04 88 MCG Lidocaine HCl (Lidocaine 1% 20ml Vial) 20 ml 1X ONCE 11/22/19 08:15 11/22/19 08:16 DC 11/22/19 09:00 19 ML Lidocaine HCl (Lidocaine HCl 2% Abboject) 100 mg 1X PRN PRN 11/22/19 10:00 11/27/19 10:46 DC Lisinopril (Prinivil) 5 mg DAILY 11/27/19 09:00 11/27/19 10:46 DC 11/27/19 08:46 5 MG Methylprednisolone Sodium Succinate (SOLU-Medrol 40MG VIAL) 40 mg Q12HR 11/20/19 10:00 11/21/19 09:14 DC 11/21/19 09:00 40 MG Methylprednisolone Sodium Succinate (SOLU-Medrol 125MG VIAL) 125 mg 1X ONCE 11/19/19 14:45 11/19/19 14:46 DC 11/19/19 15:09 125 MG Metoprolol Succinate (Toprol Xl) 25 mg DAILY 11/25/19 09:00 11/27/19 10:46 DC 11/27/19 08:46 25 MG Midazolam HCl (Versed) 2 mg 1X ONCE 11/22/19 08:15 11/22/19 08:16 DC 11/22/19 08:15 2 MG Nitroglycerin (Nitrostat) 0.4 mg PRN Q5MIN PRN 11/22/19 10:00 11/27/19 10:46 DC Ondansetron HCl (Zofran) 4 mg PRN Q8HRS PRN 11/19/19 16:00 11/20/19 15:59 DC Prochlorperazine Maleate (Compazine) 5 mg PRN 1X PRN 11/23/19 21:30 11/27/19 10:46 DC 11/23/19 21:38 5 MG Sodium Chloride 1,000 ml @ 80 mls/hr [id number] 11/25/19 10:00 11/27/19 07:44 DC 11/26/19 23:14 80 MLS/HR Sodium Chloride (Normal Saline Flush) 3 ml QSHIFT PRN 11/22/19 10:00 11/27/19 10:46 DC Temazepam (Restoril) 15 mg PRN QHS PRN 11/23/19 21:30 11/27/19 10:46 DC 11/26/19 20:50 15 MG Ticagrelor (Brilinta) 90 mg BID 11/23/19 09:00 11/27/19 10:46 DC 11/27/19 08:45 90 MG Tramadol HCl (Ultram) 50 mg DAILY PRN 11/20/19 09:00 11/20/19 09:19 DC Lab Laboratory Tests Test 11/27/19 04:50 Sodium Level 146 mmol/L (136-145) Potassium Level 4.9 mmol/L (3.5-5.1) Chloride Level 111 mmol/L (98-107) Carbon Dioxide Level 32 mmol/L (21-32) Anion Gap 3 (6-14) Blood Urea Nitrogen 27 mg/dL (7-20) Creatinine 0.9 mg/dL (0.6-1.0) Estimated GFR (Cockcroft-Gault) 63.0 Glucose Level 99 mg/dL (70-99) Calcium Level 8.7 mg/dL (8.5-10.1) Results All relevant outside records, renal labs, imaging studies, telemetry/EKG's were reviewed. Justicifation of Admission Dx: Justifications for Admission: Justification of Admission Dx: Yes Acute COPD Exacerbation: Acute COPD Exacerbation PEDRO MONROE MD Nov 27, 2019 11:13
== END 2019-11-27 10:45 | disposition home or self-care (01) | DRG 248 ==
LOC: ER 13:57 → 2 NORTH 15:54
PROVIDERS: ADMIT Family Medicine; ATTEND Family Medicine
PROC: 02703DZ Dilation of Coronary Artery, One Artery with Intraluminal Device, Percutaneous Approach (ICD-10-PCS; principal; 2019-11-22)
PROC: 4A023N7 Measurement of Cardiac Sampling and Pressure, Left Heart, Percutaneous Approach (ICD-10-PCS; 2019-11-22)
PROC: B2111ZZ Fluoroscopy of Multiple Coronary Arteries using Low Osmolar Contrast (ICD-10-PCS; 2019-11-22)
PROC: B2151ZZ Fluoroscopy of Left Heart using Low Osmolar Contrast (ICD-10-PCS; 2019-11-22)
PROC: 5A09357 Assistance with Respiratory Ventilation, Less than 24 Consecutive Hours, Continuous Positive Airway Pressure (ICD-10-PCS; 2019-11-22)
DX: I21.4 Non-ST elevation (NSTEMI) myocardial infarction (principal); J96.21 Acute and chronic respiratory failure with hypoxia; N17.0 Acute kidney failure with tubular necrosis; J96.22 Acute and chronic respiratory failure with hypercapnia; I47.2 Ventricular tachycardia; I50.22 Chronic systolic (congestive) heart failure; J44.1 Chronic obstructive pulmonary disease with (acute) exacerbation; I25.10 Atherosclerotic heart disease of native coronary artery without angina pectoris; F32.9 Major depressive disorder, single episode, unspecified; F41.9 Anxiety disorder, unspecified; M19.90 Unspecified osteoarthritis, unspecified site; K21.9 Gastro-esophageal reflux disease without esophagitis; E05.80 Other thyrotoxicosis without thyrotoxic crisis or storm; E78.00 Pure hypercholesterolemia, unspecified; E66.9 Obesity, unspecified; G47.33 Obstructive sleep apnea (adult) (pediatric); E78.5 Hyperlipidemia, unspecified; I11.0 Hypertensive heart disease with heart failure; R51 Headache; T50.8X5A Adverse effect of diagnostic agents, initial encounter; I25.5 Ischemic cardiomyopathy; R53.82 Chronic fatigue, unspecified; Z85.118 Personal history of other malignant neoplasm of bronchus and lung; Z82.49 Family history of ischemic heart disease and other diseases of the circulatory system; Z87.11 Personal history of peptic ulcer disease; Z87.891 Personal history of nicotine dependence; Z68.30 Body mass index [BMI] 30.0-30.9, adult; Z87.440 Personal history of urinary (tract) infections; Z90.710 Acquired absence of both cervix and uterus; Z92.3 Personal history of irradiation; Z99.81 Dependence on supplemental oxygen; Y92.89 Other specified places as the place of occurrence of the external cause; Z88.5 Allergy status to narcotic agent; Z88.8 Allergy status to other drugs, medicaments and biological substances
CPT/HCPCS: 92928; 93458; 93571; 96374; 99291; G0269; 36415; 36600; 70450; 71045; 76770; 80048; 80053; 80061; 81001; 82805; 83735; 83880; 84439; 84443; 84481; 84484; 85025; 93005; 93306; 94640; 94660; 94760; 99152; 99153; C1760; C1769; C1876; C1887; C1892; J0360; J0583; J1644; J2250; J2920; J2930; J3010; J3490; J7030; Q9967; C1771; G0378; J7613; J7626; Q0164

== ENCOUNTER 2019-12-18 01:14 | Inpatient (IN) | payer OTHER ==
[2019-12-18] VITALS (18 sets, daily range): BP systolic 82–187; BP diastolic 52–164
[~2019-12-18] VITALS: Ht 154.9 cm; Wt 69.7 kg
[~2019-12-18 01:14] MED LIST changes: +ASPI-886 PO; +ATOR40TA59 PO; +FURO-68 PO; +LISI-338 PO; +METO50TA4 PO; +TICA90TA PO
--- NOTE | 2019-12-18 01:34 | PHYS DOC ---
Past Medical History Past Medical History: COPD, Depression, High Cholesterol, Hypothyroid Past Surgical History: Hysterectomy Additional Past Surgical Histo: Bladder sling Smoking Status: Former Smoker Alcohol Use: None Drug Use: None General Adult EDM: Chief Complaint: CHEST PAIN HPI: HPI: Patient is a 64 year old female who presents with shortness of breath over the last 2 to 3 days. Patient has a history of COPD and has increased her oxygen intake at home. Patient denies any fever but has had a cough. Patient denies any chest pain. Patient has had some confusion at home as well. Patient denies any vomiting or diarrhea. Patient spoke with her doctor, Dr. Mobley who suggested to come to the ER for evaluation. Review of Systems: Review of Systems: Constitutional: Denies fever or chills. [] Eyes: Denies change in visual acuity. [] HENT: Denies nasal congestion or sore throat. [] Respiratory: Complains of mild cough and increased shortness of breath Cardiovascular: Denies chest pain or edema. [] GI: Denies abdominal pain, nausea, vomiting, bloody stools or diarrhea. [] : Denies dysuria. [] Musculoskeletal: Denies back pain or joint pain. [] Integument: Denies rash. [] Neurologic: Denies headache, focal weakness or sensory changes. [] Endocrine: Denies polyuria or polydipsia. [] Lymphatic: Denies swollen glands. [] Psychiatric: Denies depression or anxiety. [] Heart Score: Risk Factors: Risk Factors: DM, Current or recent (<one month) smoker, HTN, HLP, family history of CAD, obesity. Risk Scores: Score 0 - 3: 2.5% MACE over next 6 weeks - Discharge Home Score 4 - 6: 20.3% MACE over next 6 weeks - Admit for Clinical Observation Score 7 - 10: 72.7% MACE over next 6 weeks - Early Invasive Strategies Allergies: Allergies: Allergies Coded Allergies Type Severity Reaction Last Updated Verified bupropion HCl Allergy Intermediate Swelling 12/04/17 Yes codeine Allergy Intermediate Hives 03/25/18 Yes Physical Exam: PE: Constitutional: Well developed, well nourished, mild respiratory distress HENT: Normocephalic, atraumatic, bilateral external ears normal, no trismus, nose normal. [] Eyes: PERRLA, EOMI, conjunctiva normal, no discharge. [] Neck: Normal range of motion, no tenderness, supple, no stridor. [] Cardiovascular:Heart rate regular rhythm, no murmur [] Lungs & Thorax: Tachypneic with abdominal breathing, diminished breath sounds bilaterally Abdomen: Bowel sounds normal, soft, no tenderness, no masses, no pulsatile m asses. [] Skin: Warm, dry, no erythema, no rash. [] Back: No tenderness, no CVA tenderness. [] Extremities: No tenderness, no cyanosis, no clubbing, ROM intact, no edema. [] Neurologic: Alert and oriented X 3, but confused at times normal motor function, normal sensory function, no focal deficits noted. [] Psychologic: Affect normal, judgement normal, mood normal. [] Current Patient Data: Labs: Laboratory Tests Test 12/18/19 01:59 12/18/19 02:00 12/18/19 03:30 O2 Saturation 99 % 91 % Arterial Blood pH 7.22 7.35 Arterial Blood pCO2 at Patient Temp 106 mmHg 68 mmHg Arterial Blood pO2 at Patient Temp 316 mmHg 60 mmHg Arterial Blood HCO3 42 mmol/L 36 mmol/L Arterial Blood Base Excess 11 mmol/L 9 mmol/L FiO2 32 25 White Blood Count 8.2 x10^3/uL Red Blood Count 3.43 x10^6/uL Hemoglobin 11.1 g/dL Hematocrit 33.1 % Mean Corpuscular Volume 96 fL Mean Corpuscular Hemoglobin 32 pg Mean Corpuscular Hemoglobin Concent 34 g/dL Red Cell Distribution Width 14.4 % Platelet Count 285 x10^3/uL Neutrophils (%) (Auto) 77 % Lymphocytes (%) (Auto) 16 % Monocytes (%) (Auto) 5 % Eosinophils (%) (Auto) 2 % Basophils (%) (Auto) 1 % Neutrophils # (Auto) 6.3 x10^3/uL Lymphocytes # (Auto) 1.3 x10^3/uL Monocytes # (Auto) 0.4 x10^3/uL Eosinophils # (Auto) 0.1 x10^3/uL Basophils # (Auto) 0.0 x10^3/uL Prothrombin Time 13.9 SEC Prothromb Time International Ratio 1.1 D-Dimer (Ashleigh) 0.60 ug/mlFEU Sodium Level 146 mmol/L Potassium Level 4.0 mmol/L Chloride Level 104 mmol/L Carbon Dioxide Level 44 mmol/L Anion Gap Blood Urea Nitrogen 13 mg/dL Creatinine 0.6 mg/dL Estimated GFR (Cockcroft-Gault) 100.6 BUN/Creatinine Ratio 22 Glucose Level 141 mg/dL Calcium Level 9.2 mg/dL Total Bilirubin 0.3 mg/dL Aspartate Amino Transf (AST/SGOT) 14 U/L Alanine Aminotransferase (ALT/SGPT) 21 U/L Alkaline Phosphatase 101 U/L Troponin I Quantitative < 0.017 ng/mL BL-[id number]-Type Natriuretic Peptide 4299 pg/mL Total Protein 6.4 g/dL Albumin 3.2 g/dL Albumin/Globulin Ratio 1.0 Current Medications Medications (Trade) Dose Ordered Sig/Jeaneth Route PRN Reason Start Time Stop Time Status Last Admin Dose Admin Albuterol/ Ipratropium (Duoneb) 3 ml STK-MED ONCE .ROUTE 12/18/19 01:46 12/18/19 01:46 DC Albuterol Sulfate (Ventolin Neb Soln) 5 mg 1X ONCE NEB 12/18/19 02:15 12/18/19 02:16 DC 12/18/19 02:10 Ipratropium [place] (Atrovent) 0.5 mg 1X ONCE NEB 12/18/19 02:15 12/18/19 02:16 DC 12/18/19 02:10 Vital Signs: Vital Signs Date Time Temp Pulse Resp B/P (MAP) Pulse Ox O2 Delivery O2 Flow Rate FiO2 12/18/19 03:30 96 BiPAP/CPAP 12/18/19 02:10 99 BiPAP/CPAP 12/18/19 01:25 98.3 75 24 181/81 (114) 100 Nasal Cannula 4.0 98.3 EKG: EKG: [ EKG interpreted by me sinus rhythm with a rate of 71 normal axis normal intervals normal ST segments Radiology/Procedures: Radiology/Procedures: [][facility] [address] [place] [address] IMAGING REPORT Signed PATIENT: FIDELIA KATZ ACCOUNT: [id number] : 1955 LOCATION: [address] [place] [address] AGE: 64 SEX: F EXAM STATUS: ADM IN ORD. PHYSICIAN: PATT FLORES MD REASON: soa PROCEDURE: PORTABLE CHEST 1V EXAM: PORTABLE CHEST 1V INDICATION: Reason: soa / Spl. Instructions: / History: . TECHNIQUE: Single view COMPARISON: 11/19/2019 chest x-ray FINDINGS: The heart size is normal. The great vessels appear unremarkable. There is no hilar or mediastinal mass. The lungs are clear. There is no pleural effusion or pneumothorax. There are no significant osseous abnormalities. IMPRESSION: No active cardiopulmonary disease. Electronically signed by: Ravinder Mcdonough MD (12/18/2019 3:36 AM) [facility] [place] DICTATED and SIGNED BY: RAVINDER MCDONOUGH MD DATE: 12/18/19 0336 Course & Med Decision Making: Course & Med Decision Making Pertinent Labs and Imaging studies reviewed. (See chart for details) [] Patient with CO2 narcosis and respiratory failure. Patient placed on BiPAP. Discussed the case with Dr. Mobley who will admit the patient. Clinically improved after BiPAP. Dragon Disclaimer: Chavez Disclaimer: This electronic medical record was generated, in whole or in part, using a voice recognition dictation system. Departure Departure Impression: Primary Impression: CO2 narcosis Additional Impression: Respiratory failure Disposition: ADMITTED INPATIENT Condition: GUARDED Referrals: HECTOR MOBLEY MD (PCP) Justicifation of Admission Dx: Justifications for Admission: Justification of Admission Dx: Yes Acute COPD Exacerbation: Acute COPD Exacerbation PATT FLORES MD Dec 18, 2019 01:34
[2019-12-18] MEDS ORDERED: IPRATRPIUM/ALBUTEROL 0.5/2.5MG 3 ML NEBU. ONE (01:46)
[2019-12-18 01:59] LABS: BASE EXCESS ABG 11 mmol/L (-3-3); HCO3 ABG 42 mmol/L (21-28); PO2 ABG 316 mmHg (65-108); SAT O2 ABG 99 % (92-99)
[2019-12-18 02:04] LABS: FIO2 ABG 32; PCO2 ABG 106 mmHg (35-46)
[2019-12-18 02:08] LABS: BASO % 1 % (0-3); EOS # 0.1 x10^3/uL (0.0-0.7); EOS % 2 % (0-3); HEMATOCRIT 33.1 % (36.0-47.0); HEMOGLOBIN 11.1 g/dL (12.0-15.5); LYMPH # 1.3 x10^3/uL (1.0-4.8); LYMPH % 16 % (24-48); MEAN CORPUSCULAR HEMOGLOBIN 32 pg (25-35); MEAN CORPUSCULAR HGB CONC 34 g/dL (31-37); MEAN CORPUSCULAR VOLUME 96 fL (79-100); MONO # 0.4 x10^3/uL (0.0-1.1); MONO % 5 % (0-9); NEUT # 6.3 x10^3/uL (1.8-7.7); NEUT % 77 % (31-73); PLATELET COUNT 285 x10^3/uL (140-400); RED BLOOD COUNT 3.43 x10^6/uL (3.50-5.40); RED CELL DISTRIBUTION WIDTH 14.4 % (11.5-14.5); WHITE BLOOD COUNT 8.2 x10^3/uL (4.0-11.0)
[2019-12-18] MEDS ORDERED: IPRATROPIUM BROMIDE 0.5 MG/2.5 ML NEBU. NEB ONE (02:15)
[2019-12-18] MEDS ORDERED: ALBUTEROL SULFATE 2.5 MG/3 ML NEBU. NEB ONE (02:15)
[2019-12-18 02:22] LABS: PROTHROMBIN TIME PATIENT 13.9 SEC (11.7-14.0)
[2019-12-18 02:23] LABS: BLOOD UREA NITROGEN 13 mg/dL (7-20); BUN/CREATININE RATIO 22 (6-20); CALCIUM 9.2 mg/dL (8.5-10.1); CARBON DIOXIDE 44 mmol/L (21-32); CHLORIDE 104 mmol/L (98-107); CREATININE 0.6 mg/dL (0.6-1.0); GFR 100.6; GLUCOSE 141 mg/dL (70-99); SODIUM 146 mmol/L (136-145)
[2019-12-18 02:30] LABS: ALBUMIN 3.2 g/dL (3.4-5.0); ALK PHOS 101 U/L (46-116); ALT (SGPT) 21 U/L (14-59); AST (SGOT) 14 U/L (15-37); TOTAL BILIRUBIN 0.3 mg/dL (0.2-1.0); TOTAL PROTEIN 6.4 g/dL (6.4-8.2)
--- NOTE | 2019-12-18 02:35 | EKG ---
[facility] [address] [place] [address] Test Date: 2019-12-18 Test Time: 01:26:52 Pat Name: FIDELIA KATZ Department: Room: Gender: F Code Number Stamper: : 1955 Requested By: PATT FLORES Order Number: [id number] Reading MD: Measurements Intervals [place] Rate: 71 P: 52 PA: 136 QRS: 42 QRSD: 108 T: 31 QT: 396 QTc: 435 Interpretive Statements SINUS RHYTHM OTHERWISE NORMAL ECG RI6.02 No previous ECG available for comparison
[2019-12-18 02:38] LABS: D-DIMER 0.6 ug/mlFEU (0.00-0.50)
[2019-12-18] MEDS ORDERED: ONDANSETRON PF 4 MG/2 ML VIAL. IV PRN (03:00)
[2019-12-18] MEDS ORDERED: methylPREDNISolone SOD SUCC PF 125 MG/2 ML VIAL. IV ONE (03:15)
[2019-12-18 03:30] LABS: BASE EXCESS ABG 9 mmol/L (-3-3); HCO3 ABG 36 mmol/L (21-28); PO2 ABG 60 mmHg (65-108); SAT O2 ABG 91 % (92-99)
--- NOTE | 2019-12-18 03:38 | RAD ---
EXAM: PORTABLE CHEST 1V INDICATION: Reason: soa / Spl. Instructions: / History: . TECHNIQUE: Single view COMPARISON: 11/19/2019 chest x-ray FINDINGS: The heart size is normal. The great vessels appear unremarkable. There is no hilar or mediastinal mass. The lungs are clear. There is no pleural effusion or pneumothorax. There are no significant osseous abnormalities. IMPRESSION: No active cardiopulmonary disease. Electronically signed by: Raul Mcdonough MD (12/18/2019 3:36 AM) [facility] [place]
[2019-12-18 03:52] LABS: PCO2 ABG 68 mmHg (35-46)
[2019-12-18 03:53] LABS: FIO2 ABG 25
--- NOTE | 2019-12-18 05:45 | NUR ---
Patient admitted to room 111, able to move self over to bed, ICU monitors placed, bibpap currently on patient. Patient AOX4, able to answer admission questions, says she wants to be a DNR, understands that if her heart stops no medications, compressions, or intubation will be done. Patient agrees and understands this. history pulled over from previously admit less than a month ago. Med rec completed using list brought from home. Dr. Jaffe called, DNR order received.
[2019-12-18] MEDS ORDERED: IBUP-1060 PO (05:57)
[2019-12-18] MEDS ORDERED: LEVO88TA4 PO (05:57)
[2019-12-18] MEDS ORDERED: METO25TA4 PO (05:57)
[2019-12-18] MEDS ORDERED: LISI10TA2 PO (05:57)
[2019-12-18] MEDS ORDERED: ALEN70TA6 PO (06:37)
[2019-12-18] MEDS: IPRATRPIUM/ALBUTEROL 0.5/2.5MG 3 ML NEBU. NEB SCH ×4 (08:40→20:00)
--- NOTE | 2019-12-18 08:44 | PDOC ---
Provider Note Provider Note dictated Justicifation of Admission Dx: Justifications for Admission: Justification of Admission Dx: Yes Acute COPD Exacerbation: Acute COPD Exacerbation HECTOR MOBLEY MD Dec 18, 2019 08:44
[2019-12-18] MEDS ORDERED: CYCLOBENZAPRINE 10 MG TABLET. PO PRN (08:45)
[2019-12-18] MEDS ORDERED: diazePAM 2 MG TABLET PO PRN ×2 (08:45)
[2019-12-18] MEDS: TICAGRELOR 90 MG TABLET. PO SCH ×2 (09:30→20:46)
[2019-12-18] MEDS: METOPROLOL TART IMMED RELEASE 25 MG TABLET. PO SCH ×2 (09:31→20:47)
[2019-12-18] MEDS: LEVOTHYROXINE 88 MCG TABLET PO SCH (09:31)
[2019-12-18] MEDS: LISINOPRIL 10 MG TABLET PO SCH (09:31)
[2019-12-18] MEDS: ASPIRIN ENTERIC COATED 81 MG TABLET.DR. PO SCH (09:31)
--- NOTE | 2019-12-18 10:03 | HP ---
ADMIT DATE: 12/18/2019 CHIEF COMPLAINT: Respiratory failure and respiratory acidosis. HISTORY OF PRESENT ILLNESS: A ____ -year-old white female with severe COPD, who has been on BiPAP in the home with the [facility] until a few months ago when her insurance declined to continue to pay for it and then came and took away. She has been unable to get a BiPAP unit since then including the most recent discharge from the hospital after dyspnea and finding of an LAD lesion, which was stented with success. She became more confused gradually in the home and came in with respiratory acidosis from hypercarbia and has been on BiPAP overnight. Her respiratory acidosis has resolved with her pCO2 is down to about 60, which is more of a normal value for her. There are no other new complaints. PAST MEDICAL HISTORY: New medications include metoprolol, lisinopril, aspirin and Brilinta. The LAD lesion was stented about 4 weeks ago and she has had no problems since then. She did not have traditional classic angina, dyspnea or shortness of breath and fatigue as presenting symptom with reduced ejection fraction present on an echo. Although, home meds otherwise remain the same. SOCIAL HISTORY: Quit smoking some years ago, , has family in the home. Nonsmoker, nondrinker. Not employed. FAMILY HISTORY: Unremarkable. REVIEW OF SYSTEMS: Unremarkable. OBJECTIVE: ENT: She is on BiPAP, otherwise no overt findings. NECK: No masses, nodes or bruits. LUNGS: Decreased breath sounds with a few wheezes. CARDIOVASCULAR: Regular rate. No tachycardia or murmur. ABDOMEN: Benign and nontender. EXTREMITIES: Reasonably good pedal and radial pulses. Nail beds pink. 2+ clubbing is noted. NEUROLOGIC: Physiologic and nonfocal. ASSESSMENT: Confusion, delirium secondary to respiratory acidosis from CO2 retention and chronic obstructive pulmonary disease. Recent coronary artery disease with LAD stenting appears to be stable and lung cancer appears to be in remission after radiation. PLAN: Continue current care for now and Pulmonary will get involved to assess further use of BiPAP especially in the home setting, which is critical for her to procure at this point. She is a DNR per her own request and home meds remain the same. HECTOR MOBLEY MD DR: CAROL/jessica JOB#: [id number] / [id number]
[2019-12-18] MEDS ORDERED: ALBUTEROL SULFATE 2.5 MG/3 ML NEBU. NEB PRN (12:15)
--- NOTE | 2019-12-18 12:17 | PDOC ---
PULMONARY PROGRESS NOTES Vitals Vital Signs Date Time Temp Pulse Resp B/P (MAP) Pulse Ox O2 Delivery O2 Flow Rate FiO2 12/18/19 11:00 66 20 135/82 (99) 95 BiPAP/CPAP 12/18/19 09:00 2.0 12/18/19 07:00 97.9 97.9 General: Alert Lungs: Clear, Other Cardiovascular: S1, S2 Abdomen: Soft, Non-tender Extremities: No Edema Labs Laboratory Tests Test 12/18/19 01:59 12/18/19 02:00 12/18/19 03:30 O2 Saturation 99 % (92-99) 91 % (92-99) Arterial Blood pH 7.22 (7.35-7.45) 7.35 (7.35-7.45) Arterial Blood pCO2 at Patient Temp 106 mmHg (35-46) 68 mmHg (35-46) Arterial Blood pO2 at Patient Temp 316 mmHg (65-108) 60 mmHg (65-108) Arterial Blood HCO3 42 mmol/L (21-28) 36 mmol/L (21-28) Arterial Blood Base Excess 11 mmol/L (-3-3) 9 mmol/L (-3-3) FiO2 32 25 White Blood Count 8.2 x10^3/uL (4.0-11.0) Red Blood Count 3.43 x10^6/uL (3.50-5.40) Hemoglobin 11.1 g/dL (12.0-15.5) Hematocrit 33.1 % (36.0-47.0) Mean Corpuscular Volume 96 fL (79-100) Mean Corpuscular Hemoglobin 32 pg (25-35) Mean Corpuscular Hemoglobin Concent 34 g/dL (31-37) Red Cell Distribution Width 14.4 % (11.5-14.5) Platelet Count 285 x10^3/uL (140-400) Neutrophils (%) (Auto) 77 % (31-73) Lymphocytes (%) (Auto) 16 % (24-48) Monocytes (%) (Auto) 5 % (0-9) Eosinophils (%) (Auto) 2 % (0-3) Basophils (%) (Auto) 1 % (0-3) Neutrophils # (Auto) 6.3 x10^3/uL (1.8-7.7) Lymphocytes # (Auto) 1.3 x10^3/uL (1.0-4.8) Monocytes # (Auto) 0.4 x10^3/uL (0.0-1.1) Eosinophils # (Auto) 0.1 x10^3/uL (0.0-0.7) Basophils # (Auto) 0.0 x10^3/uL (0.0-0.2) Prothrombin Time 13.9 SEC (11.7-14.0) Prothromb Time International Ratio 1.1 (0.8-1.1) D-Dimer (Ashleigh) 0.60 ug/mlFEU (0.00-0.50) Sodium Level 146 mmol/L (136-145) Potassium Level 4.0 mmol/L (3.5-5.1) Chloride Level 104 mmol/L (98-107) Carbon Dioxide Level 44 mmol/L (21-32) Anion Gap (6-14) Blood Urea Nitrogen 13 mg/dL (7-20) Creatinine 0.6 mg/dL (0.6-1.0) Estimated GFR (Cockcroft-Gault) 100.6 BUN/Creatinine Ratio 22 (6-20) Glucose Level 141 mg/dL (70-99) Calcium Level 9.2 mg/dL (8.5-10.1) Total Bilirubin 0.3 mg/dL (0.2-1.0) Aspartate Amino Transf (AST/SGOT) 14 U/L (15-37) Alanine Aminotransferase (ALT/SGPT) 21 U/L (14-59) Alkaline Phosphatase 101 U/L (46-116) Troponin I Quantitative < 0.017 ng/mL (0.000-0.055) FF-[id number]-[id number]-Type Natriuretic Peptide 4299 pg/mL (0-124) Total Protein 6.4 g/dL (6.4-8.2) Albumin 3.2 g/dL (3.4-5.0) Albumin/Globulin Ratio 1.0 (1.0-1.7) Laboratory Tests Test 12/18/19 01:59 12/18/19 02:00 12/18/19 03:30 O2 Saturation 99 % (92-99) 91 % (92-99) Arterial Blood pH 7.22 (7.35-7.45) 7.35 (7.35-7.45) Arterial Blood pCO2 at Patient Temp 106 mmHg (35-46) 68 mmHg (35-46) Arterial Blood pO2 at Patient Temp 316 mmHg (65-108) 60 mmHg (65-108) Arterial Blood HCO3 42 mmol/L (21-28) 36 mmol/L (21-28) Arterial Blood Base Excess 11 mmol/L (-3-3) 9 mmol/L (-3-3) FiO2 32 25 White Blood Count 8.2 x10^3/uL (4.0-11.0) Red Blood Count 3.43 x10^6/uL (3.50-5.40) Hemoglobin 11.1 g/dL (12.0-15.5) Hematocrit 33.1 % (36.0-47.0) Mean Corpuscular Volume 96 fL (79-100) Mean Corpuscular Hemoglobin 32 pg (25-35) Mean Corpuscular Hemoglobin Concent 34 g/dL (31-37) Red Cell Distribution Width 14.4 % (11.5-14.5) Platelet Count 285 x10^3/uL (140-400) Neutrophils (%) (Auto) 77 % (31-73) Lymphocytes (%) (Auto) 16 % (24-48) Monocytes (%) (Auto) 5 % (0-9) Eosinophils (%) (Auto) 2 % (0-3) Basophils (%) (Auto) 1 % (0-3) Neutrophils # (Auto) 6.3 x10^3/uL (1.8-7.7) Lymphocytes # (Auto) 1.3 x10^3/uL (1.0-4.8) Monocytes # (Auto) 0.4 x10^3/uL (0.0-1.1) Eosinophils # (Auto) 0.1 x10^3/uL (0.0-0.7) Basophils # (Auto) 0.0 x10^3/uL (0.0-0.2) Prothrombin Time 13.9 SEC (11.7-14.0) Prothromb Time International Ratio 1.1 (0.8-1.1) D-Dimer (Ashleigh) 0.60 ug/mlFEU (0.00-0.50) Sodium Level 146 mmol/L (136-145) Potassium Level 4.0 mmol/L (3.5-5.1) Chloride Level 104 mmol/L (98-107) Carbon Dioxide Level 44 mmol/L (21-32) Anion Gap (6-14) Blood Urea Nitrogen 13 mg/dL (7-20) Creatinine 0.6 mg/dL (0.6-1.0) Estimated GFR (Cockcroft-Gault) 100.6 BUN/Creatinine Ratio 22 (6-20) Glucose Level 141 mg/dL (70-99) Calcium Level 9.2 mg/dL (8.5-10.1) Total Bilirubin 0.3 mg/dL (0.2-1.0) Aspartate Amino Transf (AST/SGOT) 14 U/L (15-37) Alanine Aminotransferase (ALT/SGPT) 21 U/L (14-59) Alkaline Phosphatase 101 U/L (46-116) Troponin I Quantitative < 0.017 ng/mL (0.000-0.055) QZ-[id number]-Type Natriuretic Peptide 4299 pg/mL (0-124) Total Protein 6.4 g/dL (6.4-8.2) Albumin 3.2 g/dL (3.4-5.0) Albumin/Globulin Ratio 1.0 (1.0-1.7) Medications Active Scripts Medications Dose Route/Sig Max Daily Dose Days Date Category Dose Instructions Alendronate Sodium 70 Mg Tablet 1 Tab PO WEEKLY 12/18/19 Reported Ibuprofen 800 Mg Tablet 800 Mg PO PRN Q6HRS PRN 12/18/19 Reported Metoprolol Tartrate 25 Mg Tablet 1 Tab PO BID 12/18/19 Reported Levothyroxine Sodium 88 Mcg Tablet 1 Tab PO DAILY 12/18/19 Reported Lisinopril 10 Mg Tablet 1 Tab PO DAILY 12/18/19 Reported Lasix (Furosemide) 40 Mg Tablet 40 Mg PO PRN DAILY PRN 30 11/27/19 Rx for CHF symptoms Brilinta (Ticagrelor) 90 Mg Tablet 90 Mg PO BID 30 11/27/19 Rx Aspirin Ec (Aspirin) 81 Mg Tablet.dr 81 Mg PO [id number] 11/27/19 Rx Atorvastatin Calcium 40 Mg Tablet 40 Mg PO QHS 30 11/27/19 Rx Prozac (Fluoxetine Hcl) 40 Mg Capsule 1 Cap PO DAILY 04/03/18 Reported Valium (Diazepam) 2 Mg Tablet 2 Mg PO BID PRN 03/23/18 Reported Cyclobenzaprine Hcl 10 Mg Tablet 1 Tab PO HS PRN 07/01/17 Reported Valium (Diazepam) 2 Mg Tablet 2 Mg PO DAILY PRN 07/01/17 Reported Tramadol Hcl 50 Mg Tablet 50 Mg PO DAILY PRN 01/06/17 Reported Duoneb 0.5-3(2.5) Mg/3 Ml (Albuterol/Ipratropium) 3 Ml Ampul.neb 3 Ml NEB RTQID 30 06/04/16 Rx Atorvastatin Calcium 20 Mg Tablet 20 Mg PO QHS 30 06/04/16 Rx Celexa (Citalopram Hydrobromide) 20 Mg Tablet 1 Tab PO HS 02/19/16 Reported Levothyroxine Sodium 100 Mcg Tablet 1 Tab PO DAILY 02/19/16 Reported Impression . Full note dictated, discussed with RN See orders Acute on chronic hypercapnic hypoxemic respiratory failure secondary to acute exacerbation of COPD NAVI HENRY MD Dec 18, 2019 12:17
--- NOTE | 2019-12-18 12:34 | CONS ---
DATE OF CONSULTATION: 12/18/2019 ATTENDING PHYSICIAN: Trevin Jaffe MD REASON FOR CONSULTATION: The patient seen in pulmonary consultation at the request of Dr. Jaffe for abnormal arterial blood gas requiring noninvasive ventilation. Initial ABG: pH of 7.22, PaCO2 of 106, pO2 of 316. HISTORY OF PRESENT ILLNESS: The patient is well known to me from previous hospitalization. She has comorbidities, chronic hypercapnic respiratory failure, COPD, depression, lung cancer. She has had previous history of right upper lobe radiation. She has had previous PET scan, which revealed no evidence of recurrent disease. The patient was short of breath over the last 2-3 days. She has increased her oxygen at home, presented with chest pain. She had an arterial blood gas revealing significant hypercapnia. She was placed on BiPAP. This morning, repeat arterial blood gas revealed a pH of 7.35, PaCO2 of 68, pO2 of 60. I have attempted on multiple occasions appealing into the insurance company for BiPAP or Trilogy machine at home. Unfortunately, we have not been able to convince the insurance carrier to provide a BiPAP unit at home. As a consequence, the patient is back to the hospital now with an acute exacerbation of chronic obstructive pulmonary disease, revealing the above arterial blood gas. She denies fever or chills. No productive cough. She is currently not smoking. PAST MEDICAL HISTORY: Remarkable for: 1. Squamous cell carcinoma, right upper lobe, status post radiation. Followup PET scan revealed no evidence of recurrence. 2. History of chronic hypercapnic. 3. Chronic obstructive pulmonary disease. 4. Depression. 5. Hyperlipidemia. 6. Coronary artery disease. She was last hospitalized here back in early part of November, on the she was discharged. At that time, she presented with some chest discomfort and underwent coronary angiogram revealing a lesion in the LAD, which was stented with 0% residual. She also had an ejection fraction calculated at 30%. PAST SURGICAL HISTORY: She has had previous bladder sling, cardiac catheterization back in early part of November as indicated above. SOCIAL HISTORY: She is currently not smoking. ALLERGIES: BUPROPION AND CODEINE. FAMILY HISTORY: No family history of lung disorders. REVIEW OF SYSTEMS: As indicated in the history of present illness, otherwise other systems could not be adequately reviewed. The patient is on BiPAP. PHYSICAL EXAMINATION: VITAL SIGNS: Stable. O2 saturation was greater than 92%. HEENT: Eyes, the sclerae were nonicteric. NECK: Jugular venous distention was not elevated. No lymphadenopathy. CHEST: Full expansion. LUNGS: Very poor air flow. CARDIOVASCULAR: Regular rate and rhythm with S1, S2, no S3. ABDOMEN: Soft, nontender, nondistended. EXTREMITIES: No clubbing, cyanosis or pitting edema. NEUROLOGIC: The patient was awake, alert, following commands. A detailed neuro exam was not performed. LABORATORY DATA: Reviewed. D-dimer was 0.60. Sodium was elevated. Arterial blood gas as indicated above. Chest x-ray revealed no acute cardiopulmonary process. IMPRESSION: 1. Bzpql-wh-cehmbzh hypercapnic hypoxemic respiratory failure. 2. Acute exacerbation of chronic obstructive pulmonary disease. 3. Metabolic encephalopathy, present upon admission. 4. Coronary artery disease with previous stenting to the LAD back in early part of November of 2019. 5. Cardiomyopathy, ejection fraction of 30%. 6. Tobacco dependence, in remission. 7. Squamous cell carcinoma, right upper lobe, status post radiation. PET scanning last time performed revealed no evidence of recurrent disease. PLAN: At the end of my evaluation, I took the patient to BiPAP block. She was awake, alert, following command. She states that she has been short of breath for the last 2-3 days. No productive cough, some wheezing. She is unable to tolerate activities of daily living. She has not had any exposures to anyone with COVID-19. 1. We will continue p.r.n. BiPAP. Attempt nasal cannula oxygen for now. 2. Steroids. 3. SARS-CoV-2 testing is pending. 4. No need for antibiotics. 5. DVT prophylaxis. 6. Continue home meds. 7. Nebulized treatments. I will have social media strategist revisit with insurance carrier to possibly set up home BiPAP, or Trilogy ventilator. The patient has greatly benefitting from ventilator here in the hospital. I think she would greatly benefit from one at home. Total cumulative critical care time of 55 minutes reviewing data, chest x-ray, labs, and formulating a plan. NAVI HENRY MD DR: ARLEN/jessica JOB#: [id number] / [id number]
[2019-12-18] MEDS: ENOXAPARIN 40 MG/0.4 ML SYRINGE. SQ SCH (14:26)
[2019-12-18] MEDS: methylPREDNISolone SOD SUCC PF 125 MG/2 ML VIAL. IV SCH ×2 (14:26→20:47)
--- NOTE | 2019-12-18 15:20 | NUR ---
SS following for discharge planning. SS reviewed pt chart and discussed with pt RN. Pt is from home with spouse and is currently on BIPAP. COVID19 pending. Trilogy was ordered on previous admission through [employer], ; fax [phone], but [facility] insurance declined to authorize stating that Trilogy was not medically necessary. Nash in the process of getting prior authorization for BIPAP from [facility] insurance. Pt has home oxygen. SS will continue to follow for discharge planning.
[2019-12-18] MEDS: CITALOPRAM 20 MG TABLET. PO SCH (20:46)
[2019-12-18] MEDS: ATORVASTATIN CALCIUM 40 MG TABLET. PO SCH (20:46)
[2019-12-18] MEDS: IBUPROFEN 400 MG TABLET. PO PRN (21:50)
[2019-12-19] VITALS (7 sets, daily range): BP systolic 93–178; BP diastolic 61–80
[2019-12-19] MEDS: LEVOTHYROXINE 88 MCG TABLET PO SCH (06:07)
[2019-12-19] MEDS: IPRATRPIUM/ALBUTEROL 0.5/2.5MG 3 ML NEBU. NEB SCH ×4 (07:17→20:40)
--- NOTE | 2019-12-19 08:53 | PDOC ---
Provider Note Provider Note SLEEPING, VSS, LABS OK, ABG BETTER AFTER BIPAP- add pepcid re steroid, cont same , has to resume home bipap to prevent readmission, meds same Justicifation of Admission Dx: Justifications for Admission: Justification of Admission Dx: Yes Acute COPD Exacerbation: Acute COPD Exacerbation HECTOR MOBLEY MD Dec 19, 2019 08:53
--- NOTE | 2019-12-19 09:18 | PDOC ---
PULMONARY PROGRESS NOTES Subjective Patient better, tolerating being off of BiPAP today Vitals Vital Signs Date Time Temp Pulse Resp B/P (MAP) Pulse Ox O2 Delivery O2 Flow Rate FiO2 12/19/19 07:19 96 Nasal Cannula 2.5 12/19/19 04:00 97.7 77 20 119/61 (80) 97.7 ROS: No Nausea, No Chest Pain, No Abdominal Pain, No Increase Cough General: Alert Lungs: Clear Cardiovascular: S1, S2 Abdomen: Soft, Non-tender Neuro Exam: Alert Extremities: No Edema Skin: Warm Labs Laboratory Tests Test 12/18/19 01:59 12/18/19 02:00 12/18/19 03:30 12/18/19 05:30 O2 Saturation 99 % (92-99) 91 % (92-99) Arterial Blood pH 7.22 (7.35-7.45) 7.35 (7.35-7.45) Arterial Blood pCO2 at Patient Temp 106 mmHg (35-46) 68 mmHg (35-46) Arterial Blood pO2 at Patient Temp 316 mmHg (65-108) 60 mmHg (65-108) Arterial Blood HCO3 42 mmol/L (21-28) 36 mmol/L (21-28) Arterial Blood Base Excess 11 mmol/L (-3-3) 9 mmol/L (-3-3) FiO2 32 25 White Blood Count 8.2 x10^3/uL (4.0-11.0) Red Blood Count 3.43 x10^6/uL (3.50-5.40) Hemoglobin 11.1 g/dL (12.0-15.5) Hematocrit 33.1 % (36.0-47.0) Mean Corpuscular Volume 96 fL (79-100) Mean Corpuscular Hemoglobin 32 pg (25-35) Mean Corpuscular Hemoglobin Concent 34 g/dL (31-37) Red Cell Distribution Width 14.4 % (11.5-14.5) Platelet Count 285 x10^3/uL (140-400) Neutrophils (%) (Auto) 77 % (31-73) Lymphocytes (%) (Auto) 16 % (24-48) Monocytes (%) (Auto) 5 % (0-9) Eosinophils (%) (Auto) 2 % (0-3) Basophils (%) (Auto) 1 % (0-3) Neutrophils # (Auto) 6.3 x10^3/uL (1.8-7.7) Lymphocytes # (Auto) 1.3 x10^3/uL (1.0-4.8) Monocytes # (Auto) 0.4 x10^3/uL (0.0-1.1) Eosinophils # (Auto) 0.1 x10^3/uL (0.0-0.7) Basophils # (Auto) 0.0 x10^3/uL (0.0-0.2) Prothrombin Time 13.9 SEC (11.7-14.0) Prothromb Time International Ratio 1.1 (0.8-1.1) D-Dimer (Ashleigh) 0.60 ug/mlFEU (0.00-0.50) Sodium Level 146 mmol/L (136-145) Potassium Level 4.0 mmol/L (3.5-5.1) Chloride Level 104 mmol/L (98-107) Carbon Dioxide Level 44 mmol/L (21-32) Anion Gap (6-14) Blood Urea Nitrogen 13 mg/dL (7-20) Creatinine 0.6 mg/dL (0.6-1.0) Estimated GFR (Cockcroft-Gault) 100.6 BUN/Creatinine Ratio 22 (6-20) Glucose Level 141 mg/dL (70-99) Calcium Level 9.2 mg/dL (8.5-10.1) Total Bilirubin 0.3 mg/dL (0.2-1.0) Aspartate Amino Transf (AST/SGOT) 14 U/L (15-37) Alanine Aminotransferase (ALT/SGPT) 21 U/L (14-59) Alkaline Phosphatase 101 U/L (46-116) Troponin I Quantitative < 0.017 ng/mL (0.000-0.055) SC-Wgs-D-Type Natriuretic Peptide 4299 pg/mL (0-124) Total Protein 6.4 g/dL (6.4-8.2) Albumin 3.2 g/dL (3.4-5.0) Albumin/Globulin Ratio 1.0 (1.0-1.7) Coronavirus (PCR) Not detected (Not Detected) Medications Active Scripts Medications Dose Route/Sig Max Daily Dose Days Date Category Dose Instructions Alendronate Sodium 70 Mg Tablet 1 Tab PO WEEKLY 12/18/19 Reported Ibuprofen 800 Mg Tablet 800 Mg PO PRN Q6HRS PRN 12/18/19 Reported Metoprolol Tartrate 25 Mg Tablet 1 Tab PO BID 12/18/19 Reported Levothyroxine Sodium 88 Mcg Tablet 1 Tab PO DAILY 12/18/19 Reported Lisinopril 10 Mg Tablet 1 Tab PO DAILY 12/18/19 Reported Lasix (Furosemide) 40 Mg Tablet 40 Mg PO PRN DAILY PRN 30 11/27/19 Rx for CHF symptoms Brilinta (Ticagrelor) 90 Mg Tablet 90 Mg PO BID 30 11/27/19 Rx Aspirin Ec (Aspirin) 81 Mg Tablet.dr 81 Mg PO DAILYWBKFT 30 11/27/19 Rx Atorvastatin Calcium 40 Mg Tablet 40 Mg PO QHS 30 11/27/19 Rx Prozac (Fluoxetine Hcl) 40 Mg Capsule 1 Cap PO DAILY 04/03/18 Reported Valium (Diazepam) 2 Mg Tablet 2 Mg PO BID PRN 03/23/18 Reported Cyclobenzaprine Hcl 10 Mg Tablet 1 Tab PO HS PRN 07/01/17 Reported Valium (Diazepam) 2 Mg Tablet 2 Mg PO DAILY PRN 07/01/17 Reported Tramadol Hcl 50 Mg Tablet 50 Mg PO DAILY PRN 01/06/17 Reported Duoneb 0.5-3(2.5) Mg/3 Ml (Albuterol/Ipratropium) 3 Ml Ampul.neb 3 Ml NEB RTQID 30 06/04/16 Rx Atorvastatin Calcium 20 Mg Tablet 20 Mg PO QHS 30 06/04/16 Rx Celexa (Citalopram Hydrobromide) 20 Mg Tablet 1 Tab PO HS 02/19/16 Reported Levothyroxine Sodium 100 Mcg Tablet 1 Tab PO DAILY 02/19/16 Reported Impression . IMPRESSION: 1. Mwwdm-lm-aiyclid hypercapnic hypoxemic respiratory failure. 2. Acute exacerbation of chronic obstructive pulmonary disease. 3. Metabolic encephalopathy, present upon admission. 4. Coronary artery disease with previous stenting to the LAD back in early part of November of 2019. 5. Cardiomyopathy, ejection fraction of 30%. 6. Tobacco dependence, in remission. 7. Squamous cell carcinoma, right upper lobe, status post radiation. PET scanning last time performed revealed no evidence of recurrent disease. 8. SARS-CoV-2 negative Plan . Continue PRN BiPAP new Patient greatly benefiting from ventilator while in-house, looking into insurance covering ventilator at home SARS-CoV-2 negative Steroids No need for antibiotics Continue home meds I will have protective services social worker revisit with insurance carrier to possibly set up home BiPAP, or Trilogy ventilator. The patient has greatly benefitting from ventilator here in the hospital. I think she would greatly benefit from one at home. NAVI HENRY MD Dec 19, 2019 09:18
[2019-12-19] MEDS: ASPIRIN ENTERIC COATED 81 MG TABLET.DR. PO SCH (09:27)
[2019-12-19] MEDS: LISINOPRIL 10 MG TABLET PO SCH (09:27)
[2019-12-19] MEDS: methylPREDNISolone SOD SUCC PF 125 MG/2 ML VIAL. IV SCH ×2 (09:27→20:41)
[2019-12-19] MEDS: FAMOTIDINE 20 MG TABLET. PO SCH (09:27)
[2019-12-19] MEDS: TICAGRELOR 90 MG TABLET. PO SCH ×2 (09:30→20:40)
[2019-12-19] MEDS: METOPROLOL TART IMMED RELEASE 25 MG TABLET. PO SCH ×2 (09:31→20:40)
[2019-12-19] MEDS: traMADol 50 MG TABLET PO PRN (10:42)
--- NOTE | 2019-12-19 11:00 | NUR ---
patient transferred from ICU room 111 to room 203. Received report from AUGIE Martinez. Pt transported via bed. Pt black bag left at bedside. Pt heart monitor hooked up and no complaints of pain at this time.
--- NOTE | 2019-12-19 11:46 | NUR ---
SS following up with discharge planning. SS reviewed pt chart and discussed with pt RN. COVID19 negative. Pt transferred from ICU to room 203. Pt currently requiring oxygen. Nash working with Dr. Mix to get pt approved for BIPAP machine. Pt has home oxygen at home. SS will continue to follow for discharge planning.
[2019-12-19] MEDS: ENOXAPARIN 40 MG/0.4 ML SYRINGE. SQ SCH (13:00)
[2019-12-19] MEDS: IBUPROFEN 400 MG TABLET. PO PRN (13:48)
[2019-12-19] MEDS: CITALOPRAM 20 MG TABLET. PO SCH (20:40)
[2019-12-19] MEDS: ATORVASTATIN CALCIUM 40 MG TABLET. PO SCH (20:40)
[2019-12-20 03:59] VITALS: BP 131/78
[2019-12-20] MEDS: LEVOTHYROXINE 88 MCG TABLET PO SCH (06:18)
[2019-12-20 07:15] VITALS: BP 137/56
[2019-12-20] MEDS: IPRATRPIUM/ALBUTEROL 0.5/2.5MG 3 ML NEBU. NEB SCH ×4 (07:22→20:51)
[2019-12-20] MEDS: METOPROLOL TART IMMED RELEASE 25 MG TABLET. PO SCH ×2 (08:24→21:00)
[2019-12-20] MEDS: TICAGRELOR 90 MG TABLET. PO SCH ×2 (08:25→21:00)
[2019-12-20] MEDS: LISINOPRIL 10 MG TABLET PO SCH (08:25)
[2019-12-20] MEDS: methylPREDNISolone SOD SUCC PF 125 MG/2 ML VIAL. IV SCH ×2 (08:25→21:01)
[2019-12-20] MEDS: ASPIRIN ENTERIC COATED 81 MG TABLET.DR. PO SCH (08:25)
--- NOTE | 2019-12-20 08:46 | PDOC ---
Provider Note Provider Note doing well, alert, vss, albs good- NEEDS HOME BIPAP RESUMED BEFORE DC as this is reason for last 2 admits Justicifation of Admission Dx: Justifications for Admission: Justification of Admission Dx: Yes Acute COPD Exacerbation: Acute COPD Exacerbation HECTOR MOBLEY MD Dec 20, 2019 08:46
--- NOTE | 2019-12-20 09:58 | PDOC ---
PULMONARY PROGRESS NOTES Subjective Patient better, using bipap qhs Vitals Vital Signs Date Time Temp Pulse Resp B/P (MAP) Pulse Ox O2 Delivery O2 Flow Rate FiO2 12/20/19 08:25 64 131/78 12/20/19 08:00 1.0 12/20/19 08:00 Nasal Cannula 12/20/19 07:23 93 12/20/19 07:15 98.4 20 98.4 ROS: No Nausea, No Chest Pain, No Abdominal Pain, No Increase Cough General: Alert, No acute distress Lungs: Clear Cardiovascular: S1, S2 Abdomen: Soft, Non-tender Neuro Exam: Alert Extremities: No Edema Skin: Warm Medications Active Scripts Medications Dose Route/Sig Max Daily Dose Days Date Category Dose Instructions Alendronate Sodium 70 Mg Tablet 1 Tab PO WEEKLY 12/18/19 Reported Ibuprofen 800 Mg Tablet 800 Mg PO PRN Q6HRS PRN 12/18/19 Reported Metoprolol Tartrate 25 Mg Tablet 1 Tab PO BID 12/18/19 Reported Levothyroxine Sodium 88 Mcg Tablet 1 Tab PO DAILY 12/18/19 Reported Lisinopril 10 Mg Tablet 1 Tab PO DAILY 12/18/19 Reported Lasix (Furosemide) 40 Mg Tablet 40 Mg PO PRN DAILY PRN 30 11/27/19 Rx for CHF symptoms Brilinta (Ticagrelor) 90 Mg Tablet 90 Mg PO BID 30 11/27/19 Rx Aspirin Ec (Aspirin) 81 Mg Tablet.dr 81 Mg PO DAILYWBKFT 30 11/27/19 Rx Atorvastatin Calcium 40 Mg Tablet 40 Mg PO QHS 30 11/27/19 Rx Prozac (Fluoxetine Hcl) 40 Mg Capsule 1 Cap PO DAILY 04/03/18 Reported Valium (Diazepam) 2 Mg Tablet 2 Mg PO BID PRN 03/23/18 Reported Cyclobenzaprine Hcl 10 Mg Tablet 1 Tab PO HS PRN 07/01/17 Reported Valium (Diazepam) 2 Mg Tablet 2 Mg PO DAILY PRN 07/01/17 Reported Tramadol Hcl 50 Mg Tablet 50 Mg PO DAILY PRN 01/06/17 Reported Duoneb 0.5-3(2.5) Mg/3 Ml (Albuterol/Ipratropium) 3 Ml Ampul.neb 3 Ml NEB RTQID 30 06/04/16 Rx Atorvastatin Calcium 20 Mg Tablet 20 Mg PO QHS 30 06/04/16 Rx Celexa (Citalopram Hydrobromide) 20 Mg Tablet 1 Tab PO HS 02/19/16 Reported Levothyroxine Sodium 100 Mcg Tablet 1 Tab PO DAILY 02/19/16 Reported Impression . IMPRESSION: 1. Jsxwv-cj-lvmxwgd hypercapnic hypoxemic respiratory failure. 2. 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 Metabolic encephalopathy, present upon admission. 4. Coronary artery disease with previous stenting to the LAD back in early part of November of 2019. 5. Cardiomyopathy, ejection fraction of 30%. 6. Tobacco dependence, in remission. 7. Squamous cell carcinoma, right upper lobe, status post radiation. PET scanning last time performed revealed no evidence of recurrent disease. 8. SARS-CoV-2 negative Plan . Continue PRN BiPAP qhs Patient greatly benefiting from ventilator while in-house, looking into insurance covering ventilator at home SARS-CoV-2 negative Steroids with slow taper No need for antibiotics Continue home meds I will have transition social worker revisit with insurance carrier to possibly set up home BiPAP, or Trilogy ventilator. The patient has greatly benefitting from ventilator here in the hospital. I think she would greatly benefit from one at home. TRACIE JONES MD Dec 20, 2019 09:58
[2019-12-20] MEDS: FAMOTIDINE 20 MG TABLET. PO SCH (10:01)
[2019-12-20 10:50] VITALS: BP 96/56
[2019-12-20] MEDS: ENOXAPARIN 40 MG/0.4 ML SYRINGE. SQ SCH (12:40)
--- NOTE | 2019-12-20 13:39 | NUR ---
SS following up with discharge planning. SS reviewed pt chart and discussed with pt RN. Pt is currently requiring oxygen. Case management contacted [facility] for status on pre-authorization for BIPAP. Case management was notified that request for BIPAP is currently under review. Pt has home oxygen at home. SS will continue to follow for discharge planning.
[2019-12-20 15:00] VITALS: BP 124/79
[2019-12-20 19:12] VITALS: BP 112/49
[2019-12-20] MEDS: ATORVASTATIN CALCIUM 40 MG TABLET. PO SCH (21:00)
[2019-12-20] MEDS: CITALOPRAM 20 MG TABLET. PO SCH (21:00)
[2019-12-20 22:55] VITALS: BP 112/57
[2019-12-21 03:36] VITALS: BP 126/75
[2019-12-21] MEDS: LEVOTHYROXINE 88 MCG TABLET PO SCH (06:10)
[2019-12-21 07:17] VITALS: BP 136/61
[2019-12-21] MEDS: IPRATRPIUM/ALBUTEROL 0.5/2.5MG 3 ML NEBU. NEB SCH ×4 (07:53→20:32)
[2019-12-21 08:12] LABS: BASE EXCESS ABG 7 mmol/L (-3-3); HCO3 ABG 33 mmol/L (21-28); PCO2 ABG 52 mmHg (35-46); PO2 ABG 86 mmHg (65-108); SAT O2 ABG 96 % (92-99)
[2019-12-21] MEDS: FAMOTIDINE 20 MG TABLET. PO SCH (08:14)
[2019-12-21] MEDS: methylPREDNISolone SOD SUCC PF 125 MG/2 ML VIAL. IV SCH ×2 (08:14→19:58)
[2019-12-21] MEDS: ASPIRIN ENTERIC COATED 81 MG TABLET.DR. PO SCH (08:15)
[2019-12-21] MEDS: LISINOPRIL 10 MG TABLET PO SCH (08:15)
[2019-12-21] MEDS: TICAGRELOR 90 MG TABLET. PO SCH ×2 (08:15→19:58)
[2019-12-21] MEDS: METOPROLOL TART IMMED RELEASE 25 MG TABLET. PO SCH ×2 (08:16→19:58)
[2019-12-21 08:24] LABS: FIO2 ABG 24
--- NOTE | 2019-12-21 09:35 | PDOC ---
PULMONARY PROGRESS NOTES Subjective Patient better, using bipap qhs Vitals Vital Signs Date Time Temp Pulse Resp B/P (MAP) Pulse Ox O2 Delivery O2 Flow Rate FiO2 12/21/19 08:16 60 136/61 12/21/19 08:02 97 Nasal Cannula 1.0 12/21/19 07:17 98.7 18 98.7 ROS: No Nausea, No Chest Pain, No Abdominal Pain, No Increase Cough General: Alert, No acute distress Lungs: Clear Cardiovascular: S1, S2 Abdomen: Soft, Non-tender Neuro Exam: Alert Extremities: No Edema Skin: Warm Labs Laboratory Tests Test 12/21/19 08:00 O2 Saturation 96 % (92-99) Arterial Blood pH 7.42 (7.35-7.45) Arterial Blood pCO2 at Patient Temp 52 mmHg (35-46) Arterial Blood pO2 at Patient Temp 86 mmHg (65-108) Arterial Blood HCO3 33 mmol/L (21-28) Arterial Blood Base Excess 7 mmol/L (-3-3) FiO2 24 Laboratory Tests Test 12/21/19 08:00 O2 Saturation 96 % (92-99) Arterial Blood pH 7.42 (7.35-7.45) Arterial Blood pCO2 at Patient Temp 52 mmHg (35-46) Arterial Blood pO2 at Patient Temp 86 mmHg (65-108) Arterial Blood HCO3 33 mmol/L (21-28) Arterial Blood Base Excess 7 mmol/L (-3-3) FiO2 24 Medications Active Scripts Medications Dose Route/Sig Max Daily Dose Days Date Category Dose Instructions Alendronate Sodium 70 Mg Tablet 1 Tab PO WEEKLY 12/18/19 Reported Ibuprofen 800 Mg Tablet 800 Mg PO PRN Q6HRS PRN 12/18/19 Reported Metoprolol Tartrate 25 Mg Tablet 1 Tab PO BID 12/18/19 Reported Levothyroxine Sodium 88 Mcg Tablet 1 Tab PO DAILY 12/18/19 Reported Lisinopril 10 Mg Tablet 1 Tab PO DAILY 12/18/19 Reported Lasix (Furosemide) 40 Mg Tablet 40 Mg PO PRN DAILY PRN 30 11/27/19 Rx for CHF symptoms Brilinta (Ticagrelor) 90 Mg Tablet 90 Mg PO BID 30 11/27/19 Rx Aspirin Ec (Aspirin) 81 Mg Tablet.dr 81 Mg PO DAILYWBKFT 11/27/19 Rx Atorvastatin Calcium 40 Mg Tablet 40 Mg PO QHS 11/27/19 Rx Prozac (Fluoxetine Hcl) 40 Mg Capsule 1 Cap PO DAILY 04/03/18 Reported Valium (Diazepam) 2 Mg Tablet 2 Mg PO BID PRN 03/23/18 Reported Cyclobenzaprine Hcl 10 Mg Tablet 1 Tab PO HS PRN 07/01/17 Reported Valium (Diazepam) 2 Mg Tablet 2 Mg PO DAILY PRN 07/01/17 Reported Tramadol Hcl 50 Mg Tablet 50 Mg PO DAILY PRN 01/06/17 Reported Duoneb 0.5-3(2.5) Mg/3 Ml (Albuterol/Ipratropium) 3 Ml Ampul.neb 3 Ml NEB RTQID 30 06/04/16 Rx Atorvastatin Calcium 20 Mg Tablet 20 Mg PO QHS 30 06/04/16 Rx Celexa (Citalopram Hydrobromide) 20 Mg Tablet 1 Tab PO HS 02/19/16 Reported Levothyroxine Sodium 100 Mcg Tablet 1 Tab PO DAILY 02/19/16 Reported Impression . IMPRESSION: 1. Gdcbh-li-zrmbzuh hypercapnic hypoxemic respiratory failure. 2. Acute exacerbation of chronic obstructive pulmonary disease.(40 yrs of tobacco use) 3. Metabolic encephalopathy, present upon admission. 4. Coronary artery disease with previous stenting to the LAD back in early part of November of 2019. 5. Cardiomyopathy, ejection fraction of 30%. 6. Tobacco dependence, in remission. 7. Squamous cell carcinoma, right upper lobe, status post radiation. PET scanning last time performed revealed no evidence of recurrent disease. 8. SARS-CoV-2 negative Plan . Continue BiPAP qhs ABG this am compensated. Patient greatly benefiting from Non invasive ventilator while in-house, looking into insurance covering at home SARS-CoV-2 negative Steroids with slow taper No need for antibiotics Continue home meds I will have psychologist social revisit with insurance carrier to possibly set up home BiPAP, or Trilogy ventilator. The patient has greatly benefitting from ventilator here in the hospital. I think she would greatly benefit from one at home. TRACIE JONES MD Dec 21, 2019 09:35
[2019-12-21 10:56] VITALS: BP 102/39
--- NOTE | 2019-12-21 11:56 | PDOC ---
GENERAL General: Pt doing well, SOA improved, denies fevers, ambulating, camila p.o., on 1 liter per NC, no concerns by pt or nursing staff. BM this am. No pain or discomfort expressed. VITAL SIGNS Vital Signs/I&O: Vital Signs Date Time Temp Pulse Resp B/P (MAP) Pulse Ox O2 Delivery O2 Flow Rate FiO2 12/21/19 11:05 93 Nasal Cannula 1.0 12/21/19 10:56 98.4 71 18 102/39 (60) 98.4 I & O 12/20/19 12/20/19 12/21/19 15:00 23:00 07:00 Intake Total 420 ml 290 ml 250 ml Balance 420 ml 290 ml 250 ml gen: AOx3, no distress in bed comfortable HEENT: dry mm, PERRLA, EOMI, Pulm: CTA bilaterally CV:RRR Abd: S/NT/ND Ext: trace edema bilaterally (lower ext.) ALLERGIES Allergies: Allergies Coded Allergies Type Severity Reaction Last Updated Verified bupropion HCl Allergy Intermediate Swelling 12/04/17 Yes codeine Allergy Intermediate Hives 03/25/18 Yes LAB Lab: Laboratory Tests Test 12/21/19 08:00 O2 Saturation 96 % (92-99) Arterial Blood pH 7.42 (7.35-7.45) Arterial Blood pCO2 at Patient Temp 52 mmHg (35-46) H Arterial Blood pO2 at Patient Temp 86 mmHg (65-108) Arterial Blood HCO3 33 mmol/L (21-28) H Arterial Blood Base Excess 7 mmol/L (-3-3) H FiO2 24 ASSESSMENT & PLAN A&P 1. Acute on chronic respiratory hypoxic failure- Pt improving and stable. Waiting of BiPaP approval by ins. [employer] on board and seeing pt. Cont. O2 per NC, BiPaP at night. Currently on duonebs and Methylpred. 125mg q12 2. CHF- Stable, repeat bnp, on furosemide, recent stent, No chest pain or discomfort, edema is trace, SOA improved since admission, pt on OSMAN-I 3. Hypothyroidism- on 88mcg of levothyroxine 4. Hx of Tobacco dep.- No desire for nicotine, pt quit 02/2019 5. DVT prophyl.- on lovenox 40mg qAM Justicifation of Admission Dx: Justifications for Admission: Justification of Admission Dx: Yes Acute COPD Exacerbation: Acute COPD Exacerbation TORRES,JOSE A MD Dec 21, 2019 11:56
[2019-12-21 12:19] LABS: ALBUMIN 3.3 g/dL (3.4-5.0); ALBUMIN/GLOBULIN RATIO 1.3 (1.0-1.7); CALCIUM 9.4 mg/dL (8.5-10.1); CREATININE 0.7 mg/dL (0.6-1.0); GFR 84.2; POTASSIUM 4.1 mmol/L (3.5-5.1); TOTAL BILIRUBIN 0.3 mg/dL (0.2-1.0); TOTAL PROTEIN 5.8 g/dL (6.4-8.2)
[2019-12-21 14:35] VITALS: BP 139/75
[2019-12-21] MEDS: ENOXAPARIN 40 MG/0.4 ML SYRINGE. SQ SCH (14:38)
[2019-12-21 19:00] VITALS: BP 98/64
[2019-12-21] MEDS: ATORVASTATIN CALCIUM 40 MG TABLET. PO SCH (19:58)
[2019-12-21] MEDS: CITALOPRAM 20 MG TABLET. PO SCH (19:58)
[2019-12-21] MEDS: IBUPROFEN 400 MG TABLET. PO PRN (19:59)
[2019-12-21] MEDS: traMADol 50 MG TABLET PO PRN (21:52)
[2019-12-21 23:03] VITALS: BP 125/69
[2019-12-22 03:16] VITALS: BP 125/58
[2019-12-22] MEDS: LEVOTHYROXINE 88 MCG TABLET PO SCH (04:44)
[2019-12-22 07:00] VITALS: BP 121/60
[2019-12-22] MEDS: IPRATRPIUM/ALBUTEROL 0.5/2.5MG 3 ML NEBU. NEB SCH ×4 (07:21→21:09)
[2019-12-22] MEDS: FAMOTIDINE 20 MG TABLET. PO SCH (09:03)
[2019-12-22] MEDS: TICAGRELOR 90 MG TABLET. PO SCH ×2 (09:03→19:59)
[2019-12-22] MEDS: METOPROLOL TART IMMED RELEASE 25 MG TABLET. PO SCH ×2 (09:03→19:59)
[2019-12-22] MEDS: ASPIRIN ENTERIC COATED 81 MG TABLET.DR. PO SCH (09:03)
[2019-12-22] MEDS: methylPREDNISolone SOD SUCC PF 125 MG/2 ML VIAL. IV SCH (09:04)
[2019-12-22] MEDS: LISINOPRIL 10 MG TABLET PO SCH (09:04)
--- NOTE | 2019-12-22 10:23 | PDOC ---
GENERAL General: 64-year-old female admitted with respiratory distress Did well overnight. Shortness of breath at baseline. No fevers no nausea no vomiting tolerating p.o. well. Denies any pain. No complaints voiced by patient or staff. VITAL SIGNS Vital Signs/I&O: Vital Signs Date Time Temp Pulse Resp B/P (MAP) Pulse Ox O2 Delivery O2 Flow Rate FiO2 12/22/19 09:04 58 121/60 12/22/19 08:00 2.5 12/22/19 08:00 Nasal Cannula 12/22/19 07:22 95 12/22/19 07:00 96.2 20 96.2 I & O 12/21/19 12/21/19 12/22/19 15:00 23:00 07:00 Intake Total 440 ml 50 ml 50 ml Balance 440 ml 50 ml 50 ml Generally: Patient is alert oriented no acute distress sitting upright eating breakfast. HEENT: Head was normocephalic atraumatic pupils were equal round reactive to light mucous moist membranes. Pulmonary: Clear to auscultation bilaterally with decreased sounds at the bases Cardiovascular: Regular rate and rhythm Abdomen: Soft nontender nondistended with normoactive bowel sounds Extremities: Trace edema bilaterally ALLERGIES Allergies: Allergies Coded Allergies Type Severity Reaction Last Updated Verified bupropion HCl Allergy Intermediate Swelling 12/04/17 Yes codeine Allergy Intermediate Hives 03/25/18 Yes LAB Lab: Laboratory Tests Test 12/21/19 11:35 Sodium Level 144 mmol/L (136-145) Potassium Level 4.1 mmol/L (3.5-5.1) Chloride Level 103 mmol/L (98-107) Carbon Dioxide Level 36 mmol/L (21-32) H Anion Gap 5 (6-14) L Blood Urea Nitrogen 24 mg/dL (7-20) H Creatinine 0.7 mg/dL (0.6-1.0) Estimated GFR (Cockcroft-Gault) 84.2 BUN/Creatinine Ratio 34 (6-20) H Glucose Level 151 mg/dL (70-99) H Calcium Level 9.4 mg/dL (8.5-10.1) Total Bilirubin 0.3 mg/dL (0.2-1.0) Aspartate Amino Transferase (AST) 11 U/L (15-37) L Alanine Aminotransferase (ALT) 21 U/L (14-59) Alkaline Phosphatase 89 U/L (46-116) PC-Fwm-L-Type Natriuretic Peptide 3832 pg/mL (0-124) H Total Protein 5.8 g/dL (6.4-8.2) L Albumin 3.3 g/dL (3.4-5.0) L Albumin/Globulin Ratio 1.3 (1.0-1.7) Laboratory Tests 12/21/19 11:35 ASSESSMENT & PLAN A&P 1. Acute on chronic respiratory hypoxic failure- Pt improving and stable. Waiting of BiPaP approval by ins. [employer] on board and seeing pt. Cont. O2 per NC, BiPaP at night. Currently on duonebs and Methylpred. 125mg q12 Patient's primary care provider will plan tomorrow. 2. CHF- Stable, BNP improved from yesterday, on furosemide, recent stent, No chest pain or discomfort, edema is trace, SOA improved since admission, pt on OSMAN-I 3. Hypothyroidism- on 88mcg of levothyroxine 4. Hx of Tobacco dep.- No desire for nicotine, pt quit 02/2019 5. DVT prophyl.- on lovenox 40mg qAM Justicifation of Admission Dx: Justifications for Admission: Justification of Admission Dx: Yes Acute COPD Exacerbation: Acute COPD Exacerbation SINDY TORRES MD Dec 22, 2019 10:23
--- NOTE | 2019-12-22 10:37 | PDOC ---
PULMONARY PROGRESS NOTES Subjective Patient better, using bipap [facility] Vitals Vital Signs Date Time Temp Pulse Resp B/P (MAP) Pulse Ox O2 Delivery O2 Flow Rate FiO2 12/22/19 09:04 58 121/60 12/22/19 08:00 2.5 12/22/19 08:00 Nasal Cannula 12/22/19 07:22 95 12/22/19 07:00 96.2 20 96.2 ROS: No Nausea, No Chest Pain, No Abdominal Pain, No Increase Cough General: Alert, No acute distress Lungs: Clear Cardiovascular: S1, S2 Abdomen: Soft, Non-tender Neuro Exam: Alert Extremities: No Edema Skin: Warm Labs Laboratory Tests Test 12/21/19 08:00 12/21/19 11:35 O2 Saturation 96 % (92-99) Arterial Blood pH 7.42 (7.35-7.45) Arterial Blood pCO2 at Patient Temp 52 mmHg (35-46) Arterial Blood pO2 at Patient Temp 86 mmHg (65-108) Arterial Blood HCO3 33 mmol/L (21-28) Arterial Blood Base Excess 7 mmol/L (-3-3) FiO2 24 Sodium Level 144 mmol/L (136-145) Potassium Level 4.1 mmol/L (3.5-5.1) Chloride Level 103 mmol/L (98-107) Carbon Dioxide Level 36 mmol/L (21-32) Anion Gap 5 (6-14) Blood Urea Nitrogen 24 mg/dL (7-20) Creatinine 0.7 mg/dL (0.6-1.0) Estimated GFR (Cockcroft-Gault) 84.2 BUN/Creatinine Ratio 34 (6-20) Glucose Level 151 mg/dL (70-99) Calcium Level 9.4 mg/dL (8.5-10.1) Total Bilirubin 0.3 mg/dL (0.2-1.0) Aspartate Amino Transf (AST/SGOT) 11 U/L (15-37) Alanine Aminotransferase (ALT/SGPT) 21 U/L (14-59) Alkaline Phosphatase 89 U/L (46-116) SC-Gmi-E-Type Natriuretic Peptide 3832 pg/mL (0-124) Total Protein 5.8 g/dL (6.4-8.2) Albumin 3.3 g/dL (3.4-5.0) Albumin/Globulin Ratio 1.3 (1.0-1.7) Laboratory Tests Test 12/21/19 11:35 Sodium Level 144 mmol/L (136-145) Potassium Level 4.1 mmol/L (3.5-5.1) Chloride Level 103 mmol/L (98-107) Carbon Dioxide Level 36 mmol/L (21-32) Anion Gap 5 (6-14) Blood Urea Nitrogen 24 mg/dL (7-20) Creatinine 0.7 mg/dL (0.6-1.0) Estimated GFR (Cockcroft-Gault) 84.2 BUN/Creatinine Ratio 34 (6-20) Glucose Level 151 mg/dL (70-99) Calcium Level 9.4 mg/dL (8.5-10.1) Total Bilirubin 0.3 mg/dL (0.2-1.0) Aspartate Amino Transf (AST/SGOT) 11 U/L (15-37) Alanine Aminotransferase (ALT/SGPT) 21 U/L (14-59) Alkaline Phosphatase 89 U/L (46-116) CF-Ejg-G-Type Natriuretic Peptide 3832 pg/mL (0-124) Total Protein 5.8 g/dL (6.4-8.2) Albumin 3.3 g/dL (3.4-5.0) Albumin/Globulin Ratio 1.3 (1.0-1.7) Medications Active Scripts Medications Dose Route/Sig Max Daily Dose Days Date Category Dose Instructions Alendronate Sodium 70 Mg Tablet 1 Tab PO WEEKLY 12/18/19 Reported Ibuprofen 800 Mg Tablet 800 Mg PO PRN Q6HRS PRN 12/18/19 Reported Metoprolol Tartrate 25 Mg Tablet 1 Tab PO BID 12/18/19 Reported Levothyroxine Sodium 88 Mcg Tablet 1 Tab PO DAILY 12/18/19 Reported Lisinopril 10 Mg Tablet 1 Tab PO DAILY 12/18/19 Reported Lasix (Furosemide) 40 Mg Tablet 40 Mg PO PRN DAILY PRN 30 11/27/19 Rx for CHF symptoms Brilinta (Ticagrelor) 90 Mg Tablet 90 Mg PO BID 30 11/27/19 Rx Aspirin Ec (Aspirin) 81 Mg Tablet.dr 81 Mg PO DAILYWBKFT 30 11/27/19 Rx Atorvastatin Calcium 40 Mg Tablet 40 Mg PO QHS 30 11/27/19 Rx Prozac (Fluoxetine Hcl) 40 Mg Capsule 1 Cap PO DAILY 04/03/18 Reported Valium (Diazepam) 2 Mg Tablet 2 Mg PO BID PRN 03/23/18 Reported Cyclobenzaprine Hcl 10 Mg Tablet 1 Tab PO HS PRN 07/01/17 Reported Valium (Diazepam) 2 Mg Tablet 2 Mg PO DAILY PRN 07/01/17 Reported Tramadol Hcl 50 Mg Tablet 50 Mg PO DAILY PRN 01/06/17 Reported Duoneb 0.5-3(2.5) Mg/3 Ml (Albuterol/Ipratropium) 3 Ml Ampul.neb 3 Ml NEB RTQID 30 06/04/16 Rx Atorvastatin Calcium 20 Mg Tablet 20 Mg PO QHS 30 06/04/16 Rx Celexa (Citalopram Hydrobromide) 20 Mg Tablet 1 Tab PO HS 02/19/16 Reported Levothyroxine Sodium 100 Mcg Tablet 1 Tab PO DAILY 02/19/16 Reported Impression . IMPRESSION: 1. Exqlx-iq-rldbioa hypercapnic hypoxemic respiratory failure. 2. Acute exacerbation of chronic obstructive pulmonary disease.(40 yrs of tobacco use) 3. Metabolic encephalopathy, present upon admission. 4. Coronary artery disease with previous stenting to the LAD back in early part of November of 2019. 5. Cardiomyopathy, ejection fraction of 30%. 6. Tobacco dependence, in remission. 7. Squamous cell carcinoma, right upper lobe, status post radiation. PET scanning last time performed revealed no evidence of recurrent disease. 8. SARS-CoV-2 negative Plan . Continue BiPAP qhs ABG compensated. Patient greatly benefiting from Non invasive ventilator while in-house, looking into insurance covering at home SARS-CoV-2 negative Steroids with taper, change to PO No need for antibiotics Continue home meds I will have psych social worker revisit with insurance carrier to possibly set up home BiPAP, or Trilogy ventilator. The patient has greatly benefitting from ventilator here in the hospital. I think she would greatly benefit from one at home. TRACIE JONES MD Dec 22, 2019 10:37
[2019-12-22 11:00] VITALS: BP 121/63
[2019-12-22] MEDS: ENOXAPARIN 40 MG/0.4 ML SYRINGE. SQ SCH (13:21)
[2019-12-22 15:00] VITALS: BP 106/64
[2019-12-22] MEDS: traMADol 50 MG TABLET PO PRN (16:44)
[2019-12-22] MEDS: IBUPROFEN 400 MG TABLET. PO PRN ×2 (16:46→22:25)
[2019-12-22 19:17] VITALS: BP 111/62
[2019-12-22] MEDS: CITALOPRAM 20 MG TABLET. PO SCH (19:59)
[2019-12-22] MEDS: ATORVASTATIN CALCIUM 40 MG TABLET. PO SCH (19:59)
[2019-12-22 22:34] VITALS: BP 136/79
[2019-12-23] MEDS: LEVOTHYROXINE 88 MCG TABLET PO SCH (03:58)
[2019-12-23 03:59] VITALS: BP 131/70
[2019-12-23 07:00] VITALS: BP 138/93
[2019-12-23] MEDS: IPRATRPIUM/ALBUTEROL 0.5/2.5MG 3 ML NEBU. NEB SCH ×4 (07:27→19:40)
[2019-12-23] MEDS: predniSONE 10 MG TABLET PO SCH (08:11)
[2019-12-23] MEDS: FAMOTIDINE 20 MG TABLET. PO SCH (08:11)
[2019-12-23] MEDS: ASPIRIN ENTERIC COATED 81 MG TABLET.DR. PO SCH (08:12)
[2019-12-23] MEDS: LISINOPRIL 10 MG TABLET PO SCH (08:12)
[2019-12-23] MEDS: METOPROLOL TART IMMED RELEASE 25 MG TABLET. PO SCH ×2 (08:13→20:36)
[2019-12-23] MEDS: TICAGRELOR 90 MG TABLET. PO SCH ×2 (08:13→20:36)
[2019-12-23 11:00] VITALS: BP 161/66
--- NOTE | 2019-12-23 11:20 | PDOC ---
PULMONARY PROGRESS NOTES Subjective Patient better, using bipap [facility] Vitals Vital Signs Date Time Temp Pulse Resp B/P (MAP) Pulse Ox O2 Delivery O2 Flow Rate FiO2 12/23/19 08:13 59 138/93 12/23/19 08:00 2.5 12/23/19 08:00 Nasal Cannula 12/23/19 07:29 95 12/23/19 07:00 98.5 18 98.5 ROS: No Nausea, No Chest Pain, No Abdominal Pain, No Increase Cough General: Alert, No acute distress Lungs: Clear Cardiovascular: S1, S2 Abdomen: Soft, Non-tender Neuro Exam: Alert Extremities: No Edema Skin: Warm Labs Laboratory Tests Test 12/21/19 11:35 Sodium Level 144 mmol/L (136-145) Potassium Level 4.1 mmol/L (3.5-5.1) Chloride Level 103 mmol/L (98-107) Carbon Dioxide Level 36 mmol/L (21-32) Anion Gap 5 (6-14) Blood Urea Nitrogen 24 mg/dL (-20) Creatinine 0.7 mg/dL (0.6-1.0) Estimated GFR (Cockcroft-Gault) 84.2 BUN/Creatinine Ratio 34 (6-20) Glucose Level 151 mg/dL (70-99) Calcium Level 9.4 mg/dL (8.5-10.1) Total Bilirubin 0.3 mg/dL (0.2-1.0) Aspartate Amino Transf (AST/SGOT) 11 U/L (15-37) Alanine Aminotransferase (ALT/SGPT) 21 U/L (14-59) Alkaline Phosphatase 89 U/L (46-116) FF-Rby-I-Type Natriuretic Peptide 3832 pg/mL (0-124) Total Protein 5.8 g/dL (6.4-8.2) Albumin 3.3 g/dL (3.4-5.0) Albumin/Globulin Ratio 1.3 (1.0-1.7) Medications Active Scripts Medications Dose Route/Sig Max Daily Dose Days Date Category Dose Instructions Alendronate Sodium 70 Mg Tablet 1 Tab PO WEEKLY 12/18/19 Reported Ibuprofen 800 Mg Tablet 800 Mg PO PRN Q6HRS PRN 12/18/19 Reported Metoprolol Tartrate 25 Mg Tablet 1 Tab PO BID 12/18/19 Reported Levothyroxine Sodium 88 Mcg Tablet 1 Tab PO DAILY 12/18/19 Reported Lisinopril 10 Mg Tablet 1 Tab PO DAILY 12/18/19 Reported Lasix (Furosemide) 40 Mg Tablet 40 Mg PO PRN DAILY PRN 30 11/27/19 Rx for CHF symptoms Brilinta (Ticagrelor) 90 Mg Tablet 90 Mg PO BID 30 11/27/19 Rx Aspirin Ec (Aspirin) 81 Mg Tablet.dr 81 Mg PO DAILYWBKFT 30 11/27/19 Rx Atorvastatin Calcium 40 Mg Tablet 40 Mg PO QHS 30 11/27/19 Rx Prozac (Fluoxetine Hcl) 40 Mg Capsule 1 Cap PO DAILY 04/03/18 Reported Valium (Diazepam) 2 Mg Tablet 2 Mg PO BID PRN 03/23/18 Reported Cyclobenzaprine Hcl 10 Mg Tablet 1 Tab PO HS PRN 07/01/17 Reported Valium (Diazepam) 2 Mg Tablet 2 Mg PO DAILY PRN 07/01/17 Reported Tramadol Hcl 50 Mg Tablet 50 Mg PO DAILY PRN 01/06/17 Reported Duoneb 0.5-3(2.5) Mg/3 Ml (Albuterol/Ipratropium) 3 Ml Ampul.neb 3 Ml NEB RTQID 30 06/04/16 Rx Atorvastatin Calcium 20 Mg Tablet 20 Mg PO QHS 30 06/04/16 Rx Celexa (Citalopram Hydrobromide) 20 Mg Tablet 1 Tab PO HS 02/19/16 Reported Levothyroxine Sodium 100 Mcg Tablet 1 Tab PO DAILY 02/19/16 Reported Impression . IMPRESSION: 1. Keqvu-cn-rjuwpfq hypercapnic hypoxemic respiratory failure. 2. Acute exacerbation of chronic obstructive pulmonary disease.(40 yrs of tobacco use) 3. Metabolic encephalopathy, present upon admission. 4. Coronary artery disease with previous stenting to the LAD back in early part of November of 2019. 5. Cardiomyopathy, ejection fraction of 30%. 6. Tobacco dependence, in remission. 7. Squamous cell carcinoma, right upper lobe, status post radiation. PET scanning last time performed revealed no evidence of recurrent disease. 8. SARS-CoV-2 negative Plan . Continue BiPAP qhs ABG compensated. Patient greatly benefiting from Non invasive ventilator while in-house, looking into insurance covering at home SARS-CoV-2 negative Steroids with taper, changed to PO No need for antibiotics Continue home meds I will have aids social worker revisit with insurance carrier to possibly set up home BiPAP, or Trilogy ventilator. The patient has greatly benefitting from ventilator here in the hospital. I think she would greatly benefit from one at home. ok with dc today TRACIE JONES MD Dec 23, 2019 11:20
--- NOTE | 2019-12-23 12:04 | NUR ---
SS following up with discharge planning. SS reviewed pt chart and discussed with pt RN. Pt currently requiring oxygen and reports having home oxygen. Pt needing BIPAP for home. Order and clinical had been submitted to [employer], ; fax [phone], prior to admission. [employer] needing prior authorization from insurance prior to setting pt up with BIPAP. Per [facility], request for BIPAP is still under review. SS met with pt and discussed. Pt reported not feeling safe to return to home without the BIPAP machine. Pt reported being fearful of having to return to the hospital if [facility] continues to postpone authorization for BIPAP machine. Pt agreeable to home healthcare at discharge. SS will continue to follow up with discharge planning.
--- NOTE | 2019-12-23 14:35 | NUR ---
SS following up with discharge planning. SS received notification that [facility] has approved BIPAP for pt. [employer], ; fax [phone], reported that they will contact SS with delivery time and set up. SS will continue to follow for discharge planning.
--- NOTE | 2019-12-23 14:45 | NUR ---
SS following up with discharge planning. SS received notification from [employer], ; fax [phone], that BIPAP machine will be delivered to pt this afternoon or early this evening in room. Pt's RN notified.
[2019-12-23 15:00] VITALS: BP 117/67
[2019-12-23] MEDS: ENOXAPARIN 40 MG/0.4 ML SYRINGE. SQ SCH (15:51)
--- NOTE | 2019-12-23 15:51 | PDOC ---
GENERAL General: vss and afebrile. improving daily. O2 @ 2.5L/NC and tolerating bipap. exam stab le. likely dc am if ok with pulmonary. steroid taper ongoing. VITAL SIGNS/I&O Vital Signs/I&O: Vital Signs Date Time Temp Pulse Resp B/P (MAP) Pulse Ox O2 Delivery O2 Flow Rate FiO2 12/23/19 15:42 Nasal Cannula 2.0 12/23/19 15:00 99.0 61 20 117/67 (84) 95 99.0 I & O 12/22/19 12/22/19 12/23/19 15:00 23:00 07:00 Intake Total 240 ml 470 ml 750 ml Balance 240 ml 470 ml 750 ml ALLERGIES Allergies: Allergies Coded Allergies Type Severity Reaction Last Updated Verified bupropion HCl Allergy Intermediate Swelling 12/04/17 Yes codeine Allergy Intermediate Hives 03/25/18 Yes MEDS Medications: Current Medications Medications (Trade) Dose Ordered Sig/Jeaneth Route PRN Reason Start Time Stop Time Status Last Admin Dose Admin Prednisone (Prednisone) 30 mg DAILY PO 12/23/19 09:00 12/23/19 08:11 Justicifation of Admission Dx: Justifications for Admission: Justification of Admission Dx: Yes Acute COPD Exacerbation: Acute COPD Exacerbation JERONIMO TINOCO MD Dec 23, 2019 15:51
[2019-12-23 19:00] VITALS: BP 116/68
[2019-12-23] MEDS: ATORVASTATIN CALCIUM 40 MG TABLET. PO SCH (20:36)
[2019-12-23] MEDS: CITALOPRAM 20 MG TABLET. PO SCH (20:36)
[2019-12-23] MEDS: traMADol 50 MG TABLET PO PRN (20:36)
[2019-12-23 22:40] VITALS: BP 96/63
[2019-12-24 03:00] VITALS: BP 102/51
[2019-12-24] MEDS: LEVOTHYROXINE 88 MCG TABLET PO SCH (06:00)
[2019-12-24 07:00] VITALS: BP 117/71
[2019-12-24] MEDS: IPRATRPIUM/ALBUTEROL 0.5/2.5MG 3 ML NEBU. NEB SCH (08:00)
[2019-12-24] MEDS: ASPIRIN ENTERIC COATED 81 MG TABLET.DR. PO SCH (08:56)
[2019-12-24] MEDS: METOPROLOL TART IMMED RELEASE 25 MG TABLET. PO SCH (08:56)
[2019-12-24] MEDS: FAMOTIDINE 20 MG TABLET. PO SCH (08:56)
[2019-12-24] MEDS: predniSONE 10 MG TABLET PO SCH (08:56)
[2019-12-24 08:57] VITALS: BP 117/71
[2019-12-24] MEDS: LISINOPRIL 10 MG TABLET PO SCH (08:57)
[2019-12-24] MEDS: TICAGRELOR 90 MG TABLET. PO SCH (08:57)
--- NOTE | 2019-12-24 09:55 | PDOC ---
PULMONARY PROGRESS NOTES Subjective Patient better, using bipap qhs Vitals Vital Signs Date Time Temp Pulse Resp B/P (MAP) Pulse Ox O2 Delivery O2 Flow Rate FiO2 12/24/19 08:57 63 117/71 12/24/19 08:00 2.0 12/24/19 08:00 Nasal Cannula 12/24/19 07:00 98.4 18 95 98.4 ROS: No Nausea, No Chest Pain, No Abdominal Pain, No Increase Cough General: Alert, No acute distress Lungs: Clear Cardiovascular: S1, S2 Abdomen: Soft, Non-tender Neuro Exam: Alert Extremities: No Edema Skin: Warm Medications Active Scripts Medications Dose Route/Sig Max Daily Dose Days Date Category Dose Instructions Alendronate Sodium 70 Mg Tablet 1 Tab PO WEEKLY 12/18/19 Reported Ibuprofen 800 Mg Tablet 800 Mg PO PRN Q6HRS PRN 12/18/19 Reported Metoprolol Tartrate 25 Mg Tablet 1 Tab PO BID 12/18/19 Reported Levothyroxine Sodium 88 Mcg Tablet 1 Tab PO DAILY 12/18/19 Reported Lisinopril 10 Mg Tablet 1 Tab PO DAILY 12/18/19 Reported Lasix (Furosemide) 40 Mg Tablet 40 Mg PO PRN DAILY PRN 30 11/27/19 Rx for CHF symptoms Brilinta (Ticagrelor) 90 Mg Tablet 90 Mg PO BID 30 11/27/19 Rx Aspirin Ec (Aspirin) 81 Mg Tablet.dr 81 Mg PO DAILYWBKFT 30 11/27/19 Rx Atorvastatin Calcium 40 Mg Tablet 40 Mg PO QHS 30 11/27/19 Rx Prozac (Fluoxetine Hcl) 40 Mg Capsule 1 Cap PO DAILY 04/03/18 Reported Valium (Diazepam) 2 Mg Tablet 2 Mg PO BID PRN 03/23/18 Reported Cyclobenzaprine Hcl 10 Mg Tablet 1 Tab PO HS PRN 07/01/17 Reported Valium (Diazepam) 2 Mg Tablet 2 Mg PO DAILY PRN 07/01/17 Reported Tramadol Hcl 50 Mg Tablet 50 Mg PO DAILY PRN 01/06/17 Reported Duoneb 0.5-3(2.5) Mg/3 Ml (Albuterol/Ipratropium) 3 Ml Ampul.neb 3 Ml NEB RTQID 30 06/04/16 Rx Atorvastatin Calcium 20 Mg Tablet 20 Mg PO QHS 30 06/04/16 Rx Celexa (Citalopram Hydrobromide) 20 Mg Tablet 1 Tab PO HS 02/19/16 Reported Levothyroxine Sodium 100 Mcg Tablet 1 Tab PO DAILY 02/19/16 Reported Impression . IMPRESSION: 1. Jqgjn-zp-cafcoer hypercapnic hypoxemic respiratory failure. 2. Acute exacerbation of chronic obstructive pulmonary disease.(40 yrs of tobacco use) 3. Metabolic encephalopathy, present upon admission. 4. Coronary artery disease with previous stenting to the LAD back in early part of November of 2019. 5. Cardiomyopathy, ejection fraction of 30%. 6. Tobacco dependence, in remission. 7. Squamous cell carcinoma, right upper lobe, status post radiation. PET scanning last time performed revealed no evidence of recurrent disease. 8. SARS-CoV-2 negative Plan . Continue BiPAP qhs ABG compensated. Patient greatly benefiting from Non invasive ventilator while in-house, looking into insurance covering at home SARS-CoV-2 negative Steroids with taper, changed to PO No need for antibiotics Continue home meds I will have social insurance specialist revisit with insurance carrier to possibly set up home BiPAP, or Trilogy ventilator. The patient has greatly benefitting from ventilator here in the hospital. I think she would greatly benefit from one at home. ok with dc today TRACIE JONES MD Dec 24, 2019 09:55
--- NOTE | 2019-12-24 10:34 | NUR ---
Discharge Note: FIDELIA KATZ Discharge instructions and discharge home medications reviewed with Patient and a copy given. All questions have been answered and understanding verbalized. The following instructions and handouts were given: Home oxygen, bipap Discontinued lines and drains: IV catheter removed intact. Tele monitor removed. Patient discharged to Home with self care via wheelchair.
--- NOTE | 2019-12-24 21:30 | DS ---
DATE OF DISCHARGE: 12/24/2019 PRIMARY DIAGNOSES: 1. Tvuvy-dl-lkktcll hypercapnic hypoxic respiratory failure due to acute exacerbation of chronic obstructive pulmonary disease. 2. Metabolic encephalopathy present on admission. 3. Coronary artery disease with left anterior descending stenting within the last few weeks. 4. Cardiomyopathy with an ejection fraction of 30%. 5. History of squamous cell carcinoma, right upper lobe, status post radiation, with no PET evidence during a recent screening of malignancy. CHIEF COMPLAINT AND HISTORY OF PRESENT ILLNESS: This 64-year-old white female admitted through the Emergency Room with acute hypercarbic hypoxic respiratory failure and metabolic encephalopathy due to CO2 narcosis, placed on BiPAP. Interestingly, the patient had BiPAP at home in the form of a Trilogy, but unable to keep it due to the insurance company not paying for it and this was felt to be the reason for her admission with underlying severe COPD. SUMMARY OF STAY: The patient was admitted, treated with steroids, BiPAP with improvement throughout the stay. She was on p.o. steroid taper. By the time of discharge, she was back to her baseline. Trilogy noninvasive ventilator had been arranged at the time of discharge to go home with her, and hopefully, will stay with her at this point in time and she was felt ready for dismissal on 12/24/2019. DISPOSITION: The patient is discharged to home. DIET: Regular diet. ACTIVITY: As tolerated. FOLLOWUP: Office, 2 weeks. DISCHARGE MEDICATIONS: Her regular home meds plus prednisone taper of 30 mg daily for 3 days, 20 for 3 days, 10 for 3 days, 5 for 2 days and off. JERONIMO TINOCO MD DR: ROCÍO/jessica JOB#: [id number] / [id number] HECTOR Barker MD
== END 2019-12-24 10:38 | disposition home or self-care (01) | DRG 189 ==
LOC: ER 01:14 → 1 WEST ICU 02:50 → 2 NORTH 12-19 11:00
PROVIDERS: ADMIT Family Medicine; ATTEND Family Medicine
PROC: 5A09357 Assistance with Respiratory Ventilation, Less than 24 Consecutive Hours, Continuous Positive Airway Pressure (ICD-10-PCS; principal; 2019-12-18)
PROC: 5A09357 Assistance with Respiratory Ventilation, Less than 24 Consecutive Hours, Continuous Positive Airway Pressure (ICD-10-PCS; 2019-12-19)
PROC: 5A09357 Assistance with Respiratory Ventilation, Less than 24 Consecutive Hours, Continuous Positive Airway Pressure (ICD-10-PCS; 2019-12-20)
PROC: 5A09357 Assistance with Respiratory Ventilation, Less than 24 Consecutive Hours, Continuous Positive Airway Pressure (ICD-10-PCS; 2019-12-21)
PROC: 5A09357 Assistance with Respiratory Ventilation, Less than 24 Consecutive Hours, Continuous Positive Airway Pressure (ICD-10-PCS; 2019-12-22)
PROC: 5A09357 Assistance with Respiratory Ventilation, Less than 24 Consecutive Hours, Continuous Positive Airway Pressure (ICD-10-PCS; 2019-12-23)
PROC: 5A09357 Assistance with Respiratory Ventilation, Less than 24 Consecutive Hours, Continuous Positive Airway Pressure (ICD-10-PCS; 2019-12-24)
DX: J96.22 Acute and chronic respiratory failure with hypercapnia (principal); G93.41 Metabolic encephalopathy; J44.1 Chronic obstructive pulmonary disease with (acute) exacerbation; I42.9 Cardiomyopathy, unspecified; J96.21 Acute and chronic respiratory failure with hypoxia; F32.9 Major depressive disorder, single episode, unspecified; E78.00 Pure hypercholesterolemia, unspecified; E03.9 Hypothyroidism, unspecified; I25.10 Atherosclerotic heart disease of native coronary artery without angina pectoris; Z66 Do not resuscitate; E78.5 Hyperlipidemia, unspecified; I50.9 Heart failure, unspecified; Z20.828 Contact with and (suspected) exposure to other viral communicable diseases; Z90.710 Acquired absence of both cervix and uterus; Z88.5 Allergy status to narcotic agent; Z88.8 Allergy status to other drugs, medicaments and biological substances; Z92.3 Personal history of irradiation; Z85.118 Personal history of other malignant neoplasm of bronchus and lung; Z95.5 Presence of coronary angioplasty implant and graft; Z87.891 Personal history of nicotine dependence
CPT/HCPCS: 36415; 36600; 71045; 80053; 82805; 83880; 84484; 85025; 85379; 85610; 93005; 94640; 94660; 94760; 96374; 96375; 99285; J1650; J2405; J2930; J7512; G0378; J7613; J7644; U0003-CS

== ENCOUNTER → 2020-02-24 | Outpatient (CLI) | payer OTHER ==
[~2020-02-24] MED LIST changes: +ALEN70TA6 PO; +IBUP-1060 PO; +LEVO88TA4 PO; +LISI10TA2 PO; +METO25TA4 PO
--- NOTE | 2020-02-24 14:39 | CARD ---
MR#: [id number] Date of Study: 02/24/2020 Ordering Physician: KATARINA RAE, Referring Physician: KATARINA RAE, Tech: Christin Villavicencio APPROVED REPORT EXAM: Two-dimensional and M-mode echocardiogram with Doppler and color Doppler. Other Information Quality : AverageHR: 65bpm Technically limited study due to COPD INDICATION COPD Cardiac Disease: CAD RISK FACTORS Hypertension Hyperlipidemia quit smoking one year ago 2D DIMENSIONS RVDd2.8 (2.9-3.5cm)Left Atrium(2D)3.1 (1.6-4.0cm) IVSd1.3 (0.7-1.1cm)Aortic Root(2D)3.1 (2.0-3.7cm) LVDd5.3 (3.9-5.9cm)LVOT Diameter2.0 (1.8-2.4cm) PWd1.1 (0.7-1.1cm)LVDs5.1 (2.5-4.0cm) FS (%) 3.6 %SV11.1 ml LVEF(%)8.1 (>50%) Aortic Valve AoV Peak Marvin.171.1cm/sAoV VTI34.6cm AO Peak GR.11.7mmHgLVOT Peak Marvin.142.5cm/s LVOT VTI 25.93cmAO Mean GR.6mmHg ELOISE (VMAX)2.94kn3RFI (VTI)2.40cm2 AI P 1/2 Vmnc282mw Mitral Valve MV E Padoriyg51.4cm/sMV E Peak Gr.184mmHg MV DECEL [id number] A Hvrtbnnw584.6cm/s MV E Mean Gr.2mmHgMV QGH55pf E/A Ratio0.6MVA (PHT)2.56cm2 TDI E/Lateral E'14.5E/Medial E'14.2 Pulmonary Valve PV Peak Xeyrigmx20.8cm/sPV Peak Grad.4mmHg Tricuspid Valve TR P. Dtybmurq817cv/sRAP GXXKONSV5hcQz TR Peak Gr.52gfLrWYYQ29mzZl Pulmonary Vein S1 Tmozjqrb94.9cm/sD2 Tghsyyoc36.9cm/s PVa afkcubxp207sokv LEFT VENTRICLE The left ventricle is normal size. There is mild concentric left ventricular hypertrophy. The systoli c function is moderately impaired. The Ejection Fraction is 35-40%. There is global hypokinesis of th e left ventricle. Transmitral Doppler flow pattern is Grade I-abnormal relaxation pattern. RIGHT VENTRICLE The right ventricle is normal size. There is normal right ventricular wall thickness. The right ventr icular systolic function is normal. ATRIA The left atrium size is normal. The right atrium size is normal. The interatrial septum is intact wit h no evidence for an atrial septal defect or patent foramen ovale as noted on 2-D or Doppler imaging. AORTIC VALVE The aortic valve is thickened but opens well. Doppler and Color Flow revealed mild aortic regurgitati on. Calculated aortic valve area is 2.71 cm2 with maximum pressure gradient of 14 mmHg and mean press ure gradient of 7 mmHg. There is no significant aortic valvular stenosis. MITRAL VALVE The mitral valve is normal in structure and function. There is no evidence of mitral valve prolapse. There is no mitral valve stenosis with a mean gradient of 2.3 mmHg. TRICUSPID VALVE The tricuspid valve is not well visualized. Doppler and Color Flow revealed trace tricuspid regurgita tion with an estimated PAP of 42 mmHg. There is no tricuspid valve stenosis. PULMONIC VALVE The pulmonic valve is not well visualized. Doppler and Color Flow revealed trace pulmonic valvular re gurgitation. There is no pulmonic valvular stenosis. GREAT VESSELS The aortic root is normal in size. The IVC is normal in size and collapses >50% with inspiration. PERICARDIAL EFFUSION There is no evidence of significant pericardial effusion. Critical Notification Critical Value: No <Conclusion> The systolic function is moderately impaired. The Ejection Fraction is 35-40%. There is global hypokinesis of the left ventricle. Signed by : Adrian Byrd, Electronically Approved : 02/24/2020 14:39:06
== END | disposition home or self-care (01) ==
LOC: ECHO 10:39
PROVIDERS: ATTEND Internal Medicine Cardiovascular Disease
DX: I35.1 Nonrheumatic aortic (valve) insufficiency (principal); I51.7 Cardiomegaly
CPT/HCPCS: 93306

== ENCOUNTER → 2020-06-18 | Outpatient (CLI) | payer OTHER ==
[~2020-06-18] MED LIST changes: -ALEN70TA6 PO; +ALEN70TA71 PO; +AMLO-186 PO; -AMLO5TAB10 PO
[2020-06-18 15:49] LABS: BASE EXCESS COOX 10 mmol/L (-3-3); HCO3 COOX 39 mmol/L (21-28); METHEMOGLOBIN 0.5 % (0.0-1.9); OXYHEMOGLOBIN 97.8 %; PO2 COOX 156 mmHg (65-108); SAT O2 COOX 99 % (92-99)
[2020-06-18 16:08] LABS: PCO2 COOX 81 mmHg (35-46)
== END ==
LOC: LAB 14:33
PROVIDERS: ATTEND Family Medicine
DX: J44.9 Chronic obstructive pulmonary disease, unspecified (principal)
CPT/HCPCS: 36600; 82805

== ENCOUNTER 2021-02-16 17:08 | Inpatient (IN) | payer MEDICARE ==
[~2021-02-16] VITALS: Ht 152.4 cm; Wt 72.5 kg
[~2021-02-16 17:08] MED LIST changes: +AMIT10TA PO; +CLOP75TA PO; +FLUO40CA2 PO; +IBUP800T19 PO; -LISI-338 PO; +LISI-517 PO; +LISI10TA16 PO; -LISI10TA2 PO; +LISI20TA18 PO
[2021-02-16 18:03] LABS: BASO # 0.1 x10^3/uL (0.0-0.2); BASO % 2 % (0-3); EOS # 0.2 x10^3/uL (0.0-0.7); EOS % 3 % (0-3); HEMOGLOBIN 11.3 g/dL (12.0-15.5); LYMPH # 1.8 x10^3/uL (1.0-4.8); LYMPH % 23 % (24-48); MEAN CORPUSCULAR HEMOGLOBIN 31 pg (25-35); MEAN CORPUSCULAR HGB CONC 32 g/dL (31-37); MEAN CORPUSCULAR VOLUME 95 fL (79-100); MONO # 0.4 x10^3/uL (0.0-1.1); MONO % 5 % (0-9); NEUT # 5.3 x10^3/uL (1.8-7.7); NEUT % 68 % (31-73); PLATELET COUNT 308 x10^3/uL (140-400); RED CELL DISTRIBUTION WIDTH 14.3 % (11.5-14.5); WHITE BLOOD COUNT 7.9 x10^3/uL (4.0-11.0)
[2021-02-16 18:14] LABS: CALCIUM 9.6 mg/dL (8.5-10.1); CREATININE 0.7 mg/dL (0.6-1.0); POTASSIUM 4.4 mmol/L (3.5-5.1)
--- NOTE | 2021-02-16 18:19 | RAD ---
Exam: Chest one view INDICATION: Shortness of breath TECHNIQUE: Frontal view of the chest Comparisons: 09/13/2020 FINDINGS: The cardiomediastinal silhouette and pulmonary vessels are within normal limits. Subtle bibasilar airspace disease. No pleural effusion. IMPRESSION: Subtle bibasilar airspace disease may be infectious or inflammatory in etiology Electronically signed by: Pura August MD (02/16/2021 6:17 PM) [facility]
[2021-02-16 18:20] LABS: ALBUMIN 3.5 g/dL (3.4-5.0); ALBUMIN/GLOBULIN RATIO 1.1 (1.0-1.7); PHOSPHORUS 3.5 mg/dL (2.6-4.7); TOTAL BILIRUBIN 0.3 mg/dL (0.2-1.0); TOTAL PROTEIN 6.6 g/dL (6.4-8.2)
[2021-02-16 18:22] LABS: BASE EXCESS COOX 12 mmol/L (-3-3); HCO3 COOX 42 mmol/L (21-28); METHEMOGLOBIN 0.4 % (0.0-1.9); OXYHEMOGLOBIN 97.8 %; PO2 COOX 249 mmHg (65-108); SAT O2 COOX 99 % (92-99)
[2021-02-16 18:29] LABS: PCO2 COOX 93 mmHg (35-46)
[2021-02-16 18:35] LABS: BILIRUBIN,URINE NEGATIVE (NEG); CLARITY,URINE CLEAR; COLOR,URINE YELLOW; NITRITE,URINE POSITIVE (NEG); PROTEIN,URINE NEGATIVE (NEG-TRACE); UROBILINOGEN,URINE 0.2 mg/dL (0.2 mg/dL)
[2021-02-16 18:42] LABS: BACTERIA,URINE MANY /HPF (0-FEW); HYALINE CASTS, URINE MODERATE /HPF; RBC,URINE 0 /HPF (0-2)
--- NOTE | 2021-02-16 18:51 | RAD ---
EXAMINATION: CT head without IV contrast INDICATION:65 years, Female, confusion, hallucination. COMPARISON: 09/13/2020 TECHNIQUE: Spiral acquisition of contiguous images from the skull base to the vertex were obtained. S agittal and coronal 2D reformatted series were provided by the technologist. Soft tissue and bone win samantha algorithms were reviewed. Exposure: One or more of the following individualized dose reduction techniques were utilized for thi s examination: 1. Automated exposure control 2. Adjustment of the mA and/or kV according to patient size 3. Use of iterative reconstruction technique. FINDINGS: Neither mass, midline shift, intracranial hemorrhage, acute/subacute ischemic changes, nor extraaxial fluid collections are seen. Mild brain parenchymal volume loss. Similar supratentorial periventricul ar white matter hypodensities, indeterminate but most likely representing chronic microangiopathic di sease. The paranasal sinuses, mastoid air cells, and middle ears are clear.The orbital contents appear withi n normal limits. IMPRESSION: 1. No evidence of acute intracranial abnormality. 2. Similar supratentorial periventricular white matter hypodensities, indeterminate but most likely representing chronic microangiopathic disease. Electronically signed by: Gabe Moctezuma MD (02/16/2021 6:49 PM) [facility]
--- NOTE | 2021-02-16 19:40 | PHYS DOC ---
Past Medical History Past Medical History: A-Fib, COPD, Depression, High Cholesterol, Hypothyroid Additional Past Medical Histor: CHRONIC PAIN Past Surgical History: Angioplasty, Hysterectomy, Other Additional Past Surgical Histo: CARDAIC STENT Smoking Status: Former Smoker Alcohol Use: None Drug Use: None General Adult EDM: Chief Complaint: SHORTNESS OF BREATH HPI: HPI: Patient is a 65-year-old female presents to the emergency department complaining of visual hallucinations with loss of taste over the past week. Patient is concerned her CO2 level may be elevated, states she is on 3 L of oxygen per nasal cannula for a COPD history. Patient denies any changes in her normal shortness of breath, aches or pains. Denies chest pain, cough, congestion, abdominal pain, nausea, vomiting, diarrhea. Denies visual disturbances. Patient denies auditory hallucinations, patient denies other physical complaints or physical concerns. Patient reports she has not received the COVID-19 virus vaccination series Review of Systems: Review of Systems: 14 body systems of review of systems have been reviewed. See HPI for pertinent positives and negative responses, otherwise all other systems are negative, nonpertinent or noncontributory. Constitutional: Negative except as outlined in HPI above. Skin: Negative except as outlined in HPI above. Eyes: Negative except as outlined in HPI above. HENT: Negative except as outlined in HPI above. Respiratory: Negative except as outlined in HPI above. Cardiovascular: Negative except as outlined in HPI above. GI: Negative except as outlined in HPI above. : Negative except as outlined in HPI above. Musculoskeletal: Negative except as outlined in HPI above. Integument: Negative except as outlined in HPI above. Neurologic: Negative except as outlined in HPI above. Endocrine: Negative except as outlined in HPI above. Lymphatic: Negative except as outlined in HPI above. Psychiatric: Negative except as outlined in HPI above. Heart Score: C/O Chest Pain: No Risk Factors: Risk Factors: DM, Current or recent (<one month) smoker, HTN, HLP, family history of CAD, obesity. Risk Scores: Score 0 - 3: 2.5% MACE over next 6 weeks - Discharge Home Score 4 - 6: 20.3% MACE over next 6 weeks - Admit for Clinical Observation Score 7 - 10: 72.7% MACE over next 6 weeks - Early Invasive Strategies Current Medications: Current Medications Medications (Trade) Dose Ordered Sig/Jeaneth Start Time Stop Time Status Last Admin Dose Admin Cephalexin HCl (Keflex) 500 mg BID 02/16/21 19:30 Allergies: Allergies: Allergies Coded Allergies Type Severity Reaction Last Updated Verified bupropion HCl Allergy Intermediate Swelling 12/04/17 Yes codeine Allergy Intermediate Hives 03/25/18 Yes Physical Exam: PE: Constitutional: Well developed, well nourished, no acute distress, non-toxic appearance. 65-year-old female in no apparent distress. HENT: Normocephalic, atraumatic. Eyes: Conjunctiva normal, no discharge. Neck: Normal range of motion, no stridor. Cardiovascular: No cyanosis appreciated, distal cap refill less than 2 seconds. Regular rate and rhythm. Lungs & Thorax: Patient is in no respiratory distress, no audible adventitious lung sounds appreciated. Normal work of breathing, no adventitious lung sounds appreciated per auscultation, clear to auscultate all lung kang Abdomen: Nontender, no abnormalities noted. Skin: Warm, dry, no erythema, no rash. Back: No tenderness, no deformities. Extremities: No tenderness, no cyanosis, no clubbing, ROM intact, no edema. Neurologic: Alert and oriented X 3, normal motor function, normal sensory function, no focal deficits noted. Psychologic: Affect normal, judgement normal, mood normal. Current Patient Data: Labs: Laboratory Tests Test 02/16/21 12:30 02/16/21 17:27 02/16/21 17:35 02/16/21 17:51 Urine Collection Type Unknown Urine Color Yellow Urine Clarity Clear Urine pH 6.0 Urine Specific [place] 1.015 Urine Protein Negative mg/dL Urine Glucose (UA) Negative mg/dL Urine Ketones (Stick) Negative mg/dL Urine Blood Negative Urine Nitrite Positive Urine Bilirubin Negative Urine Urobilinogen Dipstick 0.2 mg/dL Urine Leukocyte Esterase Small Urine RBC 0 /HPF Urine WBC 5-10 /HPF Urine Squamous Epithelial Cells Mod /LPF Urine Bacteria Many /HPF Urine Hyaline Casts Moderate /HPF Urine Mucus Mod /LPF SARS-CoV-2 Antigen (Rapid) Negative White Blood Count 7.9 x10^3/uL Red Blood Count 3.70 x10^6/uL Hemoglobin 11.3 g/dL Hematocrit 35.0 % Mean Corpuscular Volume 95 fL Mean Corpuscular Hemoglobin 31 pg Mean Corpuscular Hemoglobin Concent 32 g/dL Red Cell Distribution Width 14.3 % Platelet Count 308 x10^3/uL Neutrophils (%) (Auto) 68 % Lymphocytes (%) (Auto) 23 % Monocytes (%) (Auto) 5 % Eosinophils (%) (Auto) 3 % Basophils (%) (Auto) 2 % Neutrophils # (Auto) 5.3 x10^3/uL Lymphocytes # (Auto) 1.8 x10^3/uL Monocytes # (Auto) 0.4 x10^3/uL Eosinophils # (Auto) 0.2 x10^3/uL Basophils # (Auto) 0.1 x10^3/uL Sodium Level 146 mmol/L Potassium Level 4.4 mmol/L Chloride Level 101 mmol/L Carbon Dioxide Level 43 mmol/L Anion Gap 2 Blood Urea Nitrogen 13 mg/dL Creatinine 0.7 mg/dL Estimated GFR (Cockcroft-Gault) 84.0 BUN/Creatinine Ratio 19 Glucose Level 163 mg/dL Calcium Level 9.6 mg/dL Phosphorus Level 3.5 mg/dL Magnesium Level 2.0 mg/dL Total Bilirubin 0.3 mg/dL Aspartate Amino Transf (AST/SGOT) 23 U/L Alanine Aminotransferase (ALT/SGPT) 27 U/L Alkaline Phosphatase 92 U/L Troponin I Quantitative < 0.017 ng/mL RI-Bml-T-Type Natriuretic Peptide 1590 pg/mL Total Protein 6.6 g/dL Albumin 3.5 g/dL Albumin/Globulin Ratio 1.1 O2 Saturation 99 % Arterial Blood pH 7.27 Arterial Blood pCO2 at Patient Temp 93 mmHg Arterial Blood pO2 at Patient Temp 249 mmHg Arterial Blood HCO3 42 mmol/L Arterial Blood Base Excess 12 mmol/L Oxyhemoglobin 97.8 % Methemoglobin 0.4 % Carbon Monoxide, Quantitative 0.8 % FiO2 34 Current Medications Medications (Trade) Dose Ordered Sig/Jeaneth Route PRN Reason Start Time Stop Time Status Last Admin Dose Admin Cephalexin HCl (Keflex) 500 mg BID PO 02/16/21 19:30 Laboratory Tests Test 02/16/21 12:30 02/16/21 17:27 02/16/21 17:35 02/16/21 17:51 Urine Collection Type Unknown Urine Color Yellow Urine Clarity Clear Urine pH 6.0 (<5.0-8.0) Urine Specific [place] 1.015 (1.000-1.030) Urine Protein Negative mg/dL (NEG-TRACE) Urine Glucose (UA) Negative mg/dL (NEG) Urine Ketones (Stick) Negative mg/dL (NEG) Urine Blood Negative (NEG) Urine Nitrite Positive (NEG) Urine Bilirubin Negative (NEG) Urine Urobilinogen Dipstick 0.2 mg/dL (0.2 mg/dL) Urine Leukocyte Esterase Small (NEG) Urine RBC 0 /HPF (0-2) Urine WBC 5-10 /HPF (0-4) Urine Squamous Epithelial Cells Mod /LPF Urine Bacteria Many /HPF (0-FEW) Urine Hyaline Casts Moderate /HPF Urine Mucus Mod /LPF SARS-CoV-2 Antigen (Rapid) Negative (NEGATIVE) White Blood Count 7.9 x10^3/uL (4.0-11.0) Red Blood Count 3.70 x10^6/uL (3.50-5.40) Hemoglobin 11.3 g/dL (12.0-15.5) L Hematocrit 35.0 % (36.0-47.0) L Mean Corpuscular Volume 95 fL (79-100) Mean Corpuscular Hemoglobin 31 pg (25-35) Mean Corpuscular Hemoglobin Concent 32 g/dL (31-37) Red Cell Distribution Width 14.3 % (11.5-14.5) Platelet Count 308 x10^3/uL (140-400) Neutrophils (%) (Auto) 68 % (31-73) Lymphocytes (%) (Auto) 23 % (24-48) L Monocytes (%) (Auto) 5 % (0-9) Eosinophils (%) (Auto) 3 % (0-3) Basophils (%) (Auto) 2 % (0-3) Neutrophils # (Auto) 5.3 x10^3/uL (1.8-7.7) Lymphocytes # (Auto) 1.8 x10^3/uL (1.0-4.8) Monocytes # (Auto) 0.4 x10^3/uL (0.0-1.1) Eosinophils # (Auto) 0.2 x10^3/uL (0.0-0.7) Basophils # (Auto) 0.1 x10^3/uL (0.0-0.2) Sodium Level 146 mmol/L (136-145) H Potassium Level 4.4 mmol/L (3.5-5.1) Chloride Level 101 mmol/L (98-107) Carbon Dioxide Level 43 mmol/L (21-32) H Anion Gap 2 (6-14) L Blood Urea Nitrogen 13 mg/dL (7-20) Creatinine 0.7 mg/dL (0.6-1.0) Estimated GFR (Cockcroft-Gault) 84.0 BUN/Creatinine Ratio 19 (6-20) Glucose Level 163 mg/dL (70-99) H Calcium Level 9.6 mg/dL (8.5-10.1) Phosphorus Level 3.5 mg/dL (2.6-4.7) Magnesium Level 2.0 mg/dL (1.8-2.4) Total Bilirubin 0.3 mg/dL (0.2-1.0) Aspartate Amino Transferase (AST) 23 U/L (15-37) Alanine Aminotransferase (ALT) 27 U/L (14-59) Alkaline Phosphatase 92 U/L (46-116) Troponin I Quantitative < 0.017 ng/mL (0.000-0.055) IF-Jbf-R-Type Natriuretic Peptide 1590 pg/mL (0-124) H Total Protein 6.6 g/dL (6.4-8.2) Albumin 3.5 g/dL (3.4-5.0) Albumin/Globulin Ratio 1.1 (1.0-1.7) O2 Saturation 99 % (92-99) Arterial Blood pH 7.27 (7.35-7.45) L Arterial Blood pCO2 at Patient Temp 93 mmHg (35-46) *H Arterial Blood pO2 at Patient Temp 249 mmHg (65-108) H Arterial Blood HCO3 42 mmol/L (21-28) H Arterial Blood Base Excess 12 mmol/L (-3-3) H Oxyhemoglobin 97.8 % Methemoglobin 0.4 % (0.0-1.9) Carbon Monoxide, Quantitative 0.8 % (0.0-1.9) FiO2 34 Laboratory Tests 02/16/21 17:35 Laboratory Tests 02/16/21 17:35 Vital Signs: Vital Signs Date Time Temp Pulse Resp B/P (MAP) Pulse Ox O2 Delivery O2 Flow Rate FiO2 02/16/21 18:45 95 BiPAP/CPAP 02/16/21 18:15 3.5 02/16/21 17:20 96.2 71 24 170/77 (108) 96.2 EKG: EKG: EKG performed at 1725 by ED nursing staff shows a normal sinus rhythm without other ectopy heart rate 72 bpm, NV interval 0.140, QTc interval 0.435, no acute STEMI, no ACS, no acute ischemia appreciated, EKG interpreted by ED attending physician Dr. Quintero. Radiology/Procedures: Radiology/Procedures: PATIENT: FIDELIA KATZ ACCOUNT: [id number] : 1955 LOCATION: ER AGE: 65 SEX: F EXAM STATUS: REG ER ORD. PHYSICIAN: STORMY NGO APRN REASON: Confusion, hallucination PROCEDURE: CT HEAD WO CONTRAST EXAMINATION: CT head without IV contrast INDICATION:65 years, Female, confusion, hallucination. COMPARISON: 09/13/2020 TECHNIQUE: Spiral acquisition of contiguous images from the skull base to the vertex were obtained. Sagittal and coronal 2D reformatted series were provided by the technologist. Soft tissue and bone window algorithms were reviewed. Exposure: One or more of the following individualized dose reduction techniques were utilized for this examination: 1. Automated exposure control 2. Adjustment of the mA and/or kV according to patient size 3. Use of iterative reconstruction technique. FINDINGS: Neither mass, midline shift, intracranial hemorrhage, acute/subacute ischemic changes, nor extraaxial fluid collections are seen. Mild brain parenchymal volume loss. Similar supratentorial periventricular white matter hypodensities, indeterminate but most likely representing chronic microangiopathic disease. The paranasal sinuses, mastoid air cells, and middle ears are clear.The orbital contents appear within normal limits. IMPRESSION: 1. No evidence of acute intracranial abnormality. 2. Similar supratentorial periventricular white matter hypodensities, indeterminate but most likely representing chronic microangiopathic disease. PROCEDURE: CHEST AP ONLY Exam: Chest one view INDICATION: Shortness of breath TECHNIQUE: Frontal view of the chest Comparisons: 09/13/2020 FINDINGS: The cardiomediastinal silhouette and pulmonary vessels are within normal limits. Subtle bibasilar airspace disease. No pleural effusion. IMPRESSION: Subtle bibasilar airspace disease may be infectious or inflammatory in etiology Course & Med Decision Making: Course & Med Decision Making Pertinent Labs and Imaging studies reviewed. (See chart for details) 65-year-old female, vital signs reviewed, presents emergency department complaining of visual hallucinations along with loss of taste the past week. Physical examination unremarkable, after extensive chart review, patient does have history of hypercapnia episodes with admission, with patient's recent loss of taste, will order COVID-19 virus work-up, CT head without contrast, cardiorespiratory work-up, urinalysis assay. Patient ABG concerning for hypercapnia, patient's urine evidence of simple cystitis, patient's PO2 level 248.7, will discontinue nasal cannula O2 therapy temporarily for BiPAP administration to decrease CO2 level of 93.1, recommended admission to hospital related to hypercapnia. Patient is amendable to this plan. Called and discussed patient case and ED work-up with inpatient management physician Dr. Mobley who agrees patient's presentation warrants admission to the hospital for hypercapnia, urinary tract infection, confusion, visual hallucinations. Patient awaiting room assignment from powerhouse engineer. Chavez Disclaimer: Chavez Disclaimer: This electronic medical record was generated, in whole or in part, using a voice recognition dictation system. Departure Departure Impression: Primary Impression: Hypercapnia Additional Impressions: Urinary tract infection Qualified Codes: N39.0 - Urinary tract infection, site not specified Confusion Visual hallucinations Disposition: ADMITTED INPATIENT Admitting Physician: Hector Mobley Condition: STABLE Referrals: HECTOR MOBLEY MD (PCP) STORMY NGO APRN Feb 16, 2021 19:40
[2021-02-16 21:06] VITALS: BP 95/67
[2021-02-16] MEDS ORDERED: CYCLOBENZAPRINE 10 MG TABLET. PO PRN (21:15)
--- NOTE | 2021-02-16 21:19 | NUR ---
DR MOBLEY PAGED FOR ORDERS TO RESTART PT HOME MEDICATIONS, PT REQUESTING GARZA CATHETER, PT REQUESTING TO BE DNR, PT UNDERSTANDS THAT DNR MEANS NO COMPRESSION OR INTUBATION-WITNESSED BY 2 RNS, ABDI GHOSH AND DWIGHT GHOSH. WILL CONT TO PT STATUS AND SAFETY. PMRN
--- NOTE | 2021-02-16 21:20 | NUR ---
The patient, FIDELIA KATZ, 65 y/o, F admitted by HECTOR MOBLEY MD, was given written information regarding hospital policies, unit procedures and contact persons. Assessment and history completed and charted. pt continues on bipap, pt desats with minimal exertion. valuables were checked and charted. call light in place will cont to monitor pt status and safety. pmrn
[2021-02-16] MEDS: METOPROLOL TART IMMED RELEASE 25 MG TABLET. PO SCH (22:00)
[2021-02-16] MEDS: CEPHALEXIN 250 MG CAPSULE. PO SCH (22:33)
[2021-02-16] MEDS: AMITRIPTYLINE HCL 10 MG TABLET. PO SCH (22:34)
[2021-02-16] MEDS: ATORVASTATIN CALCIUM 40 MG TABLET. PO SCH (22:34)
[2021-02-16 23:15] VITALS: BP 175/77
[2021-02-17 03:30] VITALS: BP 124/62
[2021-02-17] MEDS: IBUPROFEN 400 MG TABLET. PO PRN (04:28)
[2021-02-17] MEDS: LEVOTHYROXINE 88 MCG TABLET PO SCH (06:06)
[2021-02-17 07:00] VITALS: BP 129/73
--- NOTE | 2021-02-17 07:00 | EKG ---
[facility] [address] [place] [address] Test Date: 2021-02-16 Test Time: 17:25:22 Pat Name: FIDELIA KATZ Department: Room: Gender: F Compensation Expert: : 1955 Requested By: STORMY NGO Order Number: [id number] Reading MD: Measurements Intervals [place] Rate: 72 P: 39 OR: 140 QRS: 54 QRSD: 112 T: -22 QT: 396 QTc: 435 Interpretive Statements SINUS RHYTHM QRS(T) CONTOUR ABNORMALITY CONSIDER ANTEROSEPTAL MYOCARDIAL DAMAGE T ABNORMALITY IN ANTEROLATERAL LEADS INFEROLATERAL LEADS ABNORMAL ECG RI6.01 No previous ECG available for comparison
[2021-02-17] MEDS: IPRATRPIUM/ALBUTEROL 0.5/2.5MG 3 ML NEBU. NEB SCH ×4 (07:42→20:47)
[2021-02-17] MEDS: ASPIRIN ENTERIC COATED 81 MG TABLET.DR. PO SCH (08:29)
[2021-02-17] MEDS: FLUoxetine HCL 20 MG CAPSULE PO SCH (08:30)
[2021-02-17] MEDS: CLOPIDOGREL BISULFATE 75 MG TABLET PO SCH (08:30)
[2021-02-17] MEDS: LISINOPRIL 20 MG TABLET PO SCH (08:30)
[2021-02-17] MEDS: METOPROLOL TART IMMED RELEASE 25 MG TABLET. PO SCH ×2 (08:31→20:56)
[2021-02-17] MEDS: CEPHALEXIN 250 MG CAPSULE. PO SCH (08:31)
[2021-02-17] MEDS ORDERED: FLU VACC QUAD 21-22 (6MOS+) PF 0.5 ML SYRINGE. VAX IM ONE (09:00)
--- NOTE | 2021-02-17 09:00 | PDOC ---
Provider Note Date of Service: DATE: 02/17/21 TIME: 08:59 Provider Note dictated Justifications for Admission Other Justification HECTOR MOBLEY MD Feb 17, 2021 09:00
[2021-02-17 10:20] VITALS: BP 152/71
--- NOTE | 2021-02-17 12:19 | HP ---
ADMIT DATE: 02/16/2021 CHIEF COMPLAINT: Confusion and hallucinations. HISTORY OF PRESENT ILLNESS: This is a 65-year-old ____ BiPAP dependent COPD and coronary artery disease and according to family had increasing confusion, weakness and some visual hallucinations recently consistent with possible respiratory acidosis, which she has had in the past. She is using unknown type of BiPAP at home probably several months. Blood gases in the ER showed respiratory acidosis and high oxygen. She was admitted with BiPAP overnight and is now lucid and oxygen saturations have been good. Laboratory and chest x-ray were unremarkable. PAST MEDICAL HISTORY: Meds listed per the chart. She has had coronary artery stents placed. She takes aspirin and Plavix among others. SOCIAL HISTORY: Quit smoking years ago. . Physically inactive, retired, nondrinker. FAMILY HISTORY: Unremarkable. REVIEW OF SYSTEMS: Unremarkable. PHYSICAL EXAMINATION: ENT: Unremarkable. Exam limited by BiPAP apparatus. NECK: No bruits, nodes or masses. LUNGS: Decreased breath sounds. No overt dullness is noted with no wheezing. CARDIOVASCULAR: Regular rate. No tachycardia or murmur. ABDOMEN: Soft, benign, and nontender. EXTREMITIES: Good pedal and radial pulses noted. NEUROLOGIC: She moves all extremities. Appears to be oriented to questions and responds to commands. No focal findings were seen. Gait was not tested. GENITOURINARY AND RECTAL: Deferred. ASSESSMENT: Probably subacute respiratory acidosis secondary to CO2 retention from chronic obstructive pulmonary disease, inadequately treated with home BiPAP. PLAN: Continue BiPAP to clear the acidosis. Respiratory consultation to evaluate home BiPAP therapy as the source of the problem which she has had before. Home meds remain the same, otherwise. LOLI/BRE DR: Juan Jose TID: [id number]
--- NOTE | 2021-02-17 14:33 | NUR ---
SS following for discharge planning. SS reviewed pt chart and discussed with pt RN. Pt is from home with spouse and is currently requiring oxygen at three liters nasal canula. Pt has home oxygen. SS will continue to follow for discharge planning.
[2021-02-17 15:00] VITALS: BP 113/72
--- NOTE | 2021-02-17 15:24 | PDOC ---
PULMONARY PROGRESS NOTES DATE: 02/17/21 TIME: 15:23 Vitals Vital Signs Date Time Temp Pulse Resp B/P (MAP) Pulse Ox O2 Delivery O2 Flow Rate FiO2 02/17/21 11:12 99 Nasal Cannula 3.0 02/17/21 10:20 98.6 75 18 152/71 (98) 98.6 General: Alert, No acute distress Lungs: Clear Cardiovascular: S1, S2 Abdomen: Soft, Non-tender Extremities: No Edema Labs Laboratory Tests Test 02/16/21 12:30 02/16/21 17:27 02/16/21 17:35 02/16/21 17:51 Urine Collection Type Unknown Urine Color Yellow Urine Clarity Clear Urine pH 6.0 (<5.0-8.0) Urine Specific [place] 1.015 (1.000-1.030) Urine Protein Negative mg/dL (NEG-TRACE) Urine Glucose (UA) Negative mg/dL (NEG) Urine Ketones (Stick) Negative mg/dL (NEG) Urine Blood Negative (NEG) Urine Nitrite Positive (NEG) Urine Bilirubin Negative (NEG) Urine Urobilinogen Dipstick 0.2 mg/dL (0.2 mg/dL) Urine Leukocyte Esterase Small (NEG) Urine RBC 0 /HPF (0-2) Urine WBC 5-10 /HPF (0-4) Urine Squamous Epithelial Cells Mod /LPF Urine Bacteria Many /HPF (0-FEW) Urine Hyaline Casts Moderate /HPF Urine Mucus Mod /LPF SARS-CoV-2 RNA (SUSANA) Negative (Negative) SARS-CoV-2 Antigen (Rapid) Negative (NEGATIVE) White Blood Count 7.9 x10^3/uL (4.0-11.0) Red Blood Count 3.70 x10^6/uL (3.50-5.40) Hemoglobin 11.3 g/dL (12.0-15.5) Hematocrit 35.0 % (36.0-47.0) Mean Corpuscular Volume 95 fL (79-100) Mean Corpuscular Hemoglobin 31 pg (25-35) Mean Corpuscular Hemoglobin Concent 32 g/dL (31-37) Red Cell Distribution Width 14.3 % (11.5-14.5) Platelet Count 308 x10^3/uL (140-400) Neutrophils (%) (Auto) 68 % (31-73) Lymphocytes (%) (Auto) 23 % (24-48) Monocytes (%) (Auto) 5 % (0-9) Eosinophils (%) (Auto) 3 % (0-3) Basophils (%) (Auto) 2 % (0-3) Neutrophils # (Auto) 5.3 x10^3/uL (1.8-7.7) Lymphocytes # (Auto) 1.8 x10^3/uL (1.0-4.8) Monocytes # (Auto) 0.4 x10^3/uL (0.0-1.1) Eosinophils # (Auto) 0.2 x10^3/uL (0.0-0.7) Basophils # (Auto) 0.1 x10^3/uL (0.0-0.2) Sodium Level 146 mmol/L (136-145) Potassium Level 4.4 mmol/L (3.5-5.1) Chloride Level 101 mmol/L (98-107) Carbon Dioxide Level 43 mmol/L (21-32) Anion Gap 2 (6-14) Blood Urea Nitrogen 13 mg/dL (7-20) Creatinine 0.7 mg/dL (0.6-1.0) Estimated GFR (Cockcroft-Gault) 84.0 BUN/Creatinine Ratio 19 (6-20) Glucose Level 163 mg/dL (70-99) Calcium Level 9.6 mg/dL (8.5-10.1) Phosphorus Level 3.5 mg/dL (2.6-4.7) Magnesium Level 2.0 mg/dL (1.8-2.4) Total Bilirubin 0.3 mg/dL (0.2-1.0) Aspartate Amino Transf (AST/SGOT) 23 U/L (15-37) Alanine Aminotransferase (ALT/SGPT) 27 U/L (14-59) Alkaline Phosphatase 92 U/L (46-116) Troponin I Quantitative < 0.017 ng/mL (0.000-0.055) LG-Eok-G-Type Natriuretic Peptide 1590 pg/mL (0-124) Total Protein 6.6 g/dL (6.4-8.2) Albumin 3.5 g/dL (3.4-5.0) Albumin/Globulin Ratio 1.1 (1.0-1.7) O2 Saturation 99 % (92-99) Arterial Blood pH 7.27 (7.35-7.45) Arterial Blood pCO2 at Patient Temp 93 mmHg (35-46) Arterial Blood pO2 at Patient Temp 249 mmHg (65-108) Arterial Blood HCO3 42 mmol/L (21-28) Arterial Blood Base Excess 12 mmol/L (-3-3) Oxyhemoglobin 97.8 % Methemoglobin 0.4 % (0.0-1.9) Carbon Monoxide, Quantitative 0.8 % (0.0-1.9) FiO2 34 Laboratory Tests Test 02/16/21 17:27 02/16/21 17:35 02/16/21 17:51 SARS-CoV-2 RNA (SUSANA) Negative (Negative) SARS-CoV-2 Antigen (Rapid) Negative (NEGATIVE) White Blood Count 7.9 x10^3/uL (4.0-11.0) Red Blood Count 3.70 x10^6/uL (3.50-5.40) Hemoglobin 11.3 g/dL (12.0-15.5) Hematocrit 35.0 % (36.0-47.0) Mean Corpuscular Volume 95 fL (79-100) Mean Corpuscular Hemoglobin 31 pg (25-35) Mean Corpuscular Hemoglobin Concent 32 g/dL (31-37) Red Cell Distribution Width 14.3 % (11.5-14.5) Platelet Count 308 x10^3/uL (140-400) Neutrophils (%) (Auto) 68 % (31-73) Lymphocytes (%) (Auto) 23 % (24-48) Monocytes (%) (Auto) 5 % (0-9) Eosinophils (%) (Auto) 3 % (0-3) Basophils (%) (Auto) 2 % (0-3) Neutrophils # (Auto) 5.3 x10^3/uL (1.8-7.7) Lymphocytes # (Auto) 1.8 x10^3/uL (1.0-4.8) Monocytes # (Auto) 0.4 x10^3/uL (0.0-1.1) Eosinophils # (Auto) 0.2 x10^3/uL (0.0-0.7) Basophils # (Auto) 0.1 x10^3/uL (0.0-0.2) Sodium Level 146 mmol/L (136-145) Potassium Level 4.4 mmol/L (3.5-5.1) Chloride Level 101 mmol/L (98-107) Carbon Dioxide Level 43 mmol/L (21-32) Anion Gap 2 (6-14) Blood Urea Nitrogen 13 mg/dL (7-20) Creatinine 0.7 mg/dL (0.6-1.0) Estimated GFR (Cockcroft-Gault) 84.0 BUN/Creatinine Ratio 19 (6-20) Glucose Level 163 mg/dL (70-99) Calcium Level 9.6 mg/dL (8.5-10.1) Phosphorus Level 3.5 mg/dL (2.6-4.7) Magnesium Level 2.0 mg/dL (1.8-2.4) Total Bilirubin 0.3 mg/dL (0.2-1.0) Aspartate Amino Transf (AST/SGOT) 23 U/L (15-37) Alanine Aminotransferase (ALT/SGPT) 27 U/L (14-59) Alkaline Phosphatase 92 U/L (46-116) Troponin I Quantitative < 0.017 ng/mL (0.000-0.055) LF-Rnq-G-Type Natriuretic Peptide 1590 pg/mL (0-124) Total Protein 6.6 g/dL (6.4-8.2) Albumin 3.5 g/dL (3.4-5.0) Albumin/Globulin Ratio 1.1 (1.0-1.7) O2 Saturation 99 % (92-99) Arterial Blood pH 7.27 (7.35-7.45) Arterial Blood pCO2 at Patient Temp 93 mmHg (35-46) Arterial Blood pO2 at Patient Temp 249 mmHg (65-108) Arterial Blood HCO3 42 mmol/L (21-28) Arterial Blood Base Excess 12 mmol/L (-3-3) Oxyhemoglobin 97.8 % Methemoglobin 0.4 % (0.0-1.9) Carbon Monoxide, Quantitative 0.8 % (0.0-1.9) FiO2 34 Medications Active Scripts Medications Dose Route/Sig Max Daily Dose Days Date Category Ibuprofen 800 Mg Tablet 1 Tab PO TID PRN 09/14/20 Reported Amitriptyline Hcl 10 Mg Tablet 1 Tab PO QHS 09/14/20 Reported Lisinopril 20 Mg Tablet 1 Tab PO DAILY 09/14/20 Reported Fluoxetine Hcl 40 Mg Capsule 1 Cap PO QAM 09/14/20 Reported Clopidogrel (Clopidogrel Bisulfate) 75 Mg Tablet 1 Tab PO DAILY 09/14/20 Reported Alendronate Sodium 70 Mg Tablet 1 Tab PO WEEKLY 12/18/19 Reported Metoprolol Tartrate 25 Mg Tablet 1 Tab PO BID 12/18/19 Reported Levothyroxine Sodium 88 Mcg Tablet 1 Tab PO DAILY 12/18/19 Reported Aspirin Ec (Aspirin) 81 Mg Tablet.dr 81 Mg PO [id number] 30 11/27/19 Rx Atorvastatin Calcium 40 Mg Tablet 40 Mg PO QHS 30 11/27/19 Rx Valium (Diazepam) 2 Mg Tablet 2 Mg PO BID PRN 03/23/18 Reported Cyclobenzaprine Hcl 10 Mg Tablet 1 Tab PO HS PRN 07/01/17 Reported Duoneb 0.5-3(2.5) Mg/3 Ml (Albuterol/Ipratropium) 3 Ml Ampul.neb 3 Ml NEB RTQID 30 06/04/16 Rx Impression . Acute on chronic hypercapnic respiratory failure Acute exacerbation of COPD Possible pneumonia Other comorbidities See orders NAVI HENRY MD Feb 17, 2021 15:24
[2021-02-17] MEDS: cefTRIAXone IV Push 1 GM VIAL. IVP SCH (16:34)
[2021-02-17] MEDS: methylPREDNISolone SOD SUCC PF 40 MG/ML VIAL. IV SCH ×2 (16:35→23:00)
[2021-02-17 19:18] VITALS: BP 133/92
[2021-02-17] MEDS: LACTOBACILLUS RHAMNOSUS GG 1 CAPSULE. PO SCH (20:55)
[2021-02-17] MEDS: AMITRIPTYLINE HCL 10 MG TABLET. PO SCH (20:55)
[2021-02-17] MEDS: ATORVASTATIN CALCIUM 40 MG TABLET. PO SCH (20:55)
--- NOTE | 2021-02-17 21:36 | NUR ---
pt refused to take solumedrol because it makes her jitttery, will cont to monitor pt. pmrn
--- NOTE | 2021-02-17 21:50 | CONS ---
DATE OF CONSULTATION: 02/17/2021 ATTENDING PHYSICIAN: Trevin Jaffe MD CONSULTING PHYSICIAN: Roman Mix MD REASON FOR CONSULTATION: The patient is seen in pulmonary consultation at the request of Dr. Jaffe for acute on chronic hypercapnic respiratory failure. HISTORY OF PRESENT ILLNESS: The patient is a 65-year-old that normally wears 2.5 liters of oxygen at home. She is BiPAP dependent, was doing well, started to feel a little confused and agitated, increasing confusion and weakness. She was concerned about her pCO2. She presented to the Emergency Room. She had an arterial blood gas on 34% FiO2 revealing a pH of 7.27, PaCO2 of 93, pO2 of 249. The patient denies fever or chills. She has a cough, mostly nonproductive. She is currently not smoking. 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 She also has a history of depression, hyperlipidemia, coronary artery disease. PAST SURGICAL HISTORY: Status post bladder sling, cardiac catheterization. FAMILY HISTORY: Unremarkable. REVIEW OF SYSTEMS: As indicated above, otherwise a 10-point system was reviewed and negative. MEDICATIONS: Current medications list was reviewed. Home medication list was likewise reviewed. FAMILY HISTORY: Noncontributory. ALLERGIES: BUPROPION AND CODEINE. PHYSICAL EXAMINATION: VITAL SIGNS: Stable. O2 saturation was greater than 92%. She is currently on 3 liters, saturating 92-99%. HEENT: Eyes, the sclerae were nonicteric. NECK: Jugular venous distention was not elevated. No lymphadenopathy. CHEST: Full expansion. LUNGS: Poor air flow with no wheezes. CARDIOVASCULAR: Regular rate and rhythm with S1, S2. No S3. ABDOMEN: Soft. EXTREMITIES: No clubbing, cyanosis or edema. LABORATORY DATA: White count was normal, hemoglobin and hematocrit were noted. Serology for SARS-CoV-2 was negative. Chest x-ray, difficult to interpret, may be basilar airspace disease. IMPRESSION: 1. Acute on chronic hypoxemic hypercapnic respiratory failure. 2. Acute exacerbation of chronic obstructive pulmonary disease. 3. Possible pneumonia, abnormal x-ray. 4. History of lung cancer, status post radiation to right upper lobe. 5. Tobacco dependence, in remission. 6. Depression. 7. Hyperlipidemia. PLAN: 1. We will continue treatment for acute exacerbation of COPD with steroids. 2. Treat the possible pneumonia with antibiotics. 3. Prior to discharge, we will obtain arterial blood gas on 1 liter per nasal cannula, the patient may have improved and does not require more than 1 liter of oxygen supplementation. 4. Continue home BiPAP. 5. Continue home medications. NADEEM DR: Solitario TID: [id number]
[2021-02-17 22:11] VITALS: BP 131/81
[2021-02-18 03:10] VITALS: BP 146/67
[2021-02-18] MEDS: LEVOTHYROXINE 88 MCG TABLET PO SCH (06:19)
[2021-02-18 07:00] VITALS: BP 117/77
--- NOTE | 2021-02-18 08:27 | PDOC ---
PULMONARY PROGRESS NOTES DATE: 02/18/21 TIME: 08:27 Subjective Patient feels better, currently on BiPAP Less short of air Vitals Vital Signs Date Time Temp Pulse Resp B/P (MAP) Pulse Ox O2 Delivery O2 Flow Rate FiO2 02/18/21 04:20 96 BiPAP/CPAP 02/18/21 03:10 98.7 65 20 146/67 (93) 98.7 02/17/21 15:42 3.0 ROS: No Nausea, No Chest Pain, No Abdominal Pain, No Increase Cough General: Alert, No acute distress Lungs: Clear Cardiovascular: S1, S2 Abdomen: Soft, Non-tender Neuro Exam: Alert Extremities: No Edema Skin: Warm Labs Laboratory Tests Test 02/16/21 12:30 02/16/21 17:27 02/16/21 17:35 02/16/21 17:51 Urine Collection Type Unknown Urine Color Yellow Urine Clarity Clear Urine pH 6.0 (<5.0-8.0) Urine Specific [place] 1.015 (1.000-1.030) Urine Protein Negative mg/dL (NEG-TRACE) Urine Glucose (UA) Negative mg/dL (NEG) Urine Ketones (Stick) Negative mg/dL (NEG) Urine Blood Negative (NEG) Urine Nitrite Positive (NEG) Urine Bilirubin Negative (NEG) Urine Urobilinogen Dipstick 0.2 mg/dL (0.2 mg/dL) Urine Leukocyte Esterase Small (NEG) Urine RBC 0 /HPF (0-2) Urine WBC 5-10 /HPF (0-4) Urine Squamous Epithelial Cells Mod /LPF Urine Bacteria Many /HPF (0-FEW) Urine Hyaline Casts Moderate /HPF Urine Mucus Mod /LPF SARS-CoV-2 RNA (SUSANA) Negative (Negative) SARS-CoV-2 Antigen (Rapid) Negative (NEGATIVE) White Blood Count 7.9 x10^3/uL (4.0-11.0) Red Blood Count 3.70 x10^6/uL (3.50-5.40) Hemoglobin 11.3 g/dL (12.0-15.5) Hematocrit 35.0 % (36.0-47.0) Mean Corpuscular Volume 95 fL (79-100) Mean Corpuscular Hemoglobin 31 pg (25-35) Mean Corpuscular Hemoglobin Concent 32 g/dL (31-37) Red Cell Distribution Width 14.3 % (11.5-14.5) Platelet Count 308 x10^3/uL (140-400) Neutrophils (%) (Auto) 68 % (31-73) Lymphocytes (%) (Auto) 23 % (24-48) Monocytes (%) (Auto) 5 % (0-9) Eosinophils (%) (Auto) 3 % (0-3) Basophils (%) (Auto) 2 % (0-3) Neutrophils # (Auto) 5.3 x10^3/uL (1.8-7.7) Lymphocytes # (Auto) 1.8 x10^3/uL (1.0-4.8) Monocytes # (Auto) 0.4 x10^3/uL (0.0-1.1) Eosinophils # (Auto) 0.2 x10^3/uL (0.0-0.7) Basophils # (Auto) 0.1 x10^3/uL (0.0-0.2) Sodium Level 146 mmol/L (136-145) Potassium Level 4.4 mmol/L (3.5-5.1) Chloride Level 101 mmol/L (98-107) Carbon Dioxide Level 43 mmol/L (21-32) Anion Gap 2 (6-14) Blood Urea Nitrogen 13 mg/dL (7-20) Creatinine 0.7 mg/dL (0.6-1.0) Estimated GFR (Cockcroft-Gault) 84.0 BUN/Creatinine Ratio 19 (6-20) Glucose Level 163 mg/dL (70-99) Calcium Level 9.6 mg/dL (8.5-10.1) Phosphorus Level 3.5 mg/dL (2.6-4.7) Magnesium Level 2.0 mg/dL (1.8-2.4) Total Bilirubin 0.3 mg/dL (0.2-1.0) Aspartate Amino Transf (AST/SGOT) 23 U/L (15-37) Alanine Aminotransferase (ALT/SGPT) 27 U/L (14-59) Alkaline Phosphatase 92 U/L (46-116) Troponin I Quantitative < 0.017 ng/mL (0.000-0.055) GZ-Pce-C-Type Natriuretic Peptide 1590 pg/mL (0-124) Total Protein 6.6 g/dL (6.4-8.2) Albumin 3.5 g/dL (3.4-5.0) Albumin/Globulin Ratio 1.1 (1.0-1.7) O2 Saturation 99 % (92-99) Arterial Blood pH 7.27 (7.35-7.45) Arterial Blood pCO2 at Patient Temp 93 mmHg (35-46) Arterial Blood pO2 at Patient Temp 249 mmHg (65-108) Arterial Blood HCO3 42 mmol/L (21-28) Arterial Blood Base Excess 12 mmol/L (-3-3) Oxyhemoglobin 97.8 % Methemoglobin 0.4 % (0.0-1.9) Carbon Monoxide, Quantitative 0.8 % (0.0-1.9) FiO2 34 Medications Active Scripts Medications Dose Route/Sig Max Daily Dose Days Date Category Ibuprofen 800 Mg Tablet 1 Tab PO TID PRN 09/14/20 Reported Amitriptyline Hcl 10 Mg Tablet 1 Tab PO QHS 09/14/20 Reported Lisinopril 20 Mg Tablet 1 Tab PO DAILY 09/14/20 Reported Fluoxetine Hcl 40 Mg Capsule 1 Cap PO QAM 09/14/20 Reported Clopidogrel (Clopidogrel Bisulfate) 75 Mg Tablet 1 Tab PO DAILY 09/14/20 Reported Alendronate Sodium 70 Mg Tablet 1 Tab PO WEEKLY 12/18/19 Reported Metoprolol Tartrate 25 Mg Tablet 1 Tab PO BID 12/18/19 Reported Levothyroxine Sodium 88 Mcg Tablet 1 Tab PO DAILY 12/18/19 Reported Aspirin Ec (Aspirin) 81 Mg Tablet.dr 81 Mg PO DAILYWBKFT 30 11/27/19 Rx Atorvastatin Calcium 40 Mg Tablet 40 Mg PO QHS 30 11/27/19 Rx Valium (Diazepam) 2 Mg Tablet 2 Mg PO BID PRN 03/23/18 Reported Cyclobenzaprine Hcl 10 Mg Tablet 1 Tab PO HS PRN 07/01/17 Reported Duoneb 0.5-3(2.5) Mg/3 Ml (Albuterol/Ipratropium) 3 Ml Ampul.neb 3 Ml NEB RTQID 30 06/04/16 Rx Impression . IMPRESSION: 1. Acute on chronic hypoxemic hypercapnic respiratory failure. 2. Acute exacerbation of chronic obstructive pulmonary disease. 3. Possible pneumonia, abnormal x-ray. 4. History of lung cancer, status post radiation to right upper lobe. 5. Tobacco dependence, in remission. 6. Depression. 7. Hyperlipidemia. Plan . Patient feels better, continue BiPAP We will check arterial blood gas on 1-1/2 L, prior to discharge, suspect patient may not need more than 1-1/2 to 2 L of oxygen supplementation Continue current support PLAN: 1. We will continue treatment for acute exacerbation of COPD with steroids. 2. Treat the possible pneumonia with antibiotics. 3. Prior to discharge, we will obtain arterial blood gas on 1 liter per nasal cannula, the patient may have improved and does not require more than 1 liter of oxygen supplementation. 4. Continue home BiPAP. 5. Continue home medications. NAVI HENRY MD Feb 18, 2021 08:27
[2021-02-18] MEDS: ASPIRIN ENTERIC COATED 81 MG TABLET.DR. PO SCH (08:33)
[2021-02-18] MEDS: LISINOPRIL 20 MG TABLET PO SCH (08:34)
[2021-02-18] MEDS: LACTOBACILLUS RHAMNOSUS GG 1 CAPSULE. PO SCH ×2 (08:34→21:07)
[2021-02-18] MEDS: CLOPIDOGREL BISULFATE 75 MG TABLET PO SCH (08:34)
[2021-02-18] MEDS: METOPROLOL TART IMMED RELEASE 25 MG TABLET. PO SCH ×2 (08:34→21:08)
[2021-02-18] MEDS: FLUoxetine HCL 20 MG CAPSULE PO SCH (08:34)
--- NOTE | 2021-02-18 08:57 | PDOC ---
Provider Note Date of Service: DATE: 02/18/21 TIME: 08:40 Provider Note vss, no temp, alert- urine cult + e coli, sens pending on rocep-, cont same and review home inhalers Justifications for Admission Other Justification HECTOR MOBLEY MD Feb 18, 2021 08:57
[2021-02-18] MEDS: IPRATRPIUM/ALBUTEROL 0.5/2.5MG 3 ML NEBU. NEB SCH ×4 (08:58→15:17)
[2021-02-18 11:00] VITALS: BP 94/58
[2021-02-18] MEDS: methylPREDNISolone SOD SUCC PF 40 MG/ML VIAL. IV SCH ×2 (12:36→21:00)
--- NOTE | 2021-02-18 13:38 | NUR ---
SS following up with discharge planning. SS reviewed pt chart and discussed with pt RN. Pt is currently requiring oxygen at three liters nasal canula. Pt has home oxygen. COVID19 negative. Pt on IV Rocephin and IV Solu-Medrol. SS will continue to follow for discharge planning.
[2021-02-18 15:00] VITALS: BP 123/67
[2021-02-18] MEDS: cefTRIAXone IV Push 1 GM VIAL. IVP SCH (15:56)
[2021-02-18 19:36] VITALS: BP 123/85
[2021-02-18] MEDS: AMITRIPTYLINE HCL 10 MG TABLET. PO SCH (21:07)
[2021-02-18] MEDS: ATORVASTATIN CALCIUM 40 MG TABLET. PO SCH (21:07)
[2021-02-18] MEDS: diazePAM 2 MG TABLET PO PRN (21:12)
[2021-02-18 22:15] VITALS: BP 119/67
[2021-02-18] MEDS ORDERED: diphenhydrAMINE HCL 25 MG CAPSULE PO PRN (22:30)
[2021-02-19 03:23] VITALS: BP 122/75
[2021-02-19] MEDS: LEVOTHYROXINE 88 MCG TABLET PO SCH (05:57)
[2021-02-19 07:00] VITALS: BP 107/66
[2021-02-19] MEDS: IPRATRPIUM/ALBUTEROL 0.5/2.5MG 3 ML NEBU. NEB SCH ×4 (08:33→20:00)
--- NOTE | 2021-02-19 08:35 | PDOC ---
Provider Note Date of Service: DATE: 02/19/21 TIME: 08:34 Provider Note feels better, vss ,more alert- her home bipap has been recalled, needs replacement b4 dc Justifications for Admission Other Justification HECTOR MOBLEY MD Feb 19, 2021 08:35
--- NOTE | 2021-02-19 08:49 | PDOC ---
PULMONARY PROGRESS NOTES DATE: 02/19/21 TIME: 08:49 Subjective Patient not more short of air, currently off of BiPAP on 3 L oxygen supplementation Vitals Vital Signs Date Time Temp Pulse Resp B/P (MAP) Pulse Ox O2 Delivery O2 Flow Rate FiO2 02/19/21 08:33 88 Nasal Cannula 2.0 02/19/21 07:00 97.4 63 20 107/66 (80) 97.4 ROS: No Nausea, No Chest Pain, No Abdominal Pain, No Increase Cough General: Alert, No acute distress Lungs: Clear Cardiovascular: S1, S2 Abdomen: Soft, Non-tender Neuro Exam: Alert Extremities: No Edema Skin: Warm Medications Active Scripts Medications Dose Route/Sig Max Daily Dose Days Date Category Ibuprofen 800 Mg Tablet 1 Tab PO TID PRN 09/14/20 Reported Amitriptyline Hcl 10 Mg Tablet 1 Tab PO QHS 09/14/20 Reported Lisinopril 20 Mg Tablet 1 Tab PO DAILY 09/14/20 Reported Fluoxetine Hcl 40 Mg Capsule 1 Cap PO QAM 09/14/20 Reported Clopidogrel (Clopidogrel Bisulfate) 75 Mg Tablet 1 Tab PO DAILY 09/14/20 Reported Alendronate Sodium 70 Mg Tablet 1 Tab PO WEEKLY 12/18/19 Reported Metoprolol Tartrate 25 Mg Tablet 1 Tab PO BID 12/18/19 Reported Levothyroxine Sodium 88 Mcg Tablet 1 Tab PO DAILY 12/18/19 Reported Aspirin Ec (Aspirin) 81 Mg Tablet.dr 81 Mg PO DAILYWBKFT 30 11/27/19 Rx Atorvastatin Calcium 40 Mg Tablet 40 Mg PO QHS 30 11/27/19 Rx Valium (Diazepam) 2 Mg Tablet 2 Mg PO BID PRN 03/23/18 Reported Cyclobenzaprine Hcl 10 Mg Tablet 1 Tab PO HS PRN 07/01/17 Reported Duoneb 0.5-3(2.5) Mg/3 Ml (Albuterol/Ipratropium) 3 Ml Ampul.neb 3 Ml NEB RTQID 30 06/04/16 Rx Impression . IMPRESSION: 1. Acute on chronic hypoxemic hypercapnic respiratory failure. 2. Acute exacerbation of chronic obstructive pulmonary disease. 3. Possible pneumonia, abnormal x-ray. 4. History of lung cancer, status post radiation to right upper lobe. 5. Tobacco dependence, in remission. 6. Depression. 7. Hyperlipidemia. Plan . Updated 02/19 Continue BiPAP nightly Obtain ABG on 1 L Continue current support 02/18 Patient feels better, continue BiPAP We will check arterial blood gas on 1-1/2 L, prior to discharge, suspect patient may not need more than 1-1/2 to 2 L of oxygen supplementation Continue current support NAVI HENRY MD Feb 19, 2021 08:49
[2021-02-19] MEDS: ASPIRIN ENTERIC COATED 81 MG TABLET.DR. PO SCH (09:10)
[2021-02-19] MEDS: FLUoxetine HCL 20 MG CAPSULE PO SCH (09:11)
[2021-02-19] MEDS: METOPROLOL TART IMMED RELEASE 25 MG TABLET. PO SCH ×2 (09:12→20:51)
[2021-02-19] MEDS: LISINOPRIL 20 MG TABLET PO SCH (09:15)
[2021-02-19] MEDS: CLOPIDOGREL BISULFATE 75 MG TABLET PO SCH (09:15)
[2021-02-19] MEDS: LACTOBACILLUS RHAMNOSUS GG 1 CAPSULE. PO SCH ×2 (09:15→20:50)
[2021-02-19] MEDS: methylPREDNISolone SOD SUCC PF 40 MG/ML VIAL. IV SCH ×2 (09:15→20:49)
[2021-02-19 11:00] VITALS: BP 113/48
--- NOTE | 2021-02-19 14:36 | NUR ---
SS following up with discharge planning. SS reviewed pt chart and discussed with pt RN. Pt is currently requiring oxygen at three liters nasal canula and BIPAP PRN. COVID19 negative. Pt has home oxygen. Pt on IV Solu-Medrol and IV Rocephin. SS will continue to follow for discharge planning.
[2021-02-19 15:16] VITALS: BP 124/74
[2021-02-19] MEDS: cefTRIAXone IV Push 1 GM VIAL. IVP SCH (16:52)
[2021-02-19] MEDS: IBUPROFEN 400 MG TABLET. PO PRN (19:24)
[2021-02-19 19:36] VITALS: BP 140/74
[2021-02-19] MEDS: AMITRIPTYLINE HCL 10 MG TABLET. PO SCH (20:49)
[2021-02-19] MEDS: ATORVASTATIN CALCIUM 40 MG TABLET. PO SCH (20:50)
[2021-02-19 22:17] VITALS: BP 140/81
[2021-02-19] MEDS: diazePAM 2 MG TABLET PO PRN (22:22)
[2021-02-20 03:56] VITALS: BP 114/64
[2021-02-20] MEDS: LEVOTHYROXINE 88 MCG TABLET PO SCH (05:45)
[2021-02-20 06:27] VITALS: BP 120/64
[2021-02-20] MEDS: IPRATRPIUM/ALBUTEROL 0.5/2.5MG 3 ML NEBU. NEB SCH ×4 (08:27→21:03)
--- NOTE | 2021-02-20 09:11 | PDOC ---
PULMONARY PROGRESS NOTES DATE: 02/20/21 TIME: 09:08 Subjective on 02 3lpm feels much better sob better used bipap last night on home 02 2.5-3 lpm Vitals Vital Signs Date Time Temp Pulse Resp B/P (MAP) Pulse Ox O2 Delivery O2 Flow Rate FiO2 02/20/21 08:30 96 Nasal Cannula 3.0 02/20/21 06:27 98.9 62 18 120/64 (82) 98.9 ROS: No Nausea, No Chest Pain, No Abdominal Pain, No Increase Cough General: Alert, No acute distress Lungs: Other (b lat diminished bs) Cardiovascular: S1, S2 Abdomen: Soft, Non-tender Neuro Exam: Alert Extremities: No Edema Skin: Warm Medications Active Scripts Medications Dose Route/Sig Max Daily Dose Days Date Category Ibuprofen 800 Mg Tablet 1 Tab PO TID PRN 09/14/20 Reported Amitriptyline Hcl 10 Mg Tablet 1 Tab PO QHS 09/14/20 Reported Lisinopril 20 Mg Tablet 1 Tab PO DAILY 09/14/20 Reported Fluoxetine Hcl 40 Mg Capsule 1 Cap PO QAM 09/14/20 Reported Clopidogrel (Clopidogrel Bisulfate) 75 Mg Tablet 1 Tab PO DAILY 09/14/20 Reported Alendronate Sodium 70 Mg Tablet 1 Tab PO WEEKLY 12/18/19 Reported Metoprolol Tartrate 25 Mg Tablet 1 Tab PO BID 12/18/19 Reported Levothyroxine Sodium 88 Mcg Tablet 1 Tab PO DAILY 12/18/19 Reported Aspirin Ec (Aspirin) 81 Mg Tablet.dr 81 Mg PO DAILYWBKFT 30 11/27/19 Rx Atorvastatin Calcium 40 Mg Tablet 40 Mg PO QHS 30 11/27/19 Rx Valium (Diazepam) 2 Mg Tablet 2 Mg PO BID PRN 03/23/18 Reported Cyclobenzaprine Hcl 10 Mg Tablet 1 Tab PO HS PRN 07/01/17 Reported Duoneb 0.5-3(2.5) Mg/3 Ml (Albuterol/Ipratropium) 3 Ml Ampul.neb 3 Ml NEB RTQID 30 06/04/16 Rx Impression . IMPRESSION: 1. Acute on chronic hypoxemic hypercapnic respiratory failure. 2. Acute exacerbation of chronic obstructive pulmonary disease. 3. Possible pneumonia, abnormal x-ray. 4. History of lung cancer, status post radiation to right upper lobe. 5. Tobacco dependence, in remission. 6. Depression. 7. Hyperlipidemia. Plan . 9/25 02 titration bipap q hs has home cpap change solumedrol to 40 bid to pred in am if stable BD discussed w pt Updated 02/19 Continue BiPAP nightly Obtain ABG on 1 L Continue current support 02/18 Patient feels better, continue BiPAP We will check arterial blood gas on 1-1/2 L, prior to discharge, suspect patient may not need more than 1-1/2 to 2 L of oxygen supplementation Continue current support RENATO PERERA MD Feb 20, 2021 09:11
[2021-02-20] MEDS: methylPREDNISolone SOD SUCC PF 40 MG/ML VIAL. IV SCH ×2 (09:13→20:43)
[2021-02-20] MEDS: METOPROLOL TART IMMED RELEASE 25 MG TABLET. PO SCH ×2 (09:14→20:42)
[2021-02-20] MEDS: FLUoxetine HCL 20 MG CAPSULE PO SCH (09:14)
[2021-02-20] MEDS: ASPIRIN ENTERIC COATED 81 MG TABLET.DR. PO SCH (09:14)
[2021-02-20] MEDS: LISINOPRIL 20 MG TABLET PO SCH (09:14)
[2021-02-20] MEDS: CLOPIDOGREL BISULFATE 75 MG TABLET PO SCH (09:14)
[2021-02-20] MEDS: LACTOBACILLUS RHAMNOSUS GG 1 CAPSULE. PO SCH ×2 (09:16→20:42)
[2021-02-20 11:52] VITALS: BP 133/72
[2021-02-20 15:03] VITALS: BP 150/67
[2021-02-20] MEDS: cefTRIAXone IV Push 1 GM VIAL. IVP SCH (16:56)
--- NOTE | 2021-02-20 17:48 | NUR ---
NURSING PT VERY INTERACTIVE, WITH DRY SENSE OF HUMOR. WATCHES TV MUCH OF DAY. IV SITE IN (L) BEGAN LEAKING, NEW SITE PLACED IN (R) WRIST. SATURATIONS REMAINED GOOD ALL DAY ON NC.
[2021-02-20 19:00] VITALS: BP 119/64
[2021-02-20] MEDS: AMITRIPTYLINE HCL 10 MG TABLET. PO SCH (20:42)
[2021-02-20] MEDS: ATORVASTATIN CALCIUM 40 MG TABLET. PO SCH (20:42)
--- NOTE | 2021-02-20 21:05 | PN ---
DATE: 02/20/2021 LOCATION: She is in room 652. SUBJECTIVE: This 65-year-old female remains hospitalized with acute hypercarbic hypoxic respiratory failure due to exacerbation of COPD. She is feeling better. The BiPAP is digging into her face and nose and that is her major complaints this morning. OBJECTIVE: VITAL SIGNS: Stable. She is afebrile. She is on 3 liters per nasal cannula O2. HEAD, EYES, EARS, NOSE AND THROAT: Remarkable for the oxygen. She does have Band-Aids present on both sides of her nose bridge. NECK: Supple without adenopathy or thyromegaly. CHEST: Decreased breath sounds bilaterally. HEART: Regular rate and rhythm. ABDOMEN: Benign. EXTREMITIES: No significant edema. IMPRESSION: 1. Acute on chronic hypoxic hypercarbic respiratory failure. 2. Exacerbation of chronic obstructive pulmonary disease. 3. History of lung cancer, status post radiation to right upper lobe. PLAN: Continue present treatment. Steroid taper per Pulmonary. I wonder if Trilogy noninvasive ventilator might be a better option on BiPAP at discharge. Her CPAP machine has been recalled. RENEE MEHTA: Roxie TID: [id number]
[2021-02-20 22:30] VITALS: BP 123/63
[2021-02-20] MEDS: diazePAM 2 MG TABLET PO PRN (22:35)
[2021-02-20] MEDS: IBUPROFEN 400 MG TABLET. PO PRN (22:37)
[2021-02-21] VITALS (8 sets, daily range): BP systolic 100–189; BP diastolic 64–93
[2021-02-21] MEDS: LEVOTHYROXINE 88 MCG TABLET PO SCH (06:15)
[2021-02-21] MEDS: IPRATRPIUM/ALBUTEROL 0.5/2.5MG 3 ML NEBU. NEB SCH ×4 (08:09→20:36)
[2021-02-21] MEDS: METOPROLOL TART IMMED RELEASE 25 MG TABLET. PO SCH ×2 (08:21→19:56)
[2021-02-21] MEDS: LACTOBACILLUS RHAMNOSUS GG 1 CAPSULE. PO SCH ×2 (08:22→19:55)
[2021-02-21] MEDS: LISINOPRIL 20 MG TABLET PO SCH (08:22)
[2021-02-21] MEDS: CLOPIDOGREL BISULFATE 75 MG TABLET PO SCH (08:22)
[2021-02-21] MEDS: FLUoxetine HCL 20 MG CAPSULE PO SCH (08:22)
[2021-02-21] MEDS: ASPIRIN ENTERIC COATED 81 MG TABLET.DR. PO SCH (08:22)
[2021-02-21] MEDS: methylPREDNISolone SOD SUCC PF 40 MG/ML VIAL. IV SCH (08:23)
--- NOTE | 2021-02-21 09:02 | PDOC ---
PULMONARY PROGRESS NOTES DATE: 02/21/21 TIME: 09:01 Subjective on 02 3lpm feels better sob better used bipap last night on home 02 2.5-3 lpm has home cpap Vitals Vital Signs Date Time Temp Pulse Resp B/P (MAP) Pulse Ox O2 Delivery O2 Flow Rate FiO2 02/21/21 08:22 65 137/66 02/21/21 08:11 94 Nasal Cannula 3.0 02/21/21 07:27 98.5 18 98.5 ROS: No Nausea, No Chest Pain, No Abdominal Pain, No Increase Cough General: Alert, No acute distress Lungs: Other (b lat diminished bs) Cardiovascular: S1, S2 Abdomen: Soft, Non-tender Neuro Exam: Alert Extremities: No Edema Skin: Warm Medications Active Scripts Medications Dose Route/Sig Max Daily Dose Days Date Category Ibuprofen 800 Mg Tablet 1 Tab PO TID PRN 09/14/20 Reported Amitriptyline Hcl 10 Mg Tablet 1 Tab PO QHS 09/14/20 Reported Lisinopril 20 Mg Tablet 1 Tab PO DAILY 09/14/20 Reported Fluoxetine Hcl 40 Mg Capsule 1 Cap PO QAM 09/14/20 Reported Clopidogrel (Clopidogrel Bisulfate) 75 Mg Tablet 1 Tab PO DAILY 09/14/20 Reported Alendronate Sodium 70 Mg Tablet 1 Tab PO WEEKLY 12/18/19 Reported Metoprolol Tartrate 25 Mg Tablet 1 Tab PO BID 12/18/19 Reported Levothyroxine Sodium 88 Mcg Tablet 1 Tab PO DAILY 12/18/19 Reported Aspirin Ec (Aspirin) 81 Mg Tablet.dr 81 Mg PO DAILYWBKFT 30 11/27/19 Rx Atorvastatin Calcium 40 Mg Tablet 40 Mg PO QHS 30 11/27/19 Rx Valium (Diazepam) 2 Mg Tablet 2 Mg PO BID PRN 03/23/18 Reported Cyclobenzaprine Hcl 10 Mg Tablet 1 Tab PO HS PRN 07/01/17 Reported Duoneb 0.5-3(2.5) Mg/3 Ml (Albuterol/Ipratropium) 3 Ml Ampul.neb 3 Ml NEB RTQID 30 06/04/16 Rx Impression . IMPRESSION: 1. Acute on chronic hypoxemic hypercapnic respiratory failure. 2. Acute exacerbation of chronic obstructive pulmonary disease. 3. Possible pneumonia, abnormal x-ray. 4. History of lung cancer, status post radiation to right upper lobe. 5. Tobacco dependence, in remission. 6. Depression. 7. Hyperlipidemia. Plan . 02/21 02 titration increase activity bipap q hs has home cpap change solumedrol to 40 bid to pred w taper by 10 mg q 3d BD discussed w pt 02/20 02 titration bipap q hs has home cpap change solumedrol to 40 bid to pred in am if stable BD discussed w pt Updated 02/19 Continue BiPAP nightly Obtain ABG on 1 L Continue current support 02/18 Patient feels better, continue BiPAP We will check arterial blood gas on 1-1/2 L, prior to discharge, suspect patient may not need more than 1-1/2 to 2 L of oxygen supplementation Continue current support RENATO PERERA MD Feb 21, 2021 09:02
--- NOTE | 2021-02-21 11:49 | PN ---
DATE: 02/21/2021 LOCATION: She is in room 652. SUBJECTIVE: This 65-year-old female remains hospitalized with acute hypoxic hypercarbic respiratory failure due to exacerbation of COPD. She is feeling a little better on a daily basis. She is quite worn out currently. On seeing her, she has finished a shower. OBJECTIVE: VITAL SIGNS: Stable. She is afebrile. She is on 3 liters per nasal cannula O2. HEAD, EYES, EARS, NOSE AND THROAT: Remarkable for oxygen. NECK: Supple without any adenopathy or thyromegaly. CHEST: Decreased breath sounds bilaterally. HEART: Regular rate and rhythm. ABDOMEN: Benign. IMPRESSION: 1. Acute on chronic hypercarbic hypoxic respiratory failure. 2. Exacerbation of chronic obstructive pulmonary disease. 3. History of lung cancer with status post radiation, right upper lobe. PLAN: Continue present therapy, steroids have been transitioned to oral. Her CPAP machine has been recalled. It would seem from a comfort standpoint that a Trilogy noninvasive ventilator might be a good remedy leaving the hospital, but she is concerned about the cost of the same. TERRELL DR: Roxie TID: [id number]
--- NOTE | 2021-02-21 14:05 | NUR ---
NURSING--NOTE FOR [employer] PT HAS VERBALIZED SEVERAL TIMES TODAY THAT SHE IS CONCERNED ABOUT NEEDING HELP AT HOME, BUT IS WORRIED THAT HER "MAKES TOO MUCH" FOR HER TO GET THE HELP SHE NEEDS.
[2021-02-21] MEDS: cefTRIAXone IV Push 1 GM VIAL. IVP SCH (16:58)
[2021-02-21] MEDS: IBUPROFEN 400 MG TABLET. PO PRN (17:47)
[2021-02-21] MEDS: AMITRIPTYLINE HCL 10 MG TABLET. PO SCH (19:55)
[2021-02-21] MEDS: ATORVASTATIN CALCIUM 40 MG TABLET. PO SCH (19:55)
[2021-02-21] MEDS: diazePAM 2 MG TABLET PO PRN (19:56)
[2021-02-22 02:41] VITALS: BP 112/76
[2021-02-22] MEDS: LEVOTHYROXINE 88 MCG TABLET PO SCH (06:36)
[2021-02-22 07:00] VITALS: BP 115/61
[2021-02-22] MEDS: IPRATRPIUM/ALBUTEROL 0.5/2.5MG 3 ML NEBU. NEB SCH ×3 (07:18→16:39)
--- NOTE | 2021-02-22 08:16 | PDOC ---
PULMONARY PROGRESS NOTES DATE: 02/22/21 TIME: 08:16 Subjective on 02 3lpm feels better sob better used bipap last night on home 02 2.5-3 lpm has home cpap Vitals Vital Signs Date Time Temp Pulse Resp B/P (MAP) Pulse Ox O2 Delivery O2 Flow Rate FiO2 02/22/21 02:41 97.1 51 16 112/76 (88) 100 Nasal Cannula 3.0 97.1 ROS: No Nausea, No Chest Pain, No Abdominal Pain, No Increase Cough General: Alert, No acute distress Lungs: Other (b lat diminished bs) Cardiovascular: S1, S2 Abdomen: Soft, Non-tender Neuro Exam: Alert Extremities: No Edema Skin: Warm Medications Active Scripts Medications Dose Route/Sig Max Daily Dose Days Date Category Ibuprofen 800 Mg Tablet 1 Tab PO TID PRN 09/14/20 Reported Amitriptyline Hcl 10 Mg Tablet 1 Tab PO QHS 09/14/20 Reported Lisinopril 20 Mg Tablet 1 Tab PO DAILY 09/14/20 Reported Fluoxetine Hcl 40 Mg Capsule 1 Cap PO QAM 09/14/20 Reported Clopidogrel (Clopidogrel Bisulfate) 75 Mg Tablet 1 Tab PO DAILY 09/14/20 Reported Alendronate Sodium 70 Mg Tablet 1 Tab PO WEEKLY 12/18/19 Reported Metoprolol Tartrate 25 Mg Tablet 1 Tab PO BID 12/18/19 Reported Levothyroxine Sodium 88 Mcg Tablet 1 Tab PO DAILY 12/18/19 Reported Aspirin Ec (Aspirin) 81 Mg Tablet.dr 81 Mg PO DAILYWBKFT 30 11/27/19 Rx Atorvastatin Calcium 40 Mg Tablet 40 Mg PO QHS 30 11/27/19 Rx Valium (Diazepam) 2 Mg Tablet 2 Mg PO BID PRN 03/23/18 Reported Cyclobenzaprine Hcl 10 Mg Tablet 1 Tab PO HS PRN 07/01/17 Reported Duoneb 0.5-3(2.5) Mg/3 Ml (Albuterol/Ipratropium) 3 Ml Ampul.neb 3 Ml NEB RTQID 30 06/04/16 Rx Impression . IMPRESSION: 1. Acute on chronic hypoxemic hypercapnic respiratory failure. 2. Acute exacerbation of chronic obstructive pulmonary disease. 3. Possible pneumonia, abnormal x-ray. 4. History of lung cancer, status post radiation to right upper lobe. 5. Tobacco dependence, in remission. 6. Depression. 7. Hyperlipidemia. Plan . 9/26 02 titration increase activity bipap q hs has home cpap change solumedrol to 40 bid to pred w taper by 10 mg q 3d BD discussed w pt 02/20 02 titration bipap q hs has home cpap change solumedrol to 40 bid to pred in am if stable BD discussed w pt Updated 02/19 Continue BiPAP nightly Obtain ABG on 1 L Continue current support 02/18 Patient feels better, continue BiPAP We will check arterial blood gas on 1-1/2 L, prior to discharge, suspect patient may not need more than 1-1/2 to 2 L of oxygen supplementation Continue current support NAVI HENRY MD Feb 22, 2021 08:16
[2021-02-22] MEDS: CLOPIDOGREL BISULFATE 75 MG TABLET PO SCH (08:37)
[2021-02-22] MEDS: ASPIRIN ENTERIC COATED 81 MG TABLET.DR. PO SCH (08:37)
[2021-02-22] MEDS: FLUoxetine HCL 20 MG CAPSULE PO SCH (08:37)
[2021-02-22] MEDS: LACTOBACILLUS RHAMNOSUS GG 1 CAPSULE. PO SCH (08:38)
[2021-02-22] MEDS: LISINOPRIL 20 MG TABLET PO SCH (08:38)
[2021-02-22] MEDS: METOPROLOL TART IMMED RELEASE 25 MG TABLET. PO SCH (08:39)
[2021-02-22] MEDS: IBUPROFEN 400 MG TABLET. PO PRN (08:46)
[2021-02-22] MEDS ORDERED: predniSONE 20 MG TABLET PO SCH (09:00)
[2021-02-22 11:00] VITALS: BP 97/59
--- NOTE | 2021-02-22 12:42 | NUR ---
SS following up with discharge planning. SS reviewed pt chart and discussed with pt RN. Pt is currently requiring oxygen at three liters nasal canula. COVID19 negative. Pt has home oxygen. Discharge plan is currently to home when medically ready for discharge. Per Dr. Jaffe, can discharge to home once cleared by Pulmonology. SS will continue to follow for discharge planning. Addendum: 02/22/21 at 1404 by CHANEL JULIAN SS Pt requesting to meet with SS to discuss resources for home. Pt requesting home healthcare and Meals on Wheels at this time. Pt has home Trilogy through [employer]. Pt was previously on services with [facility], ; fax [phone]. Referral sent to [facility]. SS contacted Uyen at the [facility], , and made request for Meals on Wheels. Dr. Jaffe notified.
[2021-02-22 15:00] VITALS: BP 103/62
[2021-02-22] MEDS: diazePAM 2 MG TABLET PO PRN (17:04)
[2021-02-22 18:39] LABS: BASE EXCESS ABG 4 mmol/L (-3-3); HCO3 ABG 31 mmol/L (21-28); PCO2 ABG 56 mmHg (35-46); PO2 ABG 80 mmHg (65-108); SAT O2 ABG 96 % (92-99)
[2021-02-22 18:42] LABS: FIO2 ABG 32
[2021-02-22 19:16] VITALS: BP 109/58
--- NOTE | 2021-02-22 19:36 | NUR ---
Dr. Ace contacted for discharge, received order to do stat ABG. ABG done and result notified to Dr. Received new order to for o2, 2 L at rest and 3L with exertion. Dr. Jaffe notified, ok to discharge the patient with home health.
--- NOTE | 2021-02-22 19:39 | NUR ---
Discharge pt. to home with homehealth. Discharge instructions given, PIV and Heart monitor removed. Escort pt. off unit on wheel chair into a private vehicle,
--- NOTE | 2021-02-23 08:43 | SNU/HH DC ---
DISCHARGE WITH HOME HEALTH DISCHARGE INFORMATION: Final Diagnosis: Problems Medical Problems: (1) Confusion Status: Acute (2) Urinary tract infection Status: Acute (3) Visual hallucinations Status: Acute Condition on Discharge: Stable CODE STATUS: Code Status: DNR/DNI HOME HEALTH: Face to Face: I certify this patient is under my care and that I, or a nurse practitioner or physician's licensed investment sales assistant working with me, had a face to face encounter that meets the physician face to face encounter requirements with this patient on []. RN For Eval/Treatment: No Physical Therapy For: Evalulation/Treatment Occupational Therapy For: Evaluation/Treatment Home Health Aide For: Self-care Pt Meets Homebound Status: Extreme weakness w/ amb. POST DISCHARGE ORDERS: Activity Instructions for Disc: No restrictions Weight Bearing Status after Di: No restrictions DIET AFTER DISCHARGE: Regular Wound/Incision Care: No wound care needed CHECKS AFTER DISCHARGE: Checks after discharge: Check blood press - daily, Check your Temp as needed FOLLOW-UP: Follow up with: Dr. Ace as scheduled Follow Up With: primary in 1 week TREATMENT/EQUIPMENT ORDERS: Adaptive Equipment Issued: None Discharge Respiratory Equipmen: BiPAP CERTIFICATION STATEMENT: Certification Statement: Certification Statement: Based on the above finding, I certify that this patient is confined to the home and needs intermittent fpc care, physical therapy and/or speech therapy, or continues to need occupational therapy.~ This patient is under my care, and I have initiated the establishment of the plan of care.~ This patient will be followed by myself or a community physician who will periodically review the plan of care. Home Meds Active Scripts Aspirin (ASPIRIN EC) 81 Mg Tablet., 81 MG PO DAILYWBKFT for CAD for 30 Days, #30 TAB.SR 3 Refills Prov:EUGENIO ASHLEY FUR BLOWER OPERATOR 11/27/19 Atorvastatin Calcium (ATORVASTATIN CALCIUM) 40 Mg Tablet, 40 MG PO QHS for CAD for 30 Days, #30 TAB 3 Refills Prov:EUGENIO ASHLEY FUR BLOWER OPERATOR 11/27/19 Ipratropium/Albuterol Sulfate (DUONEB 0.5-3(2.5) MG/3 ML) 3 Ml Ampul.neb, 3 ML NEB RTQID for 30 Days, LIQUID 3 Refills Prov:ALONDRA AVELAR MD 06/04/16 Reported Medications Ibuprofen (Ibuprofen) 800 Mg Tablet, 1 TAB PO TID PRN for PAIN 09/14/20 Amitriptyline Hcl (AMITRIPTYLINE HCL) 10 Mg Tablet, 1 TAB PO QHS for sleep 09/14/20 Lisinopril (LISINOPRIL) 20 Mg Tablet, 1 TAB PO DAILY for blood pressure 09/14/20 Fluoxetine Hcl (FLUOXETINE HCL) 40 Mg Capsule, 1 CAP PO QAM for depression 09/14/20 Clopidogrel Bisulfate (CLOPIDOGREL) 75 Mg Tablet, 1 TAB PO DAILY for blood thinner 09/14/20 Alendronate Sodium (ALENDRONATE SODIUM) 70 Mg Tablet, 1 TAB PO WEEKLY for osteoporosis, #4 TAB 3 Refills 12/18/19 Metoprolol Tartrate (METOPROLOL TARTRATE) 25 Mg Tablet, 1 TAB PO BID for HTN, #180 TAB 1 Refill 12/18/19 Levothyroxine Sodium (LEVOTHYROXINE SODIUM) 88 Mcg Tablet, 1 TAB PO DAILY for hypothyroid, #30 TAB 5 Refills 12/18/19 Diazepam (VALIUM) 2 Mg Tablet, 2 MG PO BID PRN for ANXIETY / AGITATION, TAB 03/23/18 Cyclobenzaprine Hcl (CYCLOBENZAPRINE HCL) 10 Mg Tablet, 1 TAB PO HS PRN for MUSCLE SPASMS, #90 TAB 07/01/17 HECTOR MOBLEY MD Feb 23, 2021 08:43
--- NOTE | 2021-02-23 08:46 | PDOC ---
Provider Note Date of Service: DATE: 02/23/21 TIME: 08:45 Provider Note [id number] Justifications for Admission Other Justification HECTOR MOBLEY MD Feb 23, 2021 08:46
[2021-02-23] MEDS ORDERED: NON FORMULARY ITEM (Alendronate Sodium 1 TAB) PO SCH (09:00)
--- NOTE | 2021-02-23 09:34 | DS ---
DATE OF DISCHARGE: 02/22/2021 HOSPITAL SUMMARY: A 65-year-old white female came in with confusion and hallucinations and respiratory acidosis with a pCO2 of 93, pH 7.27 and a high pO2 of 249. Rest of her laboratory studies were unremarkable and chest x-ray was clear. Urine culture grew out E. coli, sensitive to all antibiotics tested. She was treated with BiPAP with IV Rocephin and steroids and is clinically improved and her blood gas is much improved with a pO2 of 80 and a pCO2 of 56 with normal pH, which is normal for her. This is on 32% oxygen. She is comfortable to be followed as an outpatient at this point. FINAL DIAGNOSES: 1. Chronic on acute respiratory acidosis secondary to hypoventilation. 2. Urinary tract infection. OPERATIONS, PROCEDURES, AND COMPLICATIONS: None. CONSULTATION: Dr. Mix and Dr. Rowley. DISCHARGE INSTRUCTIONS: Tapering dose of prednisone over the next 4 days. Home meds remain the same. Continue use of BiPAP at home and low oxygen settings around 2 liters. Encouraged to avoid hypoventilation and hypercapnia. PROGNOSIS: Guarded because of her advanced lung disease. DAVIS MEHTA: Juan Jose TID: [id number]
== END 2021-02-22 19:41 | disposition home health service (06) | DRG 177 ==
LOC: ER 17:08 → 6 SOUTH 19:44
PROVIDERS: ADMIT Family Medicine; ATTEND Family Medicine
PROC: 5A09357 Assistance with Respiratory Ventilation, Less than 24 Consecutive Hours, Continuous Positive Airway Pressure (ICD-10-PCS; principal; 2021-02-16)
PROC: 5A09357 Assistance with Respiratory Ventilation, Less than 24 Consecutive Hours, Continuous Positive Airway Pressure (ICD-10-PCS; 2021-02-17)
PROC: 5A09357 Assistance with Respiratory Ventilation, Less than 24 Consecutive Hours, Continuous Positive Airway Pressure (ICD-10-PCS; 2021-02-18)
PROC: 5A09357 Assistance with Respiratory Ventilation, Less than 24 Consecutive Hours, Continuous Positive Airway Pressure (ICD-10-PCS; 2021-02-19)
PROC: 5A09357 Assistance with Respiratory Ventilation, Less than 24 Consecutive Hours, Continuous Positive Airway Pressure (ICD-10-PCS; 2021-02-20)
PROC: 5A09357 Assistance with Respiratory Ventilation, Less than 24 Consecutive Hours, Continuous Positive Airway Pressure (ICD-10-PCS; 2021-02-21)
DX: J15.6 Pneumonia due to other Gram-negative bacteria (principal); J96.21 Acute and chronic respiratory failure with hypoxia; J96.22 Acute and chronic respiratory failure with hypercapnia; E87.2 Acidosis; I42.9 Cardiomyopathy, unspecified; J44.1 Chronic obstructive pulmonary disease with (acute) exacerbation; J44.0 Chronic obstructive pulmonary disease with (acute) lower respiratory infection; J15.9 Unspecified bacterial pneumonia; E03.9 Hypothyroidism, unspecified; E78.00 Pure hypercholesterolemia, unspecified; E78.5 Hyperlipidemia, unspecified; F17.201 Nicotine dependence, unspecified, in remission; F32.9 Major depressive disorder, single episode, unspecified; N30.90 Cystitis, unspecified without hematuria; G89.29 Other chronic pain; B96.20 Unspecified Escherichia coli [E. coli] as the cause of diseases classified elsewhere; I25.10 Atherosclerotic heart disease of native coronary artery without angina pectoris; I48.91 Unspecified atrial fibrillation; Z20.822 Contact with and (suspected) exposure to COVID-19; Z79.82 Long term (current) use of aspirin; Z85.118 Personal history of other malignant neoplasm of bronchus and lung; Z90.710 Acquired absence of both cervix and uterus; Z92.3 Personal history of irradiation; Z95.5 Presence of coronary angioplasty implant and graft; Z88.5 Allergy status to narcotic agent; Z88.8 Allergy status to other drugs, medicaments and biological substances
CPT/HCPCS: 36415; 36600; 70450; 71045; 80053; 81001; 82805; 83735; 83880; 84100; 84484; 85025; 87077; 87086; 87186; 87426; 90471; 90686; 93005; 94640; 94660; 94760; 96360; J0696; J2920; J7512; U0003; U0005; 99285-25; G0378; Q0163

== ENCOUNTER 2021-08-26 10:40 | Inpatient (IN) | payer MEDICARE ==
[~2021-08-26] VITALS: Ht 162.6 cm; Wt 76.5 kg
[~2021-08-26 10:40] MED LIST changes: +CYCL10TA19 PO; -CYCL10TA2 PO; -LISI-517 PO; +LISI5TAB15 PO
--- NOTE | 2021-08-26 11:05 | PHYS DOC ---
Past Medical History Past Medical History: A-Fib, COPD, Depression, High Cholesterol, Hypothyroid Additional Past Medical Histor: CHRONIC PAIN Past Surgical History: Other Additional Past Surgical Histo: unknown Smoking Status: Former Smoker Alcohol Use: None Drug Use: None General Adult EDM: Chief Complaint: ABNORMAL LABS HPI: HPI: Patient is a 66 year old female who presents from home, with her daughter, with multiple complaints. Her daughter reports that she has had progressively worsening confusion, has had multiple falls, generalized weakness, has been intermittently argumentative and has been saying inappropriate things around her grandchildren. The patient has a history of severe COPD, she is chronically dependent on supplemental nasal cannula oxygen. She has a history of hypercapnia, the patient's daughter is requesting an ABG to make sure she is not retaining too much CO2. The patient reports shortness of breath, unchanged from baseline. No change in cough. No hemoptysis. She does report vague intermit tent right upper chest pain, mostly related to her chronic right shoulder pain. She usually takes tramadol for this, she has not taken this today. She denies abdominal pain, nausea, vomiting, bowel habit changes. She denies urinary symptoms. She denies headache. The patient is a very poor historian, she is relatively argumentative with the staff and with me. This appears to be her behavior manifested in the last several months and weeks. The patient's daughter reports to me that she is concerned about possible dementia. The patient is noncompliant with her CPAP at home. She does wear her oxygen per nasal cannula most of the time, however. The patient's daughter reports to me that she thinks the patient has been progressively more depressed since her retired, and the patient reportedly just lays around and sleeps a lot, does not get up and perform any ADLs. She bathes rather infrequently. Review of Systems: Review of Systems: Review of systems is somewhat limited secondary to patient's behavior, confusion, see HPI. Heart Score: C/O Chest Pain: Yes HEART Score for Chest Pain: HEART Score for Chest Pain Response (Comments) Value History Slighlty/Non-Suspicious 0 ECG Nonspecific Repolarizatio 1 Age > 65 2 Risk Factors >3 Risk Factors or Hx CAD 2 Troponin < Normal Limit 0 Total 5 Risk Factors: Risk Factors: DM, Current or recent (<one month) smoker, HTN, HLP, family history of CAD, obesity. Risk Scores: Score 0 - 3: 2.5% MACE over next 6 weeks - Discharge Home Score 4 - 6: 20.3% MACE over next 6 weeks - Admit for Clinical Observation Score 7 - 10: 72.7% MACE over next 6 weeks - Early Invasive Strategies Allergies: Allergies: Allergies Coded Allergies Type Severity Reaction Last Updated Verified bupropion HCl Allergy Intermediate Swelling 04/20/21 Yes codeine Allergy Intermediate Hives 04/20/21 Yes Physical Exam: PE: Constitutional: Well developed, well nourished, chronically ill-appearing female, mild respiratory distress, nontoxic HENT: Normocephalic, atraumatic, oropharynx is patent and clear. Mucous membranes are moist. External ears normal bilaterally. Eyes: PERRL, EOMI, conjunctiva normal, no discharge. No scleral icterus. No nystagmus. Neck: Normal range of motion, no tenderness, supple, no stridor. Trachea is midline. No JVD. Cardiovascular:Heart rate regular rhythm, +2 radial and +2 posterior tibial pulses bilaterally. Lungs & Thorax: Tachypnea noted, diminished breath sounds in bilateral bases. Occasional rhonchi that clear with coughing, no significant wheezing. No stridor. She speaks in full and clear sentences. No chest wall crepitus or subcutaneous emphysema. No retractions noted. Abdomen: Abdomen is obese, soft, nondistended, nontender to palpation. Skin: Warm, dry, no erythema, no rash. Skin is somewhat unkempt. No open wounds. No jaundice. Back: Did range of motion, no deformity. Extremities: No tenderness, no cyanosis, no clubbing, ROM intact, lateral, symmetric 1+ lower extremity edema. No calf tenderness. Neurologic: He is alert, awake, oriented to person, place, confused about the specific date and time. Cranial nerves II through XII grossly intact. She does manifest diffuse bilateral, symmetric lower extremity weakness. Addiction Counselor strength normal and equal bilaterally. Sensation is grossly intact. Speech is fluent. Psychologic: Affect is flat, moderate hostile and argumentative intermittently, easily redirectable, ultimately cooperative EKG: EKG: EKG is interpreted at 1116 Rhythm is sinus Rate is 67 bpm [place] is normal artifact No STEMI Radiology/Procedures: Radiology/Procedures: IMAGING REPORT Signed PATIENT: FIDELIA KATZ ACCOUNT: [id number] : 1955 LOCATION: ER AGE: 66 SEX: F EXAM STATUS: REG ER ORD. PHYSICIAN: MARTELL QUINTANILLA DO REASON: cough, dyspnea PROCEDURE: PORTABLE CHEST 1V XR CHEST 1V INDICATION: cough, dyspnea COMPARISON STUDY: 04/20/2021. FINDINGS: Lungs: Normal lung volume. No pulmonary mass or consolidation. The tracheobronchial tree and hilar structures are normal. Pleura: No pleural effusion or pneumothorax. Heart and Mediastinum: Cardiomegaly. Atherosclerosis of the thoracic aorta. IMPRESSION: No acute cardiopulmonary process. Electronically signed by: Jeronimo Ivy MD (08/26/2021 12:25 PM) [id number] DICTATED and SIGNED BY: JERONIMO IVY MD DATE: 08/26/21 122 Course & Med Decision Making: Course & Med Decision Making Pertinent Labs and Imaging studies reviewed. (See chart for details) ABG demonstrates significant respiratory acidosis and hypercapnia. I have explained that I recommend the patient be placed on BiPAP. She initially was quite displeased with this recommendation, but ultimately agreed. She is given a dose of Ativan to help with anxiety regarding BiPAP placement. I have discu ssed the findings, differential diagnosis and plan of care with the patient and her daughter. I have recommended hospitalization and admission, pulmonary consult. The patient is amenable to this, comfortable with the plan of care. She is accepted for admission by Dr. Mobley. Chavez Disclaimer: Chavez Disclaimer: This electronic medical record was generated, in whole or in part, using a voice recognition dictation system. Departure Departure Impression: Primary Impression: Acute on chronic respiratory failure with hypercapnia Additional Impressions: Generalized weakness Confusion Disposition: ADMITTED INPATIENT Admitting Physician: Hector Mobley Condition: GUARDED Referrals: HECTOR MOBLEY MD (PCP) MARTELL QUINTANILLA DO Aug 26, 2021 11:05
[2021-08-26 11:41] LABS: BASO # 0.1 x10^3/uL (0.0-0.2); BASO % 1 % (0-3); EOS # 0.3 x10^3/uL (0.0-0.7); EOS % 4 % (0-3); HEMATOCRIT 33.7 % (36.0-47.0); HEMOGLOBIN 10.6 g/dL (12.0-15.5); LYMPH # 1.2 x10^3/uL (1.0-4.8); LYMPH % 20 % (24-48); MEAN CORPUSCULAR HEMOGLOBIN 30 pg (25-35); MEAN CORPUSCULAR HGB CONC 31 g/dL (31-37); MEAN CORPUSCULAR VOLUME 96 fL (79-100); MONO # 0.3 x10^3/uL (0.0-1.1); MONO % 5 % (0-9); NEUT # 4.3 x10^3/uL (1.8-7.7); NEUT % 69 % (31-73); PLATELET COUNT 246 x10^3/uL (140-400); RED BLOOD COUNT 3.53 x10^6/uL (3.50-5.40); RED CELL DISTRIBUTION WIDTH 14.7 % (11.5-14.5); WHITE BLOOD COUNT 6.2 x10^3/uL (4.0-11.0)
[2021-08-26 11:52] LABS: PROTHROMBIN TIME PATIENT 12.5 SEC (11.7-14.0)
[2021-08-26 11:53] LABS: CALCIUM 9.7 mg/dL (8.5-10.1); CREATININE 0.6 mg/dL (0.6-1.0); POTASSIUM 4.1 mmol/L (3.5-5.1)
--- NOTE | 2021-08-26 11:55 | EKG ---
[facility] [address] [place] [address] Test Date: 2021-08-26 Test Time: 11:15:56 Pat Name: FIDELIA KATZ Department: Room: [facility] Gender: F Chain Repairer: [id number] : 1955 Requested By: MARTELL QUINTANILLA Order Number: [id number] Reading MD: Dash Todd Measurements Intervals [place] Rate: 67 P: 0 MD: 132 QRS: 26 QRSD: 110 T: 23 QT: 402 QTc: 428 Interpretive Statements SINUS RHYTHM T ABNORMALITY IN ANTEROSEPTAL LEADS Electronically Signed On 08-28-2021 21:29:53 CDT by Dash Todd
[2021-08-26 11:59] LABS: ALBUMIN 3.4 g/dL (3.4-5.0); MAGNESIUM 1.9 mg/dL (1.8-2.4); PHOSPHORUS 3.3 mg/dL (2.6-4.7); TOTAL BILIRUBIN 0.3 mg/dL (0.2-1.0); TOTAL PROTEIN 6.8 g/dL (6.4-8.2)
--- NOTE | 2021-08-26 12:04 | RAD ---
CT HEAD/BRAIN WO Date: 08/26/2021 11:51 AM Clinical Indication: weakness, falls Comparison: 02/16/2021. Technique: 5 mm axial tomographic images were obtained of the head without contrast. These were view ed on brain and bone windows. One or more of the following dose reduction techniques were utilized: A utomated exposure control (AEC), Adjustment of mA and/or kV according to patient size, Use of iterati ve reconstruction technique such as ASiR, CT scan done according to ALARA and image gently/image sheldon ly Findings: Mild generalized cerebral and cerebellar volume loss. Moderate nonspecific periventricular hypoattenu ation, most commonly seen with chronic small vessel ischemic disease. Calcified atherosclerosis of th e bilateral cavernous and paraclinoid internal carotid arteries and intracranial vertebral arteries. No intra- or extra-axial mass or fluid collection. No acute hemorrhage. The ventricles are normal in size, shape, and morphology. The cises-white matter junction is normal. The subarachnoid cisterns are patent. The visualized paranasal sinuses are normal. The visualized portions of the orbits and globes are no rmal. The mastoid air cells are clear. The software product specialist topogram shows no lytic lesion or fracture. Impression: No acute intracranial process. Mild cerebral volume loss. Moderate chronic small vessel ischemic disease. Electronically signed by: Robert Ivy MD (08/26/2021 12:02 PM) [id number]
[2021-08-26 12:10] LABS: BASE EXCESS ABG 12 mmol/L (-3-3); HCO3 ABG 42 mmol/L (21-28); PO2 ABG 99 mmHg (65-108); SAT O2 ABG 97 % (92-99)
[2021-08-26 12:16] LABS: FIO2 ABG 30%/ 2.5L NC; PCO2 ABG 93 mmHg (35-46)
--- NOTE | 2021-08-26 12:28 | RAD ---
XR CHEST 1V INDICATION: cough, dyspnea COMPARISON STUDY: 04/20/2021. FINDINGS: Lungs: Normal lung volume. No pulmonary mass or consolidation. The tracheobronchial tree and hilar st ructures are normal. Pleura: No pleural effusion or pneumothorax. Heart and Mediastinum: Cardiomegaly. Atherosclerosis of the thoracic aorta. IMPRESSION: No acute cardiopulmonary process. Electronically signed by: Robert Ivy MD (08/26/2021 12:25 PM) [id number]
[2021-08-26] MEDS ORDERED: traMADol 50 MG TABLET PO ONE (12:30)
[2021-08-26 13:54] LABS: BARBITURATES NEG (NEG); BENZODIAZEPINES POS (NEG); CANNABINOIDS NEG (NEG); COCAINE NEG (NEG); METHADONE NEG (NEG); OPIATES NEG (NEG); PHENCYCLIDINE NEG (NEG)
[2021-08-26 13:57] LABS: BACTERIA,URINE MANY /HPF (0-FEW); RBC,URINE 0 /HPF (0-2)
[2021-08-26 14:00] LABS: AMPHETAMINE/METHAMPHETAMINE NEG (NEG)
[2021-08-26 15:00] VITALS: BP 116/75
[2021-08-26] MEDS ORDERED: FLUT1DIS IH (15:22)
[2021-08-26] MEDS ORDERED: AMIT10TA PO (15:22)
[2021-08-26] MEDS ORDERED: CHOL10004 PO (15:22)
[2021-08-26] MEDS ORDERED: FURO-68 PO (15:22)
[2021-08-26] MEDS ORDERED: TRAM50TA PO (15:22)
[2021-08-26] MEDS ORDERED: UMEC62.5 IH (15:22)
[2021-08-26] MEDS ORDERED: LEVO100T5 PO (15:22)
[2021-08-26] MEDS ORDERED: ONDANSETRON PF 4 MG/2 ML VIAL. IVP PRN (18:30)
[2021-08-26] MEDS ORDERED: IV NORMAL SALINE 1000ML BAG 1,000 ML IV SCH (18:30)
[2021-08-26] MEDS ORDERED: CYCLOBENZAPRINE 10 MG TABLET. PO PRN (18:45)
[2021-08-26] MEDS ORDERED: FUROSEMIDE 40 MG TABLET. PO PRN (18:45)
[2021-08-26] MEDS: methylPREDNISolone SOD SUCC PF 125 MG/2 ML VIAL. IV SCH (18:47)
[2021-08-26 19:00] VITALS: BP 203/80
[2021-08-26] MEDS ORDERED: IBUPROFEN 400 MG TABLET. PO PRN (19:00)
[2021-08-26] MEDS ORDERED: IPRATRPIUM/ALBUTEROL 0.5/2.5MG 3 ML NEBU. NEB SCH (20:00)
[2021-08-26] MEDS: BUDESONIDE 0.5 MG/2 ML NEBU. NEB SCH ×2 (20:11→20:17)
[2021-08-26] MEDS: IPRATRPIUM/ALBUTEROL 0.5/2.5MG 3 ML NEBU. NEB SCH ×2 (20:11→20:16)
[2021-08-26 20:12] LABS: BASE EXCESS ABG 13 mmol/L (-3-3); HCO3 ABG 41 mmol/L (21-28); PO2 ABG 76 mmHg (65-108); SAT O2 ABG 95 % (92-99)
[2021-08-26 20:31] VITALS: BP 113/65
[2021-08-26 20:57] LABS: FIO2 ABG 30; PCO2 ABG 76 mmHg (35-46)
[2021-08-26] MEDS: ATORVASTATIN CALCIUM 40 MG TABLET. PO SCH (21:48)
[2021-08-26] MEDS: AMITRIPTYLINE HCL 10 MG TABLET. PO SCH (21:48)
[2021-08-26] MEDS: METOPROLOL TART IMMED RELEASE 25 MG TABLET. PO SCH (22:03)
[2021-08-26 22:35] VITALS: BP 196/102
[2021-08-26 22:58] VITALS: BP_SYST 142; BP_SYST 187; BP_DIAS 77; BP_DIAS 89
[2021-08-27 02:10] VITALS: BP 113/74
[2021-08-27] MEDS: LEVOTHYROXINE 100 MCG TABLET PO SCH (05:53)
[2021-08-27] MEDS: methylPREDNISolone SOD SUCC PF 125 MG/2 ML VIAL. IV SCH (05:53)
[2021-08-27 07:00] VITALS: BP 149/73
[2021-08-27] MEDS: BUDESONIDE 0.5 MG/2 ML NEBU. NEB SCH ×2 (07:40→19:46)
[2021-08-27] MEDS: IPRATRPIUM/ALBUTEROL 0.5/2.5MG 3 ML NEBU. NEB SCH ×4 (07:40→19:46)
[2021-08-27] MEDS ORDERED: NON FORMULARY ITEM (Umeclidinium Bromide (Incruse Ellipta) 62.5 MCG) IH SCH (09:00)
[2021-08-27] MEDS ORDERED: FLUoxetine HCL 20 MG CAPSULE PO SCH (09:00)
[2021-08-27 09:12] LABS: BASE EXCESS COOX 9 mmol/L (-3-3); HCO3 COOX 37 mmol/L (21-28); METHEMOGLOBIN 0.5 % (0.0-1.9); OXYHEMOGLOBIN 92.8 %; PO2 COOX 72 mmHg (65-108); SAT O2 COOX 94 % (92-99)
[2021-08-27 09:13] LABS: PCO2 COOX 71 mmHg (35-46)
[2021-08-27] MEDS: CHOLECALCIFEROL (VITAMIN D3) 1,000 UNIT TABLET PO SCH (09:38)
[2021-08-27] MEDS: METOPROLOL TART IMMED RELEASE 25 MG TABLET. PO SCH ×2 (09:38→20:30)
[2021-08-27] MEDS: ASPIRIN ENTERIC COATED 81 MG TABLET.DR. PO SCH (09:38)
[2021-08-27] MEDS: CLOPIDOGREL BISULFATE 75 MG TABLET PO SCH (09:38)
[2021-08-27] MEDS: LISINOPRIL 20 MG TABLET PO SCH (09:39)
[2021-08-27] MEDS: methylPREDNISolone SOD SUCC PF 40 MG/ML VIAL. IV SCH ×2 (09:39→20:30)
--- NOTE | 2021-08-27 10:13 | CONS ---
DATE OF CONSULTATION: 08/27/2021 PULMONARY CONSULTATION ATTENDING PHYSICIAN: Trevin Jaffe MD REASON FOR CONSULTATION: Respiratory failure. HISTORY OF PRESENT ILLNESS: The patient is a 66-year-old female who smoked for at least 40 years. She has severe COPD. She is on home oxygen at 2.5 liters. She was brought into the hospital with progressive confusion. She has multiple falls and generalized weakness. The patient was acting inappropriate with her family. The patient also has a CPAP, which she states that she does use every night. The patient has a cough, which has been nonproductive. Denies any chest pains. No headaches, no nausea or vomiting, no diarrhea, no dysuria, no focal weakness, no leg edema. Arterial blood gases obtained last night showed a pH of 7.28, pCO2 of 93 and a pO2 of 99. This was called to me last night. I had placed the patient on BiPAP and followup ABGs showed a pH of 7.35, pCO2 went down to 76 and a pO2 of 76 on 30% FiO2. We reduced the FiO2 as well as made some changes by increasing the IPAP. ABGs done this morning showed a pH of 7.34, pCO2 down to 71 and a pO2 of 72 on 30% BiPAP. Bicarbonate was 37. She is currently on nasal cannula 3 liters. Consultation requested for further evaluation and management. The chest x-ray did not reveal any acute infiltrates. CT head was negative as well. PAST MEDICAL HISTORY: Significant for severe COPD with chronic hypoxic respiratory failure, history of atrial fibrillation, depression, dyslipidemia, hypothyroidism and chronic pain. PAST SURGICAL HISTORY: No recent surgeries. ALLERGIES: BUPROPION AND CODEINE. CURRENT MEDICATIONS: Reviewed as listed in the MRAD including diazepam. She is also on Flexeril. REVIEW OF SYSTEMS: A 12-point systems obtained. Pertinent positives discussed in my present illness, otherwise noncontributory. All systems that were negative were reviewed as well. FAMILY HISTORY: Noncontributory to lungs. SOCIAL HISTORY: Smoker for 40 years before quitting 2 years ago. PHYSICAL EXAMINATION: VITAL SIGNS: Reviewed. Blood pressure stable, pulse ox 97% on 3 liters. NECK: Supple. LUNGS: With diminished breath sounds. No crackles, no wheezes. CARDIOVASCULAR: With a regular rate. ABDOMEN: Soft, nontender. EXTREMITIES: With no pitting edema. LABORATORY DATA: Reviewed. ABGs are discussed in my history of present illness. Urine drug screen positive for benzodiazepines. BUN is 16, creatinine 0.6. INR 1.0. White cell count 6.2, hemoglobin 10.6 and platelets are 246. IMPRESSION: 1. Acute on chronic hypercapnic respiratory failure secondary to combination of acute exacerbation of chronic obstructive pulmonary disease and use of medications including diazepam and Flexeril. 2. Acute toxic encephalopathy, presenting as worsening confusion. She has multiple falls and generalized weakness. This is all related to the patient's worsening hypercapnia. 3. Acute bronchitis. No definite consolidation seen on the chest x-ray. RECOMMENDATIONS: 1. I have discussed with the patient at this time I will keep her on nasal cannula during the day and BiPAP at nighttime. Avoid hyperoxia. 2. The patient would be a good candidate for Trelegy. She has home CPAP. We will ask disease case manager to get insurance approval. 3. Avoid benzodiazepines or at least reduce the dose and frequency. Minimize the use of cyclobenzaprine as well. 4. Continue IV Solu-Medrol. 5. Continue bronchodilators with DuoNeb. 6. Add DVT prophylaxis. 7. We will consult disease case manager for Trelegy insurance approval. 8. Add empiric antibiotic for acute bronchitis. 9. Discussed with RN. Discussed with the patient. We will follow along with you. HARLEY DR: Mathew TID: [id number]
[2021-08-27 11:00] VITALS: BP 200/86
[2021-08-27] MEDS: DOXYCYCLINE HYCLATE 100 MG TABLET PO SCH ×2 (11:24→20:30)
[2021-08-27] MEDS: ENOXAPARIN 40 MG/0.4 ML SYRINGE. SQ SCH (11:25)
--- NOTE | 2021-08-27 11:29 | HP ---
DATE OF SERVICE: 08/27/2021 ADMIT DATE: 08/26/2021 CHIEF COMPLAINT: Confusion. HISTORY OF PRESENT ILLNESS: A 65-year-old white female with coronary artery disease and advanced COPD who is supposed to be on a Trilogy BiPAP unit at home, but apparently is noncompliant with family. She came in with confusion, weakness and respiratory acidosis due to hypercarbia. She has been on BiPAP overnight and was doing better at this time on pH up to 7.33, pCO2 down to 71. She has no other particular at this time. PAST MEDICAL HISTORY: Well documented in the old record. No new medications, allergies or surgeries. SOCIAL HISTORY: Quit smoking years ago active nondrinker to my knowledge. FAMILY HISTORY: Unremarkable. REVIEW OF SYSTEMS: No other specific complaints at this time. OBJECTIVE: ENT: BiPAP in place. ALL within normal limits. NECK: No masses, nodes or bruits. LUNGS: Decreased breath sounds. No wheezing. CARDIOVASCULAR: Regular rate. Mild tachycardia. No murmur. ABDOMEN: Benign. EXTREMITIES: 2+ clubbing, otherwise unremarkable. NEUROLOGIC/PHYSIOLOGIC: Nonfocal. Mental status is intact. ASSESSMENT: Acute on chronic hypercarbia with respiratory acidosis due to advanced chronic obstructive pulmonary disease and BiPAP noncompliance. PLAN: As ordered. She is a DNI patient. [facility] [place] DR: CAROL/jessica TID: [id number]
--- NOTE | 2021-08-27 14:00 | NUR ---
Pt. BP was high 200/86, 72 around 11:40. Recheked again in 15 min, 196/92, 73. Dr. Jaffe notified. Amlodipine added, given 1 dose. Rechecked BP- 111/49, 75
[2021-08-27 14:45] VITALS: BP 111/49
--- NOTE | 2021-08-27 15:06 | NUR ---
SS following for discharge planning. SS reviewed pt chart and discussed with pt RN. Pt is from home and is currently requiring oxygen at two and a half liters nasal canula. Pulmonology following. Pt has home oxygen and home CPAP. Pt on IV Solu-Medrol. Dr. Marsh requesting pt be assessed for Trilogy. Clinical phoned and faxed to [facility], ; fax [phone]. SS will continue to follow for discharge planning.
[2021-08-27] MEDS: traMADol 50 MG TABLET PO PRN (17:31)
[2021-08-27 19:00] VITALS: BP 124/73
[2021-08-27] MEDS: ATORVASTATIN CALCIUM 40 MG TABLET. PO SCH (20:30)
[2021-08-27] MEDS: AMITRIPTYLINE HCL 10 MG TABLET. PO SCH (20:30)
[2021-08-27 22:42] VITALS: BP 140/63
[2021-08-28 02:28] VITALS: BP 126/64
[2021-08-28] MEDS: LEVOTHYROXINE 100 MCG TABLET PO SCH (05:37)
[2021-08-28 07:00] VITALS: BP 127/77
[2021-08-28] MEDS: IPRATRPIUM/ALBUTEROL 0.5/2.5MG 3 ML NEBU. NEB SCH ×4 (08:23→20:00)
[2021-08-28] MEDS: BUDESONIDE 0.5 MG/2 ML NEBU. NEB SCH ×2 (08:23→20:00)
[2021-08-28] MEDS: CHOLECALCIFEROL (VITAMIN D3) 1,000 UNIT TABLET PO SCH (08:26)
[2021-08-28] MEDS: METOPROLOL TART IMMED RELEASE 25 MG TABLET. PO SCH ×2 (08:27→20:54)
[2021-08-28] MEDS: LISINOPRIL 20 MG TABLET PO SCH (08:27)
[2021-08-28] MEDS: DOXYCYCLINE HYCLATE 100 MG TABLET PO SCH ×2 (08:27→20:53)
[2021-08-28] MEDS: methylPREDNISolone SOD SUCC PF 40 MG/ML VIAL. IV SCH (08:27)
[2021-08-28] MEDS: CLOPIDOGREL BISULFATE 75 MG TABLET PO SCH (08:27)
[2021-08-28] MEDS: ASPIRIN ENTERIC COATED 81 MG TABLET.DR. PO SCH (08:27)
[2021-08-28] MEDS: ENOXAPARIN 40 MG/0.4 ML SYRINGE. SQ SCH (08:29)
--- NOTE | 2021-08-28 10:05 | PDOC ---
Provider Note Date of Service: DATE: 08/28/21 TIME: 09:55 Provider Note vss, bp better re amlo, no temp- urine shows e coli sens to doxy so continue same- d/w daughter 08/27 re [facility] , they will consider same - Justifications for Admission Other Justification HECTOR MOBLEY MD Aug 28, 2021 10:05
--- NOTE | 2021-08-28 10:13 | PDOC ---
Provider Note Date of Service: DATE: 08/28/21 TIME: 10:11 Provider Note last echo 2019 EF was 35%, will add spirono for that and bp support, follow, also on acei and bb Justifications for Admission Other Justification HECTOR MOBLEY MD Aug 28, 2021 10:13
[2021-08-28 10:46] VITALS: BP 105/58
--- NOTE | 2021-08-28 11:41 | PDOC ---
PULMONARY PROGRESS NOTES DATE: 08/28/21 TIME: 11:37 Subjective alert no distress somewhat confused on 02 Vitals Vital Signs Date Time Temp Pulse Resp B/P (MAP) Pulse Ox O2 Delivery O2 Flow Rate FiO2 08/28/21 10:46 97.8 65 20 105/58 (74) 97 97.8 08/28/21 08:27 Nasal Cannula 2.0 General: Alert, No acute distress, Confused HEENT: Other (nc at perrl ) Lungs: Other Cardiovascular: S1, S2 Abdomen: Soft, Non-tender Extremities: No Edema Skin: Warm Labs Laboratory Tests Test 08/26/21 12:09 08/26/21 13:30 08/26/21 19:00 08/27/21 08:36 O2 Saturation 97 % (92-99) 95 % (92-99) 94 % (92-99) Arterial Blood pH 7.28 (7.35-7.45) 7.35 (7.35-7.45) 7.34 (7.35-7.45) Arterial Blood pCO2 at Patient Temp 93 mmHg (35-46) 76 mmHg (35-46) 71 mmHg (35-46) Arterial Blood pO2 at Patient Temp 99 mmHg (65-108) 76 mmHg (65-108) 72 mmHg (65-108) Arterial Blood HCO3 42 mmol/L (21-28) 41 mmol/L (21-28) 37 mmol/L (21-28) Arterial Blood Base Excess 12 mmol/L (-3-3) 13 mmol/L (-3-3) 9 mmol/L (-3-3) FiO2 30%/ 2.5l nc 30 30% on bipap Urine Collection Type U cath Urine Color (Auto) Light yellow Urine Turbidity Clear Urine pH (Auto) 6.0 (<5.0-8.0) Urine Specific [place] 1.015 (1.000-1.030) Urine Protein (Auto) Negative mg/dL (Negative) Urine Glucose (Auto)(UA) Negative mg/dL (Negative) Urine Ketones (Auto) Negative mg/dL (Negative) Urine Blood (Auto) Negative (Negative) Urine Nitrite Positive (Negative) Urine Bilirubin (Auto) Negative (Negative) Urine Urobilinogen (Auto) Normal mg/dL (Normal) Urine Leukocyte Esterase (Auto) Negative (Negative) Urine RBC 0 /HPF (0-2) Urine WBC 1-4 /HPF (0-4) Urine Squamous Epithelial Cells Mod /LPF Urine Bacteria Many /HPF (0-FEW) Urine Opiates Screen Neg (NEG) Urine Methadone Screen Neg (NEG) Urine Barbiturates Neg (NEG) Urine Phencyclidine Screen Neg (NEG) Urine Amphetamine/Methamphetamine Neg (NEG) Urine Benzodiazepines Screen Pos (NEG) Urine Cocaine Screen Neg (NEG) Urine Cannabinoids Screen Neg (NEG) Urine Ethyl Alcohol Neg (NEG) Oxyhemoglobin 92.8 % Methemoglobin 0.5 % (0.0-1.9) Carbon Monoxide, Quantitative 0.2 % (0.0-1.9) Medications Active Scripts Medications Dose Route/Sig Max Daily Dose Days Date Category Dose Instructions Incruse Ellipta (Umeclidinium [place]) 62.5 Mcg Blst.w.dev 62.5 Mcg IH DAILY 08/26/21 Reported Amitriptyline Hcl 10 Mg Tablet 10 Mg PO PRN DAILY PRN 08/26/21 Reported Lasix (Furosemide) 40 Mg Tablet 40 Mg PO PRN DAILY PRN 08/26/21 Reported Tramadol Hcl 50 Mg Tablet 50 Mg PO Q4HRS PRN 08/26/21 Reported Advair 100-50 Diskus (Fluticasone/Salmeterol) 1 Each Disk.w.dev 1 Puff IH BID 08/26/21 Reported Levothyroxine Sodium 100 Mcg Tablet 1 Tab PO DAILY 08/26/21 Reported Vitamin D3 (Vitamin D) 25 Mcg Tablet 25 Mcg PO DAILY 08/26/21 Reported 1,000 UNITS = 25 MCG Ibuprofen 800 Mg Tablet 1 Tab PO TID PRN 09/14/20 Reported Lisinopril 20 Mg Tablet 1 Tab PO DAILY 09/14/20 Reported Fluoxetine Hcl 40 Mg Capsule 1 Cap PO QAM 09/14/20 Reported Clopidogrel (Clopidogrel Bisulfate) 75 Mg Tablet 1 Tab PO DAILY 09/14/20 Reported Alendronate Sodium 70 Mg Tablet 1 Tab PO WEEKLY 12/18/19 Reported Metoprolol Tartrate 25 Mg Tablet 1 Tab PO BID 12/18/19 Reported Aspirin Ec (Aspirin) 81 Mg Tablet.dr 81 Mg PO DAILYWBKFT 30 11/27/19 Rx Atorvastatin Calcium 40 Mg Tablet 40 Mg PO QHS 30 11/27/19 Rx Valium (Diazepam) 2 Mg Tablet 2 Mg PO BID PRN 03/23/18 Reported Cyclobenzaprine Hcl 10 Mg Tablet 1 Tab PO HS PRN 07/01/17 Reported Duoneb 0.5-3(2.5) Mg/3 Ml (Albuterol/Ipratropium) 3 Ml Ampul.neb 3 Ml NEB RTQID 30 06/04/16 Rx Impression . IMPRESSION: 1. Acute on chronic hypercapnic respiratory failure secondary to combination of acute exacerbation of chronic obstructive pulmonary disease and use of medications including diazepam and Flexeril. 2. Acute toxic encephalopathy, presenting as worsening confusion. She has multiple falls and generalized weakness. This is all related to the patient's worsening hypercapnia. 3. Acute bronchitis. No definite consolidation seen on the chest x-ray. Plan . RECOMMENDATIONS: 1. on nasal cannula during the day and BiPAP at nighttime. Avoid hyperoxia. keep sat 90% not higher 2. The patient would be a good candidate for Trilogy. She has home CPAP. We will ask case making machine operator to get insurance approval. 3. Avoid oversedation 4. Continue IV Solu-Medrol. 5. Continue bronchodilators with DuoNeb. 6. DVT prophylaxis. 7. We will consult case making machine operator for [employer] insurance approval. 8. empiric antibiotic for acute bronchitis. 9. Discussed with RN. We will follow along with you. RENATO PERERA MD Aug 28, 2021 11:41
[2021-08-28] MEDS: SPIRONOLACTONE 25 MG TABLET PO SCH (11:52)
[2021-08-28 14:54] VITALS: BP 106/67
[2021-08-28] MEDS: traMADol 50 MG TABLET PO PRN ×2 (16:49→21:04)
[2021-08-28 19:00] VITALS: BP 148/84
[2021-08-28] MEDS: ATORVASTATIN CALCIUM 40 MG TABLET. PO SCH (20:53)
[2021-08-28] MEDS: LACTOBACILLUS RHAMNOSUS GG 1 CAPSULE. PO SCH (20:53)
[2021-08-28] MEDS: AMITRIPTYLINE HCL 10 MG TABLET. PO SCH (20:53)
[2021-08-28] MEDS ORDERED: ACETAMINOPHEN 325 MG TABLET. PO PRN (21:00)
[2021-08-28 23:00] VITALS: BP 127/78
[2021-08-29] VITALS (7 sets, daily range): BP systolic 103–146; BP diastolic 53–85
[2021-08-29] MEDS: LEVOTHYROXINE 100 MCG TABLET PO SCH (05:46)
[2021-08-29] MEDS: IPRATRPIUM/ALBUTEROL 0.5/2.5MG 3 ML NEBU. NEB SCH ×4 (07:17→20:00)
[2021-08-29] MEDS: BUDESONIDE 0.5 MG/2 ML NEBU. NEB SCH ×2 (07:17→20:00)
--- NOTE | 2021-08-29 08:15 | PDOC ---
PULMONARY PROGRESS NOTES DATE: 08/29/21 TIME: 08:11 Subjective alert denies sob on 02 on home 02 2.5 lpm no distress used bipap last night forgetful per rn Vitals Vital Signs Date Time Temp Pulse Resp B/P (MAP) Pulse Ox O2 Delivery O2 Flow Rate FiO2 08/29/21 07:17 98 Nasal Cannula 2.5 08/29/21 03:00 98.4 80 20 146/85 (105) 98.4 General: Alert, No acute distress, Confused HEENT: Other Lungs: Other Cardiovascular: S1, S2 Abdomen: Soft, Non-tender Extremities: No Edema Skin: Warm Labs Laboratory Tests Test 08/27/21 08:36 O2 Saturation 94 % (92-99) Arterial Blood pH 7.34 (7.35-7.45) Arterial Blood pCO2 at Patient Temp 71 mmHg (35-46) Arterial Blood pO2 at Patient Temp 72 mmHg (65-108) Arterial Blood HCO3 37 mmol/L (21-28) Arterial Blood Base Excess 9 mmol/L (-3-3) Oxyhemoglobin 92.8 % Methemoglobin 0.5 % (0.0-1.9) Carbon Monoxide, Quantitative 0.2 % (0.0-1.9) FiO2 30% on bipap Medications Active Scripts Medications Dose Route/Sig Max Daily Dose Days Date Category Dose Instructions Incruse Ellipta (Umeclidinium [place]) 62.5 Mcg Blst.w.dev 62.5 Mcg IH DAILY 08/26/21 Reported Amitriptyline Hcl 10 Mg Tablet 10 Mg PO PRN DAILY PRN 08/26/21 Reported Lasix (Furosemide) 40 Mg Tablet 40 Mg PO PRN DAILY PRN 08/26/21 Reported Tramadol Hcl 50 Mg Tablet 50 Mg PO Q4HRS PRN 08/26/21 Reported Advair 100-50 Diskus (Fluticasone/Salmeterol) 1 Each Disk.w.dev 1 Puff IH BID 08/26/21 Reported Levothyroxine Sodium 100 Mcg Tablet 1 Tab PO DAILY 08/26/21 Reported Vitamin D3 (Vitamin D) 25 Mcg Tablet 25 Mcg PO DAILY 08/26/21 Reported 1,000 UNITS = 25 MCG Ibuprofen 800 Mg Tablet 1 Tab PO TID PRN 09/14/20 Reported Lisinopril 20 Mg Tablet 1 Tab PO DAILY 09/14/20 Reported Fluoxetine Hcl 40 Mg Capsule 1 Cap PO QAM 09/14/20 Reported Clopidogrel (Clopidogrel Bisulfate) 75 Mg Tablet 1 Tab PO DAILY 09/14/20 Reported Alendronate Sodium 70 Mg Tablet 1 Tab PO WEEKLY 12/18/19 Reported Metoprolol Tartrate 25 Mg Tablet 1 Tab PO BID 12/18/19 Reported Aspirin Ec (Aspirin) 81 Mg Tablet. 81 Mg PO DAILYWBKFT 30 11/27/19 Rx Atorvastatin Calcium 40 Mg Tablet 40 Mg PO QHS 30 11/27/19 Rx Valium (Diazepam) 2 Mg Tablet 2 Mg PO BID PRN 03/23/18 Reported Cyclobenzaprine Hcl 10 Mg Tablet 1 Tab PO HS PRN 07/01/17 Reported Duoneb 0.5-3(2.5) Mg/3 Ml (Albuterol/Ipratropium) 3 Ml Ampul.neb 3 Ml NEB RTQID 30 06/04/16 Rx Impression . IMPRESSION: 1. Acute on chronic hypercapnic respiratory failure secondary to combination of acute exacerbation of chronic obstructive pulmonary disease and use of medications including diazepam and Flexeril. 2. Acute toxic encephalopathy, presenting as worsening confusion. She has multiple falls and generalized weakness. This is all related to the patient's worsening hypercapnia. 3. Acute bronchitis. No definite consolidation seen on the chest x-ray. Plan . 08/29 1. on nasal cannula during the day now on baseline 2.5 lpm cont BiPAP at nighttime. Avoid hyperoxia. keep sat 90% not higher 2. The patient would be a good candidate for Trilogy. She has home CPAP. dr deshpande asked human services case manager to get insurance approval. 3. Avoid oversedation 4. change Solu-Medrol to prednisone 40 mg daily w taper by 10 mg q 3d 5. Continue bronchodilators with DuoNeb. 6. DVT prophylaxis. 7. empiric antibiotic for acute bronchitis. Discussed with RN, RT . We will follow along with you. RENATO PERERA MD Aug 29, 2021 08:15
[2021-08-29] MEDS ORDERED: predniSONE 20 MG TABLET PO SCH (09:00)
[2021-08-29] MEDS: CHOLECALCIFEROL (VITAMIN D3) 1,000 UNIT TABLET PO SCH (09:00)
[2021-08-29] MEDS: SPIRONOLACTONE 25 MG TABLET PO SCH (09:23)
[2021-08-29] MEDS: ASPIRIN ENTERIC COATED 81 MG TABLET.DR. PO SCH (09:23)
[2021-08-29] MEDS: LACTOBACILLUS RHAMNOSUS GG 1 CAPSULE. PO SCH ×2 (09:23→22:27)
[2021-08-29] MEDS: DOXYCYCLINE HYCLATE 100 MG TABLET PO SCH ×2 (09:24→22:26)
[2021-08-29] MEDS: METOPROLOL TART IMMED RELEASE 25 MG TABLET. PO SCH ×2 (09:24→22:27)
[2021-08-29] MEDS: diazePAM 2 MG TABLET PO PRN ×2 (09:24→22:30)
[2021-08-29] MEDS: CLOPIDOGREL BISULFATE 75 MG TABLET PO SCH (09:24)
[2021-08-29] MEDS: LISINOPRIL 20 MG TABLET PO SCH (09:25)
[2021-08-29] MEDS: ENOXAPARIN 40 MG/0.4 ML SYRINGE. SQ SCH (10:00)
--- NOTE | 2021-08-29 10:13 | PDOC ---
Provider Note Date of Service: DATE: 08/29/21 TIME: 10:12 Provider Note vss, bp down, alert- will dc amlo now, repeat echo as last was 02/15- can dc if home bipap is confirmed Justifications for Admission Other Justification HECTOR MOBLEY MD Aug 29, 2021 10:13
[2021-08-29] MEDS: ATORVASTATIN CALCIUM 40 MG TABLET. PO SCH (22:27)
[2021-08-29] MEDS: traMADol 50 MG TABLET PO PRN (22:27)
[2021-08-29] MEDS: AMITRIPTYLINE HCL 10 MG TABLET. PO SCH (22:27)
[2021-08-30 02:50] VITALS: BP 119/60
[2021-08-30] MEDS: LEVOTHYROXINE 100 MCG TABLET PO SCH (06:02)
[2021-08-30 07:00] VITALS: BP 129/65
[2021-08-30] MEDS: BUDESONIDE 0.5 MG/2 ML NEBU. NEB SCH (07:10)
[2021-08-30] MEDS: IPRATRPIUM/ALBUTEROL 0.5/2.5MG 3 ML NEBU. NEB SCH ×2 (07:10→11:17)
--- NOTE | 2021-08-30 07:50 | PDOC ---
Provider Note Date of Service: DATE: 08/30/21 TIME: 07:49 Provider Note [id number] Justifications for Admission Other Justification HECTOR MOBLEY MD Aug 30, 2021 07:50
[2021-08-30] MEDS ORDERED: PERFLUTREN PROTEIN-A MICROSPHR 0.22 MG/ML 3 ML VIAL. IV ONE (08:00)
[2021-08-30] MEDS: ASPIRIN ENTERIC COATED 81 MG TABLET.DR. PO SCH (08:02)
[2021-08-30] MEDS: CLOPIDOGREL BISULFATE 75 MG TABLET PO SCH (08:03)
[2021-08-30] MEDS: SPIRONOLACTONE 25 MG TABLET PO SCH (08:04)
[2021-08-30] MEDS: METOPROLOL TART IMMED RELEASE 25 MG TABLET. PO SCH (08:05)
[2021-08-30] MEDS: CHOLECALCIFEROL (VITAMIN D3) 1,000 UNIT TABLET PO SCH (08:05)
[2021-08-30] MEDS: LISINOPRIL 20 MG TABLET PO SCH (08:06)
--- NOTE | 2021-08-30 08:26 | PDOC ---
PULMONARY PROGRESS NOTES DATE: 08/30/21 TIME: 08:26 Subjective alert denies sob on 02 on home 02 2.5 lpm no distress used bipap last night forgetful per rn Vitals Vital Signs Date Time Temp Pulse Resp B/P (MAP) Pulse Ox O2 Delivery O2 Flow Rate FiO2 08/30/21 08:06 62 129/63 08/30/21 07:11 99 Nasal Cannula 2.5 08/30/21 02:50 97.6 22 97.6 General: Alert, No acute distress, Confused HEENT: Other Lungs: Other Cardiovascular: S1, S2 Abdomen: Soft, Non-tender Extremities: No Edema Skin: Warm Medications Active Scripts Medications Dose Route/Sig Max Daily Dose Days Date Category Dose Instructions Incruse Ellipta (Umeclidinium [place]) 62.5 Mcg Blst.w.dev 62.5 Mcg IH DAILY 08/26/21 Reported Amitriptyline Hcl 10 Mg Tablet 10 Mg PO PRN DAILY PRN 08/26/21 Reported Lasix (Furosemide) 40 Mg Tablet 40 Mg PO PRN DAILY PRN 08/26/21 Reported Tramadol Hcl 50 Mg Tablet 50 Mg PO Q4HRS PRN 08/26/21 Reported Advair 100-50 Diskus (Fluticasone/Salmeterol) 1 Each Disk.w.dev 1 Puff IH BID 08/26/21 Reported Levothyroxine Sodium 100 Mcg Tablet 1 Tab PO DAILY 08/26/21 Reported Vitamin D3 (Vitamin D) 25 Mcg Tablet 25 Mcg PO DAILY 08/26/21 Reported 1,000 UNITS = 25 MCG Ibuprofen 800 Mg Tablet 1 Tab PO TID PRN 09/14/20 Reported Lisinopril 20 Mg Tablet 1 Tab PO DAILY 09/14/20 Reported Fluoxetine Hcl 40 Mg Capsule 1 Cap PO QAM 09/14/20 Reported Clopidogrel (Clopidogrel Bisulfate) 75 Mg Tablet 1 Tab PO DAILY 09/14/20 Reported Alendronate Sodium 70 Mg Tablet 1 Tab PO WEEKLY 12/18/19 Reported Metoprolol Tartrate 25 Mg Tablet 1 Tab PO BID 12/18/19 Reported Aspirin Ec (Aspirin) 81 Mg Tablet.dr 81 Mg PO DAILYWBKFT 30 11/27/19 Rx Atorvastatin Calcium 40 Mg Tablet 40 Mg PO QHS 30 11/27/19 Rx Valium (Diazepam) 2 Mg Tablet 2 Mg PO BID PRN 03/23/18 Reported Cyclobenzaprine Hcl 10 Mg Tablet 1 Tab PO HS PRN 07/01/17 Reported Duoneb 0.5-3(2.5) Mg/3 Ml (Albuterol/Ipratropium) 3 Ml Ampul.neb 3 Ml NEB RTQID 30 06/04/16 Rx Impression . IMPRESSION: 1. Acute on chronic hypercapnic respiratory failure secondary to combination of acute exacerbation of chronic obstructive pulmonary disease and use of medications including diazepam and Flexeril. 2. Acute toxic encephalopathy, presenting as worsening confusion. She has multiple falls and generalized weakness. This is all related to the patient's worsening hypercapnia. 3. Acute bronchitis. No definite consolidation seen on the chest x-ray. Plan . 08/29 1. on nasal cannula during the day now on baseline 2.5 lpm cont BiPAP at nighttime. Avoid hyperoxia. keep sat 90% not higher 2. The patient would be a good candidate for Trilogy. She has home CPAP. dr deshpande asked rn case management to get insurance approval. 3. Avoid oversedation 4. change Solu-Medrol to prednisone 40 mg daily w taper by 10 mg q 3d 5. Continue bronchodilators with DuoNeb. 6. DVT prophylaxis. 7. empiric antibiotic for acute bronchitis. Discussed with RN, RT . We will follow along with you. NAVI HENRY MD Aug 30, 2021 08:26
[2021-08-30] MEDS ORDERED: predniSONE 20 MG TABLET PO SCH (09:00)
[2021-08-30 11:00] VITALS: BP 107/57
[2021-08-30] MEDS ORDERED: SPIR25TA5 PO (11:12)
--- NOTE | 2021-08-30 15:23 | NUR ---
Discharge Note: FIDELIA KATZ J6 [facility] Discharge instructions and discharge home medications reviewed with Patient and a copy given. All questions have been answered and understanding verbalized. The following instructions and handouts were given: Follow up with primary care in 1-2 weeks Discontinued lines and drains: IV and heart monitor removed Patient discharged to home
--- NOTE | 2021-08-30 17:12 | CARD ---
MR#: [id number] Date of Study: 08/30/2021 Ordering Physician: HECTOR MOBLEY, Referring Physician: HECTOR MOBLEY Tech: Yandy Carlos RIA APPROVED REPORT EXAM: Two-dimensional and M-mode echocardiogram with Doppler and color Doppler. Other Information Quality : AverageHR: 58bpm Rhythm : NSR INDICATION COPD Cardiomyopathy RISK FACTORS Obesity 2D DIMENSIONS RVDd3.7 (2.9-3.5cm)Left Atrium(2D)3.8 (1.6-4.0cm) IVSd1.0 (0.7-1.1cm)Aortic Root(2D)2.2 (2.0-3.7cm) LVDd5.1 (3.9-5.9cm)LVOT Diameter2.1 (1.8-2.4cm) PWd1.0 (0.7-1.1cm)LVDs3.5 (2.5-4.0cm) FS (%) 32.2 %SV75.5 ml LVEF(%)60.0 (>50%) Aortic Valve AoV Peak Marvin.164.0cm/sAoV VTI27.9cm AO Peak GR.10.8mmHgLVOT Peak Marvin.118.2cm/s AO Mean GR.4mmHgAVA (VMAX)2.43cm2 Mitral Valve MV E Tsfpjati11.5cm/sMV DECEL OPPP958hq MV A Vpdwjrqv974.8cm/sE/A Ratio0.6 Pulmonary Valve PV Peak Ksuotgjc685.0cm/s Tricuspid Valve TR P. Qjpttfkg372km/sTR Peak Gr.20mmHg LEFT VENTRICLE The left ventricle is normal size. There is normal left ventricular wall thickness. Severe hypokinesi s of basal inferior wall. The ejection fraction is 40-45%. Transmitral Doppler flow pattern is Grade I-abnormal relaxation pattern. RIGHT VENTRICLE The right ventricle is normal size. There is normal right ventricular wall thickness. The right ventr icular systolic function is normal. ATRIA The left atrium size is normal. The right atrium size is normal. The interatrial septum is intact wit h no evidence for an atrial septal defect or patent foramen ovale as noted on 2-D or Doppler imaging. AORTIC VALVE The aortic valve is normal in structure and function. Doppler and Color Flow revealed mild aortic reg urgitation. There is no significant aortic valvular stenosis. MITRAL VALVE The mitral valve is normal in structure and function. There is no evidence of mitral valve prolapse. There is no mitral valve stenosis. Doppler and Color-flow revealed mild mitral regurgitation. TRICUSPID VALVE The tricuspid valve is normal in structure and function. Doppler and Color Flow revealed no tricuspid valve regurgitation noted. There is no tricuspid valve stenosis. PULMONIC VALVE The pulmonary valve is normal in structure and function. Doppler and Color Flow revealed no pulmonic valvular regurgitation. GREAT VESSELS The aortic root is normal in size. The ascending aorta is normal in size. The IVC is normal in size a nd collapses >50% with inspiration. PERICARDIAL EFFUSION There is no evidence of significant pericardial effusion. Critical Notification Critical Value: No <Conclusion> Severe hypokinesis of basal inferior wall. The ejection fraction is 40-45%. Transmitral Doppler flow pattern is Grade I-abnormal relaxation pattern. Mild aortic regurgitation. Mild mitral regurgitation. There is no evidence of significant pericardial effusion. Signed by : Dash Todd, Electronically Approved : 08/30/2021 17:11:33
--- NOTE | 2021-08-31 06:02 | DS ---
DATE OF DISCHARGE: 08/30/2021 HOSPITAL SUMMARY: A 66-year-old white female admitted with respiratory acidosis from apparently poor compliance with BiPAP. Her pH 7.28 with pCO2 of 93 and subsequently came down to 7.35 on BiPAP with pCO2 of 76, which is normal for her. The CBC, chemistry profile, BNP, urine drug screen were normal. Urine showed evidence of infection and culture grew out E. coli sensitive to all antibiotics tested and she was treated with doxycycline for this. Chest x-ray and CT scan were clear. She was given IV Solu-Medrol, respiratory treatments and with the use of BiPAP cleared her mental status very quickly and was able to be discharged today following confirmation of the BiPAP unit. She has ____ poor compliance ____ as per her and her 's history as well. FINAL DIAGNOSES: 1. Respiratory acidosis secondary to hypocapnia from poor compliance with home BiPAP. 2. Acute cystitis. 3. Anemia of chronic disease. OPERATIONS, PROCEDURES AND COMPLICATIONS: None. CONSULTATION: Dr. Rowley's group. DISPOSITION: No new medications except spironolactone 25 mg daily will be added to the cardiac medicines. She ____ had an echocardiogram done prior to discharge. Her last one being a year and a half ago and she had a reduced ejection fraction of about 35% with a history of coronary artery disease and stenting. PROGNOSIS: Guarded and certainly with poor compliance with BiPAP is very poor. CAROL/ALISHA/ASH DR: CAROL/jessica TID: [id number]
[2021-09-02] MEDS ORDERED: NON FORMULARY ITEM (Alendronate Sodium 1 TAB) PO SCH (09:00)
== END 2021-08-30 15:26 | disposition home or self-care (01) | DRG 189 ==
LOC: ER 10:40 → 6 SOUTH 12:20
PROVIDERS: ADMIT Family Medicine; ATTEND Family Medicine
PROC: 5A09357 Assistance with Respiratory Ventilation, Less than 24 Consecutive Hours, Continuous Positive Airway Pressure (ICD-10-PCS; principal; 2021-08-26)
PROC: 5A09357 Assistance with Respiratory Ventilation, Less than 24 Consecutive Hours, Continuous Positive Airway Pressure (ICD-10-PCS; 2021-08-27)
PROC: 5A09357 Assistance with Respiratory Ventilation, Less than 24 Consecutive Hours, Continuous Positive Airway Pressure (ICD-10-PCS; 2021-08-28)
PROC: 5A09357 Assistance with Respiratory Ventilation, Less than 24 Consecutive Hours, Continuous Positive Airway Pressure (ICD-10-PCS; 2021-08-29)
PROC: 5A09357 Assistance with Respiratory Ventilation, Less than 24 Consecutive Hours, Continuous Positive Airway Pressure (ICD-10-PCS; 2021-08-30)
DX: J96.21 Acute and chronic respiratory failure with hypoxia (principal); G92.9 Unspecified toxic encephalopathy; E87.2 Acidosis; J44.0 Chronic obstructive pulmonary disease with (acute) lower respiratory infection; J44.1 Chronic obstructive pulmonary disease with (acute) exacerbation; N30.00 Acute cystitis without hematuria; J96.22 Acute and chronic respiratory failure with hypercapnia; D63.8 Anemia in other chronic diseases classified elsewhere; E03.9 Hypothyroidism, unspecified; E78.00 Pure hypercholesterolemia, unspecified; E78.5 Hyperlipidemia, unspecified; G89.29 Other chronic pain; I25.10 Atherosclerotic heart disease of native coronary artery without angina pectoris; I48.91 Unspecified atrial fibrillation; J20.9 Acute bronchitis, unspecified; R29.6 Repeated falls; Z87.891 Personal history of nicotine dependence; Z91.19 Patient's noncompliance with other medical treatment and regimen; F32.A Depression, unspecified; Z88.5 Allergy status to narcotic agent; T42.4X5A Adverse effect of benzodiazepines, initial encounter; Y92.89 Other specified places as the place of occurrence of the external cause; B96.20 Unspecified Escherichia coli [E. coli] as the cause of diseases classified elsewhere
CPT/HCPCS: 36415; 36600; 70450; 71045; 80053; 80307; 81001; 82140; 82550; 82805; 83735; 83880; 84100; 84484; 85025; 85610; 85730; 87077; 87086; 87186; 93005; 93306; 94640; 94660; 94760; 96374; J1650; J2060; J2920; J2930; J7030; J7512; 99285-25; C8929; G0378; J7626